=== PATIENT | female | born 1955 | race Caucasian/White ===

== ENCOUNTER → 2019-12-26 08:10 | Outpatient (BNVA) | payer MEDICARE, SELFPAY | PROVIDERS: PCP Nurse Practitioner Family; Referring Provider Nurse Practitioner Family; Visit Provider Specialist | DX: G25.0 Essential tremor (principal); Z87.891 Personal history of nicotine dependence | CPT/HCPCS: 99204; 99214 ==

== ENCOUNTER 2020-03-29 11:22 | Outpatient (CLI) | payer MEDICARE, SELFPAY ==
--- NOTE | 2020-03-29 11:32 | XR_ITS ---
WS: [id number] RIGHT FOOT: 3 VIEW(S) TECHNIQUE: AP, oblique and lateral. HISTORY: FOOT Pain, right COMPARISON: None available. No acute fracture or dislocation. Normal tarsal/metatarsal alignment. No soft tissue abnormality or bone destruction. XR/XR foot RT min 3V* [id number] IMPRESSION: Normal RIGHT foot.
== END 2020-03-29 11:23 | disposition home or self-care (01) ==
LOC: RADWPI 11:25
PROVIDERS: PCP Nurse Practitioner Family; Visit Provider Nurse Practitioner Family
DX: M79.671 Pain in right foot (principal)
CPT/HCPCS: 73630

== ENCOUNTER → 2020-05-21 09:58 | Outpatient (BNVA) | payer MEDICARE, MEDICAID, SELFPAY | PROVIDERS: PCP Nurse Practitioner Family; Visit Provider Specialist | DX: G25.0 Essential tremor (principal) | CPT/HCPCS: 99213 ==

== ENCOUNTER 2020-06-11 12:49 | Outpatient (CLI) | payer MEDICARE, MEDICAID, SELFPAY ==
--- NOTE | 2020-06-11 12:55 | XR_ITS ---
WS: [id number] KNEE LEFT TECHNIQUE: 2 views of the left knee CLINICAL INFORMATION: KNEE PAIN, BILATERAL COMPARISON: None. FINDINGS: Moderate degenerative arthritis medial joint compartment. Hypertrophic changes along the joint line. Soft tissue edema. Moderate suprapatellar effusion. Hypertrophic patella. XR/XR knee LT 1-2V [id number] IMPRESSION: 1. Moderate degenerative arthritis medial joint compartment with hypertrophic patella. 2. Moderate suprapatellar effusion with soft tissue edema.
--- NOTE | 2020-06-11 12:55 | XR_ITS ---
WS: [id number] KNEE RIGHT TECHNIQUE: 2 views of the right knee CLINICAL INFORMATION: KNEE PAIN, BILATERAL COMPARISON: None. FINDINGS: Moderate degenerative arthritis medial joint compartment with hypertrophic changes along the joint li ne. Hypertrophic patella. Soft tissue edema. Moderate suprapatellar effusion. XR/XR knee RT 1-2V [id number] IMPRESSION: 1. Moderate joint space narrowing medial joint compartment with hypertrophic c hanges along the joint line. 2. Moderate suprapatellar effusion.
== END 2020-06-11 12:50 | disposition home or self-care (01) ==
LOC: RADWPI 12:53
PROVIDERS: Family Provider Nurse Practitioner Family; PCP Nurse Practitioner Family; Visit Provider Nurse Practitioner Family
DX: M17.12 Unilateral primary osteoarthritis, left knee; M25.462 Effusion, left knee; M25.461 Effusion, right knee
CPT/HCPCS: 73560

== ENCOUNTER 2020-09-17 09:39 | Outpatient (CLI) | payer MEDICARE, MEDICAID, SELFPAY ==
--- NOTE | 2020-09-17 09:55 | MM_ITS ---
WS: [id number] Bilateral screening digital mammogram, 09/17/2020 Clinical Data: SCREENING Comparison: 07/04/2019, 01/15/2016, 04/03/2014, 02/20/2008. Findings: The breast parenchymal pattern shows fat replacement. No spiculated masses or clustered calcification s are seen. There are no secondary signs of carcinoma. There is a mole marker on the right breast. MM/[place] [id number] Impression: 1. Negative bilateral mammogram unchanged. 2. Recommend annual screening mammograms. BIRADS: 1-Negative FOLLOW UP: 1 Year Follow-up The CAD cashier checker was used.
== END 2020-09-17 09:40 | disposition home or self-care (01) ==
LOC: RADSHAW 09:47
PROVIDERS: PCP Nurse Practitioner Family; Visit Provider Nurse Practitioner Family
DX: Z12.31 Encounter for screening mammogram for malignant neoplasm of breast (principal)
CPT/HCPCS: 77067

== ENCOUNTER → 2020-11-27 08:54 | Outpatient (BNVA) | payer MEDICARE, MEDICAID, SELFPAY | PROVIDERS: PCP Nurse Practitioner Family; Visit Provider Specialist | DX: G25.0 Essential tremor (principal); Q16.9 Congenital malformation of ear causing impairment of hearing, unspecified; Z87.891 Personal history of nicotine dependence | CPT/HCPCS: 99213 ==

== ENCOUNTER 2021-04-02 09:13 | Outpatient (CLI) | payer MEDICARE, MEDICAID, SELFPAY ==
--- NOTE | 2021-04-02 09:51 | XR_ITS ---
WS: [id number] Exam: XR skull min 4V* [id number] Date/Time of Exam: 04/02/2021 10:07 AM Reason For Exam: W19.XXXA - Unspecified fall, initial encounter No acute skull fracture. No osteolytic or osteoblastic disease noted. The sella turcica is not enlarg ed or eroded. A small ossified density is seen along the left frontoparietal outer table region most likely represents an osteoma. It has a benign appearance. XR/XR skull min 4V* [id number] IMPRESSION: 1. No indication of acute skull fracture or other significant finding.
--- NOTE | 2021-04-02 09:51 | XR_ITS ---
WS: [id number] Exam: XR elbow RT min 3V* [id number] Date/Time of Exam: 04/02/2021 10:07 AM Reason For Exam: W19.XXXA - Unspecified fall, initial encounter Findings: There are no fractures, soft tissue swelling, or calcifications. The elbow shows normal bony alignme nt. There is no irregularity of the bony architecture. XR/XR elbow RT min 3V* [id number] IMPRESSION: Negative right elbow.
--- NOTE | 2021-04-02 09:51 | XR_ITS ---
WS: [id number] Exam: XR knee RT 3V* [id number] Date/Time of Exam: 04/02/2021 10:07 AM Reason For Exam: W19.XXXA - Unspecified fall, initial encounter Comparison 06/11/2020. No acute fracture or dislocation. Small effusion in suprapatellar bursa. Advanced tricompartmental DJ D most severe involving the medial joint compartment with [id number]. Calcified loose joint bodies. Spurring of the posterior patella. Genu varum: XR/XR knee RT 3V* [id number] IMPRESSION: 1. No fracture or dislocation. 2. Advanced tricompartmental DJD. Small joint effusion.
== END 2021-04-02 09:14 | disposition home or self-care (01) ==
LOC: RAD 09:17
PROVIDERS: PCP Nurse Practitioner Family; Visit Provider Specialist
DX: S59.901A Unspecified injury of right elbow, initial encounter (principal); S09.90XA Unspecified injury of head, initial encounter; W19.XXXA Unspecified fall, initial encounter; M25.461 Effusion, right knee; M17.11 Unilateral primary osteoarthritis, right knee
CPT/HCPCS: 70260; 73080; 73562

== ENCOUNTER 2021-06-05 13:12 | Outpatient (CLI) | payer MEDICARE, MEDICAID, SELFPAY ==
--- NOTE | 2021-06-05 13:45 | MR_ITS ---
WS: [id number] MRI HEAD WITH CONTRAST WITH ATTENTION TO THE INTERNAL AUDITORY CANALS TECHNIQUE: Sagittal T1, T2 axial, T2 axial flair, axial susceptibility weighted imaging, axial diffus ion weighted images, and coronal T2 images were obtained. Pre and post T1 axial and post T1 coronal i mages. ADC and FSPGR images. Post gadolinium images with attention to the internal auditory canals. A xial fiesta imaging. CLINICAL INFORMATION: BILATERAL SENSORINEURAL HEARING LOSS COMPARISON: None. FINDINGS: No evidence of restricted diffusion to suggest acute ischemia. Ventricular system and basal cisterns are patent. Mild small vessel changes. Moderate parenchymal volume loss. Normal posterior fossa. Norm al vascular flow voids at the skull base. No extra-axial fluid collections. Partial opacification of the left mastoid air cells. Right mastoid air cells well aerated. Paranasal sinuses are well aerated. No hemosiderin on the susceptibly weighted images. Proximal 7th and 8th cranial nerves are normal in appearance. Normal trigeminal nerve root entry zones. No evidence of enhancing IAC or CP angle mass. Normal optic chiasm and pituitary infundibulum. Normal sella. Normal dural venous sinuses. No abnorma l intracranial enhancement. Small T2 hyperintense lesion along the inferior fourth ventricle at the dorsal medulla along the fora men of [place]. This measures approximately 5 x 4 mm. No abnormal gadolinium enhancement. 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 No evidence of obstructive hydrocephalus. MR/MR iac's wo/w con* [id number] IMPRESSION: 1. No evidence of restricted diffusion to suggest acute ischemia. 2. Mild small vessel changes with moderate parenchymal volume loss. 3. Proximal 7th and 8th cranial nerves are normal in appearance. No evidence o f enhancing IAC or CP angle mass. Normal trigeminal nerve root entry zones. 4. Partial opacification of the left mastoid air cells. Right mastoid air cell s well aerated. 5. Nonenhancing T2 hyperintense lesion measuring 5 x 3 mm along the dorsal med carmelo at the fourth ventricular outflow tract, foramen of [place]ie. This is typi steven for small subependymoma. No hydrocephalus. Recommend interval 6 month follo w-up MRI without and with gadolinium enhancement and neurosurgery consultation. 6. No other significant findings.
[2021-06-05 14:04] LABS: Blood Urea Nitrogen 23 mg/dL (8-23); Glomerular Filtration Rate 83.7 mL/min (90-130)
[2021-06-05] MEDS: gadobenate dimeglumine 20 mL vial IV (14:58)
== END 2021-06-05 13:13 | disposition home or self-care (01) ==
LOC: RADSHAW 13:18
PROVIDERS: PCP Nurse Practitioner Family; Visit Provider Specialist
DX: H90.3 Sensorineural hearing loss, bilateral (principal)
CPT/HCPCS: 36415; 70553; 82565; 84520; A9577

== ENCOUNTER 2021-06-05 18:17 | Emergency (ER) | payer MEDICARE, MEDICAID, SELFPAY ==
[2021-06-05 18:33] VITALS: BP 165/103; PULSE 73; RESP 16; TEMP 36.9; O2SAT 95; BMI 46.2
--- NOTE | 2021-06-05 23:38 | W.ED.ANIMALB ---
HPI - Animal Bite General: Chief Complaint: Animal Bite Stated Complaint: facial lacerations due to dog Time Seen by Provider: 06/05/21 23:34 Source: patient Mode of arrival: ambulatory Limitations: no limitations History of Present Illness: HPI narrative: 66-year-old female states that family dog is have cancer and actually plan to put down tomorrow. She states that she is in a lot of pain and she bent down to pet the dog and the dog bit her in the face they believe due to the dog's chronic pain. Patient has puncture wounds to the face no large lacerations. She rates her pain a 3 out of 10. Her tetanus was over 5 years ago. Associated symptoms: Deny chills, fever(s) or headache(s) Review of Systems Const: Denies: fever(s), chills, body aches or change in appetite Eyes: Denies: blurry vision or eye discomfort ENMT: Denies: throat pain or dental pain Card: Denies: chest pain Resp: Denies: dyspnea GI: Denies: abdominal pain, nausea, vomiting or diarrhea : Denies: dysuria Musc: Denies: neck pain or back pain Skin/Breast: Denies: rash Neuro: Denies: headache(s) Psych: Denies: depression Devin/Lymph: Denies: easy bruising All/Imm: Denies: urticaria PFSH ED PFSH: Social History Smoking and tobacco status: former smoker Quit status (tobacco): has quit using tobacco Year quit tobacco: 2014 Former quit date comment: 1 pack per day for 48 years Second hand smoke exposure: No Alcohol intake: never Lives independently: Yes Pets and animals: Yes Pets & animals: cat(s) History of recent travel: No Current gender identity: Female Special roxanne needs: No Physical Exam Const: COMMON NORMALS: no acute distress, patient oriented x3 and healthy appearing HENMT: COMMON NORMALS: normocephalic HEAD & SCALP: normocephalic OTHER: Puncture wound to nose and face with no large lacerations Eye: COMMON NORMALS: Equal, round and reactive pupils present and EOMs intact bilaterally PUPIL: Yes Equal, round and reactive pupils present Neck/C-Spine: COMMON NORMALS: full ROM and supple Chest: COMMONS NORMALS: normal inspection of the chest and normal palpation of entire chest wall Resp: COMMON NORMALS: normal respiratory effort, No retractions, No use of accessory muscles and clear to auscultation bilaterally AUSCULTATION: clear to auscultation bilaterally Cardio: COMMON NORMALS: regular rate, regular rhythm and No murmurs present (Cardio) RATE: regular rate RHYTHM: regular rhythm GI: COMMON NORMALS: Normal to inspection, nondistended, normoactive bowel sounds present, Soft to palpation, non-tender and no masses PALPATION: Yes Soft to palpation Extremity: COMMON NORMALS: normal to inspection and full ROM Neuro: COMMON NORMALS: patient oriented x3, moves all extremities and no focal motor deficits Psych: COMMON NORMALS: mental status grossly normal, Normal thought process present and cooperative THOUGHT PROCESS: Normal thought process present Skin: COMMON NORMALS: no rashes or lesions noted and no wounds GENERAL SKIN EXAM: no rashes or lesions noted Course Vital Signs: Vital signs: Vital Signs Temperature 98.5 F 06/05/21 18:33 Pulse Rate 73 06/05/21 18:33 Respiratory Rate 16 06/05/21 18:33 Blood Pressure 165/103 06/05/21 18:33 Pulse Oximetry 95 06/05/21 18:33 MDM - Animal Bite MDM Narrative: Medical decision making narrative: Patient presents here with dog bite to the face. She is not require any sutures. Dog is in possession and will be put down. Patient placed on Augmentin and did update her tetanus here. Discharge Plan Discharge Patient Disposition: Home Clinical Impression: Dog bite Condition: Stable Prescriptions: New hydrocodone-acetaminophen 5-325 mg tablet 1 tab PO Q6H PRN (Reason: pain) Qty: 14 RF: 0 Augmentin 875-125 mg tablet 1 tab PO BID Qty: 14 RF: 0 No Action diclofenac potassium 25 mg capsule 25 mg PO TID RF: 0 primidone 50 mg tablet See Rx Instructions .ROUTE BID Qty: 120 RF: 11 fluticasone propionate 50 mcg/actuation spray,suspension 2 spray INTRANASAL DAILY RF: 0 benzonatate 100 mg capsule 100 mg PO Q8H PRNRF: 0 gabapentin 100 mg capsule 100 mg PO TID RF: 0 metformin 500 mg tablet 500 mg PO BID RF: 0 levothyroxine 112 mcg capsule 112 mcg PO DAILY RF: 0 losartan 100 mg tablet 100 mg PO DAILY RF: 0 divalproex 250 mg tablet,delayed release (DR/EC) 250 mg PO ONCE RF: 0 escitalopram oxalate 10 mg tablet 10 mg PO DAILY RF: 0 bupropion HCl 150 mg tablet extended release 24 hr 300 mg PO QAM RF: 0 atorvastatin 20 mg tablet 20 mg PO DAILY RF: 0 Stiolto Respimat 2.5-2.5 mcg/actuation mist 2 puff INHALATION DAILY RF: 0 Discharge Orders: Discharge ED (Routine); Ordered 06/05/21 Ordered By: Heaven Ellison Referrals: Piero Pelaez NP [Primary Care Provider] - 1-3 days Discharge Diet: Advance as tolerated Discharge Activity: Resume usual activity Patient Instructions: Animal Bite (ED), Opioid Safety Coding Level of Care Code ED Teaching Supervisor for Ursula Grewal
[2021-06-06] MEDS: tetanus-dipt-pertussis 0.5 mL SDV IM (00:47)
[2021-06-06] MEDS: HYDROcodone-acetaminophen 5-325 mg Tablet 1 TAB PO (00:47)
[2021-06-06 01:13] VITALS: BP 140/86; PULSE 86; RESP 16; TEMP 36.6; O2SAT 98
== END 2021-06-06 01:19 | disposition home or self-care (01) ==
PROVIDERS: Emergency Provider Emergency Medicine; PCP Nurse Practitioner Family
DX: S01.23XA Puncture wound without foreign body of nose, initial encounter (principal); S01.83XA Puncture wound without foreign body of other part of head, initial encounter; Z87.891 Personal history of nicotine dependence; W54.0XXA Bitten by dog, initial encounter
CPT/HCPCS: 90471; 90715; 99283

== ENCOUNTER 2021-07-19 21:15 | Emergency (ER) | payer MEDICARE, MEDICAID, SELFPAY ==
[2021-07-19 21:26] VITALS: BP 139/85; PULSE 76; RESP 16; TEMP 37; O2SAT 98
--- NOTE | 2021-07-20 01:03 | W.ED.GENADLT ---
HPI - General Adult General: Chief complaint: General Medical Stated complaint: COVID+; bloody stool Time Seen by Provider: 07/20/21 01:02 History of Present Illness: HPI narrative: Ms. Wilson is a 66-year-old lady with significant past medical history of diabetes and recent diagnosis of Covid who presents the emergency department due to blood in stool. She reports a known history of hemorrhoids with rare episodes of bleeding in the past however earlier today noted that she had blood that filled the toilet bowl and she had clots when she wiped. There was no distinct discomfort associated with this bowel movement and she has not had abdominal pain. No infectious symptoms. She does report increased stool frequency with Covid. No lightheadedness, worsening chest pain, shortness of breath, or any other signs of hypovolemia. There are no specific exacerbating, alleviating, or provoking factors that she identifies. Review of Systems General: Reports: 10 or more systems reviewed and unremarkable except in HPI and below Narrative: CONSTITUTIONAL: Positive for fever, fatigue. EYES - denies pain, denies loss of vision EARS - denies ear issues. NOSE - denies congestion or rhinorrhea. THROAT - denies sore throat or difficulty swallowing. CARDIOVASCULAR - denies chest pain and palpitations RESPIRATORY -positive for shortness of breath and cough GASTROINTESTINAL -see HPI GENITOURINARY - denies dysuria or urinary frequency MUSCULOSKELETAL- denies deformity or pain SKIN - denies rashes or new changed skin lesions NEUROLOGIC - denies focal weakness or sensory changes HEMATOLOGIC/LYMPHATIC - denies easy bruising or lymphadenopathy. FORMERLY [facility], [facility]1983 ED PFSH: Social History Smoking and tobacco status: former smoker Quit status (tobacco): has quit using tobacco Year quit tobacco: 2014 Former quit date comment: 1 pack per day for 48 years Second hand smoke exposure: No Alcohol intake: never Lives independently: Yes Pets and animals: Yes Pets & animals: cat(s) History of recent travel: No Current gender identity: Female Special roxanne needs: No Physical Exam Narrative: EXAM NARRATIVE: GENERAL/CONSTITUTIONAL - well-appearing. No acute distress. Eyes - PERRL, no conjunctival injection ENMT - Atraumatic external nose and ears. Moist mucous membranes NECK - supple. trachea midline CARDIOVASCULAR - regular rate and rhythm. Peripheral pulses 2+ and equal RESPIRATORY -clear to auscultation bilaterally. No retractions or accessory muscle use. ABDOMEN/GI - Nontender/Nondistended. No tenderness to percussion or evidence of peritonitis RECTAL -performed with manager domestic present. Internal and external hemorrhoids appreciated, mild irritation. With rectal exam there is mild amount of red streaking appreciated on glove which may be secondary to hemorrhoid bleeding as opposed to true melena MSK - Extremities without obvious deformity or tenderness to palpation SKIN - Warm, Dry NEURO - alert and appropriately oriented. strength and sensation intact. Moves all extremities equally. PSYCH - Appropriate mood and affect Course ED course: - Patient was seen and evaluated by me at bedside - Patient placed on cardiac monitors, IV access obtained - Initial evaluation notable for no acute distress, nontoxic appearance. Benign abdominal exam - Labs notable for stable hemoglobin - Upon serial reexamination the patient was similar without vital sign abnormalities - Based on patient history, evaluation, labs, and imaging as interpreted the most likely cause of the patient's condition is GI bleeding likely secondary to hemorrhoids. In the context of benign abdominal exam, colonoscopy approximately 1 year ago, and absence of specific new infectious symptoms other etiologies are felt to be less likely - The results of ED evaluation were discussed with the patient including prescriptions and/or symptomatic cares (if applicable) including appropriate and responsible use, followup plan, and return precautions. The patient verbalized understanding and felt safe for discharge. - Patient discharged in satisfactory condition. Vital Signs: Vital signs: Vital Signs Temperature 98.6 F 07/19/21 21:26 Pulse Rate 85 07/20/21 03:55 Respiratory Rate 20 H 07/20/21 01:25 Blood Pressure 150/87 07/20/21 03:55 Pulse Oximetry 93 07/20/21 03:55 [facility] - General Adult Medical Records: Attestation: I reviewed the patient's medical records. Lab Data: Attestation: I reviewed the patient's lab results. Labs: Lab Results 07/20/21 07/20/21 07/20/21 Range/Units 01:46 01:46 02:10 WBC 7.4 (4.0-10.0) 10^3/ uL RBC 4.17 (4.1-5.3) 10^6/u L Hgb 12.8 (11.5-15.3) g/dL Hct 40.7 (37.0-47.0) % MCV 97.6 (81-99) fl MCH 30.7 (28.0-34.0) pg MCHC 31.4 (30.0-36.0) g/dL RDW 15.2 H (12.1-15.1) % Plt Count 210 (130-400) 10^3/c mm MPV 10.0 (7.4-10.4) fL Neut % (Auto) 64.6 % Lymph % (Auto) 21.9 % [place] % (Auto) 10.9 % Eos % (Auto) 1.5 % Baso % (Auto) 0.4 % Neut # (Auto) 4.80 (1.8-7.7) 10^3/u L Lymph # (Auto) 1.6 (0.8-4.8) 10^3/u L [place] # (Auto) 0.8 (0.2-0.9) 10^3/u L Eos # (Auto) 0.1 (0.0-0.8) 10^3/u L Baso # (Auto) 0.0 (0.0-0.1) 10^3/u L Nucleated RBC % (a uto) 0 % Nucleated RBCs # 0.0 /100WBC PT 12.70 (12.1-14.9) SECO NDS INR 0.93 (0.8-1.2) Sodium 140 (136-145) mmol/L Potassium 3.9 (3.5-5.1) mmol/L Chloride 98 (98-107) mmol/L Carbon Dioxide 31 H (22-29) mmol/L Anion Gap 14.9 (5-19) BUN 15 (8-23) mg/dL Creatinine 0.7 (0.5-0.9) mg/dL GFR Calculation 83.7 L (90-130) mL/min Glucose 112 (65-115) mg/dL Calculated Osmolal ity 292 (285-295) mOsm/k g Calcium 8.7 (8.5-10.5) mg/dL Total Bilirubin 0.2 (0.15-1.2) mg/dL AST 103 H (0-32) U/L ALT 158 H (0-33) U/L Alkaline Phosphata se 78 (35-105) IU/L Total Protein 6.5 L (6.6-8.7) g/dL Albumin 3.9 (3.5-5.2) g/dL Globulin 2.6 (1.3-4.6) g/dL Discharge Plan Discharge Patient Disposition: Home Clinical Impression: Bleeding hemorrhoids Condition: Stable Prescriptions: No Action diclofenac potassium 25 mg capsule 25 mg PO TID RF: 0 primidone 50 mg tablet See Rx Instructions .ROUTE BID Qty: 120 RF: 11 fluticasone propionate 50 mcg/actuation spray,suspension 2 spray INTRANASAL DAILY RF: 0 benzonatate 100 mg capsule 100 mg PO Q8H PRNRF: 0 gabapentin 100 mg capsule 100 mg PO TID RF: 0 metformin 500 mg tablet 500 mg PO BID RF: 0 levothyroxine 112 mcg capsule 112 mcg PO DAILY RF: 0 losartan 100 mg tablet 100 mg PO DAILY RF: 0 divalproex 250 mg tablet,delayed release (DR/EC) 250 mg PO ONCE RF: 0 escitalopram oxalate 10 mg tablet 10 mg PO DAILY RF: 0 bupropion HCl 150 mg tablet extended release 24 hr 300 mg PO QAM RF: 0 atorvastatin 20 mg tablet 20 mg PO DAILY RF: 0 Stiolto Respimat 2.5-2.5 mcg/actuation mist 2 puff INHALATION DAILY RF: 0 hydrocodone-acetaminophen 5-325 mg tablet 1 tab PO Q6H PRN (Reason: pain) Qty: 14 RF: 0 Augmentin 875-125 mg tablet 1 tab PO BID Qty: 14 RF: 0 Discharge Orders: Discharge ED (Routine); Ordered 07/20/21 Ordered By: Don Pena Referrals: Piero Pelaez NP [Primary Care Provider] - Discharge Diet: Usual diet Discharge Activity: Resume usual activity Patient Instructions: Rectal Bleeding (ED) Activity Restrictions/Additional Instructions: Thank you for visiting the emergency department. You were seen and evaluated for blood in stool. The exact cause of your symptoms is unclear though likely related to bleeding hemorrhoids. Please follow-up with your primary care provider. We recommend repeat blood work in 1 week, you were noted to have mild elevation in liver enzymes. Please return to the emergency department for lightheadedness, syncope, chest pain, shortness of breath, or anything else that you are concerned about and feel needs emergency department evaluation. Coding Level of Care Code ED Magneto Specialist for Ursula Grewal
[2021-07-20 01:25] VITALS: BP 125/94; PULSE 75; RESP 20; O2SAT 98
[2021-07-20 01:55] LABS: Basophils % 0.4 %; Eosinophils # 0.1 10^3/uL (0.0-0.8); Eosinophils % 1.5 %; Hematocrit 40.7 % (37.0-47.0); Hemoglobin 12.8 g/dL (11.5-15.3); Lymphocytes # 1.6 10^3/uL (0.8-4.8); Lymphocytes % 21.9 %; Mean Corpuscular HGB Conc 31.4 g/dL (30.0-36.0); Mean Corpuscular Hemoglobin 30.7 pg (28.0-34.0); Mean Corpuscular Volume 97.6 fl (81-99); Monocytes # 0.8 10^3/uL (0.2-0.9); Monocytes % 10.9 %; Neutrophils % 64.6 %; Nucleated Red Blood Cells % 0 %; Platelet Count 210 10^3/cmm (130-400); Red Blood Count 4.17 10^6/uL (4.1-5.3); Red Cell Distribution Width 15.2 % (12.1-15.1); White Blood Count 7.4 10^3/uL (4.0-10.0)
[2021-07-20 02:15] LABS: Alanine Aminotransferase 158 U/L (0-33); Albumin Level 3.9 g/dL (3.5-5.2); Alkaline Phosphatase 78 IU/L (35-105); Anion Gap 14.9 (5-19); Aspartate Amino Transferase 103 U/L (0-32); Blood Urea Nitrogen 15 mg/dL (8-23); Calcium 8.7 mg/dL (8.5-10.5); Carbon Dioxide 31 mmol/L (22-29); Chloride 98 mmol/L (98-107); Globulin 2.6 g/dL (1.3-4.6); Glomerular Filtration Rate 83.7 mL/min (90-130); Glucose 112 mg/dL (65-115); Osmolality Calculated 292 mOsm/kg (285-295); Potassium 3.9 mmol/L (3.5-5.1); Sodium 140 mmol/L (136-145); Total Bilirubin 0.2 mg/dL (0.15-1.2); Total Protein 6.5 g/dL (6.6-8.7)
[2021-07-20 02:25] LABS: INR 0.93 (0.8-1.2)
[2021-07-20 03:47] VITALS: BP 150/87; PULSE 85; O2SAT 91
[2021-07-20 03:55] VITALS: BP 150/87; PULSE 85; O2SAT 93
== END 2021-07-20 03:51 | disposition home or self-care (01) ==
PROVIDERS: Nurse Practitioner Family; Emergency Provider Emergency Medicine; PCP Nurse Practitioner Family
DX: K64.9 Unspecified hemorrhoids (principal); Z87.891 Personal history of nicotine dependence
CPT/HCPCS: 80053; 85025; 85610; 99283

== ENCOUNTER 2021-07-22 07:17 | Outpatient (CLI) | payer MEDICARE, MEDICAID, SELFPAY ==
[2021-07-22 07:50] VITALS: BP 121/66; PULSE 80; RESP 18; TEMP 36.9; O2SAT 95; BMI 46.0
[2021-07-22 08:19] VITALS: BP 99/60; PULSE 77; RESP 16; TEMP 37.1; O2SAT 91
[2021-07-22 09:19] VITALS: BP 109/76; PULSE 81; RESP 16; TEMP 36.9
[2021-07-22 09:20] VITALS: BP 109/76; PULSE 95; RESP 16; TEMP 37.1; O2SAT 95
== END 2021-07-22 09:21 | disposition home or self-care (01) ==
LOC: OPS 07:19
PROVIDERS: PCP Nurse Practitioner Family; Visit Provider Nurse Practitioner Family
DX: U07.1 COVID-19 (principal)
CPT/HCPCS: 96365

== ENCOUNTER 2021-07-22 15:21 | Inpatient (IN) | payer MEDICARE, MEDICAID, SELFPAY ==
[2021-07-22] VITALS (8 sets, daily range): BP systolic 115–156; BP diastolic 64–102; PULSE 83–112; RESP 17–28; TEMP 37.1–39.4; O2SAT 91–98; BMI 46.0
--- NOTE | 2021-07-22 15:31 | XR_ITS ---
WS: [id number] XR chest 1V portable [id number] REASON FOR EXAM: COVID dyspnea FINDINGS: Moderate tortuosity of the thoracic aorta without focal aneurysmal dilatation. The heart is mildly en larged. There is calcified granulomatous disease in both hemithoraces. Compared to previous examination 03/03/2019 there are somewhat subtle interstitial lung opacities in t he central lateral right lung field and left lung field. More prominent are interstitial opacities in the right lower lung. Bony thorax is intact. No other significant findings. XR/XR chest 1V portable [id number] IMPRESSION: Subtle interstitial opacities in both lungs but in view of the Covid history roscoe hurtado this represents early Covid pneumonitis.
--- NOTE | 2021-07-22 15:31 | ECG_ITS ---
[facility] Test Date: 2021-07-22 Pat Name: Ester Wilson Department: Room: Gender: Female Household Refrigeration Mechanic: : 1955 Requested By: Moises Hodge Order Number: [id number] Jose MD: Bharathi Vital M.D. Measurements Intervals [place] Rate: 100 P: 31 DE: 170 QRS: 11 QRSD: 90 T: 63 QT: 316 QTc: 408 Interpretive Statements SINUS TACHYCARDIA LOW QRS VOLTAGE IN PRECORDIAL LEADS [QRS DEFLECTION < 1.0 mV IN CHEST LEADS] POSSIBLE ANTERIOR MYOCARDIAL INFARCTION , PROBABLY OLD [30 ms Q WAVE IN V3/V4, OR R < 0.2 mV IN V4] ABNORMAL RHYTHM ECG No previous ECG available for comparison Electronically Signed On 07-22-2021 23:21:32 CDT by Bharathi Vital M.D. [email or web address]
--- NOTE | 2021-07-22 15:32 | CTR_ITS ---
PROCEDURE INFORMATION: Exam: CTA Chest With Contrast Exam date and time: 07/22/2021 3:32 PM Age: 66 years old Clinical indication: Cough and shortness of breath; Additional info: Covid/dyspnea TECHNIQUE: Imaging protocol: Computed tomographic angiography of the chest with contrast. 3D rendering (Not supervised by radiologist): MIP and/or 3D reconstructed images were created by the technologist. Radiation optimization: All CT scans at this facility use at least one of these dose optimization techniques: automated exposure control; mA and/or kV adjustment per patient size (includes targeted exams where dose is matched to clinical indication); or iterative reconstruction. Contrast material: OMNI 350; Contrast volume: 70 ml; Contrast route: INTRAVENOUS (IV); COMPARISON: CR XR chest 1V portable [id number] 07/22/2021 4:16 PM RADIATION DOSE METRICS: Total DLP (mGy-cm): 573.92 FINDINGS: Pulmonary arteries: Of note, there is suboptimal opacification of the pulmonary arteries and respiratory motion artifact. This limits evaluation of the segmental/subsegmental branches, no pulmonary embolism is seen centrally. Aorta: Unremarkable. No aortic aneurysm. No aortic dissection. Lungs: Patulous peripheral ground-glass consolidations throughout both lungs. Calcified granuloma in the right middle lobe. Pleural spaces: Unremarkable. No pneumothorax. No pleural effusion. Heart: Unremarkable. No cardiomegaly. No pericardial effusion. Lymph nodes: Unremarkable. No enlarged lymph nodes. Bones/joints: No acute fracture. Soft tissues: Unremarkable. CT/CT angio chest PE protcl [id number] IMPRESSION: 1. No evidence of pulmonary embolism within the limitation of the examination described above. 2. Patulous peripheral ground-glass opacities throughout the lungs consistent with COVID pneumonia. Radiation Dose CTDIVOL = (mGy): DLP = 573.92 (mGy-cm)
--- NOTE | 2021-07-22 15:33 | ED_ITS ---
HPI - COVID General: Chief Complaint: Shortness of Breath/Dyspnea Stated Complaint: COVID +/ REACTION TO INFUSION Time Seen by Provider: 07/22/21 15:23 History of Present Illness: HPI Narrative: 66-year-old female who started having Covid symptoms approximately 4 days ago tested +2 days ago and had monoclonal antibody infusion this morning. She did fine after the monoclonal antibody infusion this afternoon she suddenly became more short of breath started shaking her home oxygen was read and low 80s per the family. On arrival here she is on room air and is satting 84 to 86% although this improves with the addition of nasal cannula oxygen at 3 L/min. She is also having some mild chest discomfort. Initially she had some diarrhea with some anosmia that has resolved. She has not been on any other medications besides the monoclonal antibody. MD complaint: known COVID positive Prior testing date: 07/20/21 COVID 19 common symptoms: positive fever(s), chills, cough, non-productive cough, dyspnea, fatigue, body aches, headache(s), loss of sense of smell and/or taste, nasal congestion, nausea and diarrhea COVID 19 other sytmptoms: positive requiring oxygen; negative chest pain Onset (ago): day(s) (4) Severity: moderate Pertinent comorbid conditions: diabetes, hypertension, COPD/respiratory disease and obesity Treatment prior to arrival: monocloncal antibody COVID Results: No Data to Display Review of Systems Const: Reports: fever(s), chills, body aches and fatigue ENMT: Reports: nasal congestion Card: Denies: chest pain, edema, dyspnea on exertion or orthopnea Resp: Reports: dyspnea and non-productive cough GI: Reports: nausea and diarrhea : Denies: flank pain, difficulty voiding, dysuria, urinary frequency or urinary urgency Skin/Breast: Denies: rash or pruritus Neuro: Reports: headache(s) PFSH ED PFSH: Social History Smoking and tobacco status: former smoker Quit status (tobacco): has quit using tobacco Year quit tobacco: 2014 Former quit date comment: 1 pack per day for 48 years Second hand smoke exposure: No Alcohol intake: never Lives independently: Yes Pets and animals: Yes Pets & animals: cat(s) History of recent travel: No Current gender identity: Female Special roxanne needs: No Physical Exam Const: ORIENTATION/CONSCIOUSNESS: Yes oriented to person, Yes oriented to place and Yes oriented to time HENMT: COMMON NORMALS: normocephalic, atraumatic and hearing grossly normal bilaterally HEAD & SCALP: normocephalic and atraumatic Resp: AUSCULTATION: crackles and wheezes Cardio: COMMON NORMALS: regular rate, regular rhythm and No murmurs present (Cardio) RATE: regular rate RHYTHM: regular rhythm GI: COMMON NORMALS: Soft to palpation and No hepatosplenomegaly present AUSCULTATION: Yes normoactive bowel sounds PALPATION: Yes Soft to palpation, No Tenderness to palpation present (GI), No Guarding due to palpation present (GI) and Yes No hepatosplenomegaly present Extremity: COMMON NORMALS: normal to inspection, capillary refill normal, no c lubbing, cyanosis or edema, no calf tenderness and no pedal edema Neuro: SENSORIUM/ORIENTATION: Yes oriented to person, Yes oriented to place and Yes oriented to time Skin: COMMON NORMALS: no rashes or lesions noted GENERAL SKIN EXAM: no rashes or lesions noted Course Vital Signs: Vital signs: Vital Signs Temperature 102.9 F H 07/22/21 16:36 Pulse Rate 112 H 07/22/21 17:49 Respiratory Rate 27 H 07/22/21 17:49 Blood Pressure 147/79 07/22/21 17:49 Pulse Oximetry 94 07/22/21 17:49 MDM - COVID MDM Narrative: Medical decision making narrative: Labs and imaging reviewed on the chart. discussed with the hospitalist were going to admit for Covid pneumonia very concerned with her rapid deterioration this afternoon from this morning now requiring oxygen spiking a fever and having a very sudden distinct onset. Despite her D-dimer being low we are doing a CTA of the chest because of her presenting symptoms. Orders written. Lab Data: Labs: Lab Results 07/22/21 07/22/21 07/22/21 Range/Units 15:45 15:45 15:45 WBC 7.5 (4.0-10.0) 10^3/ uL RBC 4.31 (4.1-5.3) 10^6/u L Hgb 13.3 (11.5-15.3) g/dL Hct 40.1 (37.0-47.0) % MCV 93.0 (81-99) fl MCH 30.9 (28.0-34.0) pg MCHC 33.2 (30.0-36.0) g/dL RDW 15.5 H (12.1-15.1) % Plt Count 175 (130-400) 10^3/c mm MPV 9.8 (7.4-10.4) fL Neut % (Auto) 73.0 % Lymph % (Auto) 19.5 % [place] % (Auto) 6.4 % Eos % (Auto) 0.1 % Baso % (Auto) 0.3 % Neut # (Auto) 5.48 (1.8-7.7) 10^3/u L Lymph # (Auto) 1.5 (0.8-4.8) 10^3/u L [place] # (Auto) 0.5 (0.2-0.9) 10^3/u L Eos # (Auto) 0.0 (0.0-0.8) 10^3/u L Baso # (Auto) 0.0 (0.0-0.1) 10^3/u L Nucleated RBC % (a uto) 0 % Nucleated RBCs # 0.0 /100WBC D-Dimer 0.45 (0-0.59) ug/mIFE U Specimen Type Arterial Sample Site Radial, left ABG pH 7.46 H (7.35-7.45) ABG pCO2 37.8 (35-45) mmHg ABG pO2 76.2 L (80.0-100.0) mmH g ABG HCO3 27.1 H (22-26) mmol/L ABG Base Excess 3.2 H (-2.0-2.0) mmol/ L Eugenio Test Pos Hematocrit 40.8 (37-47) % O2 Delivery Device Nc O2 Liters/Min 3.0 % Slab Off Mill Tender ID [id number] Sodium (136-145) mmol/L Potassium (3.5-5.1) mmol/L Chloride (98-107) mmol/L Carbon Dioxide (22-29) mmol/L Anion Gap (5-19) BUN (8-23) mg/dL Creatinine (0.5-0.9) mg/dL GFR Calculation (90-130) mL/min Glucose (65-115) mg/dL Calculated Osmolal ity (285-295) mOsm/k g Lactic Acid (0.5-2.2) mmol/L Calcium (8.5-10.5) mg/dL Total Bilirubin (0.15-1.2) mg/dL AST (0-32) U/L ALT (0-33) U/L Alkaline Phosphata se (35-105) IU/L C-Reactive Protein (0.0-4.9) mg/L Total Protein (6.6-8.7) g/dL Albumin (3.5-5.2) g/dL Globulin (1.3-4.6) g/dL Procalcitonin (0-0.5) ng/mL 07/22/21 07/22/21 Range/Units 15:45 15:45 WBC (4.0-10.0) 10^3/ uL RBC (4.1-5.3) 10^6/u L Hgb (11.5-15.3) g/dL Hct (37.0-47.0) % MCV (81-99) fl MCH (28.0-34.0) pg MCHC (30.0-36.0) g/dL RDW (12.1-15.1) % Plt Count (130-400) 10^3/c mm MPV (7.4-10.4) fL Neut % (Auto) % Lymph % (Auto) % [place] % (Auto) % Eos % (Auto) % Baso % (Auto) % Neut # (Auto) (1.8-7.7) 10^3/u L Lymph # (Auto) (0.8-4.8) 10^3/u L [place] # (Auto) (0.2-0.9) 10^3/u L Eos # (Auto) (0.0-0.8) 10^3/u L Baso # (Auto) (0.0-0.1) 10^3/u L Nucleated RBC % (a uto) % Nucleated RBCs # /100WBC D-Dimer (0-0.59) ug/mIFE U Specimen Type Sample Site ABG pH (7.35-7.45) ABG pCO2 (35-45) mmHg ABG pO2 (80.0-100.0) mmH g ABG HCO3 (22-26) mmol/L ABG Base Excess (-2.0-2.0) mmol/ L Eugenio Test Hematocrit (37-47) % O2 Delivery Device O2 Liters/Min % Slab Off Mill Tender ID Sodium 138 (136-145) mmol/L Potassium 4.1 (3.5-5.1) mmol/L Chloride 95 L (98-107) mmol/L Carbon Dioxide 26 (22-29) mmol/L Anion Gap 21.1 H (5-19) BUN 15 (8-23) mg/dL Creatinine 0.7 (0.5-0.9) mg/dL GFR Calculation 83.7 L (90-130) mL/min Glucose 150 H (65-115) mg/dL Calculated Osmolal ity 290 (285-295) mOsm/k g Lactic Acid 3.1 H (0.5-2.2) mmol/L Calcium 9.1 (8.5-10.5) mg/dL Total Bilirubin 0.4 (0.15-1.2) mg/dL AST 83 H (0-32) U/L ALT 143 H (0-33) U/L Alkaline Phosphata se 77 (35-105) IU/L C-Reactive Protein 72.9 H (0.0-4.9) mg/L Total Protein 6.2 L (6.6-8.7) g/dL Albumin 3.9 (3.5-5.2) g/dL Globulin 2.3 (1.3-4.6) g/dL Procalcitonin 0.09 (0-0.5) ng/mL COVID Results: No Data to Display Discharge Plan Discharge Patient Disposition: Admitted As Inpatient Clinical Impression: COVID-19 Condition: Stable Coding Level of Care Code ED Internal Review And Audit Compliance for g Fwd Exam Detailed
[2021-07-22 15:55] LABS: ABG PCO2 37.8 mmHg (35-45); ABG PH Result 7.46 (7.35-7.45); Arterial Blood Gas Hematocrit 40.8 % (37-47); Base Excess ABG 3.2 mmol/L (-2.0-2.0); Blood Gas Allen Test Pos; Blood Gas Sample Site Radial, left; Blood Gas Sample Type Arterial; HCO3 ABG 27.1 mmol/L (22-26); Oxygen Device NC; PO2 ABG 76.2 mmHg (80.0-100.0)
[2021-07-22 16:03] LABS: Basophils % 0.3 %; Eosinophils % 0.1 %; Hematocrit 40.1 % (37.0-47.0); Hemoglobin 13.3 g/dL (11.5-15.3); Lymphocytes # 1.5 10^3/uL (0.8-4.8); Lymphocytes % 19.5 %; Mean Corpuscular HGB Conc 33.2 g/dL (30.0-36.0); Mean Corpuscular Hemoglobin 30.9 pg (28.0-34.0); Mean Platelet Volume 9.8 fL (7.4-10.4); Monocytes # 0.5 10^3/uL (0.2-0.9); Monocytes % 6.4 %; Neutrophils # 5.48 10^3/uL (1.8-7.7); Nucleated Red Blood Cells % 0 %; Platelet Count 175 10^3/cmm (130-400); Red Blood Count 4.31 10^6/uL (4.1-5.3); Red Cell Distribution Width 15.5 % (12.1-15.1); White Blood Count 7.5 10^3/uL (4.0-10.0)
[2021-07-22 16:20] LABS: D Dimer 0.45 ug/mIFEU (0-0.59)
[2021-07-22 16:26] LABS: Lactic Sepsis W/Reflex 3.1 mmol/L (0.5-2.2)
[2021-07-22 16:37] LABS: Procalcitonin 0.09 ng/mL (0-0.5)
[2021-07-22] MEDS: levofloxacin-dextrose 5 % 750 MG/150 ML PREMIX 100 MG IV (16:48)
[2021-07-22 16:52] LABS: Alanine Aminotransferase 143 U/L (0-33); Albumin Level 3.9 g/dL (3.5-5.2); Alkaline Phosphatase 77 IU/L (35-105); Blood Urea Nitrogen 15 mg/dL (8-23); C Reactive Protein 72.9 mg/L (0.0-4.9); Calcium 9.1 mg/dL (8.5-10.5); Carbon Dioxide 26 mmol/L (22-29); Chloride 95 mmol/L (98-107); Globulin 2.3 g/dL (1.3-4.6); Glomerular Filtration Rate 83.7 mL/min (90-130); Glucose 150 mg/dL (65-115); Osmolality Calculated 290 mOsm/kg (285-295); Sodium 138 mmol/L (136-145); Total Bilirubin 0.4 mg/dL (0.15-1.2); Total Protein 6.2 g/dL (6.6-8.7)
[2021-07-22 16:53] LABS: Anion Gap 21.1 (5-19); Aspartate Amino Transferase 83 U/L (0-32); Potassium 4.1 mmol/L (3.5-5.1)
[2021-07-22] MEDS: iohexol 350 mg/mL 100 mL Btl IV (17:24)
[2021-07-22] MEDS: dexamethasone 10 mg/mL INJ 6 MG IVP (17:31)
[2021-07-22] MEDS: remdesivir 200 MG in sodium chloride 0.9% (100 ml) 60 ML 100 MG IV (17:31)
[2021-07-22 17:47] LABS: Reflex Lactate Order REFLEX LACTIC ORDERD
[2021-07-22] MEDS: acetaminophen 500 mg Tablet 1000 MG PO (17:48)
--- NOTE | 2021-07-22 19:28 | P.HP_ITS ---
Providers/Chief Complaint Admitting Physician: Musa Chi MD Primary Care Provider: Piero Pelaez NP Chief Complaint: COVID +/ REACTION TO INFUSION History of Present Illness Ester Wilson is a 66 year old female with PMH of DM , HTN ,Obesity, COPD came in with c/o SOB as well as Fever.Patient was recently ( Wednesday ) diagnosed with breakthrough COVID -19 Infection after being fully vaccinated with J&J Vaccine. She had monoclonal antibody infusion this morning. She did fine after the monoclonal antibody infusion this afternoon she suddenly became more short of breath started shaking her home oxygen was read and low 80s per the family. On arrival here she is on room air and is satting 84 to 86% although this improves with the addition of nasal cannula oxygen at 3 L/min. Upon arrival in the ER She was worked up for above mention complain. Imaging studies: CTA Chest : No evidence of pulmonary embolism. Patulous peripheral ground-glass opacities throughout the lungs consistent with COVID pneumonia. Pertinent Labs : Review of Systems Const: Denies: change in appetite or diaphoresis Card: Denies: palpitations, edema or swelling of feet/ankles Resp: Denies: productive cough, wheezing or pain on inspiration GI: Denies: abdominal pain, nausea, vomiting, diarrhea or constipation : Denies: flank pain Musc: Denies: back pain, extremity pain or extremity swelling Neuro: Denies: headache(s), difficulty walking or confusion Medications/Allergies Home Medications Medication Instructions Recorded Confirmed Last Taken Type divalproex 250 mg tablet,delayed 250 mg PO DAILY tab 12/26/19 07/22/21 07/22/21 History release escitalopram oxalate 10 mg tablet 10 mg PO DAILY 12/26/19 07/22/21 07/22/21 History fluticasone propionate 50 2 spray INTRANASAL DAILY 12/26/19 07/22/21 07/22/21 History mcg/actuation nasal spray,suspension gabapentin 100 mg capsule 100 mg PO TID 12/26/19 07/22/21 07/22/21 History metformin 500 mg tablet 500 mg PO BID 12/26/19 07/22/21 07/22/21 History tiotropium 2.5 mcg-olodaterol 2.5 2 puff INHALATION DAILY 12/26/19 07/22/21 07/22/21 History mcg/actuation mist for inhalation diclofenac potassium 25 mg capsule 50 mg PO TID 11/27/20 07/22/21 07/22/21 History hydrocodone-acetaminophen 1 tab PO Q6H PRN #14 tab 06/05/21 07/22/21 Unknown Rx atorvastatin 40 mg PO DAILY 07/22/21 07/22/21 07/21/21 History bupropion HCl 100 mg PO BID 07/22/21 07/22/21 07/22/21 History ketoconazole 1 ea TOPICAL Q3D 07/22/21 07/22/21 Unknown History latanoprost 1 drp OPHTHALMIC (EYE) DAILY 07/22/21 07/22/21 07/22/21 History levothyroxine 88 mcg PO DAILY 07/22/21 07/22/21 07/22/21 History losartan-hydrochlorothiazide 1 tab PO DAILY 07/22/21 07/22/21 07/22/21 History multivitamin 1 tab PO DAILY 07/22/21 07/22/21 07/22/21 History primidone 50 mg PO BID 07/22/21 07/22/21 07/22/21 History Allergies Allergy/AdvReac Type Severity Reaction Status Date / Time azithromycin Allergy hives/ GI Verified 04/02/21 07:55 upset tramadol AdvReac hives Verified 04/02/21 07:55 PFSH Acute PFSH: Medical History (Updated 07/22/21 @ 23:26 by Musa Chi MD) Hypertension Social History Smoking and tobacco status: former smoker Quit status (tobacco): has quit using tobacco Year quit tobacco: 2014 Former quit date comment: 1 pack per day for 48 years Second hand smoke exposure: No Alcohol intake: never Lives independently: Yes Pets and animals: Yes Pets & animals: cat(s) History of recent travel: No Current gender identity: Female Special roxanne needs: No Vitals/I&O/Wt Last Vital Signs Temp 102.9 F H 07/22/21 16:36 Pulse 110 H 07/22/21 18:22 Resp 20 H 07/22/21 18:22 BP 124/82 07/22/21 18:22 Pulse Ox 93 07/22/21 18:22 07/22/21 07/22/21 07/22/21 06:59 14:59 22:59 Intake Total 210 / 210 Balance 210 / 210 Weight last 48 hrs Weight 125.645 kg Physical Exam Const: COMMON NORMALS: patient oriented x3 HENMT: COMMON NORMALS: normocephalic and atraumatic HEAD & SCALP: normoc ephalic and atraumatic Resp: COMMON NORMALS: clear to auscultation bilaterally AUSCULTATION: clear to auscultation bilaterally Cardio: COMMON NORMALS: regular rate, regular rhythm, S1 normal heart sound present, S2 normal heart sound present, No gallops present (Cardio), No murmurs present (Cardio), No rub (Cardio) and Peripheral pulses 2+ throughout RATE: regular rate RHYTHM: regular rhythm HEART SOUNDS: S1 normal heart sound present and S2 normal heart sound present PERIPHERAL PULSES: Peripheral pulses 2+ throughout GI: COMMON NORMALS: Normal to inspection, nondistended, normoactive bowel sounds present, Soft to palpation, non-tender, No hepatosplenomegaly present and no masses AUSCULTATION: Yes normoactive bowel sounds PALPATION: Yes Soft to palpation and Yes No hepatosplenomegaly present RECTAL EXAM: deferred Extremity: COMMON NORMALS: no clubbing, cyanosis or edema and no pedal edema Neuro: COMMON NORMALS: patient oriented x3 Data : 07/22/21 15:45 07/22/21 15:45 Micro: Microbiology 07/22/21 15:50 Blood Culture - Preliminary Blood SPECIMEN COLLECTED 07/22/21 15:45 Blood Culture - Preliminary Blood SPECIMEN COLLECTED A&P Assessment and plan (1) Pneumonia due to COVID-19 virus: On COVID Protocol Follow Blood Culture Sputum Culture Repeat Lactic acid Procalcitonin MRSA PCR Urine legionella antigen Bacterial Antigen panel Vancomycin Ceftriaxone Status: Acute (2) Hypertension: Status: Acute (3) Diabetes: Status: Acute (4) COPD (chronic obstructive pulmonary disease): Status: Acute Additional A&P Information Code Status :Full code DVT PPX:On Lovenox Attestations Medical Necessity Statement*: Patient needs to be in hospital for the management of COVID PNA.Anticipated LOS Greater then 2 midnights. Coding Level of Care Code Acute Deliver Driver for [facility] Fwd Diagnoses Pneumonia due to COVID-19 virus U07.1; J12.82 Hypertension I10 Diabetes E11.9 COPD (chronic obstructive pulmonary disease) J44.9
[2021-07-22 19:35] LABS: Glucose Point of Care 217 mg/dL (70-110)
[2021-07-22] MEDS: enoxaparin 40 mg/0.4 mL Syringe SUBCUT (20:12)
[2021-07-22] MEDS: gabapentin 100 mg Capsule PO (20:13)
[2021-07-22] MEDS: cefTRIAXone 1,000 MG in sodium chloride 0.9% (plus) 50 ML 100 MG IV (20:34)
--- NOTE | 2021-07-22 20:35 | PC.PHAR ---
Vancomycin is dosed at 1gm IVPB every 8 hours to produce a predicted trough level of 17.89 (population based pharmacokinetic analysis). A trough level has been ordered from the lab to be obtained before the fourth dose to confirm and adjust if needed.
[2021-07-22 20:54] LABS: Lactic Acid level (Lactate) 2.6 mmol/L (0.5-2.2)
[2021-07-22] MEDS: vancomycin 1,000 MG in sodium chloride 0.9% 250 ML 250 MG IV (22:22)
[2021-07-23] VITALS (8 sets, daily range): BP systolic 130–155; BP diastolic 57–92; PULSE 62–89; RESP 18–24; TEMP 36.7–37.1; O2SAT 84–96
[2021-07-23] MEDS: vancomycin 1,000 MG in sodium chloride 0.9% 250 ML 250 MG IV ×2 (05:28→12:33)
[2021-07-23 05:38] LABS: Basophils % 0.1 %; Hematocrit 37.5 % (37.0-47.0); Lymphocytes # 1.4 10^3/uL (0.8-4.8); Lymphocytes % 13.6 %; Mean Corpuscular Hemoglobin 30.7 pg (28.0-34.0); Mean Corpuscular Volume 95.9 fl (81-99); Mean Platelet Volume 10.2 fL (7.4-10.4); Monocytes # 0.8 10^3/uL (0.2-0.9); Monocytes % 7.3 %; Neutrophils # 8.17 10^3/uL (1.8-7.7); Neutrophils % 78.4 %; Nucleated Red Blood Cells % 0 %; Platelet Count 182 10^3/cmm (130-400); Red Blood Count 3.91 10^6/uL (4.1-5.3); Red Cell Distribution Width 15.3 % (12.1-15.1); White Blood Count 10.4 10^3/uL (4.0-10.0)
[2021-07-23 05:55] LABS: Lactate (Lactic Acid level) 1.4 mmol/L (0.5-2.2)
[2021-07-23 05:59] LABS: Alanine Aminotransferase 111 U/L (0-33); Albumin Level 3.3 g/dL (3.5-5.2); Alkaline Phosphatase 67 IU/L (35-105); Anion Gap 14.2 (5-19); Aspartate Amino Transferase 55 U/L (0-32); Blood Urea Nitrogen 17 mg/dL (8-23); Calcium 9.3 mg/dL (8.5-10.5); Carbon Dioxide 31 mmol/L (22-29); Chloride 96 mmol/L (98-107); Glucose 160 mg/dL (65-115); Osmolality Calculated 289 mOsm/kg (285-295); Potassium 4.2 mmol/L (3.5-5.1); Sodium 137 mmol/L (136-145); Total Bilirubin 0.2 mg/dL (0.15-1.2); Total Protein 6.3 g/dL (6.6-8.7)
[2021-07-23 06:45] LABS: Glucose Point of Care 179 mg/dL (70-110)
[2021-07-23 07:53] LABS: Glucose Point of Care 159 mg/dL (70-110)
[2021-07-23] MEDS: latanoprost 0.005% Op Soln 2.5 mL Btl 1 DROP EYE-BOTH (09:34)
[2021-07-23] MEDS: fluticasone nasal spray 16gm Btl 2 SPRAY INTRANASAL (09:35)
[2021-07-23] MEDS: levothyroxine 88 mcg Tablet PO (09:35)
[2021-07-23] MEDS: gabapentin 100 mg Capsule PO ×3 (09:35→20:35)
[2021-07-23] MEDS: divalproex DR 250 mg Tablet PO (09:35)
[2021-07-23] MEDS: multivitamin therapeutic Tablet 1 TAB PO (09:36)
[2021-07-23] MEDS: atorvastatin 40 mg Tablet PO (09:36)
[2021-07-23] MEDS: primidone 50 mg Tablet PO ×2 (09:36→17:52)
[2021-07-23] MEDS: buPROPion SR (12 HR) 100 mg Tablet PO ×2 (09:36→17:52)
[2021-07-23] MEDS: escitalopram 10 mg Tablet PO (09:36)
[2021-07-23] MEDS: ascorbic acid 500 mg Tablet 1000 MG PO ×2 (09:36→17:52)
[2021-07-23] MEDS: zinc gluconate 50 mg Tablet PO (09:36)
--- NOTE | 2021-07-23 09:57 | PC.RESP ---
RT Shift Note Frequent safety and respiratory rounds continue. Orders completed as indicated. Patient monitored pre and post treatments throughout shift. Patient [Did.] tolerate treatments appropriately. Condition .DidNotChange]. Patient and/or collections representative educated on respiratory treatment and medications. Patient and/or collections representative [verbalized understanding]. Will continue to monitor patient progress.
[2021-07-23 11:51] LABS: Glucose Point of Care 212 mg/dL (70-110)
--- NOTE | 2021-07-23 13:16 | P.PN_ITS ---
Subjective Subjective: Interval history: Patient was seen and examined this morning, shortness of breath is improved, complaining of minimal shortness of breath with exertion, has remained afebrile in the last 12 hours. Other vitals and labs have been reviewed Medications: Reviewed: Yes Vitals/I&O/Wt Last Vital Signs Temp 98.1 F 07/23/21 11:48 Pulse 77 07/23/21 11:48 Resp 20 H 07/23/21 11:48 BP 130/57 07/23/21 07:00 Pulse Ox 92 07/23/21 11:48 07/22/21 07/23/21 07/23/21 22:59 06:59 14:59 Intake Total 260 / 260 370 / 630 490 / 490 Balance 260 / 260 370 / 630 490 / 490 Weight last 48 hrs Weight 125.645 kg Weight 125.645 kg Physical Exam Const: COMMON NORMALS: patient oriented x3 HENMT: COMMON NORMALS: normocephalic and atraumatic HEAD & SCALP: normocephalic and atraumatic Resp: COMMON NORMALS: clear to auscultation bilaterally AUSCULTATION: clear to auscultation bilaterally Cardio: COMMON NORMALS: regular rate, regular rhythm, S1 normal heart sound present, S2 normal heart sound present, No gallops present (Cardio), No murmurs present (Cardio), No rub (Cardio) and Peripheral pulses 2+ throughout RATE: regular rate RHYTHM: regular rhythm HEART SOUNDS: S1 normal heart sound present and S2 normal heart sound present PERIPHERAL PULSES: Peripheral pulses 2+ throughout GI: COMMON NORMALS: Normal to inspection, nondistended, normoactive bowel sounds present, Soft to palpation, non-tender, No hepatosplenomegaly present and no masses AUSCULTATION: Yes normoactive bowel sounds PALPATION: Yes Soft to palpation and Yes No hepatosplenomegaly present RECTAL EXAM: deferred Extremity: COMMON NORMALS: no clubbing, cyanosis or edema and no pedal edema Neuro: COMMON NORMALS: patient oriented x3 Data : 07/23/21 05:29 07/23/21 05:29 Micro: Microbiology 07/22/21 15:50 Blood Culture - Preliminary Blood SPECIMEN COLLECTED 07/22/21 15:45 Blood Culture - Preliminary Blood SPECIMEN COLLECTED A&P Assessment and plan (1) Pneumonia due to COVID-19 virus: On COVID Protocol (remdesivir, dexamethasone) D-dimer CRP LDH Ferritin ESR Blood Culture :NTD Sputum Culture : Repeat Lactic acid :Normal Procalcitonin : 0.09 MRSA PCR : Negative Urine legionella antigen Bacterial Antigen panel Initially on Vancomycin Ceftriaxone 1 g every 24 hours Status: Acute (2) Hypertension: Status: Acute (3) Diabetes: Low-dose sliding scale insulin Monitor fingerstick glucose Carbohydrate consistent diet Status: Acute (4) COPD (chronic obstructive pulmonary disease): Status: Acute (5) Hypothyroidism: Status: Acute Additional A&P Information Code Status :Full code DVT PPX:On Lovenox Attestations Medical Necessity Statement*: Patient needs to be in hospital for management of Covid pneumonia. Coding Level of Care Code Acute Network Operations Technician for [facility] Fwd Diagnoses Pneumonia due to COVID-19 virus U07.1; J12.82 Hypertension I10 Diabetes E11.9 COPD (chronic obstructive pulmonary disease) J44.9 Hypothyroidism E03.9
[2021-07-23 17:47] LABS: Glucose Point of Care 163 mg/dL (70-110)
[2021-07-23] MEDS: remdesivir 100 MG in sodium chloride 0.9% (100 ml) 80 ML IV (17:51)
[2021-07-23] MEDS: enoxaparin 40 mg/0.4 mL Syringe SUBCUT (18:28)
[2021-07-23] MEDS: cefTRIAXone 1,000 MG in sodium chloride 0.9% (plus) 50 ML 100 MG IV (18:28)
[2021-07-23] MEDS: dexamethasone 4 mg/mL INJ 6 MG IVP (18:28)
[2021-07-23 21:49] LABS: Glucose Point of Care 190 mg/dL (70-110)
[2021-07-24] VITALS (7 sets, daily range): BP systolic 154–180; BP diastolic 70–93; PULSE 61–88; RESP 16–20; TEMP 36.6–37.4; O2SAT 90–98
[2021-07-24 05:27] LABS: Basophils % 0.1 %; Hematocrit 37.3 % (37.0-47.0); Lymphocytes # 1.1 10^3/uL (0.8-4.8); Lymphocytes % 16.1 %; Mean Corpuscular HGB Conc 32.2 g/dL (30.0-36.0); Mean Corpuscular Hemoglobin 30.6 pg (28.0-34.0); Mean Corpuscular Volume 95.2 fl (81-99); Mean Platelet Volume 10.1 fL (7.4-10.4); Monocytes # 0.5 10^3/uL (0.2-0.9); Monocytes % 6.6 %; Neutrophils # 5.41 10^3/uL (1.8-7.7); Neutrophils % 76.2 %; Nucleated Red Blood Cells % 0 %; Platelet Count 207 10^3/cmm (130-400); Red Blood Count 3.92 10^6/uL (4.1-5.3); White Blood Count 7.1 10^3/uL (4.0-10.0)
[2021-07-24 05:46] LABS: D Dimer 0.54 ug/mIFEU (0-0.59)
[2021-07-24 05:56] LABS: Alanine Aminotransferase 98 U/L (0-33); Albumin Level 3.5 g/dL (3.5-5.2); Alkaline Phosphatase 60 IU/L (35-105); Aspartate Amino Transferase 47 U/L (0-32); Blood Urea Nitrogen 17 mg/dL (8-23); C Reactive Protein 125.6 mg/L (0.0-4.9); Calcium 8.8 mg/dL (8.5-10.5); Carbon Dioxide 29 mmol/L (22-29); Chloride 99 mmol/L (98-107); Ferritin 264 ng/mL (15-150); Globulin 3.2 g/dL (1.3-4.6); Glomerular Filtration Rate 123.4 mL/min (90-130); Glucose 184 mg/dL (65-115); Osmolality Calculated 292 mOsm/kg (285-295); Sodium 138 mmol/L (136-145); Total Bilirubin 0.3 mg/dL (0.15-1.2); Total Protein 6.7 g/dL (6.6-8.7)
[2021-07-24 05:57] LABS: Anion Gap 14.5 (5-19); Lactate Dehydrogenase 336 U/L (135-214); Potassium 4.5 mmol/L (3.5-5.1)
[2021-07-24 06:09] LABS: Erythrocyte Sedimentation Rate 64 mm/hr (0-15)
[2021-07-24] MEDS: acetaminophen 325 mg Tablet 650 MG PO (06:42)
[2021-07-24 06:52] LABS: Glucose Point of Care 198 mg/dL (70-110)
[2021-07-24] MEDS: gabapentin 100 mg Capsule PO ×3 (08:36→21:10)
[2021-07-24] MEDS: levothyroxine 88 mcg Tablet PO (08:36)
[2021-07-24] MEDS: primidone 50 mg Tablet PO ×2 (08:36→17:57)
[2021-07-24] MEDS: buPROPion SR (12 HR) 100 mg Tablet PO ×2 (08:36→18:02)
[2021-07-24] MEDS: ascorbic acid 500 mg Tablet 1000 MG PO ×2 (08:36→17:57)
[2021-07-24] MEDS: divalproex DR 250 mg Tablet PO (08:36)
[2021-07-24] MEDS: escitalopram 10 mg Tablet PO (08:36)
[2021-07-24] MEDS: zinc gluconate 50 mg Tablet PO (08:36)
[2021-07-24] MEDS: atorvastatin 40 mg Tablet PO (08:36)
[2021-07-24] MEDS: multivitamin therapeutic Tablet 1 TAB PO (08:36)
--- NOTE | 2021-07-24 09:55 | PC.CHAP ---
Pastoral Care Encounter/Spiritual Assessment Type of Contact [] Declined calculator operator visit [] Patient/Family/Request visit [] Outpatient visit [] Follow-up visit [] Physician referral [] Code/Alert [] Routine visit [] Staff referral [] Actively dying [] Patient sleeping [] Family support [] [] Out of room [] Palliative care [] [] Receiving care in room [] Pre-surgical visit [] Trauma [] Long length of stay [] ICU visit [x] Other: Covid Relational/Emotional Strength [] Patient feels connected with others/family/visitors/staff [] Distress [] Loneliness/isolation [] Abandonment Spirituality of Patient [] Person of Shelli [] Attends Confucianist of their Shelli [] Believes in Prayer [] Reads Bible or Protestant materials [] There are Spiritual issues to be addressed Content Management Specialist Interventions [] Prayer [] Active listening [] Non-anxious presence [] Spiritual/emotional support [] Crisis/trauma care [] Spiritual counseling [] Bereavement support [] Provided bereavement packet [] Provided Bible/devotional materials [] Provided toy/stuffed animal, coloring book to patient or family member [] Provided Communion [] Anointing/[place] [] Salvation [] Completed spiritual assessment [] Other: Impact on Illness or Injury [] Angry [] Fearful [] Anxious [] Often cries [] Exhaustion [] Unable to work [] Unable to attend tenriism [] Unable to walk/stand [] Unable to read [] Unable to drive [] Unable to eat/drink [] Unable to sleep [] Unable to be with family [] Patient intubated [] Other: Summary Covid Time spent with patient 5 mins
[2021-07-24 10:22] LABS: Glucose Point of Care 271 mg/dL (70-110)
[2021-07-24] MEDS: latanoprost 0.005% Op Soln 2.5 mL Btl 1 DROP EYE-BOTH (10:37)
[2021-07-24] MEDS: fluticasone nasal spray 16gm Btl 2 SPRAY INTRANASAL (10:37)
[2021-07-24 12:03] LABS: Glucose Point of Care 197 mg/dL (70-110)
--- NOTE | 2021-07-24 15:27 | P.PN_ITS ---
Subjective Subjective: Interval history: Patient was seen and examined this morning, denies any shortness of breath, has minimal cough, complaining of chest pain while coughing.Currently saturating well on 2 L oxygen. Medications: Reviewed: Yes Vitals/I&O/Wt Last Vital Signs Temp 97.8 F 07/24/21 08:00 Pulse 71 07/24/21 13:30 Resp 20 H 07/24/21 08:00 BP 180/70 07/24/21 08:00 Pulse Ox 94 07/24/21 13:30 07/24/21 07/24/21 07/24/21 06:59 14:59 22:59 Intake Total 250 / 1600 480 / 480 Balance 250 / 1600 480 / 480 Weight last 48 hrs Weight 125.645 kg Weight 125.645 kg Physical Exam Const: COMMON NORMALS: patient oriented x3 HENMT: COMMON NORMALS: normocephalic and atraumatic HEAD & SCALP: normocephalic and atraumatic Resp: COMMON NORMALS: clear to auscultation bilaterally AUSCULTATION: clear to auscultation bilaterally Cardio: COMMON NORMALS: regular rate, regular rhythm, S1 normal heart sound present, S2 normal heart sound present, No gallops present (Cardio), No murmurs present (Cardio), No rub (Cardio) and Peripheral pulses 2+ throughout RATE: regular rate RHYTHM: regular rhythm HEART SOUNDS: S1 normal heart sound present and S2 normal heart sound present PERIPHERAL PULSES: Peripheral pulses 2+ throughout GI: COMMON NORMALS: Normal to inspection, nondistended, normoactive bowel sounds present, Soft to palpation, non-tender, No hepatosplenomegaly present and no masses AUSCULTATION: Yes normoactive bowel sounds PALPATION: Yes Soft to palpation and Yes No hepatosplenomegaly present RECTAL EXAM: deferred Extremity: COMMON NORMALS: no clubbing, cyanosis or edema and no pedal edema Neuro: COMMON NORMALS: patient oriented x3 Data : 07/24/21 05:18 07/24/21 05:18 Micro: Microbiology 07/23/21 21:13 Legionella Urinary Antigen - Final Urine,Voided Bacterial Antigens - Final 07/22/21 20:00 MRSA Culture - Final Nose 07/22/21 15:50 Blood Culture - Preliminary Blood NEGATIVE TO DATE 07/22/21 15:45 Blood Culture - Preliminary Blood NEGATIVE TO DATE A&P Assessment and plan (1) Pneumonia due to COVID-19 virus: On COVID Protocol (remdesivir, dexamethasone) D-dimer CRP LDH Ferritin ESR Blood Culture :NTD Sputum Culture : Repeat Lactic acid :Normal Procalcitonin : 0.09 MRSA PCR : Negative Urine legionella antigen Bacterial Antigen panel Initially on Vancomycin Ceftriaxone 1 g every 24 hours Status: Acute (2) Hypertension: Status: Acute (3) Diabetes: Low-dose sliding scale insulin Monitor fingerstick glucose Carbohydrate consistent diet Status: Acute (4) COPD (chronic obstructive pulmonary disease): Status: Acute (5) Hypothyroidism: Status: Acute Additional A&P Information Code Status :Full code DVT PPX:On Lovenox Attestations Medical Necessity Statement*: Patient is to be in hospital for management of Covid pneumonia Coding Level of Care Code Acute Telegraphic Typewriter Installer for [facility] Fwchristina Diagnoses Pneumonia due to COVID-19 virus U07.1; J12.82 Hypertension I10 Diabetes E11.9 COPD (chronic obstructive pulmonary disease) J44.9 Hypothyroidism E03.9
[2021-07-24 17:50] LABS: Glucose Point of Care 174 mg/dL (70-110)
[2021-07-24] MEDS: enoxaparin 40 mg/0.4 mL Syringe SUBCUT (17:57)
[2021-07-24] MEDS: remdesivir 100 MG in sodium chloride 0.9% (100 ml) 80 ML IV (18:02)
[2021-07-24] MEDS: dexamethasone 4 mg/mL INJ 6 MG IVP (18:04)
[2021-07-24] MEDS: cefTRIAXone 1,000 MG in sodium chloride 0.9% (plus) 50 ML 100 MG IV (20:42)
[2021-07-24 21:28] LABS: Glucose Point of Care 236 mg/dL (70-110)
[2021-07-25] VITALS (8 sets, daily range): BP systolic 150–172; BP diastolic 78–86; PULSE 56–88; RESP 16–20; TEMP 36.4–36.9; O2SAT 83–98
[2021-07-25 05:17] LABS: Basophils % 0.3 %; Eosinophils % 0.2 %; Hematocrit 37.7 % (37.0-47.0); Hemoglobin 12.1 g/dL (11.5-15.3); Lymphocytes # 1.3 10^3/uL (0.8-4.8); Lymphocytes % 21.4 %; Mean Corpuscular HGB Conc 32.1 g/dL (30.0-36.0); Mean Corpuscular Hemoglobin 30.7 pg (28.0-34.0); Mean Corpuscular Volume 95.7 fl (81-99); Monocytes # 0.5 10^3/uL (0.2-0.9); Monocytes % 7.7 %; Neutrophils # 4.23 10^3/uL (1.8-7.7); Nucleated Red Blood Cells % 0 %; Platelet Count 242 10^3/cmm (130-400); Red Blood Count 3.94 10^6/uL (4.1-5.3); Red Cell Distribution Width 14.8 % (12.1-15.1); White Blood Count 6.2 10^3/uL (4.0-10.0)
[2021-07-25 05:29] LABS: D Dimer 0.41 ug/mIFEU (0-0.59)
[2021-07-25 05:41] LABS: Alanine Aminotransferase 95 U/L (0-33); Albumin Level 3.5 g/dL (3.5-5.2); Alkaline Phosphatase 63 IU/L (35-105); Anion Gap 16.4 (5-19); Aspartate Amino Transferase 47 U/L (0-32); Blood Urea Nitrogen 19 mg/dL (8-23); C Reactive Protein 46.8 mg/L (0.0-4.9); Calcium 9.2 mg/dL (8.5-10.5); Carbon Dioxide 28 mmol/L (22-29); Chloride 101 mmol/L (98-107); Ferritin 256 ng/mL (15-150); Globulin 3.4 g/dL (1.3-4.6); Glomerular Filtration Rate 123.4 mL/min (90-130); Glucose 169 mg/dL (65-115); Lactate Dehydrogenase 315 U/L (135-214); Osmolality Calculated 298 mOsm/kg (285-295); Potassium 4.4 mmol/L (3.5-5.1); Sodium 141 mmol/L (136-145); Total Bilirubin 0.3 mg/dL (0.15-1.2); Total Protein 6.9 g/dL (6.6-8.7)
[2021-07-25 06:03] LABS: Erythrocyte Sedimentation Rate 60 mm/hr (0-15)
[2021-07-25] MEDS: acetaminophen 325 mg Tablet 650 MG PO (06:45)
[2021-07-25 06:58] LABS: Glucose Point of Care 166 mg/dL (70-110)
[2021-07-25] MEDS: ascorbic acid 500 mg Tablet 1000 MG PO (08:17)
[2021-07-25] MEDS: atorvastatin 40 mg Tablet PO (08:17)
[2021-07-25] MEDS: divalproex DR 250 mg Tablet PO (08:17)
[2021-07-25] MEDS: gabapentin 100 mg Capsule PO (08:17)
[2021-07-25] MEDS: primidone 50 mg Tablet PO (08:18)
[2021-07-25] MEDS: multivitamin therapeutic Tablet 1 TAB PO (08:18)
[2021-07-25] MEDS: zinc gluconate 50 mg Tablet PO (08:18)
[2021-07-25] MEDS: buPROPion SR (12 HR) 100 mg Tablet PO (08:18)
[2021-07-25] MEDS: levothyroxine 88 mcg Tablet PO (08:18)
[2021-07-25] MEDS: escitalopram 10 mg Tablet PO (08:18)
[2021-07-25] MEDS: latanoprost 0.005% Op Soln 2.5 mL Btl 1 DROP EYE-BOTH (08:21)
[2021-07-25] MEDS: fluticasone nasal spray 16gm Btl 2 SPRAY INTRANASAL (08:21)
--- NOTE | 2021-07-25 09:29 | P.DS_ITS ---
Discharge Providers Date of Admission: 07/22/21 16:59 Date of Discharge: July 25, 2021 Attending Provider at Admission: Musa Chi MD Attending Provider at Discharge: Musa Chi MD Primary Care Provider: Piero Pelaez NP Diagnoses at Discharge Discharge Diagnosis (1) Pneumonia due to COVID-19 virus: Status: Acute (2) Hypertension: Status: Acute (3) Diabetes: Status: Acute (4) COPD (chronic obstructive pulmonary disease): Status: Acute (5) Hypothyroidism: Status: Acute Reason for Visit Reason for Visit: COVID +/ REACTION TO INFUSION Hospital Course Hospital Course Ester Wilson is a 66 year old female with PMH of DM , HTN ,Obesity, COPD came in with c/o SOB as well as Fever.Patient was recently ( Wednesday ) diagnosed with breakthrough COVID -19 Infection after being fully vaccinated with J&J Vaccine. She had monoclonal antibody infusion this morning. She did fine after the monoclonal antibody infusion this afternoon she suddenly became more short of breath started shaking her home oxygen was read and low 80s per the family. On arrival here she is on room air and is satting 84 to 86% although this improves with the addition of nasal cannula oxygen at 3 L/min. Upon arrival in the ER She was worked up for above mention complain. Imaging studies: CTA Chest : No evidence of pulmonary embolism. Patulous peripheral ground-glass opacities throughout the lungs consistent with COVID pneumonia. She was admitted for the management of breakthrough Covid pneumonia. She was kept on Covid protocol (steroids , remdesivir , empirically on broad-spectrum antibiotics, other conservative respiratory support measures). Blood cultures were negative. Urine Legionella antigen negative bacterial antigen panel negative. She responded well to the above medical management, at the time of discharge the shortness of breath has improved a lot, coughing has subsided, she required 3 L of oxygen on discharge. Patient responded well to the above medical management was discharged home in stable condition.She will continue to follow her primary care physician as an outpatient. Physical Exam Const: COMMON NORMALS: patient oriented x3 HENMT: COMMON NORMALS: normocephalic and atraumatic HEAD & SCALP: normocephalic and atraumatic Resp: COMMON NORMALS: clear to auscultation bilaterally AUSCULTATION: clear to auscultation bilaterally Cardio: COMMON NORMALS: regular rate, regular rhythm, S1 normal heart sound present, S2 normal heart sound present, No gallops present (Cardio), No murmurs present (Cardio), No rub (Cardio) and Peripheral pulses 2+ throughout RATE: regular rate RHYTHM: regular rhythm HEART SOUNDS: S1 normal heart sound present and S2 normal heart sound present PERIPHERAL PULSES: Peripheral pulses 2+ throughout GI: COMMON NORMALS: Normal to inspection, nondistended, normoactive bowel sounds present, Soft to palpation, non-tender, No hepatosplenomegaly present and no masses AUSCULTATION: Yes normoactive bowel sounds PALPATION: Yes Soft to palpation and Yes No hepatosplenomegaly present RECTAL EXAM: deferred Extremity: COMMON NORMALS: no clubbing, cyanosis or edema and no pedal edema Neuro: COMMON NORMALS: patient oriented x3 Discharge Data Data Completed and Pending: Completed Studies During Hospitalization Category Date Time Status CT angio chest PE protcl [id number] Stat Cat Scan 07/22/21 15:32 Completed XR chest 1V ana paula ble [id number] Stat Exams 07/22/21 15:31 Completed Pending at discharge Category Date Time Status Blood Culture Sta t Lab 07/22/21 15:50 Results C Reactive Protei n AM LABS Lab 07/26/21 04:00 Ordered D Dimer AM LABS Lab 07/26/21 04:00 Ordered Erythrocyte Sedim entation Rate AM L ABS Lab 07/26/21 04:00 Ordered Ferritin AM LABS Lab 07/26/21 04:00 Ordered Lactate Dehydroge nase AM LABS Lab 07/26/21 04:00 Ordered Sputum Culture an d Gram Stain Stat Lab 07/22/21 15:31 Uncollected Labs from last 24 hours 07/25/21 07/25/21 07/25/21 06:49 04:18 04:18 WBC RBC Hgb Hct MCV MCH MCHC RDW Plt Count MPV Neut % (Auto) Lymph % (Auto) [place] % (Auto) Eos % (Auto) Baso % (Auto) Neut # (Auto) Lymph # (Auto) [place] # (Auto) Eos # (Auto) Baso # (Auto) Nucleated RBC % (a uto) Nucleated RBCs # ESR D-Dimer 0.41 Sodium 141 Potassium 4.4 Chloride 101 Carbon Dioxide 28 Anion Gap 16.4 BUN 19 Creatinine 0.5 GFR Calculation 123.4 Glucose 169 H POC Glucose 166 H Calculated Osmolal ity 298 H Calcium 9.2 Ferritin 256 H Total Bilirubin 0.3 AST 47 H ALT 95 H Alkaline Phosphata se 63 Lactate Dehydrogen ase 315 H C-Reactive Protein 46.8 H Total Protein 6.9 Albumin 3.5 Globulin 3.4 07/25/21 07/25/21 07/24/21 04:18 04:18 21:05 WBC 6.2 RBC 3.94 L Hgb 12.1 Hct 37.7 MCV 95.7 MCH 30.7 MCHC 32.1 RDW 14.8 Plt Count 242 MPV 10.0 Neut % (Auto) 68.0 Lymph % (Auto) 21.4 [place] % (Auto) 7.7 Eos % (Auto) 0.2 Baso % (Auto) 0.3 Neut # (Auto) 4.23 Lymph # (Auto) 1.3 [place] # (Auto) 0.5 Eos # (Auto) 0.0 Baso # (Auto) 0.0 Nucleated RBC % (a uto) 0 Nucleated RBCs # 0.0 ESR 60 H D-Dimer Sodium Potassium Chloride Carbon Dioxide Anion Gap BUN Creatinine GFR Calculation Glucose POC Glucose 236 H Calculated Osmolal ity Calcium Ferritin Total Bilirubin AST ALT Alkaline Phosphata se Lactate Dehydrogen ase C-Reactive Protein Total Protein Albumin Globulin 07/24/21 07/24/21 07/24/21 17:44 12:00 10:15 WBC RBC Hgb Hct MCV MCH MCHC RDW Plt Count MPV Neut % (Auto) Lymph % (Auto) [place] % (Auto) Eos % (Auto) Baso % (Auto) Neut # (Auto) Lymph # (Auto) [place] # (Auto) Eos # (Auto) Baso # (Auto) Nucleated RBC % (a uto) Nucleated RBCs # ESR D-Dimer Sodium Potassium Chloride Carbon Dioxide Anion Gap BUN Creatinine GFR Calculation Glucose POC Glucose 174 H 197 H 271 H Calculated Osmolal ity Calcium Ferritin Total Bilirubin AST ALT Alkaline Phosphata se Lactate Dehydrogen ase C-Reactive Protein Total Protein Albumin Globulin Vitals: Last Vital Signs Temp 97.5 F L 07/25/21 07:48 Pulse 68 07/25/21 07:48 Resp 16 07/25/21 07:48 BP 153/81 07/25/21 07:48 Pulse Ox 98 07/25/21 07:48 Discharge Plan Discharge Patient Disposition: Home Condition: Stable Prescriptions: New dexamethasone 2 mg tablet 2 mg PO DAILY Qty: 5 RF: 0 Continued diclofenac potassium 25 mg capsule 50 mg PO TID RF: 0 fluticasone propionate 50 mcg/actuation spray,suspension 2 spray INTRANASAL DAILY RF: 0 gabapentin 100 mg capsule 100 mg PO TID RF: 0 metformin 500 mg tablet 500 mg PO BID RF: 0 divalproex 250 mg tablet,delayed release (DR/EC) 250 mg PO DAILY RF: 0 escitalopram oxalate 10 mg tablet 10 mg PO DAILY RF: 0 Stiolto Respimat 2.5-2.5 mcg/actuation mist 2 puff INHALATION DAILY RF: 0 hydrocodone-acetaminophen 5-325 mg tablet 1 tab PO Q6H PRN (Reason: pain) Qty: 14 RF: 0 multivitamin Tablet 1 tab PO DAILY RF: 0 latanoprost 0.005 % Drops 1 drp OPHTHALMIC (EYE) DAILY RF: 0 atorvastatin 40 mg tablet 40 mg PO DAILY RF: 0 ketoconazole 2 % shampoo 1 ea TOPICAL Q3D RF: 0 bupropion HCl 100 mg tablet sustained-release 12 hr 100 mg PO BID RF: 0 levothyroxine 88 mcg tablet 88 mcg PO DAILY RF: 0 losartan-hydrochlorothiazide 100-12.5 mg tablet 1 tab PO DAILY RF: 0 primidone 50 mg tablet 50 mg PO BID RF: 0 Discharge Orders: Discharge Order (Routine); Ordered 07/25/21 Ordered By: Musa Chi Other Ambulatory Orders: DME: Oxygen (Order) Location: None Selected Ordered By: Musa Chi DME: Oxygen (Order) Location: None Selected Ordered By: Musa Chi Referrals: Piero Pelaez NP [Primary Care Provider] - 08/08/21 9:30 am Discharge Diet: Regular Discharge Activity: Increase activity as tolerated Patient Instructions: COPD, Dexamethasone (By mouth), Viral Pneumonia (GEN), COPD Stoplight, Pneumonia Stoplight, Using Oxygen at Home Discharge Attestations Time Spent in Discharge Care*: less than 30 min Specific Discharge Activities: educating patient, educating and/or supporting family/caregiver, discussing with pcp/other providers, discussing with lead case manager/social workers/dc planners, documenting/other paperwork and evaluating patient/reviewing data Status at Discharge: Cognitive status at discharge: cognitively intact , Behavioral status at discharge: cooperative , Functional status at discharge: independent ambulation Overall status at discharge: patient is progressing back to baseline Quality Metrics Clinical Quality Measures During this hospital stay, did patient experience: None Coding Level of Care Code Acute Chg FW DC note Exam Detailed Diagnoses Pneumonia due to COVID-19 virus U07.1; J12.82 Hypertension I10 Diabetes E11.9 COPD (chronic obstructive pulmonary disease) J44.9 Hypothyroidism E03.9
--- NOTE | 2021-07-25 10:35 | PC.SOCIAL ---
IMM update IMM updated with patient. Verbalized an understanding. Initialled, dated, timed, and placed in chart.
[2021-07-25 11:01] LABS: Glucose Point of Care 282 mg/dL (70-110)
--- NOTE | 2021-07-25 16:24 | PC.RESP ---
PULMONARY REHAB INFORMATION SENT TO PATIENT.
--- NOTE | 2021-07-29 11:38 | PC.SOCIAL ---
discharge follow up call made. patient reports she is feeling much better. patient picked up dexamethasone from pharmacy and is taking daily as prescribed. patient has follow up appointment with Piero Pelaez and is aware of date and time. patient is using o2 at 3L and tolerating well. Patient is aware of last day of quarantine is 9-20. patient denies questions or concerns.
== END 2021-07-25 12:50 | disposition home or self-care (01) | DRG 177 ==
LOC: ER 17:03 → MEDSURG 18:06
PROVIDERS: Admitting Provider Internal Medicine; Emergency Provider Family Medicine; PCP Nurse Practitioner Family; Visit Provider Internal Medicine
DX: U07.1 COVID-19 (principal); J12.82 Pneumonia due to coronavirus disease 2019; Z68.42 Body mass index [BMI] 45.0-49.9, adult; I10 Essential (primary) hypertension; E11.9 Type 2 diabetes mellitus without complications; J44.9 Chronic obstructive pulmonary disease, unspecified; E03.9 Hypothyroidism, unspecified; E66.9 Obesity, unspecified; Z87.891 Personal history of nicotine dependence; Z79.890 Hormone replacement therapy
CPT/HCPCS: 36415; 36416; 36600; 71045; 71275; 80053; 80202; 82728; 82803; 82962; 83605; 83615; 84145; 85025; 85378; 85610; 85651; 86140; 86403; 87040; 87449; 87641; 93005; 94664; 96365; 96372; 96375; 99283; 99285; J0696; J1100; J1650; J1815; J1956; J3370; J7050; Q9967

== ENCOUNTER 2021-09-18 11:43 | Outpatient (CLI) | payer MEDICARE, MEDICAID, SELFPAY ==
--- NOTE | 2021-09-18 11:57 | MM_ITS ---
WS: [id number] BILATERAL SCREENING DIGITAL MAMMOGRAM WITH CAD HISTORY: SCREENING COMPARISON: 09/17/2020, 07/04/2019 Bilateral CC and MLO views submitted. Computer aided detection analyzed. Breast composition: There are scattered areas of fibroglandular density. No suspicious masses, microc alcifications or architectural distortion. MM/[place] [id number] IMPRESSION: BI-RADS: 1-Negative FOLLOW UP: 1 Year Follow-up
== END 2021-09-18 11:44 | disposition home or self-care (01) ==
LOC: RADSHAW 11:49
PROVIDERS: PCP Nurse Practitioner Family; Visit Provider Nurse Practitioner Family
DX: Z12.31 Encounter for screening mammogram for malignant neoplasm of breast (principal)
CPT/HCPCS: 77067

== ENCOUNTER → 2021-12-09 14:30 | Outpatient (BNVA) | payer MEDICARE, MEDICAID, SELFPAY | PROVIDERS: PCP Nurse Practitioner Family; Visit Provider Social Worker | DX: F41.9 Anxiety disorder, unspecified (principal); F32.9 Major depressive disorder, single episode, unspecified | CPT/HCPCS: 90837; 90834 ==

== ENCOUNTER → 2021-12-30 12:11 | Outpatient (BNVA) | payer MEDICARE, MEDICAID, SELFPAY | PROVIDERS: PCP Nurse Practitioner Family; Visit Provider Social Worker | DX: F41.9 Anxiety disorder, unspecified (principal); F32.9 Major depressive disorder, single episode, unspecified | CPT/HCPCS: 90834 ==

== ENCOUNTER → 2022-01-12 08:56 | Outpatient (BNVA) | payer MEDICARE, MEDICAID, SELFPAY | PROVIDERS: PCP Nurse Practitioner Family; Referring Provider Nurse Practitioner Family; Visit Provider Specialist | DX: M25.561 Pain in right knee (principal); M17.0 Bilateral primary osteoarthritis of knee; J90 Pleural effusion, not elsewhere classified; G56.03 Carpal tunnel syndrome, bilateral upper limbs; G56.20 Lesion of ulnar nerve, unspecified upper limb; Z87.891 Personal history of nicotine dependence | CPT/HCPCS: 73560; 73565; 95910 ==

== ENCOUNTER → 2022-01-26 11:08 | Outpatient (BNVA) | payer MEDICARE, MEDICAID, SELFPAY | PROVIDERS: PCP Nurse Practitioner Family; Visit Provider Social Worker | DX: F41.1 Generalized anxiety disorder (principal); F32.9 Major depressive disorder, single episode, unspecified | CPT/HCPCS: 90837; 90834 ==

== ENCOUNTER 2022-02-02 10:07 | Outpatient (CLI) | payer MEDICARE, MEDICAID, SELFPAY ==
[2022-02-02 11:19] LABS: Estmated Average Glucose 157; Hemoglobin A1C 7.1 % (4.0-6.0)
[2022-02-02 14:16] LABS: Alanine Aminotransferase 41 U/L (0-33); Albumin Level 4.3 g/dL (3.5-5.2); Alkaline Phosphatase 68 IU/L (35-105); Anion Gap 18.2 (5-19); Aspartate Amino Transferase 23 U/L (0-32); Blood Urea Nitrogen 20 mg/dL (8-23); Calcium 10.4 mg/dL (8.5-10.5); Carbon Dioxide 26 mmol/L (22-29); Chloride 100 mmol/L (98-107); Globulin 2.6 g/dL (1.3-4.6); Glucose 152 mg/dL (65-115); Osmolality Calculated 296 mOsm/kg (285-295); Potassium 4.2 mmol/L (3.5-5.1); Sodium 140 mmol/L (136-145); Total Bilirubin 0.3 mg/dL (0.15-1.2); Total Protein 6.9 g/dL (6.6-8.7)
[2022-02-02 14:46] LABS: Erythrocyte Sedimentation Rate 15 mm/hr (0-15)
[2022-02-03 12:08] LABS: COMPLEMENT COMPONENT C3C 167 mg/dL (83-193); COMPLEMENT COMPONENT C4C 38 mg/dL (15-57)
[2022-02-03 14:47] LABS: Cyclic Citrullinated Peptide <16 UNITS
[2022-02-03 15:03] LABS: THYROID PEROXIDASE ANTIBODIES 2 IU/mL (<9)
[2022-02-03 16:17] LABS: ANA SCREEN, IFA NEGATIVE (NEGATIVE)
[2022-02-04 14:22] LABS: CENTROMERE B ANTIBODY <1.0 NEG AI (<1.0 NEG); JO-1 ANTIBODY <1.0 NEG AI (<1.0 NEG); RNP ANTIBODY <1.0 NEG AI (<1.0 NEG); SCL-70 ANTIBODY <1.0 NEG AI (<1.0 NEG); SJOGREN'S ANTIBODY (SS-A) <1.0 NEG AI (<1.0 NEG); SM ANTIBODY <1.0 NEG AI (<1.0 NEG); SS-B <1.0 NEG AI (<1.0 NEG)
[2022-02-04 15:02] LABS: COMPLEMENT, TOTAL (CH50) >60 U/mL (31-60)
[2022-02-05 12:12] LABS: DNA AB (DS) CRITHIDIA,IFA NEGATIVE (NEGATIVE)
== END 2022-02-02 10:08 | disposition home or self-care (01) ==
LOC: LAB 10:10
PROVIDERS: PCP Nurse Practitioner Family; Visit Provider Specialist
DX: M17.0 Bilateral primary osteoarthritis of knee (principal); M25.569 Pain in unspecified knee; E11.9 Type 2 diabetes mellitus without complications
CPT/HCPCS: 80053; 83036; 85651; 86140; 86160; 86162; 86200; 86235; 86255; 86376; 86431

== ENCOUNTER → 2022-02-16 15:14 | Outpatient (BNVA) | payer MEDICARE, MEDICAID, SELFPAY | PROVIDERS: PCP Nurse Practitioner Family; Visit Provider Social Worker | DX: F41.1 Generalized anxiety disorder (principal); F32.9 Major depressive disorder, single episode, unspecified | CPT/HCPCS: 90837; 90834 ==

== ENCOUNTER → 2022-03-17 09:08 | Outpatient (BNVA) | payer MEDICARE, MEDICAID, SELFPAY | PROVIDERS: PCP Nurse Practitioner Family; Visit Provider Social Worker | DX: F41.1 Generalized anxiety disorder (principal); F32.9 Major depressive disorder, single episode, unspecified | CPT/HCPCS: 90837; 90834 ==

== ENCOUNTER 2022-03-23 07:28 | Outpatient (RCR) | payer MEDICARE, MEDICAID, SELFPAY | END 2022-04-07 23:59 | disposition home or self-care (01) | LOC: SPT 07:28 | PROVIDERS: PCP Nurse Practitioner Family; Referring Provider Nurse Practitioner Family; Visit Provider Nurse Practitioner Family | DX: M79.643 Pain in unspecified hand (principal); M25.569 Pain in unspecified knee | CPT/HCPCS: 97161 ==

== ENCOUNTER → 2022-03-30 10:25 | Outpatient (BNVA) | payer OTHER, MEDICAID, SELFPAY | PROVIDERS: PCP Nurse Practitioner Family; Referring Provider Nurse Practitioner Family; Visit Provider Specialist | DX: G56.20 Lesion of ulnar nerve, unspecified upper limb (principal); G56.03 Carpal tunnel syndrome, bilateral upper limbs | CPT/HCPCS: 99213; 99214 ==

== ENCOUNTER → 2022-04-01 09:52 | Outpatient (BNVA) | payer MEDICARE, MEDICAID, SELFPAY | PROVIDERS: PCP Nurse Practitioner Family; Visit Provider Specialist | DX: G25.0 Essential tremor (principal); G56.03 Carpal tunnel syndrome, bilateral upper limbs; E11.40 Type 2 diabetes mellitus with diabetic neuropathy, unspecified; Z79.84 Long term (current) use of oral hypoglycemic drugs | CPT/HCPCS: 99214 ==

== ENCOUNTER → 2022-04-07 11:12 | Outpatient (BNVA) | payer MEDICARE, MEDICAID, SELFPAY | PROVIDERS: PCP Nurse Practitioner Family; Visit Provider Social Worker | DX: F32.9 Major depressive disorder, single episode, unspecified (principal); F41.9 Anxiety disorder, unspecified | CPT/HCPCS: 90834 ==

== ENCOUNTER 2022-04-08 06:00 | Outpatient (RCR) | payer MEDICARE, MEDICAID, SELFPAY | END 2022-05-07 23:59 | disposition home or self-care (01) | LOC: SPT 06:00 | PROVIDERS: PCP Nurse Practitioner Family; Referring Provider Nurse Practitioner Family; Visit Provider Nurse Practitioner Family | DX: M25.561 Pain in right knee (principal); M25.562 Pain in left knee; M79.643 Pain in unspecified hand | CPT/HCPCS: 97113 ==

== ENCOUNTER → 2022-05-06 14:05 | Outpatient (BNVA) | payer MEDICARE, MEDICAID, SELFPAY | PROVIDERS: PCP Nurse Practitioner Family; Referring Provider Specialist; Visit Provider Internal Medicine | DX: E78.2 Mixed hyperlipidemia (principal); E11.40 Type 2 diabetes mellitus with diabetic neuropathy, unspecified; E03.9 Hypothyroidism, unspecified; Z79.84 Long term (current) use of oral hypoglycemic drugs; Z87.891 Personal history of nicotine dependence | CPT/HCPCS: 80061; 99204 ==

== ENCOUNTER 2022-05-08 | Outpatient (RCR) | payer MEDICARE, MEDICAID, SELFPAY | END 2022-06-07 23:59 | disposition home or self-care (01) | LOC: SPT | PROVIDERS: PCP Nurse Practitioner Family; Referring Provider Nurse Practitioner Family; Visit Provider Nurse Practitioner Family | DX: G56.03 Carpal tunnel syndrome, bilateral upper limbs (principal) | CPT/HCPCS: 97113; 97530 ==

== ENCOUNTER 2022-05-12 07:16 | Outpatient (RCR) | payer MEDICARE, MEDICAID, SELFPAY | END 2022-06-07 23:59 | disposition home or self-care (01) | LOC: SOT 07:16 | PROVIDERS: PCP Nurse Practitioner Family; Referring Provider Specialist; Visit Provider Specialist | DX: G56.01 Carpal tunnel syndrome, right upper limb (principal); G56.21 Lesion of ulnar nerve, right upper limb | CPT/HCPCS: 97018; 97022; 97110; 97140; 97166 ==

== ENCOUNTER → 2022-05-18 10:12 | Outpatient (BNVA) | payer MEDICARE, MEDICAID, SELFPAY | PROVIDERS: PCP Nurse Practitioner Family; Visit Provider Specialist | DX: G56.03 Carpal tunnel syndrome, bilateral upper limbs (principal) | CPT/HCPCS: 99213 ==

== ENCOUNTER 2022-05-25 09:03 | Outpatient (CLI) | payer MEDICARE, MEDICAID, SELFPAY ==
--- NOTE | 2022-05-25 09:30 | MR_ITS ---
WS: [id number] MRI BRAIN WITH HIGH-RESOLUTION IMAGING THROUGH THE INTERNAL AUDITORY CANALS WITHOUT AND WITH CONTRAST HISTORY: SENSORINEURAL HEARING LOSS, BILATERAL COMPARISON: 06/05/2021 TECHNIQUE: Multiplanar, multisequence imaging is performed through the brain. Additional 3 mm imaging performed in multiple planes through the internal auditory canal. Postcontrast imaging with 20 ml's of MultiHance. No acute intracranial hemorrhage, midline shift, edema or mass effect. Very minimal small vessel ischemic disease. No prior infarct. No mass effect. No extra-axial fluid co llections. Ventricles and extra-axial spaces are normal. Again noted is the 3 x 4 mm nonenhancing mass along the dorsal surface of the fourth ventricle. This is hyperintense on the T2 sequences and low signal on t he T1 sequences. No enhancement. Described on 06/05/2021 without increase in size. No inferior displacement of cerebellar tonsils. Clivus and pituitary gland are normal. Internal and external auditory canals: Unremarkable. Cranial nerves VII and VIII complexes: Unremarkable. No enhancement or mass. Cerebellopontine angles: Normal. Paranasal sinuses: Normal. Mastoid air cells: LEFT mastoid air cell effusion. There is also small cysts associated with the LEFT TM joint. Calvarium and scalp: Normal. Small caliber distal LEFT vertebral artery. No aneurysms or occlusions. MR/MR iac's wo/w con* [id number] IMPRESSION: 1. No evidence for acute infarct or ischemia. 2. Normal small vessel ischemic changes. 3. 7th and 8th cranial nerve complexes are negative. 4. LEFT mastoid air cell opacifications and a small cyst associated with the L EFT TM joint. 5. Previously described nonenhancing T2 hyperintense lesion along the dorsal m edulla is unchanged. 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
[2022-05-25] MEDS: gadobenate dimeglumine 20 mL vial IV (10:09)
== END 2022-05-25 09:04 | disposition home or self-care (01) ==
PROVIDERS: PCP Nurse Practitioner Family; Visit Provider Specialist
DX: H90.3 Sensorineural hearing loss, bilateral (principal)
CPT/HCPCS: 70553

== ENCOUNTER 2022-06-08 06:00 | Outpatient (RCR) | payer MEDICARE, MEDICAID, SELFPAY | END 2022-07-08 23:59 | disposition home or self-care (01) | LOC: SOT 06:00 | PROVIDERS: PCP Nurse Practitioner Family; Visit Provider Specialist | DX: G56.03 Carpal tunnel syndrome, bilateral upper limbs (principal); G56.23 Lesion of ulnar nerve, bilateral upper limbs | CPT/HCPCS: 97018; 97022; 97110; 97140 ==

== ENCOUNTER → 2022-07-02 13:53 | Outpatient (BNVA) | payer MEDICARE, SELFPAY | PROVIDERS: PCP Family Medicine; Visit Provider Surgery | DX: K92.1 Melena (principal); K64.9 Unspecified hemorrhoids | CPT/HCPCS: 99213 ==

== ENCOUNTER 2022-07-28 09:55 | Day surgery (SDC) | payer MEDICARE, MEDICAID, SELFPAY ==
[2022-07-27 09:42] VITALS: BMI 44.9
[2022-07-28] VITALS (8 sets, daily range): BP systolic 163–193; BP diastolic 73–103; PULSE 50–63; RESP 12–18; TEMP 36.1–36.6; O2SAT 93–99
--- NOTE | 2022-07-28 10:20 | P.ANESASSM_ITS ---
Pre-Anesthetic Assessment Height/Weight: Height 1.65 m Weight 122.47 kg Preop Diagnosis: hemorrhoid Operation Date: 07/28/22 11:35 Proposed Procedures p Colonoscopy with possible polypectomy with exam under general anesthesia with possible hemorrhoidectomy 33667,39127,18361,K92.1,K64.9(Not Applicable) - Sandeep Austin MD Familial anesthetic complications: none Was Beta Christine taken within 24 hours: N/A Was Clonidine taken within 24 hours: N/A Last intake: none Social No alcohol and No tobacco Exam alert, oriented x 3, clear to auscultation bilaterally and regular rate & rhythm Airway Submandibular: within normal limits Cervical ROM: within normal limits Mallampati: Class III Dentition: false Pulmonary Chronic Obstructive Pulmonary Disease and Sleep Apnea (Uses CPAP) CV/HEM Hypertension None reported Hepatic None reported GI None reported Metabolic Diabetes Mellitus, Hyperlipidemia, Morbid Obesity and Thyroid Disease [facility] [place] Osteoarthritis/DJD Neuropsych Neuropathy Tremor Anesthetic Plan ASA status: 3 Anesthesia: Anesthesia Evaluation, General and MAC Other: I discussed with the patient risks, goals, and benefits of MAC and general anesthesia. We discussed spectrum of MAC anesthesia including conversion to general as well as possibility of recall of intraoperative stimuli including discomfort/pain. Patient agrees to proceed with MAC. Risk of > 500 ml blood loss (7ml/kg in children): No Medications/Allergies Home Medications Medication Instructions Recorded Confirmed Last Taken Type divalproex 250 mg tablet,delayed 250 mg PO DAILY 12/26/19 07/27/22 07/22/21 History release escitalopram oxalate 10 mg tablet 10 mg PO DAILY 12/26/19 07/27/22 07/22/21 History fluticasone propionate 50 2 spray intranasal DAILY 12/26/19 07/27/22 07/22/21 History mcg/actuation nasal spray,suspension gabapentin 100 mg capsule 100 mg PO TID 12/26/19 07/27/22 07/22/21 History metformin 500 mg tablet 500 mg PO BID 12/26/19 07/27/22 07/22/21 History tiotropium 2.5 mcg-olodaterol 2.5 2 puff inhalation DAILY 12/26/19 07/27/22 07/22/21 History mcg/actuation mist for inhalation (Stiolto Respimat) atorvastatin 40 mg tablet 40 mg PO DAILY 0907/27/22 07/21/21 History bupropion HCl 100 mg tablet,12 hr 100 mg PO BID 07/22/21 07/27/22 07/22/21 History sustained-release latanoprost 0.005 % eye drops 1 drp ophthalmic (eye) DAILY 07/22/21 07/27/22 07/22/21 History levothyroxine 88 mcg tablet 88 mcg PO DAILY 07/22/21 07/27/22 07/22/21 History losartan 100 1 tab PO DAILY 07/22/21 07/27/22 07/22/21 History mg-hydrochlorothiazide 12.5 mg tablet multivitamin 1 tab PO DAILY 07/22/21 07/27/22 07/22/21 History dexamethasone 2 mg tablet 2 mg PO DAILY #5 tabs 07/25/21 07/27/22 Unknown Rx COCK UP SPLINT #2 ea 03/30/22 07/02/22 Unknown Rx aspirin 81 mg chewable tablet 81 mg PO DAILY 04/01/22 07/27/22 Unknown History semaglutide (Ozempic) 0.25 mg (0.2 mL) SUBCUT .weekly 1 05/06/22 07/27/22 Unknown Rx month #1.5 mL semaglutide (Ozempic) 0.5 mg (0.4 mL) SUBCUT .weekly 1 05/06/22 07/27/22 Unknown Rx month #1.5 mL semaglutide 1 mg/dose (4 mg/3 mL) 1 mg (0.75 mL) SUBCUT .weekly #3 mL 05/06/22 07/27/22 Unknown Rx subcutaneous pen injector (Ozempic) peg 3350-electrolytes 236 240 ml PO Q10M #4,000 mL 07/02/22 07/27/22 Unknown Rx gram-22.74 gram-6.74 gram-5.86 gram solution (Golytely) primidone 50 mg tablet 100 mg PO DAILY 07/28/22 07/28/22 07/26/22 History Allergies Allergy/AdvReac Type Severity Reaction Status Date / Time azithromycin Allergy hives/ GI Verified 07/28/22 10:44 upset tramadol AdvReac hives Verified 07/28/22 10:44 [facility] Anesthesia Medical History COVID-19 Hypertension Pneumonia due to COVID-19 virus Psychiatric care Surgical History History of detached retina repair History of tonsillectomy Family History Other Hypertension Social History Smoking and tobacco status: never smoked Quit status (tobacco): has quit using tobacco Year quit tobacco: 2014 Former quit date comment: 1 pack per day for 48 years Second hand smoke exposure: No Alcohol intake: never Lives independently: Yes Pets and animals: Yes Pets & animals: cat(s) History of recent travel: No Current gender identity: Female Special roxanne needs: No Data Anesthesia Cardiac Studies: No Data to Display
[2022-07-28] MEDS: sodium chloride 0.9% 1,000 ML 30 ML IV (11:00)
[2022-07-28 11:01] LABS: Glucose Point of Care 151 mg/dL (70-110)
[2022-07-28] MEDS: acetaminophen 1,000 MG/100 ML PIGGYBACK 400 MG IV (11:02)
--- NOTE | 2022-07-28 11:20 | W.PM.OPSUD ---
Surgery/Procedure H&P Update DATE OF PROCEDURE: July 28, 2022 DATE H&P PERFORMED: 07/02/22 H&P UPDATE INFORMATION: I have reviewed H&P completed within last 30 days, I have examined patient prior to procedure and No changes to prior documentation PREOP DIAGNOSIS: hemorrhoid PRIMARY INDICATION FOR PROCEDURE: The same PLANNED PROCEDURE: Operation Date: 07/28/22 11:35 Proposed Procedures p Colonoscopy with possible polypectomy with exam under general anesthesia with possible hemorrhoidectomy 53159,00260,93585,K92.1,K64.9(Not Applicable) - Sandeep Austin MD
[2022-07-28] MEDS: piperacillin-tazobactam 3.375 GM in sodium chloride 0.9% (plus) 50 ML IV (12:04)
--- NOTE | 2022-07-28 12:19 | SUR.OPER ---
1 CLIP IN SIGMOID COLON, 2 CLIPS IN ASCENDING COLON
--- NOTE | 2022-07-28 12:58 | PM.OP ---
Operative Report Date of procedure: July 28, 2022 Pre-op diagnosis: Preop Diagnosis hemorrhoid Post-op diagnosis: Multiple colon polyps and diverticulosis of the sigmoid colon Right lower lateral internal and external hemorrhoid Procedure done: 1-Colonoscopy with polypectomy and Endo Clip application 2-Examination under anesthesia with hemorrhoidectomy Implants: Anal packing Specimens removed/disposition: Ascending colon polyps Sigmoid colon polyp Right lower lateral internal and external hemorrhoid Surgeon: Sandeep Austin MD Aircraft Metalsmith: MARYAN Montalvo Surgical techlidia German and Neda surgical sales representative nestor Anesthesia: MAC (ADJUNCT [employer]HEMAT[employer] DEPARTMENT Marcell Tavares and [employer]CT [employer] DEPARTMENT nestor Veras) Estimated blood loss (mL): 10 Procedure: Patient was identified in the holding area, was taken to the OR placed first in supine position,IV antibiotics were given with induction time-out was done verifying the patient's name, date of , and procedure, all were in agreement. General anesthetic was administered by the anesthesia provider, patient was placed in left lateral position SCDs were on and functioning. And all pressure points were padded Perianal examination showed right lower lateral external hemorrhoid,otherwise no evidence of clinically palpable anal masses. Following that a digital rectal examination was done, the colonoscope was then introduced via the anus under direct visualization, all the way to the proximal to the cecum, a polyp was appreciated at the distal sigmoid and a hot snare polypectomy was applied followed by Endo Clip. 2 additional polyps were found in the proximal ascending colon and a cold snare was used followed by Endo Clip x2. The prep was fair and smaller polyps could have been missed. I was not able to reach all the way to the cecum due to the tortuosity of the colon. Likely due to the patient's body habitus. There were diverticulosis of the distal sigmoid colon without evidence of bleeding or complication. Otherwise there were no polyps identified,the scope was then retrieved back, gas was deflated on the way out.Retroflex was done at the end showing showed no evidence of internal hemorrhoids, time to retrieve the scope from the cecum to the anus exceeded 6 minutes. The polyps were retrieved and sent for permanent pathology Prep and drape of the perineum was done under the usual sterile technique All pressure points were padded,Injection of 30 mL of Exparel to block the pudendal nerve on both sides,guiding point was the ischial spine on each side located by the examining finger A lubricated self-retaining proctoscope was inserted, evidence of external hemorrhoid below the dentate line Started by introducing a wet sponge to prevent any residual colon prep from contaminating the site of the excision, and under direct visualization I started dissecting the right lower lateral hemorrhoid tissues after application of hemostats that point appears to be his internal component,dissection was carried by using the harmonic scalpel, excised tissues were sent for permanent pathology, followed by running 2-0 chromic catgut. Hemostasis was achieved, irrigation was done, sponge was retrieved. Followed by irrigation.A piece of Surgicel /piece of Xeroform impregnated with lubricant jelly was placed in the anal canal, attached to 2-0 silk suture, to help retrieving it by the patient later on. ABDs were applied followed by surgical pants Patient was repositioned to supine position, counts of instruments,needles and sponges were completed at the end of the procedure. Recommend to repeat the colonoscopy in 1 to 2 years I was present for the whole entire procedure
--- NOTE | 2022-07-28 13:36 | SUR.PHASEI ---
1301 PT TO PACU 5 PT AWAKES TO VOICE, NASAL TRUMPHET OUT ON ADMISSIO,N TO PACU PT ON LT SIDE WITH GOOD RESP NOTED IV PATENT TO NS AT KVO RATE PER GRAVITY, ID BRACELET CHECKED WITH 2 IDENTIFIERS, ABDOMEN SOFT LARGE ROUNDED WITH RECTAL PACKING IN PLACE .BILAT SCDS ON.
[2022-07-28] MEDS: HYDROcodone-acetaminophen 5-325 mg Tablet 1 TAB PO (13:48)
[2022-07-28] MEDS: sodium chloride 0.9% 500 ML 999 ML IV (13:48)
--- NOTE | 2022-07-28 16:19 | ANE.PACU2 ---
Inpatient post-anesthesia follow up: Airway intact: Yes Vital signs: Temperature 97.8 F Pulse Rate 60 Respiratory Rate 16 Blood Pressure 165/73 Pulse Oximetry 96 Oxygen Delivery Me thod Room Air Oxygen Flow Rate 5 Fraction of Inspir ed Oxygen Hydration adequate: Yes Nausea and vomiting: No Pain level: 1 Mental status: Baseline
== END 2022-07-28 14:00 | disposition home or self-care (01) ==
PROVIDERS: PCP Family Medicine; Visit Provider Surgery
PROC: 0DJD8ZZ Inspection of Lower Intestinal Tract, Via Natural or Artificial Opening Endoscopic (ICD-10-PCS; CPT 45378; principal; 2022-07-28 11:25)
PROC: (CPT 45380; 2022-07-28 11:25)
DX: K64.8 Other hemorrhoids (principal); D12.2 Benign neoplasm of ascending colon; D12.5 Benign neoplasm of sigmoid colon; K57.30 Diverticulosis of large intestine without perforation or abscess without bleeding; J44.9 Chronic obstructive pulmonary disease, unspecified; G47.30 Sleep apnea, unspecified; I10 Essential (primary) hypertension; E78.5 Hyperlipidemia, unspecified; E66.01 Morbid (severe) obesity due to excess calories; Z68.41 Body mass index [BMI] 40.0-44.9, adult; E11.40 Type 2 diabetes mellitus with diabetic neuropathy, unspecified; Z79.82 Long term (current) use of aspirin; Z86.16 Personal history of COVID-19
CPT/HCPCS: 45380; 46260; 36416; 82962; 88304; 88305; C9290; J2543; J2704; J3490; J7030; J7040

== ENCOUNTER → 2022-07-30 09:43 | Outpatient (BNVA) | payer MEDICARE, MEDICAID, SELFPAY | PROVIDERS: PCP Family Medicine; Visit Provider Specialist | DX: M17.0 Bilateral primary osteoarthritis of knee (principal); Z71.89 Other specified counseling | CPT/HCPCS: 20610; J7318 ==

== ENCOUNTER → 2022-08-05 10:34 | Outpatient (BNVA) | payer MEDICARE, MEDICAID, SELFPAY | PROVIDERS: PCP Family Medicine; Visit Provider Internal Medicine | DX: E11.40 Type 2 diabetes mellitus with diabetic neuropathy, unspecified (principal); I10 Essential (primary) hypertension; E78.2 Mixed hyperlipidemia; Z79.84 Long term (current) use of oral hypoglycemic drugs | CPT/HCPCS: 99214 ==

== ENCOUNTER → 2022-08-12 08:30 | Outpatient (BNVA) | payer MEDICARE, MEDICAID, SELFPAY | PROVIDERS: PCP Family Medicine; Visit Provider Surgery | DX: Z09 Encounter for follow-up examination after completed treatment for conditions other than malignant neoplasm (principal); K63.5 Polyp of colon | CPT/HCPCS: 99024 ==

== ENCOUNTER → 2022-09-24 13:16 | Outpatient (BNVA) | payer MEDICARE, MEDICAID, SELFPAY | PROVIDERS: PCP Family Medicine; Visit Provider Surgery | DX: Z09 Encounter for follow-up examination after completed treatment for conditions other than malignant neoplasm (principal) | CPT/HCPCS: 99024 ==

== ENCOUNTER 2022-09-29 15:53 | Outpatient (CLI) | payer MEDICARE, MEDICAID, SELFPAY ==
--- NOTE | 2022-09-29 16:07 | MM_ITS ---
WS: [id number] BILATERAL 3D TOMOSYNTHESIS DIGITAL SCREENING MAMMOGRAPHY WITH CAD CLINICAL INFORMATION: SCREEN HISTORY: Screening mammogram. No current complaints. COMPARISON: September 18, 2021 TECHNIQUE: Bilateral CC and MLO views. FINDINGS: Scattered fibroglandular densities bilaterally. No suspicious focal mass, asymmetry, calcifications, or architectural distortion. No evidence of malignancy. A few incidental punctate calcifications. MM/[place] [id number] IMPRESSION: BI-RADS: 2-Benign FOLLOW UP: 1 Year Follow-up Recommend return to annual screening mammography.
== END 2022-09-29 15:54 | disposition home or self-care (01) ==
LOC: RAD 15:58
PROVIDERS: PCP Family Medicine; Visit Provider Family Medicine
DX: Z12.31 Encounter for screening mammogram for malignant neoplasm of breast (principal)
CPT/HCPCS: 77063; 77067

== ENCOUNTER 2022-10-03 16:12 | Emergency (ER) | payer MEDICARE, MEDICAID, SELFPAY ==
[2022-10-03 16:17] VITALS: BP 173/93; PULSE 78; RESP 16; TEMP 36.9; O2SAT 95
[2022-10-03 16:28] VITALS: BP 173/93; PULSE 78; RESP 16; TEMP 36.9; O2SAT 95
--- NOTE | 2022-10-03 16:42 | W.ED.EYEPROB ---
HPI - Eye Problem General: Chief complaint: Eye Problems Stated complaint: Losing sight on right side. Time Seen by Provider: 10/03/22 16:24 History of Present Illness: Patient is a 67-year-old female who comes to the ED with blurry vision in right eye. Patient has a history of cataracts in right eye and just saw her eye doctor little over a week ago and is scheduled to have cataract surgery in right eye on October 13. She says over the last 2 days she started developing some blurry vision in right eye. Blurry vision occurs no matter the distance of object she is looking at. Denies any other symptoms such as pain or injury to her right eye. Denies any left eye complaints. Associated symptoms: Denies fever(s), headache(s), nausea, neck pain or vomiting Review of Systems Const: Denies: fever(s), chills or fatigue Eyes: Reports: blurry vision (Right eye- history of cataract); Denies: change in vision or eye discomfort ENMT: Denies: throat pain, odynophagia, nasal discharge or nasal congestion Card: Denies: chest pain, palpitations, edema, swelling of feet/ankles, dyspnea on exertion or orthopnea Resp: Denies: dyspnea, productive cough or non-productive cough GI: Denies: abdominal pain, nausea, vomiting, diarrhea, constipation or hematochezia : Denies: flank pain, dysuria or hematuria Musc: Denies: neck pain, back pain or extremity swelling Skin/Breast: Denies: rash or new lesions Neuro: Denies: headache(s), numbness in extremities or weakness in extremities PFSH ED PFSH: Medical History COPD (chronic obstructive pulmonary disease) COVID-19 Hypertension PERCY (obstructive sleep apnea) Pneumonia due to COVID-19 virus Psychiatric care Surgical History History of detached retina repair History of tonsillectomy Family History Other Hypertension Social History Smoking and tobacco status: never smoked Quit status (tobacco): has quit using tobacco Year quit tobacco: 2014 Former quit date comment: 1 pack per day for 48 years Second hand smoke exposure: No Alcohol intake: never Lives independently: Yes Pets and animals: Yes Pets & animals: cat(s) History of recent travel: No Current gender identity: Female Special roxanne needs: No Physical Exam Const: COMMON NORMALS: no acute distress, patient oriented x3 and alert GENERAL APPEARANCE: cooperative and comfortable HENMT: COMMON NORMALS: normocephalic HEAD & SCALP: normocephalic MOUTH: Normal oral and palatal mucosa present THROAT: posterior oropharynx normal and uvula midline Eye: COMMON NORMALS: Equal, round and reactive pupils present, EOMs intact bilaterally and conjunctivae normal CONJUNCTIVA: Yes conjunctivae normal PUPIL: Yes Equal, round and reactive pupils present Neck/C-Spine: COMMON NORMALS: supple GENERAL: Yes normal visual inspection Resp: COMMON NORMALS: normal respiratory effort, No retractions, No use of accessory muscles and clear to auscultation bilaterally AUSCULTATION: clear to auscultation bilaterally Cardio: COMMON NORMALS: regular rate, regular rhythm, S1 normal heart sound present, S2 normal heart sound present, No gallops present (Cardio), No clicks present (Cardio), No murmurs present (Cardio) and Peripheral pulses 2+ throughout RATE: regular rate RHYTHM: regular rhythm HEART SOUNDS: S1 normal heart sound present and S2 normal heart sound present PERIPHERAL PULSES: Peripheral pulses 2+ throughout GI: COMMON NORMALS: Normal to inspection, nondistended, normoactive bowel sounds present, Soft to palpation, non-tender and no masses PALPATION: Yes Soft to palpation : COMMON NORMALS: Yes no CVA tenderness BLADDER/KIDNEY EXAM: Yes no CVA tenderness Back/Pelvis: COMMON NORMALS: no CVA tenderness Extremity: COMMON NORMALS: normal to inspection Neuro: COMMON NORMALS: patient oriented x3 SENSORIUM/ORIENTATION: Yes alert GAIT: Yes Normal gait present Skin: GENERAL SKIN EXAM: dry skin Course Vital Signs: Vital signs: Vital Signs Temperature 98.5 F 10/03/22 16:28 Pulse Rate 88 10/03/22 17:06 Respiratory Rate 18 10/03/22 17:06 Blood Pressure 173/93 10/03/22 16:28 Pulse Oximetry 99 10/03/22 17:06 Oxygen Delivery Me thod 10/03/22 16:28 MDM - Eye Problem Medical Decision Making Patient is a 67-year-old female who comes to the ED with blurry vision in right eye. No left eye complaints. Patient has a history of cataracts in right eye and just saw her eye doctor little over a week ago and is scheduled to have cataract surgery in right eye on October 13. Vitals are stable. Patient appears nontoxic in no acute distress or pain. Normal eye exam. Patient's symptoms likely due to worsening cataracts. She is scheduled for her surgery on October 13 and I told her to contact Dr. Ortiz office on Wednesday to see if she can get seen sooner. Return ED precautions given. Patient understood agree with plan. Discharge Plan Discharge Patient Disposition: Home Clinical Impression: Cataract of right eye Qualifiers: Cataract type: unspecified Qualified Code(s): H26.9 - Unspecified cataract Condition: Stable Prescriptions: No Action aspirin 81 mg tablet,chewable 81 mg PO DAILY Hold Instructions: Resume on 08/01/22. fluticasone propionate 50 mcg/actuation spray,suspension 2 spray INTRANASAL DAILY gabapentin 100 mg capsule 100 mg PO TID metformin 500 mg tablet 500 mg PO BID divalproex 250 mg tablet,delayed release (DR/EC) 250 mg PO DAILY escitalopram oxalate 10 mg tablet 10 mg PO DAILY Stiolto Respimat 2.5-2.5 mcg/actuation mist 2 puff INHALATION DAILY (DME) COCK UP SPLINT See Rx Instructions .Route .MEDSUPPLY Qty: 2 0RF Rx Instructions: As directed amlodipine 5 mg tablet 5 mg PO BID Ozempic 0.25 mg or 0.5 mg(2 mg/1.5 mL) pen injector 0.25 mg SUBCUT .weekly 30 Days Qty: 1.5 0RF Ozempic 1 mg/dose (4 mg/3 mL) pen injector 1 mg SUBCUT .weekly Qty: 3 3RF Ozempic 0.25 mg or 0.5 mg(2 mg/1.5 mL) pen injector See Rx Instructions .ROUTE .COMPLEX Qty: 1.5 0RF Dose Instruction: INJECT 0.5MG(0.4MLS) SUBCUTANEOUSLY ONCE A WEEK FOR 1 MONTH Rx Instructions: INJECT 0.5MG(0.4MLS) SUBCUTANEOUSLY ONCE A WEEK FOR 1 MONTH multivitamin Tablet 1 tab PO DAILY latanoprost 0.005 % Drops 1 drp OPHTHALMIC (EYE) DAILY atorvastatin 40 mg tablet 40 mg PO DAILY bupropion HCl 100 mg tablet sustained-release 12 hr 100 mg PO BID levothyroxine 88 mcg tablet 88 mcg PO DAILY losartan-hydrochlorothiazide 100-12.5 mg tablet 1 tab PO DAILY dexamethasone 2 mg tablet 2 mg PO DAILY Qty: 5 0RF primidone 50 mg tablet 100 mg PO DAILY hydrocodone-acetaminophen 5-325 mg tablet 1 tab PO Q6H PRN (Reason: pain) Qty: 28 0RF Discharge Orders: Discharge ED (Routine); Ordered 10/03/22 Ordered By: Jeff Cervantes Referrals: Roman Clifton MD [Primary Care Provider] - Discharge Diet: Regular Discharge Activity: Increase activity as tolerated Patient Instructions: Cataracts (ED) Activity Restrictions/Additional Instructions: Follow-up with eye doctor at your scheduled cataract surgery appointment on October 13. Continue taking all home medications as previously prescribed. Return to the ER or your medical provider if condition worsens. Please read and understand discharge instructions. Thank you for choosing [facility] [place] for your healthcare needs today. Please realize this is an emergency room and that we are providing you with a medical screening exam and this may not be complete and all inclusive of all the testing and or work up that you may need to determine your ailment or severity of your illness. It is very important that you follow up as instructed or that you return to the Emergency Department should you have concerns or if your condition changes or worsens in any way. Coding Level of Care Code ED Business Travel Consultant for Ursula Fwchristina Exam Comprehensive
[2022-10-03 17:06] VITALS: PULSE 88; RESP 18; O2SAT 99
== END 2022-10-03 17:00 | disposition home or self-care (01) ==
PROVIDERS: Emergency Provider Physician Assistant; PCP Family Medicine
DX: H26.9 Unspecified cataract (principal)
CPT/HCPCS: 99282

== ENCOUNTER 2022-10-04 18:27 | Emergency (ER) | payer MEDICARE, MEDICAID, SELFPAY ==
[2022-10-04 18:54] VITALS: BP 182/79; PULSE 79; RESP 16; TEMP 36.9; O2SAT 93
[2022-10-04] MEDS: fluorescein 1 mg Strip EYE-BOTH (19:55)
[2022-10-04] MEDS: tetracaine 0.5% Op Soln 4 mL Btl 1 DROP EYE-BOTH (19:55)
--- NOTE | 2022-10-04 20:00 | W.ED.EYEPROB ---
Documented by User: VALENCIA Singh 10/04/22 20:50 HPI - Eye Problem General: Chief complaint: Eye Problems Stated complaint: cant see out of right eye Time Seen by Provider: 10/04/22 19:15 History of Present Illness: Patient reports that she is in today for loss of vision in the right eye. Patient reports that she is scheduled to have cataract surgery on her right eye on October 13. She reports that yesterday she started noticing vision of her right eye was very blurred and she did come to the ER. She reports that she was discharged from the ER at the vision remains blurry even into this morning. Patient reports that she laid down for a nap around 230 this afternoon and woke up unable to see anything out of the right eye. She reports that she does actually see a little bit in her lateral peripheral vision of her right eye however her central eye is totally black. She denies pain, nausea, vomiting. She has a minor headache above her left eyebrow but nothing that is bothersome even. She does report a history of retinal detachment in the left eye a few years ago. She reports that it happened in a similar way in which all of the sudden she had just black vision in her left eye. She denies any recent history of trauma. She does report she has macular degeneration and takes eyedrops every day to keep the pressures down. Associated symptoms: Reports headache(s) (Slight headache above the left eyebrow); Denies nausea or vomiting Review of Systems Eyes: Reports: change in vision and blind spots Card: Denies: chest pain, palpitations or irregular heart rhythm Resp: Denies: dyspnea, productive cough or non-productive cough GI: Denies: abdominal pain, nausea or vomiting Neuro: Reports: headache(s) (Slight headache above the left eyebrow); Denies: numbness in extremities or weakness in extremities PFSH ED PFSH: Medical History COPD (chronic obstructive pulmonary disease) COVID-19 Hypertension PERCY (obstructive sleep apnea) Pneumonia due to COVID-19 virus Psychiatric care Surgical History History of detached retina repair History of tonsillectomy Family History Other Hypertension Social History Smoking and tobacco status: never smoked Quit status (tobacco): has quit using tobacco Year quit tobacco: 2014 Former quit date comment: 1 pack per day for 48 years Second hand smoke exposure: No Alcohol intake: never Lives independently: Yes Pets and animals: Yes Pets & animals: cat(s) History of recent travel: No Current gender identity: Female Special roxanne needs: No Physical Exam Const: COMMON NORMALS: no acute distress, patient oriented x3 and alert Eye: OTHER: Patient does have some vision in her right lateral peripheral visual field however her central and medial visual tolentino patient does not report seeing. Pupils are equal. Tetracaine eyedrops placed to bilateral eyes. Tonometry recordings in the right eye were 10 and 14 and in the left eye for 10 and 12. Ophthalmologic ultrasound of the right eye done by Dr. Pena shows what appears to be a retinal detachment and mild artifact. Neck/C-Spine: COMMON NORMALS: no JVD Resp: COMMON NORMALS: normal respiratory effort, No use of accessory muscles and clear to auscultation bilaterally AUSCULTATION: clear to auscultation bilaterally Cardio: COMMON NORMALS: no JVD, regular rate, regular rhythm, S1 normal heart sound present and S2 normal heart sound present RATE: regular rate RHYTHM: regular rhythm HEART SOUNDS: S1 normal heart sound present and S2 normal heart sound present Neuro: COMMON NORMALS: patient oriented x3 SENSORIUM/ORIENTATION: Yes alert Course Vital Signs: Vital signs: Vital Signs Temperature 98.4 F 10/04/22 18:54 Pulse Rate 73 10/04/22 21:38 Respiratory Rate 18 10/04/22 21:38 Blood Pressure 182/79 10/04/22 18:54 Pulse Oximetry 93 10/04/22 21:38 Oxygen Delivery Me thod 10/04/22 18:54 MDM - Eye Problem Medical Decision Making Consider retinal detachment, vascular occlusion, glaucoma. I consulted with Dr. Pena who evaluated patient and performed tonometry readings and ophthalmologic ultrasound to the right eye. He agrees that this is likely a retinal detachment. No ophthalmology call coverage tonight. Paged ophthalmology in [place] and awaiting a call back. Dr. Pena was able to reach Dr. Maravilla at the [facility] micro computer specialist clinic. They advised to have the patient follow-up outpatient tomorrow morning at 9 AM. Address and phone number was given to the patient. Instructed patient to avoid any strenuous activity or heavy lifting. Return to the ER as needed for new or worsening symptoms. Discharge Plan Discharge Patient Disposition: Home Clinical Impression: Detached retina, right Condition: Stable Prescriptions: No Action aspirin 81 mg tablet,chewable 81 mg PO DAILY Hold Instructions: Resume on 08/01/22. fluticasone propionate 50 mcg/actuation spray,suspension 2 spray INTRANASAL DAILY gabapentin 100 mg capsule 100 mg PO TID metformin 500 mg tablet 500 mg PO BID divalproex 250 mg tablet,delayed release (DR/EC) 250 mg PO DAILY escitalopram oxalate 10 mg tablet 10 mg PO DAILY Stiolto Respimat 2.5-2.5 mcg/actuation mist 2 puff INHALATION DAILY (DME) COCK UP SPLINT See Rx Instructions .Route .MEDSUPPLY Qty: 2 0RF Rx Instructions: As directed amlodipine 5 mg tablet 5 mg PO BID Ozempic 0.25 mg or 0.5 mg(2 mg/1.5 mL) pen injector 0.25 mg SUBCUT .weekly 30 Days Qty: 1.5 0RF Ozempic 1 mg/dose (4 mg/3 mL) pen injector 1 mg SUBCUT .weekly Qty: 3 3RF Ozempic 0.25 mg or 0.5 mg(2 mg/1.5 mL) pen injector See Rx Instructions .ROUTE .COMPLEX Qty: 1.5 0RF Dose Instruction: INJECT 0.5MG(0.4MLS) SUBCUTANEOUSLY ONCE A WEEK FOR 1 MONTH Rx Instructions: INJECT 0.5MG(0.4MLS) SUBCUTANEOUSLY ONCE A WEEK FOR 1 MONTH multivitamin Tablet 1 tab PO DAILY latanoprost 0.005 % Drops 1 drp OPHTHALMIC (EYE) DAILY atorvastatin 40 mg tablet 40 mg PO DAILY bupropion HCl 100 mg tablet sustained-release 12 hr 100 mg PO BID levothyroxine 88 mcg tablet 88 mcg PO DAILY losartan-hydrochlorothiazide 100-12.5 mg tablet 1 tab PO DAILY dexamethasone 2 mg tablet 2 mg PO DAILY Qty: 5 0RF primidone 50 mg tablet 100 mg PO DAILY hydrocodone-acetaminophen 5-325 mg tablet 1 tab PO Q6H PRN (Reason: pain) Qty: 28 0RF Discharge Orders: Discharge ED (Routine); Ordered 10/04/22 Ordered By: Michaela Lemus Referrals: Roman Clifton MD [Primary Care Provider] - Discharge Diet: Usual diet Discharge Activity: Limit activity as instructed Patient Instructions: Retinal Detachment Activity Restrictions/Additional Instructions: Follow-up with Dr. Maravilla with [facility] customer resolution specialist clinic tomorrow at 9 AM. The address is [address] [place] [address]. The phone number is [phone]. No strenuous activity or heavy lifting until released by ophthalmology. Return to the ER as needed for new or worsening symptoms. Coding Level of Care Code ED Quality Process Auditor for Chg Fwd Exam Expanded Problem Focused Documented by User: Don Pena MD 10/16/22 19:17 HPI - Eye Problem General: Chief complaint: Eye Problems Stated complaint: cant see out of right eye Time Seen by Provider: 10/04/22 19:15 PFSH ED PFSH: Medical History COPD (chronic obstructive pulmonary disease) COVID-19 Hypertension PERCY (obstructive sleep apnea) Pneumonia due to COVID-19 virus Psychiatric care Surgical History History of detached retina repair History of tonsillectomy Family History Other Hypertension Social History Smoking and tobacco status: never smoked Quit status (tobacco): has quit using tobacco Year quit tobacco: 2014 Former quit date comment: 1 pack per day for 48 years Second hand smoke exposure: No Alcohol intake: never Lives independently: Yes Pets and animals: Yes Pets & animals: cat(s) History of recent travel: No Current gender identity: Female Special roxanne needs: No Course Vital Signs: Vital signs: Vital Signs Temperature 98.4 F 10/04/22 18:54 Pulse Rate 73 10/04/22 21:38 Respiratory Rate 18 10/04/22 21:38 Blood Pressure 182/79 10/04/22 18:54 Pulse Oximetry 93 10/04/22 21:38 Oxygen Delivery Me thod 10/04/22 18:54 MDM - Eye Problem Medical Decision Making Consider retinal detachment, vascular occlusion, glaucoma. I consulted with Dr. Pena who evaluated patient and performed tonometry readings and ophthalmologic ultrasound to the right eye. He agrees that this is likely a retinal detachment. No ophthalmology call coverage tonight. Paged ophthalmology in [place] and awaiting a call back. Dr. Pena was able to reach Dr. Maravilla at the [facility] micro computer specialist clinic. They advised to have the patient follow-up outpatient tomorrow morning at 9 AM. Address and phone number was given to the patient. Instructed patient to avoid any strenuous activity or heavy lifting. Return to the ER as needed for new or worsening symptoms. I discussed this case with Michaela Lemus NP. I personally saw and evaluated patient. I reviewed documentation. Point of care ultrasound performed with a hyperechoic flap identified concerning for large retinal detachment. I discussed the case with retinal specialist in [place] who reported and follow-up is okay. I discussed results of ED evaluation including other possible etiologies of vision loss with the patient. She is comfortable with outpatient management. She understands need to follow-up in the morning. Don Pena MD Emergency medicine Discharge Plan Discharge Patient Disposition: Home Clinical Impression: Detached retina, right Condition: Stable Prescriptions: No Action aspirin 81 mg tablet,chewable 81 mg PO DAILY Hold Instructions: Resume on 08/01/22. fluticasone propionate 50 mcg/actuation spray,suspension 2 spray INTRANASAL DAILY gabapentin 100 mg capsule 100 mg PO TID metformin 500 mg tablet 500 mg PO BID divalproex 250 mg tablet,delayed release (DR/EC) 250 mg PO DAILY escitalopram oxalate 10 mg tablet 10 mg PO DAILY Stiolto Respimat 2.5-2.5 mcg/actuation mist 2 puff INHALATION DAILY (DME) COCK UP SPLINT See Rx Instructions .Route .MEDSUPPLY Qty: 2 0RF Rx Instructions: As directed amlodipine 5 mg tablet 5 mg PO BID Ozempic 0.25 mg or 0.5 mg(2 mg/1.5 mL) pen injector 0.25 mg SUBCUT .weekly 30 Days Qty: 1.5 0RF Ozempic 1 mg/dose (4 mg/3 mL) pen injector 1 mg SUBCUT .weekly Qty: 3 3RF Ozempic 0.25 mg or 0.5 mg(2 mg/1.5 mL) pen injector See Rx Instructions .ROUTE .COMPLEX Qty: 1.5 0RF Dose Instruction: INJECT 0.5MG(0.4MLS) SUBCUTANEOUSLY ONCE A WEEK FOR 1 MONTH Rx Instructions: INJECT 0.5MG(0.4MLS) SUBCUTANEOUSLY ONCE A WEEK FOR 1 MONTH multivitamin Tablet 1 tab PO DAILY latanoprost 0.005 % Drops 1 drp OPHTHALMIC (EYE) DAILY atorvastatin 40 mg tablet 40 mg PO DAILY bupropion HCl 100 mg tablet sustained-release 12 hr 100 mg PO BID levothyroxine 88 mcg tablet 88 mcg PO DAILY losartan-hydrochlorothiazide 100-12.5 mg tablet 1 tab PO DAILY dexamethasone 2 mg tablet 2 mg PO DAILY Qty: 5 0RF primidone 50 mg tablet 100 mg PO DAILY hydrocodone-acetaminophen 5-325 mg tablet 1 tab PO Q6H PRN (Reason: pain) Qty: 28 0RF Discharge Orders: Discharge ED (Routine); Ordered 10/04/22 Ordered By: Michaela Lemus Referrals: Roman Clifton MD [Primary Care Provider] - Discharge Diet: Usual diet Discharge Activity: Limit activity as instructed Patient Instructions: Retinal Detachment Activity Restrictions/Additional Instructions: Follow-up with Dr. Maravilla with [facility] customer resolution specialist clinic tomorrow at 9 AM. The address is [address] [place] [address]. The phone number is [phone]. No strenuous activity or heavy lifting until released by ophthalmology. Return to the ER as needed for new or worsening symptoms. Coding Level of Care Code ED Quality Process Auditor for Chg Fwd Exam Expanded Problem Focused
[2022-10-04 21:38] VITALS: PULSE 73; RESP 18; O2SAT 93
== END 2022-10-04 21:35 | disposition home or self-care (01) ==
PROVIDERS: Emergency Provider Nurse Practitioner Family; PCP Family Medicine
DX: H33.21 Serous retinal detachment, right eye (principal)
CPT/HCPCS: 99283

== ENCOUNTER 2022-10-22 10:00 | Outpatient (CLI) | payer MEDICARE, MEDICAID, SELFPAY ==
[2022-10-22 11:24] LABS: Estmated Average Glucose 140; Hemoglobin A1C 6.5 % (4.0-6.0)
[2022-10-22 11:36] LABS: Chol HDL Ratio 3.83 mg/dL (0.0-4.40); Cholesterol 184 mg/dL (0-200); HDL Cholesterol 48 mg/dL (60-100); LDL Cholesterol Calculated 93 mg/dL (50-129); LDL HDL Ratio 1.94 RATIO (0.00-3.22); Triglycerides 214 mg/dL (0-150)
[2022-10-22 11:37] LABS: Creatinine Urine, Random 187 mg/dL (28-217); Microalbumin Random Urine 19 ug/dL (0-20)
[2022-10-22 11:38] LABS: Microalbum Creatinine Ratio Ur 102 mg/dL (0-20)
== END 2022-10-22 10:01 | disposition home or self-care (01) ==
LOC: LAB 10:03
PROVIDERS: PCP Family Medicine; Visit Provider Internal Medicine
DX: E11.9 Type 2 diabetes mellitus without complications (principal); I10 Essential (primary) hypertension
CPT/HCPCS: 36415; 80061; 82044; 83036

== ENCOUNTER → 2022-11-05 10:11 | Outpatient (BNVA) | payer MEDICARE, MEDICAID, SELFPAY | PROVIDERS: PCP Family Medicine; Visit Provider Internal Medicine | DX: E11.40 Type 2 diabetes mellitus with diabetic neuropathy, unspecified (principal); E78.2 Mixed hyperlipidemia; I10 Essential (primary) hypertension; Z79.84 Long term (current) use of oral hypoglycemic drugs; Z79.890 Hormone replacement therapy | CPT/HCPCS: 99214 ==

== ENCOUNTER 2022-12-07 08:46 | Outpatient (CLI) | payer MEDICARE, MEDICAID, SELFPAY ==
--- NOTE | 2022-12-07 09:05 | CT_ITS ---
WS: [id number] LDCT LUNG CANCER SCREENING HISTORY: HZ OF TOBACCO USE TECHNIQUE: Axial imaging performed from the apices to 1 cm below the costophrenic angles. Coronal and sagittal reformats are submitted with axial MIP series. All CT scans at [facility] use at least one of these dose optimization techniques: automated exposure control; mA and/or kV adjustment per patient size (includes targeted exams where dose is matched to clinical indication); or iterativ e reconstruction. DLP: 96.18 mGy.cm DIvol: Mean CTDIvol: 1.60 (mGy) COMPARISON: 07/22/2021 Diagnostic quality: Mild motion artifact. Lung Nodules: No pulmonary nodules or endobronchial lesions. Lungs: Hyperinflated lungs. Previously described bilateral diffuse groundglass opacifications have re solved. Benign granuloma RIGHT middle lobe. Heart: Mildly enlarged heart. No pleural effusion. Other findings: Mild atherosclerosis aorta. Normal size pulmonary artery. No mediastinal or hilar payton nopathy. Small hiatal hernia. Curvilinear calcification in the expected location of the gallbladder w all. CT/CT lung screening 36590 IMPRESSION: LUNG-RADS: 1-Negative FOLLOW UP: 12 Month: Continue annual screening with LDCT OTHER FINDINGS (S MODIFIER): None.
== END 2022-12-07 08:47 | disposition home or self-care (01) ==
LOC: RAD 08:49
PROVIDERS: PCP Family Medicine; Visit Provider Family Medicine
DX: Z12.2 Encounter for screening for malignant neoplasm of respiratory organs (principal); Z87.891 Personal history of nicotine dependence
CPT/HCPCS: 71271

== ENCOUNTER 2023-01-21 10:58 | Outpatient (CLI) | payer MEDICARE, MEDICAID, SELFPAY ==
[2023-01-21 11:49] LABS: Estmated Average Glucose 171; Hemoglobin A1C 7.6 % (4.0-6.0)
[2023-01-21 12:08] LABS: Chol HDL Ratio 4.07 mg/dL (0.0-4.40); Cholesterol 183 mg/dL (0-200); HDL Cholesterol 45 mg/dL (60-100); LDL Cholesterol Calculated 91 mg/dL (50-129); LDL HDL Ratio 2.02 RATIO (0.00-3.22); Triglycerides 234 mg/dL (0-150)
== END 2023-01-21 10:59 | disposition home or self-care (01) ==
LOC: LAB 11:02
PROVIDERS: PCP Family Medicine; Visit Provider Internal Medicine
DX: E11.9 Type 2 diabetes mellitus without complications (principal); E78.2 Mixed hyperlipidemia; I10 Essential (primary) hypertension
CPT/HCPCS: 36415; 80061; 83036

== ENCOUNTER → 2023-01-28 08:49 | Outpatient (BNVA) | payer MEDICARE, MEDICAID, SELFPAY | PROVIDERS: PCP Family Medicine; Visit Provider Specialist | DX: M17.0 Bilateral primary osteoarthritis of knee (principal) | CPT/HCPCS: 20610; J7318 ==

== ENCOUNTER 2023-02-06 15:36 | Emergency (ER) | payer MEDICARE, MEDICAID, SELFPAY ==
[2023-02-06 15:47] VITALS: BP 173/91; PULSE 73; RESP 16; TEMP 36.6; O2SAT 95
--- NOTE | 2023-02-06 16:00 | ED_ITS ---
HPI - Eye Problem General: Chief complaint: Eye Problems Stated complaint: eye problems Time Seen by Provider: 02/06/23 15:59 Source: patient Mode of arrival: ambulatory Limitations: no limitations History of Present Illness: Patient is a 67-year-old female here for complaints of bilateral eye redness, drainage, and matting. She states she first noticed the right eye having symptoms yesterday and when she woke up this morning symptoms have moved to the left. Patient has a history of cataracts. She had a retinal detachment surgery performed by an doctor of nurse anesthesia practice in [facility] in September. She states she has been recovering well from this and has had appropriate follow-up with their office as well as her javascript ui developer here Dr. Shankar. Patient is not having any eye pain. No visual changes. No foreign body sensation. chief complaint: eye redness and other (drainage) Onset (ago): day(s) (yesterday) Onset description: gradual Duration: constant Location: both eyes Eye Symptoms: discharge Place: home Mechanism: none Severity: mild Associated symptoms: Reports no associated symptoms; Denies fever(s) Treatments Prior to Arrival: none Related Data: Patient tetanus UTD: Yes Review of Systems Const: Denies: fever(s), chills, body aches, fatigue or malaise Eyes: Reports: blurry vision (chronic/R eye-told she will never regain full eyesight; no recent changes), eye discharge and eye redness; Denies: change in vision, blind spots, photophobia, eye discomfort, floaters or seeing flashes [facility] ED PFSH: Medical History COPD (chronic obstructive pulmonary disease) COVID-19 Hypertension PERCY (obstructive sleep apnea) Pneumonia due to COVID-19 virus Psychiatric care Surgical History History of detached retina repair History of tonsillectomy Family History Other Hypertension Social History Smoking and tobacco status: never smoked Quit status (tobacco): has quit using tobacco Year quit tobacco: 2014 Former quit date comment: 1 pack per day for 48 years Second hand smoke exposure: No Alcohol intake: never Lives independently: Yes Pets and animals: Yes Pets & animals: cat(s) Current gender identity: Female Special roxanne needs: No Physical Exam Const: COMMON NORMALS: no acute distress, patient oriented x3, no limitations and alert ORIENTATION/CONSCIOUSNESS: Yes awake, Yes oriented to person, Yes oriented to place and Yes oriented to time HENMT: COMMON NORMALS: normocephalic and atraumatic HEAD & SCALP: normal to inspection, normocephalic and atraumatic Eye: COMMON NORMALS: Equal, round and reactive pupils present, EOMs intact bilaterally, no scleral icterus and normal visual tirado by confrontation GENERAL EYE: normal light reflex VISUAL TIRADO: No peripheral vision loss and No central vision loss ALIGNMENT: Yes alignment normal PERIORBITAL: periorbital findings normal EYELID: eyelids normal CONJUNCTIVA: Yes conjunctival abnormal positive bilateral conjunctival injection and discharge SCLERA: sclerae normal CORNEA: Yes corneas normal PUPIL: Yes Equal, round and reactive pupils present DIRECT OPHTHALMOSCOPY: Yes normal light reflex Neuro: COMMON NORMALS: patient oriented x3 SENSORIUM/ORIENTATION: Yes alert, Yes oriented to person, Yes oriented to place and Yes oriented to time Course Vital Signs: Vital signs: Vital Signs Temperature 97.9 F 02/06/23 15:47 Pulse Rate 73 02/06/23 15:47 Respiratory Rate 16 02/06/23 15:47 Blood Pressure 173/91 02/06/23 15:47 Pulse Oximetry 95 02/06/23 15:47 Oxygen Delivery Me thod 02/06/23 15:47 MDM - Eye Problem Medical Decision Making Patient has no eye pain. No visual changes. No foreign body sensation. Patient's conjunctival irritation and redness along with her drainage most consistent with a conjunctivitis. Will place on antibiotic drops and recommend she follow-up with her doctor of nurse anesthesia practice in [place] this week especially if symptoms do not seem to be improving. Return to ED precautions given. Discharge Plan Discharge Patient Disposition: Home Clinical Impression: Conjunctivitis Qualifiers: Conjunctivitis type: acute Acute conjunctivitis type: unspecified Laterality: bilateral Qualified Code(s): H10.33 - Unspecified acute conjunctivitis, bilateral Condition: Stable Prescriptions: New Polytrim 10,000 unit- 1 mg/mL drops 1 drp ophthalmic (eye) QID 7 Days Qty: 10 0RF No Action aspirin 81 mg tablet,chewable 81 mg PO DAILY Hold Instructions: Resume on 08/01/22. fluticasone propionate 50 mcg/actuation spray,suspension 2 spray INTRANASAL DAILY gabapentin 100 mg capsule 100 mg PO TID metformin 500 mg tablet 500 mg PO BID escitalopram oxalate 10 mg tablet 10 mg PO DAILY Stiolto Respimat 2.5-2.5 mcg/actuation mist 2 puff INHALATION DAILY prednisolone acetate 1 % drops,suspension See Rx Instructions ophthalmic (eye) DAILY Rx Instructions: on taper dose per eye dr into the eye(s) daily; amlodipine 10 mg tablet 10 mg PO DAILY Victoza 3-Morales 0.6 mg/0.1 mL (18 mg/3 mL) pen injector 1.2 mg SUBCUT DAILY Qty: 18 2RF multivitamin Tablet 1 tab PO DAILY latanoprost 0.005 % Drops 1 drp OPHTHALMIC (EYE) DAILY atorvastatin 40 mg tablet 40 mg PO DAILY bupropion HCl 100 mg tablet sustained-release 12 hr 100 mg PO BID levothyroxine 88 mcg tablet 88 mcg PO DAILY losartan-hydrochlorothiazide 100-12.5 mg tablet 1 tab PO DAILY dexamethasone 2 mg tablet 2 mg PO DAILY Qty: 5 0RF primidone 50 mg tablet 100 mg PO DAILY Discharge Orders: Discharge ED (Routine); Ordered 02/06/23 Ordered By: Sabrina Houston Referrals: Roman Clifton MD [Primary Care Provider] - Patient Instructions: Conjunctivitis (ED) Activity Restrictions/Additional Instructions: As we discussed I would like you to follow-up with your doctor of nurse anesthesia practice this week for reevaluation especially if symptoms do not seem to be improving. You need to return to the emergency department for worsening symptoms or if you are unable to see them. You also need to return immediately for visual loss, severe eye pain, foreign body sensation, or any other concerns you may have. Coding Level of Care Code ED Mortgage Advisor for Ursula Grewal
== END 2023-02-06 16:33 | disposition home or self-care (01) ==
PROVIDERS: Emergency Provider Physician Assistant; PCP Family Medicine
DX: H10.33 Unspecified acute conjunctivitis, bilateral (principal); Z79.82 Long term (current) use of aspirin
CPT/HCPCS: 99283

== ENCOUNTER → 2023-03-25 10:14 | Outpatient (BNVA) | payer MEDICARE, MEDICAID, SELFPAY | PROVIDERS: PCP Family Medicine; Visit Provider Internal Medicine | DX: E11.40 Type 2 diabetes mellitus with diabetic neuropathy, unspecified (principal); E78.2 Mixed hyperlipidemia; I10 Essential (primary) hypertension; Z79.84 Long term (current) use of oral hypoglycemic drugs; Z87.440 Personal history of urinary (tract) infections | CPT/HCPCS: 99214 ==

== ENCOUNTER → 2023-03-31 10:29 | Outpatient (BNVA) | payer MEDICARE, MEDICAID, SELFPAY | PROVIDERS: PCP Family Medicine; Visit Provider Specialist | DX: G25.0 Essential tremor (principal); E11.40 Type 2 diabetes mellitus with diabetic neuropathy, unspecified; Z79.84 Long term (current) use of oral hypoglycemic drugs; Z86.69 Personal history of other diseases of the nervous system and sense organs; Z98.890 Other specified postprocedural states | CPT/HCPCS: 99213 ==

== ENCOUNTER 2023-06-15 08:03 | Outpatient (CLI) | payer MEDICARE, MEDICAID, SELFPAY ==
[2023-06-15 08:42] LABS: Estmated Average Glucose 160; Hemoglobin A1C 7.2 % (4.0-6.0)
[2023-06-15 08:46] LABS: Alanine Aminotransferase 40 U/L (0-33); Alkaline Phosphatase 73 U/L (35-105); Anion Gap 16.2 (5-19); Aspartate Amino Transferase 24 U/L (0-32); Blood Urea Nitrogen 18 mg/dL (8-23); Calcium 9.4 mg/dL (8.5-10.5); Carbon Dioxide 28 mmol/L (22-29); Chloride 102 mmol/L (98-107); Chol HDL Ratio 3.76 mg/dL (0.0-4.40); Cholesterol 173 mg/dL (0-200); Globulin 2.8 g/dL (1.3-4.6); Glomerular Filtration Rate 99.4 mL/min (90-130); Glucose 153 mg/dL (65-115); HDL Cholesterol 46 mg/dL (60-100); LDL Cholesterol Calculated 79 mg/dL (50-129); LDL HDL Ratio 1.72 RATIO (0.00-3.22); Osmolality Calculated 299 mOsm/kg (285-295); Potassium 4.2 mmol/L (3.5-5.1); Sodium 142 mmol/L (136-145); Total Bilirubin 0.3 mg/dL (0.15-1.2); Total Protein 6.8 g/dL (6.6-8.7); Triglycerides 242 mg/dL (0-150)
[2023-06-15 09:08] LABS: Creatinine Urine, Random 155 mg/dL (28-217); Microalbum Creatinine Ratio Ur 39 mg/dL (0-20); Microalbumin Random Urine 6 ug/dL (0-20)
== END 2023-06-15 08:04 | disposition home or self-care (01) ==
PROVIDERS: PCP Family Medicine; Visit Provider Internal Medicine
DX: E11.9 Type 2 diabetes mellitus without complications (principal); I10 Essential (primary) hypertension
CPT/HCPCS: 36415; 80053; 80061; 82044; 83036

== ENCOUNTER → 2023-06-23 13:07 | Outpatient (BNVA) | payer MEDICARE, MEDICAID, SELFPAY | PROVIDERS: PCP Family Medicine; Visit Provider Internal Medicine | DX: E11.40 Type 2 diabetes mellitus with diabetic neuropathy, unspecified; E78.2 Mixed hyperlipidemia; I10 Essential (primary) hypertension; Z79.84 Long term (current) use of oral hypoglycemic drugs | CPT/HCPCS: 99214 ==

== ENCOUNTER → 2023-08-05 08:49 | Outpatient (BNVA) | payer MEDICARE, MEDICAID, SELFPAY | PROVIDERS: PCP Family Medicine; Visit Provider Specialist | DX: M17.0 Bilateral primary osteoarthritis of knee (principal); Z71.89 Other specified counseling | CPT/HCPCS: 20610; J1100; J2795; J3301 ==

== ENCOUNTER 2023-08-18 12:22 | Outpatient (CLI) | payer MEDICARE, MEDICAID, SELFPAY ==
--- NOTE | 2023-08-18 12:26 | MM_ITS ---
WS: [id number] BILATERAL 3D TOMOSYNTHESIS DIGITAL SCREENING MAMMOGRAPHY WITH CAD CLINICAL INFORMATION: SCREENING HISTORY: Screening mammogram. No current complaints. COMPARISON: 2021 TECHNIQUE: Bilateral CC and MLO views. FINDINGS: Scattered fibroglandular densities bilaterally. No suspicious focal mass, asymmetry, calcifications, or architectural distortion. No evidence of malignancy. A few incidental punctate calcifications. IMPRESSION: MM/[place] [id number] BI-RADS: 2-Benign FOLLOW UP: 1 Year Follow-up Recommend return to annual screening mammography.
--- NOTE | 2023-08-18 12:31 | XR_ITS ---
WS: [id number] DEXA (DUAL ENERGY X-RAY ABSORPTIOMETRY) Bone mineral density was performed using a [employer] machine. HISTORY: OSTEOPOROSIS SCREENING COMPARISON: None available. Lumbar spine BMD (L1-L4): 1.514 g/cm2 T score: 2.8 Z score: 3.3 Total hip BMD: Left: 1.128 g/cm2. T score: 1.0 Z score: 1.5 Right: 1.184 g/cm2. T score: 1.4 Z score: 1.9 10 year probability of a major osteoporotic fracture is 14.2%. IMPRESSION: NORMAL BONE MINERAL DENSITY based upon the WHO classification for females.
== END 2023-08-18 12:23 | disposition home or self-care (01) ==
LOC: RAD 12:22
PROVIDERS: PCP Family Medicine; Visit Provider Family Medicine
DX: Z12.31 Encounter for screening mammogram for malignant neoplasm of breast (principal); Z13.820 Encounter for screening for osteoporosis; Z78.0 Asymptomatic menopausal state
CPT/HCPCS: 77063; 77067; 77080

== ENCOUNTER → 2023-08-30 10:26 | Outpatient (BNVA) | payer MEDICARE, MEDICAID, SELFPAY | PROVIDERS: PCP Family Medicine; Visit Provider Specialist | DX: M65.342 Trigger finger, left ring finger | CPT/HCPCS: 73130; 99214 ==

== ENCOUNTER → 2023-08-31 15:17 | Outpatient (BNVA) | payer MEDICARE, MEDICAID, SELFPAY | PROVIDERS: PCP Family Medicine; Referring Provider Family Medicine; Visit Provider Specialist | DX: G56.03 Carpal tunnel syndrome, bilateral upper limbs (principal); G56.20 Lesion of ulnar nerve, unspecified upper limb | CPT/HCPCS: 95909; 99212 ==

== ENCOUNTER 2023-09-10 11:24 | Outpatient (CLI) | payer MEDICARE, MEDICAID, SELFPAY ==
[2023-09-10 12:51] LABS: Basophils % 0.5 %; Eosinophils # 0.1 10^3/uL (0.0-0.8); Eosinophils % 1.5 %; Hematocrit 39.8 % (36-47); Lymphocytes % 25.9 %; Mean Corpuscular HGB Conc 32.2 g/dL (30-55); Mean Corpuscular Volume 93.2 fl (85-98); Mean Platelet Volume 10.2 fL (7.4-10.4); Monocytes # 0.6 10^3/uL (0.2-0.9); Monocytes % 8.2 %; Neutrophils # 4.79 10^3/uL (1.8-7.7); Neutrophils % 63.2 %; Nucleated Red Blood Cells % 0 %; Platelet Count 281 10^3/cmm (157-399); Red Blood Count 4.27 10^6/uL (3.85-5.65); Red Cell Distribution Width 15.1 % (12.1-15.1); White Blood Count 7.57 10^3/uL (3.29-11.43)
[2023-09-10 13:08] LABS: Estmated Average Glucose 166; Hemoglobin A1C 7.4 % (4.0-6.0)
[2023-09-10 13:12] LABS: Alanine Aminotransferase 44 U/L (0-33); Albumin Level 4.2 g/dL (3.5-5.2); Alkaline Phosphatase 69 U/L (35-105); Anion Gap 17.2 (5-19); Aspartate Amino Transferase 24 U/L (0-32); Blood Urea Nitrogen 20 mg/dL (8-23); Calcium 9.9 mg/dL (8.5-10.5); Carbon Dioxide 29 mmol/L (22-29); Chloride 101 mmol/L (98-107); Chol HDL Ratio 3.98 mg/dL (0.0-4.40); Cholesterol 179 mg/dL (0-200); Globulin 2.4 g/dL (1.3-4.6); Glomerular Filtration Rate 99.4 mL/min (90-130); Glucose 179 mg/dL (65-115); HDL Cholesterol 45 mg/dL (60-100); LDL Cholesterol Calculated 92 mg/dL (50-129); LDL HDL Ratio 2.04 RATIO (0.00-3.22); Osmolality Calculated 303 mOsm/kg (285-295); Potassium 4.2 mmol/L (3.5-5.1); Sodium 143 mmol/L (136-145); Total Bilirubin 0.3 mg/dL (0.15-1.2); Total Protein 6.6 g/dL (6.6-8.7); Triglycerides 211 mg/dL (0-150)
[2023-09-10 13:15] LABS: Creatinine Urine, Random 114 mg/dL (28-217); Microalbumin Random Urine 10 ug/dL (0-20)
[2023-09-10 13:16] LABS: Microalbum Creatinine Ratio Ur 88 mg/dL (0-20)
[2023-09-10 13:32] LABS: Urine Appearance Clear (CLEAR); Urine Color Yellow (Yellow)
[2023-09-10 13:33] LABS: Add Urine Microscopic? YES; Bacteria Urine TRACE /hpf; Bilirubin Urine Neg (Negative); Blood Urine Neg (Negative); Glucose Urine UA Norm (Normal); Ketones Urine Negative (Negative); Leukocyte Esterase Urine 1+ (Negative); Nitrate Urine Negative (Negative); Protein Urine Neg (Negative); RBC Urine 0-4 /hpf (0-2); Specific Gravity, Urine 1.015 (1.005-1.030); Squamous Epithelial Cell Urine 0-4 /hpf (0-5); Urobilinogen Urine Norm (Negative); WBC Urine 0-4 /hpf (0-5); pH Urine 6.5 (5-7)
== END 2023-09-10 11:25 | disposition home or self-care (01) ==
LOC: LAB 11:28
PROVIDERS: Internal Medicine; PCP Family Medicine; Visit Provider Specialist
DX: M65.342 Trigger finger, left ring finger (principal); E11.40 Type 2 diabetes mellitus with diabetic neuropathy, unspecified; E78.2 Mixed hyperlipidemia; I10 Essential (primary) hypertension
CPT/HCPCS: 36415; 80053; 80061; 81001; 82044; 83036; 85025

== ENCOUNTER → 2023-10-08 11:44 | Outpatient (BNVA) | payer MEDICARE, MEDICAID, SELFPAY | PROVIDERS: PCP Family Medicine; Visit Provider Family Medicine | DX: Z01.818 Encounter for other preprocedural examination (principal) | CPT/HCPCS: 80048; 81003; 85025 ==

== ENCOUNTER → 2023-10-15 11:00 | Outpatient (BNVA) | payer MEDICAID, SELFPAY | PROVIDERS: PCP Family Medicine; Visit Provider Internal Medicine | DX: E11.40 Type 2 diabetes mellitus with diabetic neuropathy, unspecified; E78.2 Mixed hyperlipidemia; Z79.84 Long term (current) use of oral hypoglycemic drugs | CPT/HCPCS: 99214 ==

== ENCOUNTER → 2023-10-26 12:08 | Outpatient (BNVA) | payer MEDICARE, MEDICAID, SELFPAY | PROVIDERS: PCP Family Medicine; Referring Provider Family Medicine; Visit Provider Internal Medicine | DX: Z01.818 Encounter for other preprocedural examination (principal); M65.30 Trigger finger, unspecified finger; R06.09 Other forms of dyspnea; I10 Essential (primary) hypertension; E78.2 Mixed hyperlipidemia; E11.9 Type 2 diabetes mellitus without complications; Z79.84 Long term (current) use of oral hypoglycemic drugs | CPT/HCPCS: 99204 ==

== ENCOUNTER 2023-11-05 09:11 | Outpatient (CLI) | payer MEDICARE, MEDICAID, SELFPAY ==
--- NOTE | 2023-11-05 09:30 | USCV_ITS ---
Ester Wilson Age: 68 Gender: F : 1955 Exam Date: 11/05/2023 09:31 Ordering Phys: Patricio St M.D ([email or web address]) Technologist: Leobardo Velazquez Exam Location: [facility] Indication: chest pain BP: 164 / 92 HR: 67 Rhythm: Sinus Technical Quality: Adequate MEASUREMENTS (Male / Female) Normal Values 2D ECHO LVOT Diameter 2.1 cm LV Ejection Fraction MOD 2C 55.4 % LV Ejection Fraction 2C AL 56.4 % LA Diameter 4.6 cm LA Width 3.6 cm LA Height 5.0 cm RA Width 4.0 cm RA Height 4.5 cm Aorta at Sinotubular Diameter 2.3 cm IVC Diameter 2.0 cm M-MODE Aortic Annulus Diameter 3.4 cm LA Ao Ratio MM 1.4 DOPPLER AV Peak Velocity 174.3 cm/s LVOT Peak Velocity 87.0 cm/s AV Area Cont Eq vti 1.6 cm squared AV Area Cont Eq pk 1.7 cm squared MV Peak Velocity 151.0 cm/s MV Area PHT 4.3 cm squared Mitral E to A Ratio 0.9 MV E' Velocity 53.5 cm/s Mitral E to MV E' Ratio 9.7 Mitral E to LV E' Lateral Ratio 11.8 Mitral E to LV E' Septal Ratio 8.2 TR Peak Velocity 192.3 cm/s TR Peak Gradient 14.8 mmHg TR Mean Velocity 146.9 cm/s TR Mean Gradient 9.6 mmHg TR Velocity Time Integral 39.8 cm Right Atrial Pressure 3.0 mmHg Pulmonary Artery Systolic Pressu 17.8 mmHg PV Peak Velocity 139.0 cm/s RV Acceleration Time 0.1 s RV Ejection Time 0.3 s RV AcT/ET 0.2 FINDINGS Left Ventricle Technically limited quality echocardiogram because of poor ultrasonic windows. Left ventricle is normal in size. LV systolic function is normal with EF of 60-65%. No regional wall motion abnormalities are seen. Right Ventricle Normal in size and function. Right Atrium Not well visualized Left Atrium Not well visualized Mitral Valve Not well-visualized. Trace mitral regurgitation. Aortic Valve Not well-visualized. No significant stenosis or regurgitation seen. Tricuspid Valve Well-visualized. Pulmonic Valve Not well visualized Pericardium Not well visualized Aorta Mildly dilated ascending aorta with diameter of 3.56 cm. IVC Appears to be normal CONCLUSIONS Technically limited quality echocardiogram because of poor ultrasonic windows. Left ventricle is normal in size. LV systolic function is normal with EF of 60-65%. Valvular structures are not well-visualized Trace mitral regurgitation Mildly dilated ascending aorta. No comparison studies are available Patricio St MD (Electronically Signed) Final Date: 13 November 2023 14:37 S
--- NOTE | 2023-11-05 10:17 | ECG_ITS ---
[facility] Test Date: 2023-11-05 Pat Name: Ester Wilson Department: Room: Gender: Female Gang Pusher: : 1955 Requested By: Patricio St Order Number: [id number] Jose MD: Patricio St M.D. Interpretive Statements NAME OF STUDY: LEXISCAN SESTAMIBI STRESS TEST INDICATION: [Chest Pain; Shortness of Breath, ] Procedure: At the baseline, the blood pressure was 142/84 mmHg with a heart rate of 64 bpm. The electrocardiogram showed normal sinus rhythm, normal axis with normal ST and T's. The Lexiscan was infused over a period of 20 seconds. A total of 0.4 mg of Lexiscan was infused. The stress phase was continued for a total of 5 minutes. Heart rate was at the end of stress phase was 77 bpm and a blood pressure of 154/74 mmHg. The EKG at the peak infusion revealed normal sinus rhythm with no significant ST-T wave changes. Sestamibi was injected 20 seconds after the Lexiscan infusion. Blood pressure at the end of recovery phase was 146/74 mmHg with a heart rate of 74 bpm. Conclusion: 1. Normal EKG response to Lexiscan infusion 2. No Lexiscan induced chest pain or cardiac arrhythmia. 3. Normal blood pressure and heart rate response. 4. Sestamibi/sestamibi perfusion scan pending; see separate report. Electronically Signed On 11-28-2023 20:05:31 ENGINE RESEARCH ENGINEER by Patricio St M.D. [id number]
--- NOTE | 2023-11-05 10:18 | NMCV_ITS ---
NM tatum perf SPECT r/s* [id number] Ester Wilson Age: 68 Gender: F : 1955 Exam Date: 11/05/2023 10:18 Ordering Phys: Patricio St M.D ([email or web address]) Technologist: NGOZI Antonio Exam Location: [facility] Indications: DYSPNEA ON EXERTION STRESS TEST Please see separate stress test report in [facility]any for full findings IMAGE PROTOCOL Rest/Stress 1 Lexiscan Day Radiopharmaceutical Dose (mCi) Administration Site Administered by Rest: Tc-99m 10.4 IV NGOZI Rawls Sestamibi Stress:Tc-99m 33.0 IV NGOZI Rawls Sestamibi Rest: 05-Nov-2023 60 Discovery 630 Stress: 05-Nov-2023 30 Discovery 630 0.4mg Lexiscan. Images obtained in supine and prone position. SPECT RESULTS Technical Quality: Excellent Raw Data Analysis: Normal Image Corrections: No attenuation or motion correction applied Summed Stress Score: 0 Summed Rest Score: 4 Summed Difference Score: 0 PERFUSION FINDINGS SPECT images demonstrate homogeneous tracer distribution throughout the myocardium. FUNCTIONAL RESULTS (calculated via Gated SPECT) Stress Image LV EF (%): 66 Stress EDV (mL):98 TID: 1.13 Stress ESV (mL):33 FUNCTIONAL FINDINGS: There is normal left ventricular systolic function. IMPRESSIONS 1. Normal myocardial perfusion imaging with no evidence of ischemia 2. LV systolic function is normal Patricio St MD (Electronically Signed) Final Date: 06 November 2023 11:15 S
[2023-11-05] MEDS: regadenoson 0.4 Mg/5 ml Syringe IVP (12:06)
[2023-11-05 12:14] VITALS: BP 152/73; PULSE 72
== END 2023-11-05 09:12 | disposition home or self-care (01) ==
LOC: RAD 09:12 → CDL 09:26
PROVIDERS: PCP Family Medicine; Visit Provider Internal Medicine
DX: R07.9 Chest pain, unspecified (principal); R06.02 Shortness of breath; R06.09 Other forms of dyspnea; I77.810 Thoracic aortic ectasia
CPT/HCPCS: 78452; 93017; 93306; A9500; J2785

== ENCOUNTER 2023-11-05 10:00 | Outpatient (CLI) | payer MEDICARE, MEDICAID, SELFPAY | END 2023-11-05 10:01 | disposition home or self-care (01) | LOC: CDL 11-22 09:38 | PROVIDERS: PCP Family Medicine; Visit Provider Internal Medicine | DX: R07.9 Chest pain, unspecified (principal); R06.02 Shortness of breath; R06.09 Other forms of dyspnea | CPT/HCPCS: 36415; 96374 ==

== ENCOUNTER 2023-11-14 15:55 | Emergency (ER) | payer MEDICARE, MEDICAID, SELFPAY ==
[2023-11-14 16:12] VITALS: BP 144/72; PULSE 75; RESP 14; TEMP 36.8; O2SAT 93; BMI 46.9
--- NOTE | 2023-11-14 16:31 | ED_ITS ---
HPI - Weakness 2 General: Chief complaint: Weakness Stated complaint: should/back pain Time Seen by Provider: 11/14/23 16:30 History of Present Illness: 68-year-old female presents emergency de partment stating that she has had swelling to her bilateral lower legs for many months she thinks this is secondary to her diabetes. She states she does see her primary care and numerical control tool programmer for her diabetes. She takes metformin. She states her last hemoglobin A1c was 7.2. She states that she is scheduled to have a left trigger finger release and her primary care doctor sent her to cardiology for clearance at which time they did a cardiac stress test and was advised that she did not have any significant abnormalities and was cleared for her surgery. She states that she does have bilateral shoulder pain to the lateral aspect of her shoulders as well as bilateral groin area. She states she normally takes Aleve for her discomfort. She states that her muscle pain is a generalized aching type muscle pain and nothing seems to make the pain better nothing seems to make it worse. She does not appear to be in acute distress at present. She denies chest pain or shortness of breath. She denies nausea vomiting dizziness or lightheaded feeling. Review of Systems 2 Card: Reports: edema Musc: Reports: extremity pain PFSH ED 2 PFSH: Medical History PERCY (obstructive sleep apnea) COPD (chronic obstructive pulmonary disease) Pneumonia due to COVID-19 virus Hypertension COVID-19 Surgical History History of detached retina repair History of tonsillectomy Family History Other Hypertension Social History Smoking and tobacco/nicotine status: never used tobacco/nicotine Quit status (tobacco/nicotine): has quit using Year quit tobacco: 2014 Former quit date comment: 1 pack per day for 48 years Second hand smoke exposure: No Alcohol intake: never Substance/Drug Use: never Lives independently: Yes Pets and animals: Yes Pets & animals: cat(s) Current gender identity: Female Special roxanne needs: No Physical Exam 2 Narrative: EXAM NARRATIVE: Constitutional: the patient appears well nourished and of normal development. Vital signs as documented. No acute distress at present. Alert and oriented-to person, place, time and situation. Head, eyes, ears, nose, mouth, throat: Normocephalic, atraumatic. Pupils-equal, round, reactive to light. No scleral icterus. Normal-appearing external ears. Normal appearing nasal turbinates, no drainage. No obvious oral lesions, posterior oropharynx without erythema or exudates. Neck: Supple, trachea is midline, no lymphadenopathy, no jugular venous distension, thyromegaly, or carotid bruits. Carotid upstrokes are brisk bilaterally. Lungs: clear to auscultation to all lung tolentino. Symmetrical rise and fall of chest, no obvious signs of increased work of breathing at present. Cardiac: Regular rate and rhythm, positive S1, S2. No murmurs, rubs or gallops that I can appreciate Abdomen: Soft, non-tender to palpation, normal active bowel sounds to all quadrants. No palpable masses, no organomegaly and abdominal bruits. Extremities: 2+ pulses in the upper extremities that are equal bilaterally, 2+ pulses in the lower extremities that are equal bilaterally. 1+ bilateral lower extremity edema. Moves all extremities well, sensation to all extremities are noted. Skin: Warm, dry, intact. Course 2 Vital Signs: Vital signs: Vital Signs Temperature 98.2 F 11/14/23 16:12 Pulse Rate 75 11/14/23 16:12 Respiratory Rate 14 11/14/23 16:12 Blood Pressure 144/72 11/14/23 16:12 Pulse Oximetry 93 11/14/23 16:12 Oxygen Delivery Me thod Room Air 11/14/23 16:12 MDM - Weakness Medical Decision Making Physical exam complete documented, I will obtain a CBC and a CMP as well as a B- type natriuretic peptide given the patient swelling. I suspect most likely that her edema is secondary to her sedentary lifestyle and progression of her diabetes. Given her recent cardiac stress test which was negative we will forego at this time cardiac enzymes and EKG. Medical Records I reviewed the patient's medical records. Lab Data 11/14/23 16:56 11/14/23 16:56 Laboratory Results WBC 10.95 10^3/uL (3.29-11.43) 11/14/23 16:56 RBC 4.08 10^6/uL (3.85-5.65) 11/14/23 16:56 Hgb 12.40 g/dL (11.27-16.99) 11/14/23 16:56 Hct 38.5 % (36-47) 11/14/23 16:56 MCV 94.4 fl (85-98) 11/14/23 16:56 MCH 30.4 pg (27-33) 11/14/23 16:56 MCHC 32.2 g/dL (30-55) 11/14/23 16:56 RDW 15.3 % (12.1-15.1) H 11/14/23 16:56 Plt Count 292 10^3/cmm (157-399) 11/14/23 16:56 MPV 10.3 fL (7.4-10.4) 11/14/23 16:56 Neut % (Auto) 67.3 % 11/14/23 16:56 Lymph % (Auto) 21.5 % 11/14/23 16:56 [place] % (Auto) 9.5 % 11/14/23 16:56 Eos % (Auto) 0.7 % 11/14/23 16:56 Baso % (Auto) 0.5 % 11/14/23 16:56 Neut # (Auto) 7.36 10^3/uL (1.8-7.7) 11/14/23 16:56 Lymph # (Auto) 2.4 10^3/uL (0.8-4.8) 11/14/23 16:56 [place] # (Auto) 1.0 10^3/uL (0.2-0.9) H 11/14/23 16:56 Eos # (Auto) 0.1 10^3/uL (0.0-0.8) 11/14/23 16:56 Baso # (Auto) 0.1 10^3/uL (0.0-0.1) 11/14/23 16:56 Nucleated RBC % (auto) 0 % 11/14/23 16:56 Nucleated RBCs # 0.0 /100WBC 11/14/23 16:56 Sodium 135 mmol/L (136-145) L 11/14/23 16:56 Potassium 3.8 mmol/L (3.5-5.1) 11/14/23 16:56 Chloride 95 mmol/L (98-107) L 11/14/23 16:56 Carbon Dioxide 26 mmol/L (22-29) 11/14/23 16:56 Anion Gap 17.8 (5-19) 11/14/23 16:56 BUN 13 mg/dL (8-23) 11/14/23 16:56 Creatinine 0.6 mg/dL (0.5-0.9) 11/14/23 16:56 GFR Calculation 99.4 mL/min (90-130) 11/14/23 16:56 Glucose 128 mg/dL (65-115) H 11/14/23 16:56 Calculated Osmolality 282 mOsm/kg (285-295) L 11/14/23 16:56 Calcium 9.7 mg/dL (8.5-10.5) 11/14/23 16:56 Total Bilirubin 0.3 mg/dL (0.15-1.2) 11/14/23 16:56 AST 32 U/L (0-32) 11/14/23 16:56 ALT 44 U/L (0-33) H 11/14/23 16:56 Alkaline Phosphatase 84 U/L (35-105) 11/14/23 16:56 NT-Pro-B Natriuret Pep < 36 pg/mL (0-125) 11/14/23 16:56 Total Protein 7.0 g/dL (6.6-8.7) 11/14/23 16:56 Albumin 3.7 g/dL (3.5-5.2) 11/14/23 16:56 Globulin 3.3 g/dL (1.3-4.6) 11/14/23 16:56 No radiology studies performed this visit Discharge Plan Discharge Patient Disposition: Home Clinical Impression: Myalgia, Edema leg Medication side effects present Qualifiers: Encounter type: initial encounter Qualified Code(s): T50.905A - Adverse effect of unspecified drugs, medicaments and biological substances, initial encounter Condition: Stable Prescriptions: No Action aspirin 81 mg tablet,chewable 81 mg PO DAILY Hold Instructions: Resume on 08/01/22. fluticasone propionate 50 mcg/actuation spray,suspension 2 spray INTRANASAL DAILY gabapentin 100 mg capsule 100 mg PO TID escitalopram oxalate 10 mg tablet 10 mg PO DAILY Stiolto Respimat 2.5-2.5 mcg/actuation mist 2 puff INHALATION DAILY benzonatate 100 mg capsule 100 mg PO BID PRN albuterol sulfate 90 mcg/actuation aerosol powdr breath activated 2 inh inhalation Q6H PRN amlodipine 10 mg tablet 10 mg PO DAILY divalproex 250 mg tablet extended release 24 hr 250 mg PO DAILY (DME) pen needle, diabetic [Comfort EZ Pen [place]] 31 gauge x 3/16 needle See Rx Instructions .Route Qty: 100 2RF Rx Instructions: As directed primidone 50 mg tablet See Rx Instructions .ROUTE .COMPLEX Qty: 360 3RF Dose Instruction: TAKE 2 TABLET BY MOUTH TWICE A DAY Rx Instructions: TAKE 2 TABLET BY MOUTH TWICE A DAY metformin 500 mg tablet extended release 24 hr 1,500 mg PO BID 30 Days Qty: 180 0RF Rx Instructions: 2 tabs in am and 1 tab at night Victoza 3-Morales 0.6 mg/0.1 mL (18 mg/3 mL) pen injector 1.8 mg SUBCUT DAILY Qty: 27 0RF multivitamin Tablet 1 tab PO DAILY latanoprost 0.005 % Drops 1 drp OPHTHALMIC (EYE) DAILY atorvastatin 40 mg tablet 40 mg PO DAILY bupropion HCl 100 mg tablet sustained-release 12 hr 100 mg PO BID levothyroxine 88 mcg tablet 88 mcg PO DAILY losartan-hydrochlorothiazide 100-12.5 mg tablet 1 tab PO DAILY Discharge Orders: Discharge ED (Routine); Ordered 11/14/23 Ordered By: Pawel Ingram Referrals: Roman Clifton MD [Primary Care Provider] - Discharge Diet: Advance as tolerated Discharge Activity: Resume usual activity Patient Instructions: Opioid Safety, Pain Management Activity Restrictions/Additional Instructions: Activity Restrictions/Additional Instructions: Thank you for choosing [facility] for your healthcare needs today. Please realize that you were seen in the Emergency Department and that we are providing you with an emergency medical screening exam and this may not be a complete and all inclusive of all the testing and or medical work-up that you may need to determine your ailment or severity of your illness. It is very important that you follow-up as instructed with your Primary care provider or Specialist for additional evaluation and to discuss your medical treatment plan. You may return to the Emergency Department should you have concerns or if your condition changes or worsens in any way. Coding Level of Care Code ED Nurse Assessor for Ursula Grewal
[2023-11-14 17:07] LABS: Basophils # 0.1 10^3/uL (0.0-0.1); Basophils % 0.5 %; Eosinophils # 0.1 10^3/uL (0.0-0.8); Eosinophils % 0.7 %; Hematocrit 38.5 % (36-47); Lymphocytes # 2.4 10^3/uL (0.8-4.8); Lymphocytes % 21.5 %; Mean Corpuscular HGB Conc 32.2 g/dL (30-55); Mean Corpuscular Hemoglobin 30.4 pg (27-33); Mean Corpuscular Volume 94.4 fl (85-98); Mean Platelet Volume 10.3 fL (7.4-10.4); Monocytes % 9.5 %; Neutrophils # 7.36 10^3/uL (1.8-7.7); Neutrophils % 67.3 %; Nucleated Red Blood Cells % 0 %; Platelet Count 292 10^3/cmm (157-399); Red Blood Count 4.08 10^6/uL (3.85-5.65); Red Cell Distribution Width 15.3 % (12.1-15.1); White Blood Count 10.95 10^3/uL (3.29-11.43)
[2023-11-14 17:34] LABS: Alanine Aminotransferase 44 U/L (0-33); Albumin Level 3.7 g/dL (3.5-5.2); Alkaline Phosphatase 84 U/L (35-105); Blood Urea Nitrogen 13 mg/dL (8-23); Calcium 9.7 mg/dL (8.5-10.5); Carbon Dioxide 26 mmol/L (22-29); Chloride 95 mmol/L (98-107); Globulin 3.3 g/dL (1.3-4.6); Glomerular Filtration Rate 99.4 mL/min (90-130); Glucose 128 mg/dL (65-115); NT Pro B Type Natriuretic Pept < 36 pg/mL (0-125); Osmolality Calculated 282 mOsm/kg (285-295); Sodium 135 mmol/L (136-145); Total Bilirubin 0.3 mg/dL (0.15-1.2)
[2023-11-14 17:42] LABS: Anion Gap 17.8 (5-19); Aspartate Amino Transferase 32 U/L (0-32); Potassium 3.8 mmol/L (3.5-5.1)
== END 2023-11-14 17:56 | disposition home or self-care (01) ==
PROVIDERS: Emergency Provider Internal Medicine; PCP Family Medicine
DX: M79.10 Myalgia, unspecified site (principal); R60.0 Localized edema; T50.905A Adverse effect of unspecified drugs, medicaments and biological substances, initial encounter; J44.9 Chronic obstructive pulmonary disease, unspecified; E11.9 Type 2 diabetes mellitus without complications; I10 Essential (primary) hypertension; Z87.891 Personal history of nicotine dependence; Z79.82 Long term (current) use of aspirin; Z79.84 Long term (current) use of oral hypoglycemic drugs
CPT/HCPCS: 36415; 80053; 83880; 85025; 99283

== ENCOUNTER → 2023-11-18 08:36 | Outpatient (BNVA) | payer MEDICARE, MEDICAID, SELFPAY | PROVIDERS: PCP Family Medicine; Visit Provider Specialist | DX: M17.0 Bilateral primary osteoarthritis of knee (principal) | CPT/HCPCS: 20610; J1100; J2795; J3301 ==

== ENCOUNTER 2023-11-25 14:56 | Emergency (ER) | payer MEDICARE, MEDICAID, SELFPAY ==
[2023-11-25 15:14] VITALS: BP 118/81; PULSE 73; RESP 17; TEMP 36.7; O2SAT 96; BMI 47.5
[2023-11-25 15:56] VITALS: BP 158/88; PULSE 87; RESP 16; O2SAT 96
--- NOTE | 2023-11-25 16:14 | XRR_ITS ---
PROCEDURE INFORMATION: Exam: XR Right Shoulder Exam date and time: 11/25/2023 4:36 PM Age: 68 years old Clinical indication: Right; Patient HX: RT shoulder pain with limited rom; No known injury TECHNIQUE: Imaging protocol: Radiologic exam of the right shoulder. Views: 2 or more views. COMPARISON: CT lung screening [id number] 12/07/2022 9:11 AM FINDINGS: Bones/joints: Normal. Soft tissues: Normal. XR/XR shoulder RT min 2V* [id number] IMPRESSION: No acute findings.
--- NOTE | 2023-11-25 16:20 | W.ED.EXTPRO ---
HPI - Extremity Problem General: Chief complaint: Extremity Injury, Upper Stated complaint: arm pain Time Seen by Provider: 11/25/23 15:45 Source: patient Mode of arrival: ambulatory History of Present Illness: 68-year-old female presents to the emergency room with complaints of right shoulder pain. Pain radiates from her shoulder down to the insertion of the deltoid muscle. No trauma or falls no previous injury to the shoulder that she is aware. She was seen for similar episode about a week ago. Pain is better when she rest worse when she moves particular she tries to AB duct the arm extended or externally rotate at the shoulder. MD Complaint: joint pain Onset (ago): day(s) Pain Consistency: intermittent Location: right and upper extremity (Shoulder upper arm) Quality: sharp Relieving factors: rest Exacerbating factors: range of motion Associated symptoms: Deny chest pain, fever(s), myalgias, rash or short of breath Review of Systems Const: Denies: fever(s) Card: Denies: chest pain Resp: Denies: dyspnea GI: Denies: abdominal pain : Denies: dysuria, urinary frequency or urinary urgency Musc: Denies: neck pain or back pain Skin/Breast: Denies: rash PFSH ED PFSH: Medical History PERCY (obstructive sleep apnea) COPD (chronic obstructive pulmonary disease) Pneumonia due to COVID-19 virus Hypertension COVID-19 Surgical History History of detached retina repair History of tonsillectomy Family History Other Hypertension Social History Smoking and tobacco/nicotine status: never used tobacco/nicotine Quit status (tobacco/nicotine): has quit using Year quit tobacco: 2014 Former quit date comment: 1 pack per day for 48 years Second hand smoke exposure: No Alcohol intake: never Substance/Drug Use: never Lives independently: Yes Pets and animals: Yes Pets & animals: cat(s) Current gender identity: Female Special roxanne needs: No Physical Exam Const: GENERAL APPEARANCE: cooperative and comfortable ORIENTATION/CONSCIOUSNESS: Yes awake, Yes oriented to person, Yes oriented to place and Yes oriented to time HENMT: COMMON NORMALS: normocephalic, atraumatic and hearing grossly normal bilaterally HEAD & SCALP: normocephalic and atraumatic Resp: COMMON NORMALS: normal respiratory effort, No retractions, No use of accessory muscles and clear to auscultation bilaterally AUSCULTATION: clear to auscultation bilaterally Cardio: COMMON NORMALS: regular rate, regular rhythm and No murmurs present (Cardio) RATE: regular rate RHYTHM: regular rhythm Extremity: COMMON NORMALS: normal to inspection, capillary refill normal, no clubbing, cyanosis or edema and no calf tenderness OTHER: Positive impingement sign with range of motion no pain with range of motion at the elbow or wrist. No pain with palpation along the medial or lateral epicondyles on the right arm. Pain localizes to the insertion of the deltoid muscle. No pain to palpation along biceps tendon. Neuro: SENSORIUM/ORIENTATION: Yes oriented to person, Yes oriented to place and Yes oriented to time Skin: COMMON NORMALS: no rashes or lesions noted GENERAL SKIN EXAM: no rashes or lesions noted Course Vital Signs: Vital signs: Vital Signs Temperature 98.1 F 11/25/23 15:14 Pulse Rate 66 11/25/23 17:15 Respiratory Rate 16 11/25/23 15:56 Blood Pressure 119/71 11/25/23 17:15 Pulse Oximetry 95 11/25/23 17:15 Oxygen Delivery Me thod Room Air 11/25/23 15:56 MDM - Extremity (Nontraumatic) Medical Decision Making On exam appears to have rotator cuff arthropathy. Positive impingement sign pain with abduction. Other joints of the upper extremity she can manage normally without any pain as long as they are isolated and avoiding motion at the shoulder. No trauma no deformity x-ray negative refer to orthopedics Lab Data Radiology Impressions Shoulder X-Ray 11/25/23 16:14 IMPRESSION: No acute findings. All radiology interpretation(s) finalized by discharge Discharge Plan Discharge Patient Disposition: Home Clinical Impression: Rotator cuff injury Condition: Stable Prescriptions: New diclofenac sodium 75 mg tablet,delayed release (DR/EC) 75 mg PO Q12H PRN (Reason: pain) Qty: 20 0RF No Action aspirin 81 mg tablet,chewable 81 mg PO DAILY Hold Instructions: Resume on 08/01/22. fluticasone propionate 50 mcg/actuation spray,suspension 2 spray INTRANASAL DAILY gabapentin 100 mg capsule 100 mg PO TID escitalopram oxalate 10 mg tablet 10 mg PO DAILY Stiolto Respimat 2.5-2.5 mcg/actuation mist 2 puff INHALATION DAILY benzonatate 100 mg capsule 100 mg PO BID PRN albuterol sulfate 90 mcg/actuation aerosol powdr breath activated 2 inh inhalation Q6H PRN amlodipine 10 mg tablet 10 mg PO DAILY divalproex 250 mg tablet extended release 24 hr 250 mg PO DAILY (DME) pen needle, diabetic [Comfort EZ Pen [place]] 31 gauge x 3/16 needle See Rx Instructions .Route Qty: 100 2RF Rx Instructions: As directed primidone 50 mg tablet See Rx Instructions .ROUTE .COMPLEX Qty: 360 3RF Dose Instruction: TAKE 2 TABLET BY MOUTH TWICE A DAY Rx Instructions: TAKE 2 TABLET BY MOUTH TWICE A DAY metformin 500 mg tablet extended release 24 hr 1,500 mg PO BID 30 Days Qty: 180 0RF Rx Instructions: 2 tabs in am and 1 tab at night Victoza 3-Morales 0.6 mg/0.1 mL (18 mg/3 mL) pen injector 1.8 mg SUBCUT DAILY Qty: 27 0RF multivitamin Tablet 1 tab PO DAILY latanoprost 0.005 % Drops 1 drp OPHTHALMIC (EYE) DAILY atorvastatin 40 mg tablet 40 mg PO DAILY bupropion HCl 100 mg tablet sustained-release 12 hr 100 mg PO BID levothyroxine 88 mcg tablet 88 mcg PO DAILY losartan-hydrochlorothiazide 100-12.5 mg tablet 1 tab PO DAILY Discharge Orders: Discharge ED (Routine); Ordered 11/25/23 Ordered By: Moises Newton Referrals: Roman Clifton MD [Primary Care Provider] - Discharge Diet: Usual diet Discharge Activity: Resume usual activity Patient Instructions: Opioid Safety, Pain Management Activity Restrictions/Additional Instructions: Thank you for choosing [facility] for your healthcare needs today. Please realize this is an emergency room and that we are providing you with a medical screening exam and this may not be complete and all inclusive of all the testing and or work up that you may need to determine your ailment or severity of your illness. It is very important that you follow up as instructed or that you return to the Emergency Department should you have concerns or if your condition changes or worsens in any way. Placement will make arrangements for you to see orthopedics. Coding Level of Care Code ED Domestic Travel Consultant for Ursula Grewal
[2023-11-25] MEDS: ibuprofen 800 mg tablet PO (16:32)
[2023-11-25 17:15] VITALS: BP 119/71; PULSE 66; O2SAT 95
== END 2023-11-25 17:30 | disposition home or self-care (01) ==
PROVIDERS: Emergency Provider Family Medicine; PCP Family Medicine
DX: S46.001A Unspecified injury of muscle(s) and tendon(s) of the rotator cuff of right shoulder, initial encounter (principal); X58.XXXA Exposure to other specified factors, initial encounter; J44.9 Chronic obstructive pulmonary disease, unspecified; I10 Essential (primary) hypertension; Z87.891 Personal history of nicotine dependence; Z79.82 Long term (current) use of aspirin; Z79.84 Long term (current) use of oral hypoglycemic drugs
CPT/HCPCS: 73030; 99283

== ENCOUNTER 2023-12-08 09:40 | Outpatient (CLI) | payer MEDICARE, MEDICAID, SELFPAY ==
--- NOTE | 2023-12-08 09:51 | CT_ITS ---
WS: [id number] LDCT LUNG CANCER SCREENING HISTORY: HX OF TOBACCO USE TECHNIQUE: Axial imaging performed from the apices to 1 cm below the costophrenic angles. Coronal and sagittal reformats are submitted with axial MIP series. All CT scans at [facility] use at least one of these dose optimization techniques: automated exposure control; mA and/or kV adjustment per patient size (includes targeted exams where dose is matched to clinical indication); or iterativ e reconstruction. DLP: 163.67 mGy.cm DIvol: Mean CTDIvol: 3.90 (mGy) COMPARISON: 12/07/2022 Diagnostic quality: Quality is limited by body habitus. Lungs: Low lung volumes due to poor inspiration. There is a new 7 mm noncalcified pulmonary nodule in the lingula. Additional irregular opacifications at the lung bases bilaterally are new. There is a b enign granuloma RIGHT middle lobe. No mass. No endobronchial lesions. Heart: Moderate cardiomegaly.. Other findings: Enlarged dilated pulmonary artery. Minimal atherosclerosis aorta and coronary arterie s. No mediastinal or hilar adenopathy. Small hiatal hernia. There is variable attenuation in the posterior superior RIGHT lobe of the liver of uncertain etiology . This could be focal areas of fatty sparing and hepatic steatosis. This should be further evaluated. Extensive calcification in the wall of the gallbladder. Splenic granulomata. IMPRESSION: CT/CT lung screening 45081 LUNG-RADS: 4AS-Probably Suspicious with Significant Findings FOLLOW UP: 3 Month LDCT OTHER FINDINGS (S MODIFIER): Abnormal attenuation within the liver needs to be further evaluated. This may be hepatic steatosis and areas of fatty sparing. Th is would probably not be easy to evaluate by ultrasound. Recommend follow-up ab domen and pelvis CT with IV and oral contrast.
[2023-12-08 10:17] LABS: Estmated Average Glucose 169; Hemoglobin A1C 7.5 % (4.0-6.0)
[2023-12-08 10:24] LABS: Alanine Aminotransferase 45 U/L (0-33); Alkaline Phosphatase 78 U/L (35-105); Aspartate Amino Transferase 24 U/L (0-32); Blood Urea Nitrogen 19 mg/dL (8-23); Calcium 9.9 mg/dL (8.5-10.5); Carbon Dioxide 28 mmol/L (22-29); Chloride 100 mmol/L (98-107); Chol HDL Ratio 3.98 mg/dL (0.0-4.40); Cholesterol 199 mg/dL (0-200); Globulin 3.1 g/dL (1.3-4.6); Glomerular Filtration Rate 99.4 mL/min (90-130); Glucose 156 mg/dL (65-115); HDL Cholesterol 50 mg/dL (60-100); LDL Cholesterol Calculated 101 mg/dL (50-129); LDL HDL Ratio 2.02 RATIO (0.00-3.22); Osmolality Calculated 297 mOsm/kg (285-295); Sodium 141 mmol/L (136-145); Total Bilirubin 0.3 mg/dL (0.15-1.2); Total Protein 7.1 g/dL (6.6-8.7); Triglycerides 239 mg/dL (0-150)
[2023-12-08 10:26] LABS: Creatinine Urine, Random 126 mg/dL (28-217); Microalbum Creatinine Ratio Ur 183 mg/dL (0-20); Microalbumin Random Urine 23 ug/dL (0-20)
[2023-12-08 10:26] LABS: Anion Gap 17.2 (5-19); Potassium 4.2 mmol/L (3.5-5.1)
== END 2023-12-08 09:41 | disposition home or self-care (01) ==
LOC: RAD 09:40
PROVIDERS: Absent Provider Internal Medicine; PCP Family Medicine; Visit Provider Family Medicine
DX: Z12.2 Encounter for screening for malignant neoplasm of respiratory organs (principal); Z87.891 Personal history of nicotine dependence; E11.9 Type 2 diabetes mellitus without complications; R91.8 Other nonspecific abnormal finding of lung field; R93.2 Abnormal findings on diagnostic imaging of liver and biliary tract
CPT/HCPCS: 36415; 71271; 80053; 80061; 82044; 83036

== ENCOUNTER 2023-12-28 08:53 | Outpatient (CLI) | payer MEDICARE, MEDICAID, SELFPAY ==
--- NOTE | 2023-12-28 09:01 | CT_ITS ---
WS: [id number] CT ABDOMEN PELVIS TECHNIQUE: Contrast-enhanced CT of the abdomen and pelvis with coronal and sagittal reformatted image s. CLINICAL INFORMATION: ABNORMAL IMAGING OF LIVER COMPARISON: CT lung screening 12/08/2023. CT abdomen pelvis 2005 DLP: 1954.[address] scans at [facility] use at least one of these dose optimization techniques: automated e xposure control; mA and/or kV adjustment per patient size (includes targeted exams where dose is matc hed to clinical indication); or iterative reconstruction. FINDINGS: Hepatomegaly. Extensive gallbladder wall calcification. Gallbladder is contracted. Mild diffuse fatty infiltration of the liver. Normal portal vein and splenic vein. Small esophageal hiatal hernia. Pleu ral and parenchymal scarring in the lung bases. Calcified granuloma RIGHT lower lobe. Stable 7 mm ovo id nodule LEFT lower lobe. Enhancing RIGHT hepatic lesion measures approximately 9.6 x 5.7 cm with persistent delayed enhancemen t. Additional satellite hepatic lesion abutting the intrahepatic IVC appears decreased in size compar ed to 2006 with similar enhancement characteristics as the adjacent larger lesion. This lesion measur es approximately 4.3 x 3.5 cm. Stability is reassuring. Mild associated narrowing of the intrahepatic IVC is similar in appearance to 2006. Mild pancreatic parenchymal atrophy. Splenic granulomas. Celiac and SMA are patent. Mild aortic calci fication. Somewhat diminutive but patent infrarenal abdominal aorta. No aneurysm. Adrenal glands are normal. No hydronephrosis in either kidney. Small exophytic renal lesion upper pole RIGHT kidney with some increased attenuation too small to characterize measuring 1.5 cm. Recommend 6-month follow-up w ith CT abdomen pelvis. A small renal cell carcinoma is not excluded. Additional heterogeneously enhan cing LEFT intraparenchymal renal lesion measuring 1.9 x 1.8 cm. This is also technically indeterminat e. Small renal lesions are new since 2006. Sigmoid diverticulosis. No evidence of acute diverticulitis. Hypertrophic changes thoracic spine. IMPRESSION: 1. Heterogeneous enhancing RIGHT hepatic lesion appears relatively stable compared to 2006 which is reassuring. Findings most compatible with cavernous hemangioma. Similar-appearing smaller satellite n odule with similar enhancement characteristics appears decreased in size compared to 2006. 2. Hepatomegaly with diffuse fatty infiltration of the liver. 3. Porcelain gallbladder. Recommend surgical consultation. 4. Small esophageal hernia. 5. 7 mm nodule LEFT lower lobe. 6. Bilateral indeterminate renal lesions described above. Renal neoplasm not excluded. Recommend fur ther evaluation of the larger enhancing LEFT renal lesion with ultrasound. Smaller RIGHT renal lesion may be too small to see with ultrasound. In addition, recommend 6-month follow-up CT abdomen pelvis for surveillance 7. No other acute findings.
[2023-12-28] MEDS: iohexol 350 mg/mL 500 mL Btl (per mL) PO (09:27)
[2023-12-28] MEDS: iohexol 350 mg/mL 500 mL Btl (per mL) IV (10:18)
== END 2023-12-28 08:54 | disposition home or self-care (01) ==
LOC: RAD 08:53
PROVIDERS: PCP Family Medicine; Visit Provider Family Medicine
DX: K76.9 Liver disease, unspecified (principal); R93.2 Abnormal findings on diagnostic imaging of liver and biliary tract; K76.0 Fatty (change of) liver, not elsewhere classified; R16.0 Hepatomegaly, not elsewhere classified; K44.9 Diaphragmatic hernia without obstruction or gangrene; N28.9 Disorder of kidney and ureter, unspecified
CPT/HCPCS: 74177; Q9967

== ENCOUNTER → 2024-01-12 10:28 | Outpatient (BNVA) | payer MEDICARE, MEDICAID, SELFPAY | PROVIDERS: PCP Family Medicine; Referring Provider Family Medicine; Visit Provider Surgery | DX: K82.9 Disease of gallbladder, unspecified (principal) | CPT/HCPCS: 99204; 99214 ==

== ENCOUNTER 2024-01-14 11:30 | Outpatient (RCR) | payer MEDICARE, MEDICAID, SELFPAY | END 2024-02-06 23:59 | disposition home or self-care (01) | LOC: SPT 11:30 | PROVIDERS: PCP Family Medicine; Visit Provider Family Medicine | DX: M75.101 Unspecified rotator cuff tear or rupture of right shoulder, not specified as traumatic (principal) | CPT/HCPCS: 97110; 97161; G0283 ==

== ENCOUNTER → 2024-01-19 10:19 | Outpatient (BNVA) | payer MEDICARE, MEDICAID, SELFPAY | PROVIDERS: PCP Family Medicine; Visit Provider Internal Medicine | DX: E78.2 Mixed hyperlipidemia (principal); E11.40 Type 2 diabetes mellitus with diabetic neuropathy, unspecified; I10 Essential (primary) hypertension; Z79.84 Long term (current) use of oral hypoglycemic drugs | CPT/HCPCS: 99214 ==

== ENCOUNTER → 2024-01-25 13:29 | Outpatient (BNVA) | payer MEDICARE, MEDICAID, SELFPAY | PROVIDERS: PCP Family Medicine; Visit Provider Internal Medicine | DX: Z01.818 Encounter for other preprocedural examination (principal); R06.09 Other forms of dyspnea; I10 Essential (primary) hypertension; E78.2 Mixed hyperlipidemia; E11.9 Type 2 diabetes mellitus without complications; Z87.891 Personal history of nicotine dependence; Z79.84 Long term (current) use of oral hypoglycemic drugs | CPT/HCPCS: 99214 ==

== ENCOUNTER 2024-01-26 12:09 | Outpatient (CLI) | payer MEDICARE, MEDICAID, SELFPAY ==
--- NOTE | 2024-01-26 12:32 | USR_ITS ---
PROCEDURE INFORMATION: Exam: US Retroperitoneal; Complete; Kidneys and Bladder Exam date and time: 01/26/2024 12:56 PM Age: 68 years old Clinical indication: Condition or disease; Kidney or ureter condition; Other: Renal lesion TECHNIQUE: Imaging protocol: Real-time ultrasound of the retroperitoneum with image documentation. Complete exam focused on the kidneys and bladder. COMPARISON: CT abdomen pelvis w con* [id number] 12/28/2023 10:14 AM FINDINGS: Right kidney: Normal. No stones. No hydronephrosis. Left kidney: Normal. No stones. No hydronephrosis. Urinary bladder: Unremarkable. US/US renal BI* [id number] IMPRESSION: Unremarkable kidneys and bladder.
== END 2024-01-26 12:10 | disposition home or self-care (01) ==
LOC: RAD 12:09
PROVIDERS: PCP Family Medicine; Visit Provider Family Medicine
DX: N28.9 Disorder of kidney and ureter, unspecified (principal)
CPT/HCPCS: 76770

== ENCOUNTER 2024-02-07 06:00 | Outpatient (RCR) | payer MEDICARE, MEDICAID, SELFPAY | END 2024-03-07 23:59 | disposition home or self-care (01) | LOC: SPT 06:00 | PROVIDERS: PCP Family Medicine; Visit Provider Family Medicine | DX: M75.101 Unspecified rotator cuff tear or rupture of right shoulder, not specified as traumatic (principal) | CPT/HCPCS: 97110; G0283 ==

== ENCOUNTER → 2024-02-25 09:06 | Outpatient (BNVA) | payer MEDICARE, MEDICAID, SELFPAY | PROVIDERS: PCP Family Medicine; Visit Provider Specialist | DX: M17.0 Bilateral primary osteoarthritis of knee (principal) | CPT/HCPCS: 20610; J1100; J2795; J3301 ==

== ENCOUNTER 2024-03-08 06:00 | Outpatient (RCR) | payer MEDICARE, MEDICAID, SELFPAY | END 2024-03-15 23:59 | disposition home or self-care (01) | LOC: SPT 06:00 | PROVIDERS: PCP Family Medicine; Visit Provider Family Medicine | DX: M75.101 Unspecified rotator cuff tear or rupture of right shoulder, not specified as traumatic (principal) | CPT/HCPCS: 97110; G0283 ==

== ENCOUNTER → 2024-03-29 11:37 | Outpatient (BNVA) | payer MEDICARE, MEDICAID, SELFPAY | PROVIDERS: PCP Family Medicine; Visit Provider Specialist | DX: G25.0 Essential tremor; J44.9 Chronic obstructive pulmonary disease, unspecified | CPT/HCPCS: 99213 ==

== ENCOUNTER 2024-04-13 13:10 | Emergency (ER) | payer MEDICARE, MEDICAID, SELFPAY ==
[2024-04-13 13:26] VITALS: BP 130/75; PULSE 72; RESP 16; TEMP 36.7; O2SAT 92
--- NOTE | 2024-04-13 14:13 | W.ED.WOUNDLC ---
HPI - Wound/Laceration General: Chief Complaint: Wound/Laceration Stated Complaint: wound right leg Time Seen by Provider: 04/13/24 13:26 Source: patient and family Mode of arrival: ambulatory Limitations: no limitations History of Present Illness: Patient is a 69-year-old female presents to ED today with complaint of a ruptured/infected bulla to the anterior aspect of her right lower extremity. Patient states approximately 3-4 days ago she had a small blister to the area that was easily covered with a Band-Aid. Family states over the last several days the blister has continued to enlarge and patient states it popped yesterday evening while she was sleeping. Family states they have noticed weeping from the blister. They have also noticed surrounding redness to the anterior leg as well as swelling. Patient is a known diabetic. She has not been running fevers or other systemic symptoms. Onset (ago): day(s) Extremity Location: Right: lower leg Place: home Patient tetanus UTD: Yes Context: accidental Associated symptoms: Reports no associated symptoms; Denies chills or fever(s) Treatments prior to arrival: bandage Review of Systems Const: Denies: fever(s), chills, body aches, fatigue or malaise Card: Denies: chest pain Resp: Denies: dyspnea Musc: Reports: extremity pain and extremity swelling; Denies: joint pain or joint swelling Skin/Breast: Reports: other (wound to anterior R lower leg) Neuro: Denies: headache(s), numbness in extremities, weakness in extremities, sensory changes or dizziness [facility] ED PFSH: Medical History PERCY (obstructive sleep apnea) COPD (chronic obstructive pulmonary disease) Pneumonia due to COVID-19 virus Hypertension COVID-19 Surgical History History of detached retina repair History of tonsillectomy Family History Other Hypertension Social History Smoking and tobacco/nicotine status: never used tobacco/nicotine Quit status (tobacco/nicotine): has quit using Year quit tobacco: 2014 Former quit date comment: 1 pack per day for 48 years Second hand smoke exposure: No Alcohol intake: never Substance/Drug Use: never Lives independently: Yes Pets and animals: Yes Pets & animals: cat(s) Current gender identity: Female Special roxanne needs: No Physical Exam Const: COMMON NORMALS: no acute distress, patient oriented x3, no limitations, alert and well nourished GENERAL APPEARANCE: cooperative NUTRITIONAL APPEARANCE: obese morbidly obese ORIENTATION/CONSCIOUSNESS: Yes awake, Yes oriented to person, Yes oriented to place and Yes oriented to time Resp: COMMON NORMALS: normal respiratory effort and clear to auscultation bilaterally AUSCULTATION: clear to auscultation bilaterally Cardio: COMMON NORMALS: regular rate and regular rhythm RATE: regular rate RHYTHM: regular rhythm Extremity: COMMON NORMALS: full ROM and capillary refill normal GENERAL: Yes normal exam except as noted RIGHT LOWER EXTREMITY: Yes lower leg OTHER: pt has a large 6cm ruptured bulla to anterior aspect of R lower extremity with surrounding erythema; no warmth; drainage from bulla is clear/serosanguineous and non-odorous; no lymphangitic streaking Neuro: COMMON NORMALS: patient oriented x3, moves all extremities, no focal motor deficits and no sensory deficits noted SENSORIUM/ORIENTATION: Yes alert, Yes oriented to person, Yes oriented to place and Yes oriented to time Skin: NARRATIVE SKIN EXAM: see above Course Vital Signs: Vital signs: Vital Signs Temperature 98.0 F 04/13/24 16:29 Pulse Rate 66 04/13/24 16:29 Respiratory Rate 16 04/13/24 16:29 Blood Pressure 137/78 04/13/24 16:29 Pulse Oximetry 93 04/13/24 16:29 MDM - Wound/Laceration Medical Decision Making Patient here for an infected ruptured bulla to her right anterior lower leg. She clinically has surrounding cellulitis. She is not tachycardic or febrile. She has a normal white count. CRP is scantly elevated at 10.9. Ultrasound of her lower extremity is negative for a DVT. Patient will be placed on antibiotics. Will have case management set her up with our wound care clinic for treatment of her wound especially since she is a diabetic. Medical Records I reviewed the patient's medical records. Lab Data I reviewed the patient's lab results. 04/13/24 14:42 04/13/24 14:42 Laboratory Results WBC 8.53 10^3/uL (3.29-11.43) 04/13/24 14:42 RBC 4.05 10^6/uL (3.85-5.65) 04/13/24 14:42 Hgb 11.90 g/dL (11.27-16.99) 04/13/24 14:42 Hct 39.1 % (36-47) 04/13/24 14:42 MCV 96.5 fl (85-98) 04/13/24 14:42 MCH 29.4 pg (27-33) 04/13/24 14:42 MCHC 30.4 g/dL (30-55) 04/13/24 14:42 RDW 15.1 % (12.1-15.1) 04/13/24 14:42 Plt Count 276 10^3/cmm (157-399) 04/13/24 14:42 MPV 10.4 fL (7.4-10.4) 04/13/24 14:42 Neut % (Auto) 71.9 % 04/13/24 14:42 Lymph % (Auto) 15.7 % 04/13/24 14:42 [place] % (Auto) 8.6 % 04/13/24 14:42 Eos % (Auto) 2.7 % 04/13/24 14:42 Baso % (Auto) 0.5 % 04/13/24 14:42 Neut # (Auto) 6.14 10^3/uL (1.8-7.7) 04/13/24 14:42 Lymph # (Auto) 1.3 10^3/uL (0.8-4.8) 04/13/24 14:42 [place] # (Auto) 0.7 10^3/uL (0.2-0.9) 04/13/24 14:42 Eos # (Auto) 0.2 10^3/uL (0.0-0.8) 04/13/24 14:42 Baso # (Auto) 0.0 10^3/uL (0.0-0.1) 04/13/24 14:42 Nucleated RBC % (auto) 0 % 04/13/24 14:42 Nucleated RBCs # 0.0 /100WBC 04/13/24 14:42 Sodium 144 mmol/L (136-145) 04/13/24 14:42 Potassium 4.3 mmol/L (3.5-5.1) 04/13/24 14:42 Chloride 102 mmol/L (98-107) 04/13/24 14:42 Carbon Dioxide 28 mmol/L (22-29) 04/13/24 14:42 Anion Gap 18.3 (5-19) 04/13/24 14:42 BUN 17 mg/dL (8-23) 04/13/24 14:42 Creatinine 0.5 mg/dL (0.5-0.9) 04/13/24 14:42 GFR Calculation 122.3 mL/min (90-130) 04/13/24 14:42 Glucose 164 mg/dL (65-115) H 04/13/24 14:42 Calculated Osmolality 303 mOsm/kg (285-295) H 04/13/24 14:42 Calcium 9.7 mg/dL (8.5-10.5) 04/13/24 14:42 Total Bilirubin 0.2 mg/dL (0.15-1.2) 04/13/24 14:42 AST 20 U/L (0-32) 04/13/24 14:42 ALT 31 U/L (0-33) 04/13/24 14:42 Alkaline Phosphatase 96 U/L (35-105) 04/13/24 14:42 C-Reactive Protein 10.9 mg/L (0.0-4.9) H 04/13/24 14:42 Total Protein 6.8 g/dL (6.6-8.7) 04/13/24 14:42 Albumin 3.6 g/dL (3.5-5.2) 04/13/24 14:42 Globulin 3.2 g/dL (1.3-4.6) 04/13/24 14:42 All radiology interpretation(s) finalized by discharge Discharge Plan Discharge Patient Disposition: Home Clinical Impression: Cellulitis of right leg without foot Condition: Stable Prescriptions: New Bactrim DS 800-160 mg tablet 2 tab PO BID 10 Days Qty: 40 0RF No Action aspirin 81 mg tablet,chewable 81 mg PO DAILY Hold Instructions: Resume on 08/01/22. fluticasone propionate 50 mcg/actuation spray,suspension 2 spray INTRANASAL DAILY gabapentin 100 mg capsule 100 mg PO TID escitalopram oxalate 10 mg tablet 10 mg PO DAILY primidone 50 mg tablet See Rx Instructions .ROUTE .COMPLEX Qty: 360 3RF Dose Instruction: TAKE 2 TABLET BY MOUTH TWICE A DAY Rx Instructions: TAKE 2 TABLET BY MOUTH TWICE A DAY propranolol 20 mg tablet 20 mg PO Q8H Qty: 90 5RF benzonatate 100 mg capsule 100 mg PO BID PRN albuterol sulfate 90 mcg/actuation aerosol powdr breath activated 2 inh inhalation Q6H PRN amlodipine 10 mg tablet 10 mg PO DAILY divalproex 250 mg tablet extended release 24 hr 250 mg PO DAILY naproxen 500 mg tablet 500 mg PO BID (DME) pen needle, diabetic [Comfort EZ Pen [place]] 31 gauge x 3/16 needle See Rx Instructions .Route Qty: 100 2RF Rx Instructions: As directed Januvia 100 mg tablet 100 mg PO DAILY Qty: 90 0RF metformin 500 mg tablet extended release 24 hr See Rx Instructions .ROUTE .COMPLEX Qty: 90 1RF Dose Instruction: TAKE 2 TABLETS BY MOUTH IN THE MORNING AND 1 TABLET AT NIGHT Rx Instructions: TAKE 2 TABLETS BY MOUTH IN THE MORNING AND 1 TABLET AT NIGHT multivitamin Tablet 1 tab PO DAILY latanoprost 0.005 % Drops 1 drp OPHTHALMIC (EYE) DAILY atorvastatin 40 mg tablet 40 mg PO DAILY bupropion HCl 100 mg tablet sustained-release 12 hr 100 mg PO BID levothyroxine 88 mcg tablet 88 mcg PO DAILY losartan-hydrochlorothiazide 100-12.5 mg tablet 1 tab PO DAILY Discharge Orders: Discharge ED (Routine); Ordered 04/13/24 Ordered By: Sabrina Houston Referrals: Roman Clifton MD [Primary Care Provider] - Patient Instructions: Cellulitis (ED) Activity Restrictions/Additional Instructions: As we discussed fill your antibiotics immediately and start them. You need to follow-up with primary care by the end of the week so they can monitor for improvement. You need to return to the emergency department for significantly worse redness, warmth, or swelling as well as any fevers. As we discussed I will place a case management referral to get you set up with our wound care clinic. Coding Level of Care Code ED Work From Home for Ursula Grewal
--- NOTE | 2024-04-13 14:20 | USCV_ITS ---
Ester Wilson Age: 69 Gender: F : 1955 Exam Date: 04/13/2024 15:02 Ordering Phys: Sabrina Houston Technologist: CT Exam Location: [facility]_ Indication: PROCEDURES: Venous duplex imaging was performed in only the right lower extremity. In addition, the posterior tibial and peroneal trunk were evaluated. On the right side, the common femoral, superficial femoral, profunda femoral, popliteal, posterior tibial, greater saphenous veins and the peroneal trunk were identified and interrogated in the standard fashion. FINDINGS: Normal 2-D Doppler and augmentation and compressibility throughout the lower extremity venous structures. Additional imaging through the proximal calf veins also reveals no thrombus. Limited evaluation of the greater saphenous vein is patent with no thrombus. CONCLUSIONS No DVT right lower extremity. Dr. Toma Wilson DO (Electronically Signed) Final Date: 13 April 2024 15:50 Amended: 14 April 2024 12:06 C
[2024-04-13 15:00] LABS: Basophils % 0.5 %; Eosinophils # 0.2 10^3/uL (0.0-0.8); Eosinophils % 2.7 %; Hematocrit 39.1 % (36-47); Lymphocytes # 1.3 10^3/uL (0.8-4.8); Lymphocytes % 15.7 %; Mean Corpuscular HGB Conc 30.4 g/dL (30-55); Mean Corpuscular Hemoglobin 29.4 pg (27-33); Mean Corpuscular Volume 96.5 fl (85-98); Mean Platelet Volume 10.4 fL (7.4-10.4); Monocytes # 0.7 10^3/uL (0.2-0.9); Monocytes % 8.6 %; Neutrophils # 6.14 10^3/uL (1.8-7.7); Neutrophils % 71.9 %; Nucleated Red Blood Cells % 0 %; Platelet Count 276 10^3/cmm (157-399); Red Blood Count 4.05 10^6/uL (3.85-5.65); Red Cell Distribution Width 15.1 % (12.1-15.1); White Blood Count 8.53 10^3/uL (3.29-11.43)
[2024-04-13 15:20] LABS: Alanine Aminotransferase 31 U/L (0-33); Albumin Level 3.6 g/dL (3.5-5.2); Alkaline Phosphatase 96 U/L (35-105); Anion Gap 18.3 (5-19); Aspartate Amino Transferase 20 U/L (0-32); Blood Urea Nitrogen 17 mg/dL (8-23); C Reactive Protein 10.9 mg/L (0.0-4.9); Calcium 9.7 mg/dL (8.5-10.5); Carbon Dioxide 28 mmol/L (22-29); Chloride 102 mmol/L (98-107); Creatinine Clr Calc Pharmacy 83.8878; Globulin 3.2 g/dL (1.3-4.6); Glomerular Filtration Rate 122.3 mL/min (90-130); Glucose 164 mg/dL (65-115); Osmolality Calculated 303 mOsm/kg (285-295); Potassium 4.3 mmol/L (3.5-5.1); Sodium 144 mmol/L (136-145); Total Bilirubin 0.2 mg/dL (0.15-1.2); Total Protein 6.8 g/dL (6.6-8.7)
--- NOTE | 2024-04-13 15:50 | DCPLANNER ---
message sent to wound care
[2024-04-13 16:29] VITALS: BP 137/78; PULSE 66; RESP 16; TEMP 36.7; O2SAT 93
== END 2024-04-13 16:31 | disposition home or self-care (01) ==
PROVIDERS: Emergency Provider Physician Assistant; PCP Family Medicine
DX: L03.115 Cellulitis of right lower limb (principal); Z79.82 Long term (current) use of aspirin; Z79.84 Long term (current) use of oral hypoglycemic drugs; Z87.891 Personal history of nicotine dependence; J44.9 Chronic obstructive pulmonary disease, unspecified; I10 Essential (primary) hypertension
CPT/HCPCS: 36415; 80053; 85025; 86140; 87070; 87075; 87077; 87186; 87205; 93971; 99284

== ENCOUNTER 2024-04-14 09:49 | Outpatient (CLI) | payer MEDICARE, MEDICAID, SELFPAY ==
[2024-04-14 10:30] LABS: Alanine Aminotransferase 25 U/L (0-33); Albumin Level 3.9 g/dL (3.5-5.2); Alkaline Phosphatase 96 U/L (35-105); Aspartate Amino Transferase 22 U/L (0-32); Blood Urea Nitrogen 22 mg/dL (8-23); Calcium 9.5 mg/dL (8.5-10.5); Carbon Dioxide 29 mmol/L (22-29); Chloride 99 mmol/L (98-107); Chol HDL Ratio 3.81 mg/dL (0.0-4.40); Cholesterol 179 mg/dL (0-200); Globulin 2.9 g/dL (1.3-4.6); Glucose 171 mg/dL (65-115); HDL Cholesterol 47 mg/dL (60-100); LDL Cholesterol Calculated 95 mg/dL (50-129); LDL HDL Ratio 2.02 RATIO (0.00-3.22); Osmolality Calculated 297 mOsm/kg (285-295); Sodium 140 mmol/L (136-145); Total Bilirubin 0.2 mg/dL (0.15-1.2); Total Protein 6.8 g/dL (6.6-8.7); Triglycerides 184 mg/dL (0-150)
[2024-04-14 10:32] LABS: Estmated Average Glucose 174; Hemoglobin A1C 7.7 % (4.0-6.0)
[2024-04-14 10:57] LABS: Creatinine Urine, Random 67 mg/dL (28-217); Microalbumin Random Urine 4 ug/dL (0-20)
[2024-04-14 10:58] LABS: Microalbum Creatinine Ratio Ur 60 mg/dL (0-20)
== END 2024-04-14 09:50 | disposition home or self-care (01) ==
LOC: LAB 09:50
PROVIDERS: PCP Family Medicine; Visit Provider Internal Medicine
DX: E78.2 Mixed hyperlipidemia (principal); E11.40 Type 2 diabetes mellitus with diabetic neuropathy, unspecified; I10 Essential (primary) hypertension; E11.9 Type 2 diabetes mellitus without complications
CPT/HCPCS: 36415; 80053; 80061; 82044; 83036

== ENCOUNTER → 2024-04-19 08:02 | Outpatient (BNVA) | payer MEDICARE, MEDICAID, SELFPAY | PROVIDERS: PCP Family Medicine; Visit Provider Thoracic Surgery (Cardiothoracic Vascular Surgery) | DX: E11.52 Type 2 diabetes mellitus with diabetic peripheral angiopathy with gangrene (principal); E11.621 Type 2 diabetes mellitus with foot ulcer; L97.811 Non-pressure chronic ulcer of other part of right lower leg limited to breakdown of skin | CPT/HCPCS: 97597; 97598; 99213 ==

== ENCOUNTER → 2024-04-20 14:25 | Outpatient (BNVA) | payer MEDICARE, MEDICAID, SELFPAY | PROVIDERS: PCP Family Medicine; Visit Provider Thoracic Surgery (Cardiothoracic Vascular Surgery) | DX: Z51.89 Encounter for other specified aftercare (principal) | CPT/HCPCS: 29581; A6252 ==

== ENCOUNTER → 2024-04-26 10:00 | Outpatient (BNVA) | payer MEDICARE, MEDICAID, SELFPAY | PROVIDERS: PCP Family Medicine; Visit Provider Thoracic Surgery (Cardiothoracic Vascular Surgery) | DX: E11.52 Type 2 diabetes mellitus with diabetic peripheral angiopathy with gangrene (principal); E11.622 Type 2 diabetes mellitus with other skin ulcer; L97.811 Non-pressure chronic ulcer of other part of right lower leg limited to breakdown of skin | CPT/HCPCS: 97597 ==

== ENCOUNTER → 2024-05-03 09:13 | Outpatient (BNVA) | payer MEDICARE, MEDICAID, SELFPAY | PROVIDERS: PCP Family Medicine; Visit Provider Thoracic Surgery (Cardiothoracic Vascular Surgery) | DX: E11.52 Type 2 diabetes mellitus with diabetic peripheral angiopathy with gangrene (principal); E11.621 Type 2 diabetes mellitus with foot ulcer; L97.811 Non-pressure chronic ulcer of other part of right lower leg limited to breakdown of skin | CPT/HCPCS: 97597; A6021 ==

== ENCOUNTER → 2024-05-10 08:38 | Outpatient (BNVA) | payer MEDICARE, MEDICAID, SELFPAY | PROVIDERS: PCP Family Medicine; Visit Provider Thoracic Surgery (Cardiothoracic Vascular Surgery) | DX: E11.52 Type 2 diabetes mellitus with diabetic peripheral angiopathy with gangrene (principal); E11.622 Type 2 diabetes mellitus with other skin ulcer; L97.811 Non-pressure chronic ulcer of other part of right lower leg limited to breakdown of skin | CPT/HCPCS: 97597 ==

== ENCOUNTER → 2024-05-18 10:29 | Outpatient (BNVA) | payer MEDICARE, MEDICAID, SELFPAY | PROVIDERS: PCP Family Medicine; Visit Provider Thoracic Surgery (Cardiothoracic Vascular Surgery) | DX: Z09 Encounter for follow-up examination after completed treatment for conditions other than malignant neoplasm (principal); Z87.2 Personal history of diseases of the skin and subcutaneous tissue | CPT/HCPCS: 99212; A6212 ==

== ENCOUNTER 2024-05-30 13:53 | Outpatient (CLI) | payer MEDICARE, MEDICAID, SELFPAY ==
--- NOTE | 2024-05-30 14:01 | XR_ITS ---
WS: [id number] XR shoulder RT min 2V* [id number] REASON FOR EXAM: R ROTATOR CUFF SYNDROME FINDINGS: No acute fracture or focal bone lesion. Moderate narrowing of the acromioclavicular joint space with mild subchondral sclerosis. Moderate neeraj nward slant of the acromial process. Glenohumeral joint is intact with mild narrowing. No significant subarticular bone abnormality in the humeral head. No soft tissue abnormality. 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 Moderate downward slant of the acromial process which is a risk factor for rota tor cuff tendinosis.
== END 2024-05-30 13:54 | disposition home or self-care (01) ==
LOC: RAD 13:57
PROVIDERS: PCP Family Medicine; Visit Provider Family Medicine
DX: M75.101 Unspecified rotator cuff tear or rupture of right shoulder, not specified as traumatic (principal); M19.011 Primary osteoarthritis, right shoulder
CPT/HCPCS: 73030

== ENCOUNTER → 2024-06-02 09:29 | Outpatient (BNVA) | payer MEDICARE, MEDICAID, SELFPAY | PROVIDERS: PCP Family Medicine; Visit Provider Specialist | DX: M17.0 Bilateral primary osteoarthritis of knee (principal); E66.01 Morbid (severe) obesity due to excess calories; Z68.42 Body mass index [BMI] 45.0-49.9, adult; Z71.89 Other specified counseling | CPT/HCPCS: 20610; J1100; J2795; J3301 ==

== ENCOUNTER → 2024-06-07 15:07 | Outpatient (BNVA) | payer MEDICARE, MEDICAID, SELFPAY | PROVIDERS: PCP Family Medicine; Visit Provider Nurse Practitioner | DX: M19.011 Primary osteoarthritis, right shoulder (principal); M75.81 Other shoulder lesions, right shoulder | CPT/HCPCS: 99214 ==

== ENCOUNTER 2024-06-16 14:19 | Outpatient (CLI) | payer MEDICARE, MEDICAID, SELFPAY ==
--- NOTE | 2024-06-16 14:21 | CTR_ITS ---
PROCEDURE INFORMATION: Exam: CT Chest Without Contrast; Diagnostic Exam date and time: 06/16/2024 2:47 PM Age: 69 years old Clinical indication: Abnormal findings; Abnormal radiologic exam of lung or chest; Additional info: Lung nodule TECHNIQUE: Imaging protocol: Diagnostic computed tomography of the chest without contrast. Radiation optimization: All CT scans at this facility use at least one of these dose optimization techniques: automated exposure control; mA and/or kV adjustment per patient size (includes targeted exams where dose is matched to clinical indication); or iterative reconstruction. COMPARISON: CT lung screening [id number] 12/08/2023 10:27 AM RADIATION DOSE METRICS: Total DLP (mGy-cm): 729.73 FINDINGS: Lungs: There is an 11 mm ovoid well-defined lingular pulmonary nodule on axial series 5, image 39, unchanged since 12/07/2022, and probably stable since 07/22/2021 although suboptimally visualized on that exam due to respiratory motion artifact and additional pulmonary opacities. 3 mm noncalcified pulmonary nodule in the left lower lobe, stable since 12/08/2023. Mild subsegmental atelectasis or scarring in the dependent portions of both lower lobes is stable. Minimal subsegmental atelectasis and scarring in the lingula is stable. There is a calcified granuloma in the right middle lobe. Trachea and bronchi are unremarkable. Pleural spaces: There is no pleural effusion or pneumothorax. Heart: There is mild cardiac enlargement. There is no pericardial effusion. Coronary arteries: There is moderate coronary artery calcification. Lymph nodes: There is no mediastinal or hilar lymphadenopathy. There are calcified lymph nodes in the right hilum. Vasculature: There is moderate aortic atherosclerotic disease. Liver: There is a subcapsular mass in the pericaval portion of the liver including the posterior right lobe and caudate lobe measuring 11.9 x 4.4 x 6.1 cm, similar to the findings on 12/08/2023. The mass was present but poorly visualized on chest CT 07/22/2021. Adrenal glands: There is low-density 19 x 11 mm left adrenal nodule consistent with a benign lipid rich adenoma. No follow-up imaging is necessary. Bones/joints: Bones are unremarkable. Soft tissues: The extrathoracic soft tissues are unremarkable. CT/CT chest con [id number] IMPRESSION: 1. 11 mm lingular pulmonary nodule, stable since 12/07/2022. Given stability, a single additional follow-up chest CT in 1 year is recommended. Follow-up of this nodule may be discontinued at that time if the nodule remains stable. (Reference: Heidi) 2. 11.9 cm liver mass, stable since 12/08/2023 and present but suboptimally visualized on 07/22/2021. Probable benign neoplasm. Recommend nonemergent liver MRI. COMMENTS: Consistent with the [employer]'s Incidental Findings Committee white paper (J Am Elvira Radiol 2017): For any incidental adrenal lesion greater than or equal to 1 cm but less than or equal to 4 cm classified in this report as benign, likely benign, or containing fat (including classification as an adenoma or myelolipoma), no follow-up imaging is recommended per consensus recommendations based on imaging criteria. Further lab evaluation could be pursued if warranted based on clinical findings. REFERENCES: Heidi Swann, et al. Guidelines for Management of Incidental Pulmonary Nodules Detected on CT Images: From the Fleischner Society 2017. Radiology. 2017;284(1):228-243.
== END 2024-06-16 14:20 | disposition home or self-care (01) ==
LOC: RAD 14:19
PROVIDERS: PCP Family Medicine; Visit Provider Family Medicine
DX: R91.8 Other nonspecific abnormal finding of lung field (principal); J84.10 Pulmonary fibrosis, unspecified; R16.0 Hepatomegaly, not elsewhere classified; I25.84 Coronary atherosclerosis due to calcified coronary lesion; I70.0 Atherosclerosis of aorta
CPT/HCPCS: 71250

== ENCOUNTER 2024-06-22 14:47 | Outpatient (CLI) | payer MEDICARE, MEDICAID, SELFPAY ==
--- NOTE | 2024-06-22 14:51 | CT_ITS ---
WS: [id number] CT ABDOMEN AND PELVIS WITH CONTRAST HISTORY: RENAL LESION TECHNIQUE: Imaging performed of the abdomen and pelvis with IV contrast. Single phase imaging of the abdomen. Coronal and sagittal reformats are submitted. All CT scans at [facility] use at [address] one of these dose optimization techniques: automated exposure control; mA and/or kV adjustment per patient size (includes targeted exams where dose is matched to clinical indication); or iterative re construction. IV CONTRAST: Omnipaque 350; 100 mL IV. Oral contrast: No DLP: 1123.59 mGy.cm COMPARISON: 12/28/2023, 06/22/2016 Lower thorax: Mild dependent changes at the lung bases. No change in the ovoid nodule measuring 8 mm in the LEFT lower lobe. Benign granuloma RIGHT lung base. Mild cardiomegaly. Small hiatal hernia. Liver/biliary system: Normal size liver. Globular peripheral enhancement of the hepatic lesion in the RIGHT posterior lobe and also the caudate lobe. The largest mass in the posterior RIGHT hepatic lobe measures 8.2 x 5.6 x 6.6 cm and has not increased in size. These are most consistent with hemangioma s. Gallbladder: Prior cholecystectomy. Pancreas: Normal size pancreas and pancreatic duct. No adjacent inflammation. Spleen: Granulomata. Adrenal glands: Normal. Right kidney: Normal size kidney. No change in the exophytic mildly complex mass superior pole measur ing 1.2 cm. Hounsfield units are slightly elevated. No additional mass or obstruction. Left kidney: Normal. No mass identified today. Aorta: Mild atherosclerosis with no aneurysm. Lymphadenopathy: None. Free fluid: None. GI tract: Nondistended stomach. No small bowel obstruction. Mild diffuse constipation. Prior appendec amadou. Increasing diverticular burden in the distal colon. No acute diverticulitis. Abdominal wall: Mild edema in the anterior abdominal wall. Pelvis: Atrophic uterus. No free fluid or adnexal mass. Normal urinary bladder. Bones: Degenerative rotoscoliosis of the lumbar spine. Vacuum disc phenomenon throughout the lower th oracic and lumbar spines. CT/CT abdomen pelvis w con* [id number] IMPRESSION: 1. No interval increase in size of the indeterminate RIGHT renal mass, superio r pole measures 1.2 cm. New since 2005 with no change since 12/28/2023. Consider additional 6-month CT follow-up to demonstrate long-term stability. Renal mass CT protocol is recommended. 2. Hepatic hemangiomas are unchanged. 3. Prior cholecystectomy. 4. Moderate distal colonic diverticular burden.
[2024-06-22 16:19] LABS: Blood Urea Nitrogen 18 mg/dL (8-23); Glomerular Filtration Rate 99.1 mL/min (90-130)
[2024-06-22] MEDS: iohexol 350 mg/mL 500 mL Btl (per mL) IV (16:33)
== END 2024-06-22 14:48 | disposition home or self-care (01) ==
LOC: RAD 14:47
PROVIDERS: PCP Family Medicine; Visit Provider Family Medicine
DX: N28.89 Other specified disorders of kidney and ureter (principal); J84.10 Pulmonary fibrosis, unspecified; K44.9 Diaphragmatic hernia without obstruction or gangrene; Z90.49 Acquired absence of other specified parts of digestive tract; D73.9 Disease of spleen, unspecified; N85.8 Other specified noninflammatory disorders of uterus; K57.30 Diverticulosis of large intestine without perforation or abscess without bleeding
CPT/HCPCS: 74177; 82565; 84520; Q9967

== ENCOUNTER 2024-07-17 08:59 | Outpatient (CLI) | payer MEDICARE, MEDICAID, SELFPAY ==
[2024-07-17 10:09] LABS: Alanine Aminotransferase 40 U/L (0-33); Albumin Level 3.8 g/dL (3.5-5.2); Alkaline Phosphatase 87 U/L (35-105); Anion Gap 15.7 (5-19); Aspartate Amino Transferase 29 U/L (0-32); Blood Urea Nitrogen 17 mg/dL (8-23); Calcium 9.5 mg/dL (8.5-10.5); Carbon Dioxide 30 mmol/L (22-29); Chloride 102 mmol/L (98-107); Chol HDL Ratio 4.24 mg/dL (0.0-4.40); Cholesterol 178 mg/dL (0-200); Globulin 2.8 g/dL (1.3-4.6); Glomerular Filtration Rate 99.1 mL/min (90-130); Glucose 193 mg/dL (65-115); HDL Cholesterol 42 mg/dL (60-100); LDL Cholesterol Calculated 98 mg/dL (50-129); LDL HDL Ratio 2.33 RATIO (0.00-3.22); Osmolality Calculated 303 mOsm/kg (285-295); Potassium 4.7 mmol/L (3.5-5.1); Sodium 143 mmol/L (136-145); Total Bilirubin 0.2 mg/dL (0.15-1.2); Total Protein 6.6 g/dL (6.6-8.7); Triglycerides 191 mg/dL (0-150)
[2024-07-17 10:13] LABS: Creatinine Urine, Random 69 mg/dL (28-217); Microalbumin Random Urine 29 ug/dL (0-20)
[2024-07-17 10:14] LABS: Microalbum Creatinine Ratio Ur 420 mg/dL (0-20)
[2024-07-17 11:23] LABS: Estmated Average Glucose 189; Hemoglobin A1C 8.2 % (4.0-6.0)
== END 2024-07-17 09:00 | disposition home or self-care (01) ==
LOC: LAB 09:00
PROVIDERS: PCP Family Medicine; Visit Provider Internal Medicine
DX: E78.2 Mixed hyperlipidemia (principal); I10 Essential (primary) hypertension; E11.9 Type 2 diabetes mellitus without complications
CPT/HCPCS: 36415; 80053; 80061; 82044; 83036

== ENCOUNTER → 2024-07-25 10:52 | Outpatient (BNVA) | payer MEDICARE, MEDICAID, SELFPAY | PROVIDERS: PCP Family Medicine; Visit Provider Internal Medicine | DX: E78.2 Mixed hyperlipidemia (principal); E11.40 Type 2 diabetes mellitus with diabetic neuropathy, unspecified; E27.9 Disorder of adrenal gland, unspecified; I10 Essential (primary) hypertension; Z79.4 Long term (current) use of insulin; Z79.890 Hormone replacement therapy | CPT/HCPCS: 99214 ==

== ENCOUNTER 2024-08-22 09:25 | Outpatient (CLI) | payer MEDICARE, MEDICAID, SELFPAY ==
--- NOTE | 2024-08-22 09:27 | MM_ITS ---
WS: [id number] BILATERAL 3D TOMOSYNTHESIS DIGITAL SCREENING MAMMOGRAPHY WITH CAD CLINICAL INFORMATION: Screening HISTORY: Screening mammogram. No current complaints. COMPARISON: 2022 TECHNIQUE: Bilateral CC and MLO views. FINDINGS: Scattered fibroglandular densities bilaterally. No suspicious focal mass, asymmetry, calcifications, or architectural distortion. No evidence of malignancy. Few tiny incidental punctate calcifications. MM/MM scr tomosynthesis [id number] IMPRESSION: DENSITY: There are scattered areas of fibroglandular density. BI-RADS: 2 - Benign. FOLLOW UP: 1 Year Follow-up Recommend return to annual screening mammography.
== END 2024-08-22 09:26 | disposition home or self-care (01) ==
LOC: RAD 09:25
PROVIDERS: PCP Family Medicine; Visit Provider Family Medicine
DX: Z12.31 Encounter for screening mammogram for malignant neoplasm of breast (principal); R92.323 Mammographic fibroglandular density, bilateral breasts
CPT/HCPCS: 77063; 77067

== ENCOUNTER 2024-09-12 17:46 | Emergency (ER) | payer MEDICARE, MEDICAID, SELFPAY ==
[2024-09-12 17:52] VITALS: BP 121/68; PULSE 73; TEMP 37.1; O2SAT 95; BMI 47.5
[2024-09-12 17:57] VITALS: BP 140/76; PULSE 72; O2SAT 92
--- NOTE | 2024-09-12 18:26 | XRR_ITS ---
PROCEDURE INFORMATION: Exam: XR Right Foot Exam date and time: 09/12/2024 6:31 PM Age: 69 years old Clinical indication: Pain; Foot; Right; Additional info: Pain mid foot no trauma TECHNIQUE: Imaging protocol: Radiologic exam of the right foot. Views: 3 or more views. COMPARISON: CR XR knees AP WB w BI lmt ORTH 01/12/2022 9:05 AM FINDINGS: Bones/joints: Osseous structures are intact. Negative for fracture. Joint spaces are preserved. Small enthesophyte noted at the Achilles insertion. Normal variant os trigonum noted. Soft tissues: Normal. XR/XR foot RT min 3V* [id number] IMPRESSION: No acute findings.
--- NOTE | 2024-09-12 18:53 | ED_ITS ---
HPI - Extremity Problem 2 General: Chief complaint: Extremity Problem,Nontraumatic Stated complaint: right foot pain Time Seen by Provider: 09/12/24 18:07 History of Present Illness: Patient complains of right foot pain. Patient denies any trauma. She says hurts to walk on states has been going on for several days now. Patient is able to move extremity in all directions no obvious deformity or cellulitic changes patient is a diabetic Related Data Home Medications Medication Instructions Recorded Confirmed escitalopram oxalate 10 mg tablet 10 mg PO DAILY 12/26/19 07/25/24 fluticasone propionate 50 2 spray intranasal DAILY 12/26/19 07/25/24 mcg/actuation nasal spray,suspension gabapentin 100 mg capsule 100 mg PO TID 12/26/19 07/25/24 atorvastatin 40 mg tablet 40 mg PO DAILY 07/22/21 07/25/24 bupropion HCl 100 mg tablet,12 hr 100 mg PO BID 07/22/21 07/25/24 sustained-release latanoprost 0.005 % eye drops 1 drp ophthalmic (eye) DAILY 07/22/21 07/25/24 levothyroxine 88 mcg tablet 88 mcg PO DAILY 07/22/21 07/25/24 losartan 100 1 tab PO DAILY 07/22/21 07/25/24 mg-hydrochlorothiazide 12.5 mg tablet multivitamin 1 tab PO DAILY 07/22/21 07/25/24 aspirin 81 mg chewable tablet 81 mg PO DAILY 04/01/22 07/25/24 amlodipine 10 mg tablet 10 mg PO DAILY 01/28/23 07/25/24 divalproex 250 mg tablet,extended 250 mg PO DAILY 10/08/23 07/25/24 release 24 hr albuterol sulfate 90 mcg/actuation 2 inh inhalation Q6H PRN 10/26/23 07/25/24 breath activated powder inhaler benzonatate 100 mg capsule 100 mg PO BID PRN 10/26/23 07/25/24 naproxen 500 mg tablet 500 mg PO BID 01/25/24 07/25/24 Previous Rx's Medication Instructions Recorded pen needle, diabetic 31 gauge x #100 ea 03/31/23 3/16 (Comfort EZ Pen [place]) primidone 50 mg tablet See Rx Instructions .Route 03/29/24 .COMPLEX #360 tabs propranolol 20 mg tablet 20 mg PO Q8H #90 tabs 05/22/24 celecoxib 100 mg capsule (Celebrex) 100 mg PO BID 90 days #180 caps 06/09/24 diclofenac sodium 1 % topical gel 2 g topical QID #100 grams 06/09/24 dulaglutide 0.75 mg/0.5 mL 0.75 mg (0.5 mL) SUBCUT Q7D 1 07/25/24 subcutaneous pen injector month #2 mL (Trulicity) dulaglutide 3 mg/0.5 mL 3 mg (0.5 mL) SUBCUT Q7D #2 mL 07/25/24 subcutaneous pen injector (Trulicity) dulaglutide 1.5 mg/0.5 mL 1.5 mg (0.5 mL) .Route .COMPLEX #2 08/28/24 subcutaneous pen injector mL (Trulicity) metformin 500 mg tablet,extended See Rx Instructions .Route 09/02/24 release 24 hr .COMPLEX #90 tabs acarbose 25 mg tablet 25 mg PO TID #270 tabs 09/05/24 hydrocodone 5 mg-acetaminophen 325 1 tab PO Q6H PRN pain #14 tabs 09/12/24 mg tablet Allergies Allergy/AdvReac Type Severity Reaction Status Date / Time azithromycin Allergy hives/ GI Verified 09/12/24 17:57 upset tramadol AdvReac hives Verified 09/12/24 17:57 Review of Systems 2 General: Reports: 10 or more systems reviewed and unremarkable except in HPI and below PFSH ED 2 PFSH: Medical History Right rotator cuff tendonitis AC (acromioclavicular) arthritis Primary osteoarthritis, right shoulder PERCY (obstructive sleep apnea) COPD (chronic obstructive pulmonary disease) Pneumonia due to COVID-19 virus Hypertension COVID-19 Surgical History History of detached retina repair History of tonsillectomy Family History Other Hypertension Social History Smoking and tobacco/nicotine status: former use of tobacco/nicotine Quit status (tobacco/nicotine): has quit using Year quit tobacco: 2014 Former quit date comment: 1 pack per day for 48 years Second hand smoke exposure: No Alcohol intake: never Substance/Drug Use: never Lives independently: Yes Pets and animals: Yes Pets & animals: cat(s) Current gender identity: Female Special roxanne needs: No Physical Exam 2 Const: COMMON NORMALS: no acute distress, average body habitus, patient oriented x3, no limitations, healthy appearing, alert and well nourished HENMT: COMMON NORMALS: normocephalic, hearing grossly normal bilaterally, external ears normal, Normal external nose present and moist oral mucous membranes HEAD & SCALP: normocephalic NOSE: Normal external nose present EXTERNAL EAR: Yes external ears normal Neck/C-Spine: COMMON NORMALS: no JVD Chest: COMMONS NORMALS: normal inspection of the chest and normal palpation of entire chest wall Resp: COMMON NORMALS: normal respiratory effort, No retractions, No use of accessory muscles and clear to auscultation bilaterally AUSCULTATION: clear to auscultation bilaterally Cardio: COMMON NORMALS: no JVD, regular rate, regular rhythm, S1 normal heart sound present, S2 normal heart sound present, No gallops present (Cardio), No clicks present (Cardio), No murmurs present (Cardio) and No rub (Cardio) R ATE: regular rate RHYTHM: regular rhythm HEART SOUNDS: S1 normal heart sound present and S2 normal heart sound present GI: COMMON NORMALS: Normal to inspection, nondistended, normoactive bowel sounds present, Soft to palpation, non-tender, No hepatosplenomegaly present and no masses PALPATION: Yes Soft to palpation and Yes No hepatosplenomegaly present Extremity: NARRATIVE EXTREMITY EXAM: Mild tender palpation over midfoot on the right side. No obvious deformity crepitus or cellulitic changes noted. Neuro: COMMON NORMALS: patient oriented x3 SENSORIUM/ORIENTATION: Yes alert Course 2 Vital Signs: Vital signs: Vital Signs Temperature 98.8 F 09/12/24 17:52 Pulse Rate 70 09/12/24 19:57 Blood Pressure 152/86 09/12/24 19:57 Pulse Oximetry 94 09/12/24 19:57 Oxygen Delivery Me thod Room Air 09/12/24 17:52 MDM - Extremity (Nontraumatic) Medical Decision Making Lab work and x-ray was obtained which is essentially unremarkable. The results were discussed with the patient. Patient will stay off her foot for the next couple days we will prescribe her some hydrocodone to take as needed for pain. Medical Records I reviewed the patient's medical records. Lab Data I reviewed the patient's lab results. 09/12/24 19:13 09/12/24 19:13 Radiology Impressions Foot X-Ray 09/12/24 18:26 IMPRESSION: No acute findings. Laboratory Results WBC 8.55 10^3/uL (3.29-11.43) 09/12/24 19:13 RBC 4.05 10^6/uL (3.85-5.65) 09/12/24 19:13 Hgb 12.20 g/dL (11.27-16.99) 09/12/24 19:13 Hct 38.9 % (36-47) 09/12/24 19:13 MCV 96.0 fl (85-98) 09/12/24 19:13 MCH 30.1 pg (27-33) 09/12/24 19:13 MCHC 31.4 g/dL (30-55) 09/12/24 19:13 RDW 14.6 % (12.1-15.1) 09/12/24 19:13 Plt Count 258 10^3/cmm (157-399) 09/12/24 19:13 MPV 10.0 fL (7.4-10.4) 09/12/24 19:13 Neut % (Auto) 65.2 % 09/12/24 19:13 Lymph % (Auto) 22.0 % 09/12/24 19:13 [place] % (Auto) 9.6 % 09/12/24 19:13 Eos % (Auto) 2.2 % 09/12/24 19:13 Baso % (Auto) 0.6 % 09/12/24 19:13 Neut # (Auto) 5.58 10^3/uL (1.8-7.7) 09/12/24 19:13 Lymph # (Auto) 1.9 10^3/uL (0.8-4.8) 09/12/24 19:13 [place] # (Auto) 0.8 10^3/uL (0.2-0.9) 09/12/24 19:13 Eos # (Auto) 0.2 10^3/uL (0.0-0.8) 09/12/24 19:13 Baso # (Auto) 0.1 10^3/uL (0.0-0.1) 09/12/24 19:13 Nucleated RBC % (auto) 0 % 09/12/24 19:13 Nucleated RBCs # 0.0 /100WBC 09/12/24 19:13 Sodium 142 mmol/L (136-145) 09/12/24 19:13 Potassium 4.1 mmol/L (3.5-5.1) 09/12/24 19:13 Chloride 100 mmol/L (98-107) 09/12/24 19:13 Carbon Dioxide 32 mmol/L (22-29) H 09/12/24 19:13 Anion Gap 14.1 (5-19) 09/12/24 19:13 BUN 22 mg/dL (8-23) 09/12/24 19:13 Creatinine 0.7 mg/dL (0.5-0.9) 09/12/24 19:13 GFR Calculation 83.0 mL/min (90-130) L 09/12/24 19:13 Glucose 166 mg/dL (65-115) H 09/12/24 19:13 Calculated Osmolality 301 mOsm/kg (285-295) H 09/12/24 19:13 Calcium 9.6 mg/dL (8.5-10.5) 09/12/24 19:13 Total Bilirubin 0.2 mg/dL (0.15-1.2) 09/12/24 19:13 AST 28 U/L (0-32) 09/12/24 19:13 ALT 37 U/L (0-33) H 09/12/24 19:13 Alkaline Phosphatase 82 U/L (35-105) 09/12/24 19:13 C-Reactive Protein 3.6 mg/L (0.0-4.9) 09/12/24 19:13 Total Protein 6.1 g/dL (6.6-8.7) L 09/12/24 19:13 Albumin 4.0 g/dL (3.5-5.2) 09/12/24 19:13 Globulin 2.1 g/dL (1.3-4.6) 09/12/24 19:13 All radiology interpretation(s) finalized by discharge Discharge Plan Discharge Patient Disposition: Home Clinical Impression: Acute pain of right foot Condition: Stable Prescriptions: New hydrocodone-acetaminophen 5-325 mg tablet 1 tab PO Q6H PRN (Reason: pain) Qty: 14 0RF No Action aspirin 81 mg tablet,chewable 81 mg PO DAILY Hold Instructions: Resume on 08/01/22. fluticasone propionate 50 mcg/actuation spray,suspension 2 spray INTRANASAL DAILY gabapentin 100 mg capsule 100 mg PO TID escitalopram oxalate 10 mg tablet 10 mg PO DAILY primidone 50 mg tablet See Rx Instructions .ROUTE .COMPLEX Qty: 360 3RF Dose Instruction: TAKE 2 TABLET BY MOUTH TWICE A DAY Rx Instructions: TAKE 2 TABLET BY MOUTH TWICE A DAY propranolol 20 mg tablet 20 mg PO Q8H Qty: 90 5RF benzonatate 100 mg capsule 100 mg PO BID PRN albuterol sulfate 90 mcg/actuation aerosol powdr breath activated 2 inh inhalation Q6H PRN Trulicity 0.75 mg/0.5 mL pen injector 0.75 mg SUBCUT Q7D 30 Days Qty: 2 0RF Rx Instructions: inject 0.75mg weekly for one month Trulicity 3 mg/0.5 mL pen injector 3 mg SUBCUT Q7D Qty: 2 0RF Rx Instructions: inject 3mg weekly amlodipine 10 mg tablet 10 mg PO DAILY divalproex 250 mg tablet extended release 24 hr 250 mg PO DAILY naproxen 500 mg tablet 500 mg PO BID (DME) pen needle, diabetic [Comfort EZ Pen [place]] 31 gauge x 3/16 needle See Rx Instructions .Route Qty: 100 2RF Rx Instructions: As directed diclofenac sodium 1 % gel 2 g topical QID Qty: 100 3RF Rx Instructions: apply to single elbow, wrist or hand; for hand includes palm/fingers/back of hand celecoxib [Celebrex] 100 mg capsule 100 mg PO BID 90 Days Qty: 180 0RF Trulicity 1.5 mg/0.5 mL pen injector 1.5 mg .ROUTE .COMPLEX Qty: 2 1RF Rx Instructions: 1.5 mg; metformin 500 mg tablet extended release 24 hr See Rx Instructions .ROUTE .COMPLEX Qty: 90 1RF Dose Instruction: TAKE 2 TABLETS BY MOUTH IN THE MORNING AND 1 TABLET AT NIGHT Rx Instructions: TAKE 2 TABLETS BY MOUTH IN THE MORNING AND 1 TABLET AT NIGHT acarbose 25 mg tablet 25 mg PO TID Qty: 270 1RF multivitamin Tablet 1 tab PO DAILY latanoprost 0.005 % Drops 1 drp OPHTHALMIC (EYE) DAILY atorvastatin 40 mg tablet 40 mg PO DAILY bupropion HCl 100 mg tablet sustained-release 12 hr 100 mg PO BID levothyroxine 88 mcg tablet 88 mcg PO DAILY losartan-hydrochlorothiazide 100-12.5 mg tablet 1 tab PO DAILY Discharge Orders: Discharge ED (Routine); Ordered 09/12/24 Ordered By: Swapnil Elmore Referrals: Roman Clifton MD [Primary Care Provider] - 1 week Patient Instructions: Opioid Safety, Pain Management Activity Restrictions/Additional Instructions: Thank you for choosing [facility] for your healthcare needs today. Please realize that you were seen in the emergency department and that we are providing you with an emergency medical screening exam and this may not be a complete and all exclusive of all testing and/or medical workup we may need to determine your element or severity of your illness. It is very important that you follow-up as instructed with your primary care provider or specialist for the additional evaluation and to discuss your medical treatment plan. You may return to the emergency department should you have concerns or if your condition changes or worsens in any way. Coding Level of Care Code ED In Store Representative for Ursula Grewal
[2024-09-12] MEDS: acetaminophen 500 mg Tablet 1000 MG PO (19:10)
[2024-09-12 19:19] LABS: Basophils # 0.1 10^3/uL (0.0-0.1); Basophils % 0.6 %; Eosinophils # 0.2 10^3/uL (0.0-0.8); Eosinophils % 2.2 %; Hematocrit 38.9 % (36-47); Lymphocytes # 1.9 10^3/uL (0.8-4.8); Mean Corpuscular HGB Conc 31.4 g/dL (30-55); Mean Corpuscular Hemoglobin 30.1 pg (27-33); Monocytes # 0.8 10^3/uL (0.2-0.9); Monocytes % 9.6 %; Neutrophils # 5.58 10^3/uL (1.8-7.7); Neutrophils % 65.2 %; Nucleated Red Blood Cells % 0 %; Platelet Count 258 10^3/cmm (157-399); Red Blood Count 4.05 10^6/uL (3.85-5.65); Red Cell Distribution Width 14.6 % (12.1-15.1); White Blood Count 8.55 10^3/uL (3.29-11.43)
[2024-09-12 19:38] LABS: Alanine Aminotransferase 37 U/L (0-33); Alkaline Phosphatase 82 U/L (35-105); Anion Gap 14.1 (5-19); Aspartate Amino Transferase 28 U/L (0-32); Blood Urea Nitrogen 22 mg/dL (8-23); C Reactive Protein 3.6 mg/L (0.0-4.9); Calcium 9.6 mg/dL (8.5-10.5); Carbon Dioxide 32 mmol/L (22-29); Chloride 100 mmol/L (98-107); Creatinine Clr Calc Pharmacy 83.8878; Globulin 2.1 g/dL (1.3-4.6); Glucose 166 mg/dL (65-115); Osmolality Calculated 301 mOsm/kg (285-295); Potassium 4.1 mmol/L (3.5-5.1); Sodium 142 mmol/L (136-145); Total Bilirubin 0.2 mg/dL (0.15-1.2); Total Protein 6.1 g/dL (6.6-8.7)
[2024-09-12 19:57] VITALS: BP 152/86; PULSE 70; O2SAT 94
[2024-09-12 20:26] VITALS: BP 152/86; PULSE 68; O2SAT 93
== END 2024-09-12 20:27 | disposition home or self-care (01) ==
PROVIDERS: Emergency Provider Emergency Medicine; PCP Family Medicine
DX: M79.671 Pain in right foot (principal); Z79.82 Long term (current) use of aspirin; Z79.85 Long-term (current) use of injectable non-insulin antidiabetic drugs; Z79.84 Long term (current) use of oral hypoglycemic drugs; Z87.891 Personal history of nicotine dependence; J44.9 Chronic obstructive pulmonary disease, unspecified; E11.9 Type 2 diabetes mellitus without complications; I10 Essential (primary) hypertension
CPT/HCPCS: 73630; 80053; 85025; 86140; 99284

== ENCOUNTER 2024-09-21 15:34 | Outpatient (CLI) | payer MEDICARE, MEDICAID, SELFPAY ==
--- NOTE | 2024-09-21 15:36 | USR_ITS ---
PROCEDURE INFORMATION: Exam: US Duplex Right Lower Extremity Veins, Limited Exam date and time: 09/21/2024 4:05 PM Age: 69 years old Clinical indication: Pain; Foot; Right; Additional info: Right foot pain, leg erythema TECHNIQUE: Imaging protocol: Real-time duplex ultrasound of the right extremity with 2-D mcdermott scale, color Doppler flow and spectral waveform analysis including responses to compression and other maneuvers (when performed) with image documentation. Limited exam was focused on the right lower extremity veins. COMPARISON: US renal BI* [id number] 01/26/2024 12:56 PM FINDINGS: Right deep veins: Unremarkable. The common femoral, femoral, proximal profunda femoral and popliteal veins are patent without thrombus. Normal Doppler waveforms. Normal compressibility and/or augmentation response. Superficial veins: Greater saphenous vein at the saphenofemoral junction is patent without thrombus. Soft tissues: Unremarkable. US/[place] [id number] IMPRESSION: No evidence of deep vein thrombosis.
== END 2024-09-21 15:35 | disposition home or self-care (01) ==
LOC: RAD 15:35
PROVIDERS: PCP Family Medicine; Visit Provider Nurse Practitioner Family
DX: L53.9 Erythematous condition, unspecified (principal); R58 Hemorrhage, not elsewhere classified; M79.671 Pain in right foot
CPT/HCPCS: 93971

== ENCOUNTER → 2024-09-29 10:56 | Outpatient (BNVA) | payer MEDICARE, MEDICAID, SELFPAY | PROVIDERS: PCP Family Medicine; Visit Provider Nurse Practitioner | DX: M75.81 Other shoulder lesions, right shoulder (principal); M19.011 Primary osteoarthritis, right shoulder | CPT/HCPCS: 20610; 99214; J1100; J2795; J3301 ==

== ENCOUNTER → 2024-10-16 14:54 | Outpatient (BNVA) | payer MEDICARE, MEDICAID, OTHER, SELFPAY | PROVIDERS: PCP Family Medicine; Visit Provider Specialist | DX: M65.342 Trigger finger, left ring finger | CPT/HCPCS: 73130; 99214 ==

== ENCOUNTER → 2024-10-20 10:58 | Outpatient (BNVA) | payer MEDICARE, MEDICAID, OTHER, SELFPAY | PROVIDERS: PCP Family Medicine; Visit Provider Specialist | DX: M17.0 Bilateral primary osteoarthritis of knee; E66.01 Morbid (severe) obesity due to excess calories; Z68.42 Body mass index [BMI] 45.0-49.9, adult; Z71.89 Other specified counseling | CPT/HCPCS: 20610; J1100; J2795; J3301 ==

== ENCOUNTER 2024-11-15 08:19 | Outpatient (CLI) | payer MEDICAID, MEDICARE, SELFPAY ==
[2024-11-15 08:59] LABS: Estmated Average Glucose 192; Hemoglobin A1C 8.3 % (4.0-6.0)
[2024-11-15 09:03] LABS: Alanine Aminotransferase 38 U/L (0-33); Alkaline Phosphatase 93 U/L (35-105); Anion Gap 18.5 (5-19); Aspartate Amino Transferase 29 U/L (0-32); Blood Urea Nitrogen 25 mg/dL (8-23); Calcium 10.1 mg/dL (8.5-10.5); Carbon Dioxide 28 mmol/L (22-29); Chloride 97 mmol/L (98-107); Cholesterol 169 mg/dL (0-200); Creatinine Clr Calc Pharmacy 83.8878; Globulin 3.1 g/dL (1.3-4.6); Glomerular Filtration Rate 99.1 mL/min (90-130); Glucose 148 mg/dL (65-115); HDL Cholesterol 47 mg/dL (60-100); LDL Cholesterol Calculated 96 mg/dL (50-129); LDL HDL Ratio 2.04 RATIO (0.00-3.22); Osmolality Calculated 297 mOsm/kg (285-295); Potassium 3.5 mmol/L (3.5-5.1); Sodium 140 mmol/L (136-145); Total Bilirubin 0.3 mg/dL (0.15-1.2); Total Protein 7.1 g/dL (6.6-8.7); Triglycerides 132 mg/dL (0-150)
[2024-11-15 10:43] LABS: Creatinine Urine, Random 159 mg/dL (28-217); Microalbum Creatinine Ratio Ur 31 mg/dL (0-20); Microalbumin Random Urine 5 ug/dL (0-20)
--- NOTE | 2024-11-15 15:15 | MR_ITS ---
WS: [id number] MRI RIGHT SHOULDER NONCONTRAST TECHNIQUE: Sagittal T2, coronal T1, T2 and proton density imaging. Axial gradient PDE imaging. CLINICAL INFORMATION: primary osteoarthritis of right shoulder COMPARISON: None. FINDINGS: Some images graded by motion. Moderate degenerative arthritis AC joint with fluid and edema. Subacromial subdeltoid fluid. Subacrom ial spurring with impingement on the distal supraspinatus. Mild downsloping of the acromion. Tendinopathy supraspinatus. Tendinopathy infraspinatus. Small intrasubstance involving the distal sup raspinatus extending to the bursal surface near the insertion. No significant tendon retraction. Dajuan a in the supraspinatus tendon. Infraspinatus appears intact with tendinopathy. Normal teres minor. Jennings bscapularis tendon appears intact. Small intrasubstance tear involving the subscapularis tendon. Biceps tendon appears intact in the bic ipital groove. Moderate degenerative narrowing of the glenohumeral articulation. Tendinopathy intra-a rticular biceps tendon. Biceps labral complex appears intact. Fluid in the subcoracoid bursa. MR/MR shoulder RT wo con* [id number] IMPRESSION: 1. Moderate degenerative arthritis AC joint fluid and edema. Slight impingemen t on the distal supraspinatus. 2. Small intrasubstance tear near the supraspinatus insertion with associated fluid and edema. No tendon retraction. 3. Tendinopathy infraspinatus. 4. Small intrasubstance tear of subscapularis which appears intact. 5. Tendinopathy intra-articular biceps tendon.
[2024-11-17 17:18] LABS: Total Volume Urine 1600 ml
[2024-11-17 17:37] LABS: Urine Creatinine 81 mg/dL (28-217)
== END 2024-11-15 08:20 | disposition home or self-care (01) ==
LOC: RAD 08:23
PROVIDERS: Absent Provider Internal Medicine; PCP Family Medicine; Visit Provider Nurse Practitioner
DX: M19.011 Primary osteoarthritis, right shoulder (principal); M25.711 Osteophyte, right shoulder; M75.121 Complete rotator cuff tear or rupture of right shoulder, not specified as traumatic; M66.811 Spontaneous rupture of other tendons, right shoulder; M75.21 Bicipital tendinitis, right shoulder; E78.2 Mixed hyperlipidemia; E11.40 Type 2 diabetes mellitus with diabetic neuropathy, unspecified; E27.9 Disorder of adrenal gland, unspecified; I10 Essential (primary) hypertension
CPT/HCPCS: 36415; 73221; 80053; 80061; 82044; 82088; 82570; 83036; 84244

== ENCOUNTER → 2024-11-21 15:42 | Outpatient (BNVA) | payer MEDICARE, MEDICAID, SELFPAY | PROVIDERS: PCP Family Medicine; Visit Provider Podiatrist Foot & Ankle Surgery | DX: L60.3 Nail dystrophy (principal); G62.9 Polyneuropathy, unspecified; L84 Corns and callosities; E11.42 Type 2 diabetes mellitus with diabetic polyneuropathy; Z79.84 Long term (current) use of oral hypoglycemic drugs | CPT/HCPCS: 11055; 11721; 99203 ==

== ENCOUNTER → 2024-11-27 14:26 | Outpatient (BNVA) | payer MEDICARE, MEDICAID, SELFPAY | PROVIDERS: PCP Family Medicine; Visit Provider Nurse Practitioner | DX: M67.911 Unspecified disorder of synovium and tendon, right shoulder (principal); M19.011 Primary osteoarthritis, right shoulder | CPT/HCPCS: 99214 ==

== ENCOUNTER → 2024-12-12 13:07 | Outpatient (BNVA) | payer MEDICARE, MEDICAID, SELFPAY | PROVIDERS: PCP Family Medicine; Visit Provider Surgery | DX: Z12.11 Encounter for screening for malignant neoplasm of colon (principal) | CPT/HCPCS: 99024; 99214 ==

== ENCOUNTER → 2024-12-14 13:04 | Outpatient (BNVA) | payer MEDICARE, MEDICAID, SELFPAY | PROVIDERS: PCP Family Medicine; Referring Provider Family Medicine; Visit Provider Nurse Practitioner Family | DX: L21.8 Other seborrheic dermatitis (principal); D69.2 Other nonthrombocytopenic purpura; L73.8 Other specified follicular disorders; L82.1 Other seborrheic keratosis; L81.4 Other melanin hyperpigmentation; L57.8 Other skin changes due to chronic exposure to nonionizing radiation; D22.5 Melanocytic nevi of trunk; L82.0 Inflamed seborrheic keratosis; R20.8 Other disturbances of skin sensation; L53.8 Other specified erythematous conditions; R58 Hemorrhage, not elsewhere classified; L29.89 Other pruritus; L57.0 Actinic keratosis | CPT/HCPCS: 17000; 17110; 99203 ==

== ENCOUNTER → 2025-01-05 08:31 | Outpatient (BNVA) | payer MEDICARE, MEDICAID, SELFPAY | PROVIDERS: PCP Family Medicine; Visit Provider Nurse Practitioner | DX: M19.011 Primary osteoarthritis, right shoulder (principal); M67.911 Unspecified disorder of synovium and tendon, right shoulder; Z71.89 Other specified counseling | CPT/HCPCS: 20610; 99213; J1100; J2795; J3301 ==

== ENCOUNTER 2025-01-11 08:25 | Day surgery (SDC) | payer MEDICARE, MEDICAID, SELFPAY ==
[2025-01-11 08:40] VITALS: BP 134/104; PULSE 90; RESP 18; TEMP 36.3; O2SAT 91
--- NOTE | 2025-01-11 08:44 | W.PM.OPSFHP ---
Same Day Surgery H&P Indication for Procedure/HPI DATE OF PROCEDURE: January 11, 2025 CHIEF COMPLAINT/INDICATIONFOR SURGICAL PROCEDURE: need for screening colonoscopy PREOP DIAGNOSIS: screening for colon cancer PLANNED PROCEDURE: Operation Date: 01/11/25 09:40 Proposed Procedures p Colonoscopy 72541 G0121 Z12.11(Not Applicable) - Billy Geiger MD Medications/Allergies* Home Medications ?Medication ?Instructions ?Recorded ?Confirmed ?Type escitalopram oxalate 10 mg tablet 10 mg PO DAILY 12/26/19 01/09/25 History (Lexapro) fluticasone propionate 50 2 spray intranasal DAILY 12/26/19 01/09/25 History mcg/actuation nasal spray,suspension gabapentin 100 mg capsule 100 mg PO TID 12/26/19 01/09/25 History atorvastatin 40 mg tablet 40 mg PO DAILY 07/22/21 01/09/25 History bupropion HCl 100 mg tablet,12 hr 100 mg PO BID 07/22/21 01/09/25 History sustained-release latanoprost 0.005 % eye drops 1 drp ophthalmic (eye) DAILY 07/22/21 01/09/25 History levothyroxine 88 mcg tablet 88 mcg PO DAILY 07/22/21 01/09/25 History losartan 100 1 tab PO DAILY 07/22/21 01/09/25 History mg-hydrochlorothiazide 12.5 mg tablet multivitamin 1 tab PO DAILY 07/22/21 01/09/25 History aspirin 81 mg chewable tablet 81 mg PO DAILY 04/01/22 01/09/25 History Held on 07/28/22. Instructions: Resume on 08/01/22. amlodipine 10 mg tablet 10 mg PO DAILY 01/28/23 01/09/25 History divalproex 250 mg tablet,extended 250 mg PO DAILY 10/08/23 01/09/25 History release 24 hr albuterol sulfate 90 mcg/actuation 2 inh inhalation Q6H PRN Shortness 10/26/23 01/09/25 History breath activated powder inhaler Of Breath Or Wheezing glycopyrrolate 9 mcg-formoterol 2 puff inhalation BID 12/25/24 01/09/25 History 4.8 mcg HFA aerosol inhaler (Bevespi Aerosphere) meloxicam 7.5 mg tablet 7.5 mg PO DAILY 12/25/24 01/09/25 History metformin 500 mg tablet,extended 500 mg PO DAILY 12/25/24 01/09/25 History release 24 hr primidone 50 mg tablet 100 mg PO BID 12/25/24 01/09/25 History dulaglutide 3 mg/0.5 mL 3 mg SUBCUT .Q7DAYS 01/09/25 01/09/25 History subcutaneous pen injector (Trulicity) Allergies/Adverse Reactions Allergy/AdvReac Type Severity Reaction Status Date / Time azithromycin Allergy hives/ GI Verified 01/09/25 10:47 upset tramadol AdvReac hives Verified 01/09/25 10:47 Pertinent History/Comorbid Conditions* Medical History (Updated 11/28/24 @ 14:49 by ENRIKE Viera) Right rotator cuff tendonitis AC (acromioclavicular) arthritis Primary osteoarthritis, right shoulder PERCY (obstructive sleep apnea) COPD (chronic obstructive pulmonary disease) Pneumonia due to COVID-19 virus Hypertension COVID-19 Surgical History (Updated 05/08/22 @ 10:29 by Sandra Cummins MD) History of detached retina repair History of tonsillectomy Family History (Updated 05/08/22 @ 10:29 by Sandra Cummins MD) Hypertension Social History Smoking and tobacco/nicotine status: former use of tobacco/nicotine Quit status (tobacco/nicotine): has quit using Year quit tobacco: 2014 Former quit date comment: 1 pack per day for 48 years Second hand smoke exposure: No Alcohol intake: never Substance/Drug Use: never Lives independently: Yes Pets and animals: Yes Pets & animals: cat(s) Current gender identity: Female Special roxanne needs: No Pertinent Exam Findings alert, oriented x 3, clear to auscultation bilaterally and regular rate & rhythm Recommendations Surgery/Procedure today Coding Level of Care Code Acute Code for Chg Fwd
[2025-01-11] MEDS: sodium chloride 0.9% 1,000 ML 30 ML IV (08:53)
[2025-01-11 08:56] LABS: Glucose Point of Care 201 mg/dL (70-110)
--- NOTE | 2025-01-11 09:01 | ANES.PREANE2 ---
Pre-Anesthetic Assessment Height/Weight: Height 1.6 m Weight 117.027 kg Temp Pulse Resp BP Pulse Ox O2 Del Method 97.4 F L 90 18 134/104 91 Room Air 01/11/25 08:40 01/11/25 08:40 01/11/25 08:40 01/11/25 08:40 01/11/25 08:40 01/11/25 08:40 Preop Diagnosis: screening for colon cancer Operation Date: 01/11/25 09:40 Proposed Procedures p Colonoscopy 18021 G0121 Z12.11(Not Applicable) - Billy Geiger MD Was Beta Christine taken within 24 hours: Yes Was Clonidine taken within 24 hours: N/A Last intake: Intake Last Liquid Date 01/10/25 Last Liquid Time 21:00 Last Solid Date 01/09/25 Last Solid Time 18:00 Social No alcohol and No tobacco Exam alert, oriented x 3, clear to auscultation bilaterally and regular rate & rhythm Airway Submandibular: within normal limits Cervical ROM: within normal limits Mallampati: Class II Dentition: false Comments: Comments: Edentulous History/ROS No significant history except as noted and No significant complaints Pulmonary Chronic Obstructive Pulmonary Disease, Exertional Dyspnea and Sleep Apnea CV/HEM Hypertension None reported Hepatic None reported GI None reported Metabolic Diabetes Mellitus and Thyroid Disease Musc/skel None reported Neuropsych None reported Anesthetic Plan ASA status: 3 Anesthesia: Anesthesia Evaluation and MAC Risk of > 500 ml blood loss (7ml/kg in children): No Medications/Allergies Home Medications ?Medication ?Instructions ?Recorded ?Confirmed ?Last Taken ?Type escitalopram oxalate 10 mg tablet 10 mg PO DAILY 12/26/19 01/09/25 01/08/25 History (Lexapro) fluticasone propionate 50 2 spray intranasal DAILY 12/26/19 01/09/25 01/09/25 History mcg/actuation nasal spray,suspension gabapentin 100 mg capsule 100 mg PO TID 12/26/19 01/09/25 01/11/25 History atorvastatin 40 mg tablet 40 mg PO DAILY 07/22/21 01/09/25 01/09/25 History bupropion HCl 100 mg tablet,12 hr 100 mg PO BID 07/22/21 01/09/25 01/09/25 History sustained-release latanoprost 0.005 % eye drops 1 drp ophthalmic (eye) DAILY 07/22/21 01/09/25 01/09/25 History levothyroxine 88 mcg tablet 88 mcg PO DAILY 07/22/21 01/09/25 01/11/25 History losartan 100 1 tab PO DAILY 07/22/21 01/09/25 01/09/25 History mg-hydrochlorothiazide 12.5 mg tablet multivitamin 1 tab PO DAILY 07/22/21 01/09/25 01/09/25 History aspirin 81 mg chewable tablet 81 mg PO DAILY 04/01/22 01/09/25 01/09/25 History Held on 07/28/22. Instructions: Resume on 08/01/22. amlodipine 10 mg tablet 10 mg PO DAILY 01/28/23 01/09/25 01/11/25 History pen needle, diabetic 31 gauge x #100 ea 03/31/23 01/05/25 Unknown Rx 3/16 (Comfort EZ Pen [employer]) divalproex 250 mg tablet,extended 250 mg PO DAILY 10/08/23 01/09/25 01/08/25 History release 24 hr albuterol sulfate 90 mcg/actuation 2 inh inhalation Q6H PRN Shortness 10/26/23 01/09/25 2 Days Ago History breath activated powder inhaler Of Breath Or Wheezing ~12/23/24 diabetic shoes and 3 inserts #1 ea 11/21/24 01/05/25 Unknown Rx ondansetron HCl 4 mg tablet 4 mg PO Q8H PRN nausea and 12/12/24 01/09/25 Unknown Rx vomiting #3 tabs polyethylene glycol 3350 17 17 g PO BID 10 days #340 grams 12/12/24 01/09/25 01/09/25 Rx gram/dose oral powder (Miralax) glycopyrrolate 9 mcg-formoterol 2 puff inhalation BID 12/25/24 01/09/25 01/09/25 History 4.8 mcg HFA aerosol inhaler (Bevespi Aerosphere) meloxicam 7.5 mg tablet 7.5 mg PO DAILY 12/25/24 01/09/25 01/09/25 History metformin 500 mg tablet,extended 500 mg PO DAILY 12/25/24 01/09/25 01/08/25 History release 24 hr primidone 50 mg tablet 100 mg PO BID 12/25/24 01/09/25 01/08/25 History acarbose 25 mg tablet 25 mg PO TID #90 tabs 01/05/25 01/09/25 01/08/25 Rx dulaglutide 3 mg/0.5 mL 3 mg SUBCUT .Q7DAYS 01/09/25 01/09/25 12/31/24 History subcutaneous pen injector (Trulicity) Allergies Allergy/AdvReac Type Severity Reaction Status Date / Time azithromycin Allergy hives/ GI Verified 01/09/25 10:47 upset tramadol AdvReac hives Verified 01/09/25 10:47 Current Medications Generic Name Dose Route Start Last Admin Trade Name Freq PRN Reason Stop Dose Admin Sodium Chloride 1,000 mls @ 30 mls/hr 01/11/25 08:45 01/11/25 08:53 Sodium Chloride 0.9% IV 30 mls/hr .Q24H THERESA Administration PFSH Anesthesia Medical History Right rotator cuff tendonitis AC (acromioclavicular) arthritis Primary osteoarthritis, right shoulder PERCY (obstructive sleep apnea) COPD (chronic obstructive pulmonary disease) Pneumonia due to COVID-19 virus Hypertension COVID-19 Surgical History History of detached retina repair History of tonsillectomy Family History Other Hypertension Social History Smoking and tobacco/nicotine status: former use of tobacco/nicotine Quit status (tobacco/nicotine): has quit using Year quit tobacco: 2014 Former quit date comment: 1 pack per day for 48 years Second hand smoke exposure: No Alcohol intake: never Substance/Drug Use: never Lives independently: Yes Pets and animals: Yes Pets & animals: cat(s) Current gender identity: Female Special roxanne needs: No Data Anesthesia Cardiac Studies: Echocardiogram 11/05/23 Sestamibi Stress Test (Cardiology) 11/05/23
--- NOTE | 2025-01-11 10:17 | SUR.OPER ---
attempted to remove polyps with biopsy forcep but was unsuccessful
[2025-01-11 10:23] VITALS: BP 125/49; PULSE 65; RESP 14; TEMP 36.1; O2SAT 94
[2025-01-11 10:38] VITALS: BP 110/77; PULSE 66; RESP 16; O2SAT 94
--- NOTE | 2025-01-11 11:05 | ANE.PACU2 ---
Inpatient post-anesthesia follow up: Airway intact: Yes Vital signs: Temperature 96.9 F Pulse Rate 66 Respiratory Rate 16 Blood Pressure 110/77 Pulse Oximetry 94 Oxygen Delivery Me thod Room Air Oxygen Flow Rate Fraction of Inspir ed Oxygen Hydration adequate: Yes Nausea and vomiting: No Pain level: 1 Mental status: Baseline
== END 2025-01-11 11:04 | disposition home or self-care (01) ==
PROVIDERS: PCP Family Medicine; Visit Provider Surgery
PROC: 0DJD8ZZ Inspection of Lower Intestinal Tract, Via Natural or Artificial Opening Endoscopic (ICD-10-PCS; CPT 45378; principal; 2025-01-11 09:40)
DX: Z12.11 Encounter for screening for malignant neoplasm of colon (principal); K57.30 Diverticulosis of large intestine without perforation or abscess without bleeding; K63.5 Polyp of colon; K63.89 Other specified diseases of intestine; G47.33 Obstructive sleep apnea (adult) (pediatric); E11.9 Type 2 diabetes mellitus without complications; I10 Essential (primary) hypertension; Z87.891 Personal history of nicotine dependence; Z79.899 Other long term (current) drug therapy; Z79.85 Long-term (current) use of injectable non-insulin antidiabetic drugs; Z79.84 Long term (current) use of oral hypoglycemic drugs; Z79.82 Long term (current) use of aspirin; Z79.890 Hormone replacement therapy; Z88.1 Allergy status to other antibiotic agents; Z88.8 Allergy status to other drugs, medicaments and biological substances; Z86.0100 Personal history of colon polyps, unspecified
CPT/HCPCS: 36416; 82962; G0105; J2704; J7030

== ENCOUNTER → 2025-01-23 11:12 | Outpatient (BNVA) | payer MEDICARE, MEDICAID, SELFPAY | PROVIDERS: PCP Family Medicine; Visit Provider Surgery | DX: Z09 Encounter for follow-up examination after completed treatment for conditions other than malignant neoplasm (principal) | CPT/HCPCS: 11055; 11721; G0463 ==

== ENCOUNTER → 2025-01-26 11:11 | Outpatient (BNVA) | payer MEDICARE, MEDICAID, SELFPAY | PROVIDERS: PCP Family Medicine; Visit Provider Internal Medicine | DX: E11.9 Type 2 diabetes mellitus without complications (principal); I10 Essential (primary) hypertension; E78.2 Mixed hyperlipidemia; E11.40 Type 2 diabetes mellitus with diabetic neuropathy, unspecified; E27.9 Disorder of adrenal gland, unspecified | CPT/HCPCS: 99214 ==

== ENCOUNTER → 2025-01-31 10:25 | Outpatient (BNVA) | payer MEDICARE, MEDICAID, SELFPAY | PROVIDERS: PCP Family Medicine; Visit Provider Specialist | DX: M17.0 Bilateral primary osteoarthritis of knee (principal); E66.01 Morbid (severe) obesity due to excess calories; Z68.42 Body mass index [BMI] 45.0-49.9, adult | CPT/HCPCS: 20610; J1100; J2795; J3301; J9999 ==

== ENCOUNTER → 2025-03-28 13:45 | Outpatient (BNVA) | payer MEDICARE, MEDICAID, SELFPAY | PROVIDERS: PCP Family Medicine; Visit Provider Podiatrist Foot & Ankle Surgery | DX: E11.42 Type 2 diabetes mellitus with diabetic polyneuropathy (principal); L60.3 Nail dystrophy; L84 Corns and callosities; G62.9 Polyneuropathy, unspecified; R60.9 Edema, unspecified; L03.115 Cellulitis of right lower limb; Z79.84 Long term (current) use of oral hypoglycemic drugs | CPT/HCPCS: 11055; 11721; 99214 ==

== ENCOUNTER → 2025-04-11 13:49 | Outpatient (BNVA) | payer MEDICARE, MEDICAID, SELFPAY | PROVIDERS: PCP Family Medicine; Visit Provider Podiatrist Foot & Ankle Surgery | DX: L03.115 Cellulitis of right lower limb (principal); L60.3 Nail dystrophy; G62.9 Polyneuropathy, unspecified; L84 Corns and callosities; R60.9 Edema, unspecified; E11.42 Type 2 diabetes mellitus with diabetic polyneuropathy; Z79.84 Long term (current) use of oral hypoglycemic drugs | CPT/HCPCS: 99213 ==

== ENCOUNTER → 2025-05-14 14:47 | Outpatient (BNVA) | payer OTHER, MEDICAID, SELFPAY | PROVIDERS: PCP Family Medicine; Visit Provider Nurse Practitioner | DX: M19.011 Primary osteoarthritis, right shoulder (principal); M25.512 Pain in left shoulder; M19.012 Primary osteoarthritis, left shoulder; M67.911 Unspecified disorder of synovium and tendon, right shoulder; Z71.89 Other specified counseling | CPT/HCPCS: 20610; 99214; J1100; J2795; J3301; J9999 ==

== ENCOUNTER → 2025-05-17 09:20 | Outpatient (BNVA) | payer OTHER, MEDICAID, SELFPAY | PROVIDERS: PCP Family Medicine; Visit Provider Internal Medicine | DX: E11.69 Type 2 diabetes mellitus with other specified complication (principal); E78.2 Mixed hyperlipidemia; E11.40 Type 2 diabetes mellitus with diabetic neuropathy, unspecified; E27.9 Disorder of adrenal gland, unspecified; Z79.84 Long term (current) use of oral hypoglycemic drugs | CPT/HCPCS: 99214 ==

== ENCOUNTER → 2025-05-18 08:30 | Outpatient (BNVA) | payer MEDICARE, MEDICAID, SELFPAY | PROVIDERS: PCP Family Medicine; Visit Provider Specialist | DX: M17.0 Bilateral primary osteoarthritis of knee (principal) | CPT/HCPCS: 20610; J1100; J2795; J3301; J9999 ==

== ENCOUNTER → 2025-05-30 13:33 | Outpatient (BNVA) | payer MEDICARE, MEDICAID, SELFPAY | PROVIDERS: PCP Family Medicine; Visit Provider Podiatrist Foot & Ankle Surgery | DX: E11.42 Type 2 diabetes mellitus with diabetic polyneuropathy (principal); L60.3 Nail dystrophy; L84 Corns and callosities; G62.9 Polyneuropathy, unspecified; R60.9 Edema, unspecified; Z79.84 Long term (current) use of oral hypoglycemic drugs | CPT/HCPCS: 11721; 99213 ==

== ENCOUNTER 2025-06-05 15:36 | Emergency (ER) | payer MEDICARE, MEDICAID, SELFPAY ==
[2025-06-05 15:42] VITALS: BP 128/70; PULSE 79; TEMP 37; O2SAT 91
--- OUTSIDE RECORDS SUMMARY | 2025-06-05 15:42 | XMS_ITS | Clinical Summary ---
Author Organization [facility] Address [address] [facility] Attn: Epic Prelude ADT GILDA PARMAR [address] Care Team Providers Care Database Analyst Name Role Phone Piero Pelaez NP Primary Care Provider [phone] Allergies Active Allergy Reactions Criticality Noted Date Comments Azithromycin Hives High 07/02/2022 Erythromycin Nausea and Vomiting 09/22/2013 Tramadol Hives High 09/22/2013 Unclassified Drug Other (See Comments) 09/22/20 13 Pt cannot take regular thyroid medication face swells and eyes swell shut Medications citalopram (CeleXA) 40 mg tablet Take 40 mg by mouth daily. Active levothyroxine 88 mcg tablet Take 88 mcg by mouth daily in the morning. Active nebivoloL (BYSTOLIC) 5 mg Tablet Take 5 mg by mouth daily. Active telmisartan (MICARDIS) 40 mg Tablet Take 40 mg by mouth daily. Active latanoprost (XALATAN) 0.005 % solution Administer 1 Drop in both eyes daily at bedtime. 2 Active atorvastatin (LIPITOR) 40 mg tablet Take 40 mg by mouth daily. 2 Active buPROPion HCL (WELLBUTRIN SR) 100 mg Sustained Release 12 hour tablet Take 100 mg by mouth 2 times daily. 2 Active divalproex (DEPAKOTE) 250 mg Delayed Release tablet Take 250 mg by mouth daily at bedtime. 2 Active gabapentin (NEURONTIN) 300 mg capsule Take 100 mg by mouth 3 times daily. 2 Active HYDROcodone-waleska taminophen (NORCO) 5-325 mg tablet Take 1 Tablet by mouth every 6 hours as needed. 2 Active losartan-hydroC HLOROthiazide (HYZAAR) 100-25 mg tablet Take 1 Tablet by mouth daily. 2 Active metFORMIN (GLUCOPHAGE) 500 mg tablet Take 500 mg by mouth 2 times daily. 2 Active primidone (MYSOLINE) 50 mg tablet Take 100 mg by mouth daily. 2 Active Ozempic 0.25 mg or 0.5 mg(2 mg/1.5 mL) Pen Injector Inject 0.5 mg by subcutaneous injection every 7 days. 2 Active escitalopram oxalate (LEXAPRO) 10 mg tablet Take 10 mg by mouth daily. 2 Active aspirin (ECOTRIN EC) 81 mg Tablet, Delayed Release (E.C.) Take 81 mg by mouth daily. Active dexAMETHasone (DECADRON) 2 mg tablet Take 2 mg by mouth 2 times daily. Active Stiolto Respimat 2.5-2.5 mcg/actuation metered inhaler 2 Active Accu-Chek Kalyn Plus test strp Strip USE TO TEST FASTING SUGAR ONCE DAILY 2 Active albuterol sulfate HFA 90 mcg/actuation aerosol inhaler Take 90 Puffs by inhalation Continuous as needed. 3 Active semaglutide 0.25 mg or 0.5 mg(2 mg/1.5 mL) Pen Injector Inject by subcutaneous injection. 2 Active semaglutide 1 mg/dose (4 mg/3 mL) Pen Injector Inject by subcutaneous injection. 2 Active amoxicillin (AMOXIL) 500 mg capsule Take by mouth. 3 Active benzonatate (TESSALON) 100 mg capsule Take by mouth. 3 Active diclofenac sodium (VOLTAREN) 50 mg Tablet, Delayed Release (E.C.) diclofenac sodium 50 mg tablet,delayed release (DR/EC) 1 Active ketoconazole (NIZORAL) 2 % Shampoo Apply to affected area. 1 Active liraglutide (Victoza 2-Morales) 0.6 mg/0.1 mL (18 mg/3 mL) Victoza 3-Morales 0.6 mg/0.1 mL (18 mg/3 mL) pen injector 3 Active methylPREDNISol one (MEDROL DOSPACK) 4 mg Tablets, Dose Pack Take by mouth. 2 Active neomycin-polymy kaitlin-dexAMETHaso ne (MAXITROL) 3.5 mg/g-10,000 unit/g-0.1 % ointment neomycin-polymyx in B-dexameth 3.5 mg/g-10,000 unit/g-0.1 % ointment 2 Active nitrofurantoin (Macrobid) 100 mg capsule Macrobid 100 mg capsule 2 Active prednisoLONE acetate (PRED FORTE) 1 % suspension prednisolone acetate 1% drops,suspension 2 Active predniSONE (DELTASONE) 20 mg tablet Take by mouth. 3 Active triamcinolone acetonide (KENALOG) 0.1 % Cream Apply to affected area. 2 Active amLODIPine (NORVASC) 10 mg tablet Take by mouth. 3 Active HYDROcodone-waleska taminophen (NORCO) 5-325 mg tablet Take 1 Tablet by mouth every 6 hours. 2 Active levothyroxine 88 mcg tablet Take 88 mcg by mouth. 2 Active losartan-hydroC HLOROthiazide (HYZAAR) 100-12.5 mg tablet losartan-hydroch lorothiazide 100-12.5 mg tablet 1 Active brimonidine (ALPHAGAN) 0.2 % solution 1 Drop every 8 hours. Active SITagliptin phosphate (JANUVIA) 100 mg Tablet Take 100 mg by mouth daily with breakfast. Active acarbose (PRECOSE) 25 mg tablet take 1 tablet by mouth 3 times a day Active dulaglutide (Trulicity) 1.5 mg/0.5 mL injection Trulicity 1.5 mg/0.5 mL subcutaneous pen injector 4 Active fluticasone propionate (FLONASE) 50 mcg/spray [place], Suspension nasal inhaler Administer 1 [place] in each nostril. 4 Active Bevespi Aerosphere 9-4.8 mcg HFA Aerosol Inhaler Take 2 Puffs by inhalation every 12 hours. 4 Active meloxicam (MOBIC) 7.5 mg tablet Take 7.5 mg by mouth 2 times daily. Active multivitamin (DAILY-JACOBO) tablet Take 1 Tablet by mouth daily in the morning. 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); Angiomyolipoma of left kidney; Cyst of kidney, acquired; Renal mass 05/24/[address] [place] [address] Ken Collins MD Erroneous encounter-disregar d 05/23/2025 External Device Data [facility] ABSTRACTION Provider, Abstract 05/22/2025 External Device Data [facility] ABSTRACTION Provider, Abstract 05/03/2025 Results Follow-Up [address] [place] [phone] ABDOMEN W WO CONTRAST 04/30/2025 12:59 PM CDT - 04/30/2025 11:59 PM CDT Hospital Encounter [facility] [address] [place] [phone] Ken Collins MD Discharge Disposition: Home or Self Care 04/24/2025 8:30 AM CDT - 04/24/2025 11:59 PM CDT Hospital Encounter [facility] [address] [place] [phone] Don Conteh MD Discharge Disposition: Home or Self Care 04/24/2025 8:00 AM CDT - 04/24/2025 11:59 PM CDT Hospital Encounter [facility] CT Scan [address] [place] [phone] Don Conteh MD Discharge Disposition: Home or Self Care 04/24/2025 External Device Data ST[facility] ABSTRACTION Provider, Abstract 04/13/2025 Transcribe Orders [facility] Scheduling [place] CALL TO MAKE APPOINTMENT ONLY [address] [place] [phone] Don Conteh MD Abnormal colonoscopy (Primary Dx) 04/03/2025 External Device Data STL ABSTRACTION Provider, Abstract 04/03/[address] Entr[address], [address] [place] [address] Ken Collins MD Information 03/29/2025 External Device Data [facility] ABSTRACTION Provider, Abstract 03/29/[address] Entrance B, [address] [place] [phone] Ken Collins MD Information 03/28/2025 External Device Data [facility] ABSTRACTION Provider, Abstract 03/27/2025 External Device Data [facility] ABSTRACTION Provider, Abstract from Last 3 Months Family History Medical History Relation Name Comments Colon Cancer Neg Hx Social History Tobacco Use Types Packs/Day Years Used Date Smoking Tobacco: Former Smokeless Tobacco: Never Tobacco Cessation:Counseling Given: No Alcohol Use Standard Drinks/Week Comments No 0 (1 standard drink = 0.6 oz pur e alcohol) Comments No Sex and Gender Information Value Date Recorded Sex Assigned at Not on file Legal Sex Female 2:20 AM [employer] Gender Identity Not on file Sexual Orientation Not on file Last Filed Vital Signs Vital Sign Reading Time Taken Comments Blood Pressure 123/68 02/13/2025 2:42 PM CDT Pulse 65 02/13/2025 2:42 PM CDT Temperature 36.6 C (97.8 F) 10/08/2022 1:06 PM [employer] Respiratory Rate 16 02/13/2025 2:42 PM CDT Oxygen Saturation 94% 02/13/2025 2:42 PM CDT Inhaled Oxygen Concentration - - Weight 119.3 kg (263 lb) 02/02/2025 8:53 AM CDT Height 160 cm (5' 3 ) 02/02/2025 8:53 AM CDT Body Mass Index 46.59 02/02/2025 8:53 AM CDT Plan of Treatment Upcoming Encounters Date Type Department Care Team (Late st Contact Info) Description 11/29/2025 1:15 PM [employer] Office Visit [facility] [address] [place] [address] Ken Collins MD [address] [place] [address] Health Maintenance Due Date Last Done Comments DIABETES ANNUAL FOOT EXAM 1973 DIABETES MICROALBUMIN ANNUAL SCREEN 1973 LDL CHOLESTEROL ANNUAL 1973 DTAP/TDAP/TD VACCINES (1 - Tdap) 1974 BREAST CANCER SCREENING 1995 FIT-DNA Q 3 years 02/23/2000 FIT/FOBT Q 1 year 02/23/2000 ZOSTER VACCINE (1 of 2) 2005 RSV VACCINE (60+ or ) (1 - Risk 60-74 years 1-dose series) 2015 OSTEOPOROSIS SCREENING 02/23/2020 DIABETES HBA1C Q 6 MONTHS 12/16/2023 06/15/2023 COVID-19 Vaccine (2 - 2023-2 5 season) 2024 04/15/2021 DIABETES ANNUAL RETINAL EXAM 11/24/2024, 11/24/2023, 11/24/2023, Additional history exists INFLUENZA VACCINE (#1) 2025 08/26/2023 COLORECTAL SCREENING 02/14/2028 02/13/2025, 02/14/20 25 Colorectal Cancer Screening 02/14/2028 Flex Sig/CT Colonography Q 5 years 04/24/20302024 PNEUMOCOCCAL VACCINE 50+ YEARS Completed 10/10/2024 , 08/26/2023 Procedures Procedure Name Priority Date/Time Associated Diagnosis Comments CT ABDOMEN W WO CONTRAST Routine 04/30/2025 1:43 PM CDT Renal mass POC CREATININE Routine 04/30/2025 1:[address] COLONOGRAPHY DIAG WO CONTRAST Routine 04/24/2025 10:09 AM CDT Abnormal colonoscopy XR ABDOMEN 1 VW Routine 04/24/2025 8:56 AM CDT Abnormal colonoscopy COLONOSCOPY REPORT 02/13/2025 2: 23 PM CDT from Last 3 Months or Most Recently Relevant to Health Maintenance Results * CT ABDOMEN W WO CONTRAST (04/30/2025 1:43 PM CDT) Anatomical Region Laterality Modality Abdomen Computed Tomogra phy 04/30/2025 1:29 PM CDT Impressions 04/30/2025 2:13 PM CDT IMPRESSION: Please see below. Exam: CT ABDOMEN W WO CONTRAST Date/Time of Exam: 04/30/2025 1:43 PM Reason For Exam: Renal mass/cyst, indeterminate. Diagnosis: Renal mass. Technique: CT of the abdomen was performed prior to and following the administration of intravenous contrast. Contrast: IOPAMIDOL 61 % INTRAVENOUS SOLUTION (MULTI-DOSE BULK PACK) Given:100 mL. Comparison: None. FINDINGS: Lower Chest: There is a mild degree of patchy linear scar versus atelectasis within the lung bases. There is an indeterminant noncalcified nodular opacity within the lingula measuring 1.0 cm. Aorta/Vasculature: The aorta is nonaneurysmal. Lymph Nodes: There are mildly enlarged periportal lymph nodes measuring up to 1.6 cm in short axis dimension. There is no retroperitoneal lymphadenopathy. Liver: The liver is enlarged with the right lobe measuring at least 25.5 cm in length. There are indeterminate lobulated heterogeneous low-attenuation lesions within the right and caudate lobes of the liver with the largest measuring 4.6 x 7.8 cm. There is a mild degree of diffuse steatosis. Gallbladder and Biliary: The gallbladder is not well delineated and may be contracted or surgically absent. There is no biliary ductal dilatation. Spleen: The spleen is within normal limits. Pancreas: The pancreas is within normal limits. Adrenal Glands: The adrenal glands are within normal limits. Kidneys: There is a 2.0 cm cyst arising exophytically from the superior pole of the right kidney. There is a subcentimeter angiomyolipoma within the superior to mid pole of the left kidney. There is a solid enhancing low-attenuation lesion within the lateral midpole of the left kidney measuring 2.1 cm suspicious for primary neoplasia. There is no obstructive uropathy. Stomach: There is a small hiatal hernia. Bowel: The bowel loops are normal in position and caliber. There is colonic diverticulosis. There are no focal inflammatory changes. Peritoneum: There is no free air or abnormal free fluid. Subcutaneous Soft Tissues: There is no significant subcutaneous soft tissue pathology. Bones: There is a moderate age-indeterminate superior endplate compression fracture involving T8 which may be subacute. There are no suspicious lesions. IMPRESSION: Small solid enhancing left renal cortical lesion concerning for primary renal cell carcinoma. Indeterminate hepatic lesions; contrast-enhanced MRI is recommended for further characterization. Indeterminate noncalcified left basilar pulmonary nodule; short-term follow-up chest CT, PET/CT or biopsy could assess further. Incidental findings as above. Narrative Procedure Note Arley Greco, DO - 04/30/2025 IMPRESSION: Please see below. Exam: CT ABDOMEN W WO CONTRAST Date/Time of Exam: 04/30/2025 1:43 PM Reason For Exam: Renal mass/cyst, indeterminate. Diagnosis: Renal mass. Technique: CT of the abdomen was performed prior to and following the administration of intravenous contrast. Contrast: IOPAMIDOL 61 % INTRAVENOUS SOLUTION (MULTI-DOSE BULK PACK) Given:100 mL. Comparison: None. FINDINGS: Lower Chest: There is a mild degree of patchy linear scar versus atelectasis within the lung bases. There is an indeterminant noncalcified nodular opacity within the lingula measuring 1.0 cm. Aorta/Vasculature: The aorta is nonaneurysmal. Lymph Nodes: There are mildly enlarged periportal lymph nodes measuring up to 1.6 cm in short axis dimension. There is no retroperitoneal lymphadenopathy. Liver: The liver is enlarged with the right lobe measuring at least 25.5 cm in length. There are indeterminate lobulated heterogeneous low-attenuation lesions within the right and caudate lobes of the liver with the largest measuring 4.6 x 7.8 cm. There is a mild degree of diffuse steatosis. Gallbladder and Biliary: The gallbladder is not well delineated and may be contracted or surgically absent. There is no biliary ductal dilatation. Spleen: The spleen is within normal limits. Pancreas: The pancreas is within normal limits. Adrenal Glands: The adrenal glands are within normal limits. Kidneys: There is a 2.0 cm cyst arising exophytically from the superior pole of the right kidney. There is a subcentimeter angiomyolipoma within the superior to mid pole of the left kidney. There is a solid enhancing low-attenuation lesion within the lateral midpole of the left kidney measuring 2.1 cm suspicious for primary neoplasia. There is no obstructive uropathy. Stomach: There is a small hiatal hernia. Bowel: The bowel loops are normal in position and caliber. There is colonic diverticulosis. There are no focal inflammatory changes. Peritoneum: There is no free air or abnormal free fluid. Subcutaneous Soft Tissues: There is no significant subcutaneous soft tissue pathology. Bones: There is a moderate age-indeterminate superior endplate compression fracture involving T8 which may be subacute. There are no suspicious lesions. IMPRESSION: Small solid enhancing left renal cortical lesion concerning for primary renal cell carcinoma. Indeterminate hepatic lesions; contrast-enhanced MRI is recommended for further characterization. Indeterminate noncalcified left basilar pulmonary nodule; short-term follow-up chest CT, PET/CT or biopsy could assess further. Incidental findings as above. Ken Collins MD CT ORDERABLES Tammie l Result * POC CREATININE (04/30/2025 1:11 PM CDT) CREATININE POC 1.00 0.60 - 1.30 mg/dL 04/30/2025 1:11 PM T [facility] Comment:The GFR result is no t clinically significant on patients <18 or >70 years of age. GFR POC >60 mL/min/1.7 3 sq meter 04/30/2025 1:11 PM [facility] Comment:eGFR calculated with 2020 CKD-EPI equation. Vegetarian diet, extremely high or low muscle mass, and may affect results. Cystatin C with Glomerular Filtration Rate is a suitable alternative for these patients. Blood, whole 04/30/2025 1:11 PM CDT 04/30/2025 1:24 PM CDT us Ken Collins MD POINT OF CARE TESTIN G Final Result [facility] CLIA# [id number] [address] [address] * CT COLONOGRAPHY DIAG WO CONTRAST (04/24/2025 10:09 AM CDT) Anatomical Region Laterality Modality Abdomen Computed Tomogra phy 04/24/2025 9:41 AM CDT Impressions 04/26/2025 4:09 PM CDT IMPRESSION: 1. Limited study secondary to substantial artifact from body habitus and incomplete distention of the colon; within the limitations no polyps/masses greater than 10 mm in size are identified. Consider a repeat colonoscopy as assessment by CT imaging remains limited. 2. Small 10 x 6 mm pulmonary nodule in the lingula; a 3 month follow-up low-dose chest CT is recommended to assess stability if the patient has no priors for comparison. 3. Small hiatal hernia. 4. Colonic diverticulosis. 5. Otherwise as above. Narrative 04/26/2025 4:09 PM CDT EXAM: CT COLONOGRAPHY DIAG WO CONTRAST DATE/TIME OF EXAM: 04/24/2025 10:09 AM REASON FOR EXAM: incomplete colonoscopy DIAGNOSIS: Abnormal colonoscopy COMPARISON: None. TECHNIQUE: This examination was performed using automated exposure control, adjustment of mA or kV according to patient size, and/or use of iterative reconstruction technique. Axial noncontrast images of the abdomen and pelvis obtained for a CT colonography both in the supine and prone position after insufflation of the colon. LIMITATIONS: Lack of intravenous contrast decreases sensitivity for the detection of solid organ lesions and inflammatory disease. Substantial beam hardening artifact related to body habitus. PROBABLE NONSPECIFIC FINDINGS: The colon overall is inadequately distended both in the supine and prone positions including relatively collapsed/decompressed descending colon and portions of the sigmoid colon; the cecum is nearly completely decompressed on the prone images. Diverticulosis is noted in the descending and sigmoid colon; no features to suggest superimposed acute colonic diverticulitis. No significant formed stool within the colon. No polyps or masses greater than 10 mm identified in the imaged portions of the colon. FINDINGS: - Lower chest: No acute findings. Small hiatal hernia. Calcified granuloma in the right middle lobe and a few calcified right hilar lymph nodes compatible with remote granulomatous disease. Nonspecific 10 x 6 mm pulmonary nodule in the lingula which may be partly related to mucoid impaction. - Liver: Normal attenuation and contour. Evaluation for hepatic lesions remain significantly limited. - Gallbladder/Biliary: The gallbladder is not clearly identified and may be entirely contracted or surgically absent. - Pancreas: Within normal limits. - Adrenals: Within normal limits. - Spleen: Within normal limits. - Kidneys, ureters, urinary bladder: No radiodense renal or ureteral calculi. No hydronephrosis. Urinary bladder appears decompressed though visualization is severely limited by artifact in the pelvis. - Peritoneum and extraperitoneum: No ascites or free air. No suspicious lymphadenopathy. - Gastrointestinal tract: Please see above. - Reproductive System: No suspicious pelvic masses. - Vascular: No abdominal aortic aneurysm. - Bones/Soft tissues: Relatively severe multilevel degenerative disc disease throughout the visualized lower thoracic and lumbar spine. Age-indeterminate moderate T8 compression fracture with a mild wedge deformity. Additional comments: None. Procedure Note Nikolai Mccray MD - 04/26/2025 EXAM: CT COLONOGRAPHY DIAG WO CONTRAST DATE/TIME OF EXAM: 04/24/2025 10:09 AM REASON FOR EXAM: incomplete colonoscopy DIAGNOSIS: Abnormal colonoscopy COMPARISON: None. TECHNIQUE: This examination was performed using automated exposure control, adjustment of mA or kV according to patient size, and/or use of iterative reconstruction technique. Axial noncontrast images of the abdomen and pelvis obtained for a CT colonography both in the supine and prone position after insufflation of the colon. LIMITATIONS: Lack of intravenous contrast decreases sensitivity for the detection of solid organ lesions and inflammatory disease. Substantial beam hardening artifact related to body habitus. PROBABLE NONSPECIFIC FINDINGS: The colon overall is inadequately distended both in the supine and prone positions including relatively collapsed/decompressed descending colon and portions of the sigmoid colon; the cecum is nearly completely decompressed on the prone images. Diverticulosis is noted in the descending and sigmoid colon; no features to suggest superimposed acute colonic diverticulitis. No significant formed stool within the colon. No polyps or masses greater than 10 mm identified in the imaged portions of the colon. FINDINGS: - Lower chest: No acute findings. Small hiatal hernia. Calcified granuloma in the right middle lobe and a few calcified right hilar lymph nodes compatible with remote granulomatous disease. Nonspecific 10 x 6 mm pulmonary nodule in the lingula which may be partly related to mucoid impaction. - Liver: Normal attenuation and contour. Evaluation for hepatic lesions remain significantly limited. - Gallbladder/Biliary: The gallbladder is not clearly identified and may be entirely contracted or surgically absent. - Pancreas: Within normal limits. - Adrenals: Within normal limits. - Spleen: Within normal limits. - Kidneys, ureters, urinary bladder: No radiodense renal or ureteral calculi. No hydronephrosis. Urinary bladder appears decompressed though visualization is severely limited by artifact in the pelvis. - Peritoneum and extraperitoneum: No ascites or free air. No suspicious lymphadenopathy. - Gastrointestinal tract: Please see above. - Reproductive System: No suspicious pelvic masses. - Vascular: No abdominal aortic aneurysm. - Bones/Soft tissues: Relatively severe multilevel degenerative disc disease throughout the visualized lower thoracic and lumbar spine. Age-indeterminate moderate T8 compression fracture with a mild wedge deformity. Additional comments: None. IMPRESSION: 1. Limited study secondary to substantial artifact from body habitus and incomplete distention of the colon; within the limitations no polyps/masses greater than 10 mm in size are identified. Consider a repeat colonoscopy as assessment by CT imaging remains limited. 2. Small 10 x 6 mm pulmonary nodule in the lingula; a 3 month follow-up low-dose chest CT is recommended to assess stability if the patient has no priors for comparison. 3. Small hiatal hernia. 4. Colonic diverticulosis. 5. Otherwise as above. us Don Conteh MD CT ORDERABLES Final Res ult * XR ABDOMEN 1 VW (04/24/2025 8:56 AM CDT) Anatomical Region Laterality Modality Abdomen Computed Radiogr aphy 04/24/2025 8:56 AM CDT Impressions 04/24/2025 9:46 AM CDT IMPRESSION: Nonobstructive bowel gas pattern with no significant colonic stool detected. Narrative 04/24/2025 9:46 AM CDT EXAM: XR ABDOMEN 1 VW DATE/TIME OF EXAM: 04/24/2025 8:56 AM REASON FOR EXAM: See Diagnosis DIAGNOSIS: Abnormal colonoscopy COMPARISON: None. FINDINGS: No radiographic evidence of urinary stone disease. No gas-filled dilated small bowel or colon identified to suggest the presence of an obstruction or ileus. No significant formed stool identified. Degenerative disease throughout the lumbar spine with a mild dextroconvex lumbar scoliosis. Procedure Note Nikolai Mccray MD - 04/24/2025 EXAM: XR ABDOMEN 1 VW DATE/TIME OF EXAM: 04/24/2025 8:56 AM REASON FOR EXAM: See Diagnosis DIAGNOSIS: Abnormal colonoscopy COMPARISON: None. FINDINGS: No radiographic evidence of urinary stone disease. No gas-filled dilated small bowel or colon identified to suggest the presence of an obstruction or ileus. No significant formed stool identified. Degenerative disease throughout the lumbar spine with a mild dextroconvex lumbar scoliosis. IMPRESSION: Nonobstructive bowel gas pattern with no significant colonic stool detected. us Don Conteh MD DIAGNOSTIC IMAGING ORDERA BLES Final Result * COLONOSCOPY REPORT (02/13/2025 2:23 PM CDT) Narrative Procedure Note Don Conteh MD - 02/13/2025 2:23 PM CDT [facility] GI Patient Name: Ester Wilson Procedure Date: 02/13/2025 Date of : 1955 Admit Type: Outpatient Age: 69 Attending MD: Don Conteh MD, Procedure: Colonoscopy Indications: High risk colon cancer surveillance: Personal history of colonic polyps Providers: Don Conteh MD Referring MD: Billy Bishop Medicines: Monitored Anesthesia Care Complications: No immediate complications. Procedure: After I obtained informed consent, the scope was passed under direct vision. Throughout the procedure, the patient's blood pressure, pulse, and oxygen saturations were monitored continuously. The Colonoscope was introduced through the anus and advanced to the ascending colon. The quality of the bowel preparation was marginal Estimated Blood Loss: Estimated blood loss was minimal. Findings: There were no large polyps or masses but the bowel prep was inadequate to exclude smaller polyps. There was excessive looping and despite two-person abdominal pressure and position change we are unable to intubate the cecum. There was a 6 mm sessile polyp in the descending colon that was removed with cold snare polypectomy and retrieved. There was a 5 mm sessile polyp in the sigmoid colon that was removed by cold snare polypectomy and retrieved. There was left-sided diverticular disease and internal hemorrhoids that were not actively bleeding and not thrombosed Impression: Incomplete procedure due to excessive looping and marginal bowel prep Benign-appearing polyps removed with cold snare Left-sided diverticular disease Internal hemorrhoids Recommendation: Await pathology CT colonography to clear cecum and ascending colon Don Conteh MD 02/13/2025 2:23:10 PM Number of Addenda: 0 Note Initiated On: 02/13/2025 1:32 PM Scope Withdrawal Time Scope In: 2:02:13 PM Scope Out: 2:17:32 PM [address], [place] Don Conteh MD GI PROCEDURE ORDERABLES F inal Result from Last 3 Months or Most Recently Relevant to Health Maintenance Insurance MED[place]ID [place] D[place] COM[place] HMO [facility] [id number] Advance Directives For more information, please contact: [phone] * Full Code (Latest Code Status on File) Date Activated Date Inactivated Comments 02/13/2025 1:41 PM 02/13/2025 5:04 PM Care Teams Database Analyst Relationship Specialty Start Date End Date Piero Pelaez NP [address] [place] [address] PCP - General NURSE PRACTITIONER 10/03/13
--- OUTSIDE RECORDS SUMMARY | 2025-06-05 15:42 | XMS_ITS | Clinical Summary ---
Author Organization [facility] Address [address] [place] [address] Care Team Providers Care Feed Project Engineer Name Role Phone Piero Pelaez HOLLOW CORE DOOR FRAME ASSEMBLER Primary Care Provider [phone] Allergies Active Allergy Reactions Criticality Noted Date Comments Erythromycin Nausea and Vomiting 09/22/2013 Tramadol Hives 09/22/2013 Unclassified Drug Other (See Comments) 09/22/20 13 Pt cannot take regular thyroid medication face swells and eyes swell shut Medications nebivolol (BYSTOLIC) 5 mg Tablet Take 5 mg by mouth. daily Active telmisartan (MICARDIS) 40 mg Tablet Take 40 mg by mouth daily. Active levothyroxine 88 mcg Oral tablet Take 88 mcg by mouth daily mobile manager. Active citalopram (CELEXA) 40 mg tablet Take 40 mg by mouth daily. 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 Gender Identity Not on file Sexual Orientation Not on file Last Filed Vital Signs Vital Sign Reading Time Taken Comments Blood Pressure 124/56 09/22/2013 8:29 AM PIPE LINE REPAIRER Pulse 60 09/22/2013 8:29 AM PIPE LINE REPAIRER Temperature - - Respiratory Rate - - Oxygen Saturation - - Inhaled Oxygen Concentration - - Weight 117.9 kg (260 lb) 09/22/2013 8:29 AM PIPE LINE REPAIRER Height 164.5 cm (5' 4.75 ) 09/22/2013 8:29 AM CS T Body Mass Index 43.6 09/22/2013 8:29 AM PIPE LINE REPAIRER Plan of Treatment Health Maintenance Due Date Last Done Comments DTAP/TDAP/TD VACCINES (1 - Tdap) 1974 BREAST CANCER SCREENING 1995 COLORECTAL SCREENING 02/23/2000 Colorectal Cancer Screening 02/23/2000 FIT-DNA Q 3 years 02/23/2000 FIT/FOBT Q 1 year 02/23/2000 Flex Sig/CT Colonography Q 5 years 02/23/2000 PNEUMOCOCCAL VACCINE 50+ YEARS (1 of 1 - PCV) 02/23/20 05 ZOSTER VACCINE (1 of 2) 2005 OSTEOPOROSIS SCREENING 02/23/2020 INFLUENZA VACCINE (#1) 2025 RSV VACCINE (60+ or ) (1 - 1-dose 75+ series) 2030 Care Teams Feed Project Engineer Relationship Specialty Start Date End Date Piero Pelaez NP [address] [place] [address] PCP - General NURSE PRACTITIONER 10/03/13
--- NOTE | 2025-06-05 15:53 | XRR_ITS ---
PROCEDURE INFORMATION: Exam: XR Right Knee Exam date and time: 06/05/2025 3:56 PM Age: 70 years old Clinical indication: Pain; Knee; Right TECHNIQUE: Imaging protocol: Radiologic exam of the right knee. Views: 3 views. COMPARISON: CR XR knees AP WB w BI lmt ORTH 01/12/2022 9:05 AM FINDINGS: Bones/joints: Prominent bony spurring involves the femoral condyles, tibial plateaus and patella. There is prominent joint space narrowing medially. No fracture or joint effusion noted. Soft tissues: Normal. XR/XR knee RT 3V* [id number] IMPRESSION: Prominent osteoarthritis
--- NOTE | 2025-06-05 15:54 | W.ED.EXTPRO ---
HPI - Extremity Problem General: Chief complaint: Extremity Problem,Nontraumatic Stated complaint: rt knee pain Time Seen by Provider: 06/05/25 15:53 History of Present Illness: 70-year-old female presents emergency room complaining of right knee pain. No recent injury or fall no recent travel. No abrasions or trauma no fever sweats there is chills Associated symptoms: Deny chest pain, fever(s) or rash Related Data Home Medications ?Medication ?Instructions ?Recorded ?Confirmed fluticasone propionate 50 2 spray intranasal DAILY 12/26/19 05/30/25 mcg/actuation nasal spray,suspension gabapentin 100 mg capsule 100 mg PO TID 12/26/19 05/30/25 atorvastatin 40 mg tablet 40 mg PO DAILY 07/22/21 05/30/25 bupropion HCl 100 mg tablet,12 hr 100 mg PO BID 07/22/21 05/30/25 sustained-release latanoprost 0.005 % eye drops 1 drp ophthalmic (eye) DAILY 07/22/21 05/30/25 levothyroxine 88 mcg tablet 88 mcg PO DAILY 07/22/21 05/30/25 losartan 100 1 tab PO DAILY 07/22/21 05/30/25 mg-hydrochlorothiazide 12.5 mg tablet multivitamin 1 tab PO DAILY 07/22/21 05/30/25 aspirin 81 mg chewable tablet 81 mg PO DAILY 04/01/22 05/30/25 amlodipine 10 mg tablet 10 mg PO DAILY 01/28/23 05/30/25 divalproex 250 mg tablet,extended 250 mg PO DAILY 10/08/23 05/30/25 release 24 hr albuterol sulfate 90 mcg/actuation 2 inh inhalation Q6H PRN Shortness 10/26/23 05/30/25 breath activated powder inhaler Of Breath Or Wheezing glycopyrrolate 9 mcg-formoterol 2 puff inhalation BID 12/25/24 05/30/25 4.8 mcg HFA aerosol inhaler (Bevespi Aerosphere) meloxicam 7.5 mg tablet 7.5 mg PO DAILY 12/25/24 05/30/25 metformin 500 mg tablet,extended 500 mg PO DAILY 12/25/24 05/30/25 release 24 hr primidone 50 mg tablet 100 mg PO BID 12/25/24 05/30/25 Previous Rx's ?Medication ?Instructions ?Recorded pen needle, diabetic 31 gauge x #100 ea 03/31/23/ (Comfort EZ Pen [place]) diabetic shoes and 3 inserts #1 ea 11/21/24 ondansetron HCl 4 mg tablet 4 mg PO Q8H PRN nausea and 12/12/24 vomiting #3 tabs polyethylene glycol 3350 17 17 g PO BID 10 days #340 grams 12/12/24 gram/dose oral powder (Miralax) dulaglutide 4.5 mg/0.5 mL See Rx Instructions .Route 02/20/25 subcutaneous pen injector .COMPLEX #2.5 mL (Trulicity) cephalexin 500 mg capsule 500 mg PO TID #21 caps 03/28/25 acarbose 50 mg tablet 50 mg .Route TID #30 tabs 05/21/25 hydrocodone 5 mg-acetaminophen 325 1 tab PO Q6H PRN pain #25 tabs 06/05/25 mg tablet methylprednisolone 4 mg tablets in See Rx Instructions PO .COMPLEX 06/05/25 a dose pack (Medrol (Morales)) #21 ea Allergies Allergy/AdvReac Type Severity Reaction Status Date / Time azithromycin Allergy hives/ GI Verified 06/05/25 15:48 upset tramadol AdvReac hives Verified 06/05/25 15:48 Review of Systems Const: Denies: fever(s) or chills Card: Denies: chest pain Resp: Denies: dyspnea GI: Denies: abdominal pain : Denies: dysuria, urinary frequency or urinary urgency Musc: Denies: neck pain or back pain Skin/Breast: Denies: rash PFSH ED PFSH: Medical History Primary osteoarthritis of shoulders, bilateral Right rotator cuff tendonitis AC (acromioclavicular) arthritis Primary osteoarthritis, right shoulder PERCY (obstructive sleep apnea) COPD (chronic obstructive pulmonary disease) Pneumonia due to COVID-19 virus Hypertension COVID-19 Surgical History History of detached retina repair History of tonsillectomy Family History Other Hypertension Social History (Reviewed 08/04/25 @ 07:27 by JAMILAH Norton Smoking and tobacco/nicotine status: former use of tobacco/nicotine Quit status (tobacco/nicotine): has quit using Year quit tobacco: 2014 Former quit date comment: 1 pack per day for 48 years Second hand smoke exposure: No Alcohol intake: never Substance/Drug Use: never Lives independently: Yes Pets and animals: Yes Pets & animals: cat(s) Current gender identity: Female Special roxanne needs: No Physical Exam Const: COMMON NORMALS: no acute distress GENERAL APPEARANCE: cooperative and comfortable ORIENTATION/CONSCIOUSNESS: Yes awake, Yes oriented to person, Yes oriented to place and Yes oriented to time HENMT: COMMON NORMALS: normocephalic, atraumatic and hearing grossly normal bilaterally HEAD & SCALP: normocephalic and atraumatic Resp: COMMON NORMALS: normal respiratory effort, No retractions, No use of accessory muscles and clear to auscultation bilaterally AUSCULTATION: clear to auscultation bilaterally Cardio: COMMON NORMALS: regular rate, regular rhythm and No murmurs present (Cardio) RATE: regular rate RHYTHM: regular rhythm GI: COMMON NORMALS: Soft to palpation and No hepatosplenomegaly present AUSCULTATION: Yes normoactive bowel sounds PALPATION: Yes Soft to palpation, No Tenderness to palpation present (GI), No Guarding due to palpation present (GI) and Yes No hepatosplenomegaly present Extremity: COMMON NORMALS: normal to inspection, capillary refill normal, no clubbing, cyanosis or edema, no calf tenderness and no pedal edema OTHER: Knee joint itself is hot to the touch painful with even small movements of the knee joint. Neuro: SENSORIUM/ORIENTATION: Yes oriented to person, Yes oriented to place and Yes oriented to time Skin: COMMON NORMALS: no rashes or lesions noted GENERAL SKIN EXAM: no rashes or lesions noted Course Vital Signs: Vital signs: Vital Signs Temperature 98.6 F 06/05/25 15:42 Pulse Rate 72 06/05/25 18:05 Respiratory Rate 16 06/05/25 18:05 Blood Pressure 136/68 06/05/25 17:22 Pulse Oximetry 98 06/05/25 18:05 Oxygen Delivery Me thod Room Air 06/05/25 17:22 MDM - Extremity (Nontraumatic) Medical Decision Making Suspect gout white count is normal CRP is normal. Patient given a steroid pack as well as hydrocodone follow-up with primary care if not improving Lab Data 06/05/25 16:30 Radiology Impressions Knee X-Ray 06/05/25 15:53 IMPRESSION: Prominent osteoarthritis Laboratory Results WBC 9.44 10^3/uL (3.29-11.43) 06/05/25 16:30 RBC 3.80 10^6/uL (3.85-5.65) L 06/05/25 16:30 Hgb 11.60 g/dL (11.27-16.99) 06/05/25 16:30 Hct 36.1 % (36-47) 06/05/25 16:30 MCV 95.0 fl (85-98) 06/05/25 16:30 MCH 30.5 pg (27-33) 06/05/25 16:30 MCHC 32.1 g/dL (30-55) 06/05/25 16:30 RDW 15.7 % (12.1-15.1) H 06/05/25 16:30 Plt Count 236 10^3/cmm (157-399) 06/05/25 16:30 MPV 10.3 fL (7.4-10.4) 06/05/25 16:30 Neut % (Auto) 67.7 % 06/05/25 16:30 Lymph % (Auto) 18.5 % 06/05/25 16:30 [place] % (Auto) 11.1 % 06/05/25 16:30 Eos % (Auto) 1.2 % 06/05/25 16:30 Baso % (Auto) 0.5 % 06/05/25 16:30 Neut # (Auto) 6.39 10^3/uL (1.8-7.7) 06/05/25 16:30 Lymph # (Auto) 1.8 10^3/uL (0.8-4.8) 06/05/25 16:30 [place] # (Auto) 1.1 10^3/uL (0.2-0.9) H 06/05/25 16:30 Eos # (Auto) 0.1 10^3/uL (0.0-0.8) 06/05/25 16:30 Baso # (Auto) 0.1 10^3/uL (0.0-0.1) 06/05/25 16:30 Nucleated RBC % (auto) 0 % 06/05/25 16:30 Nucleated RBCs # 0.0 /100WBC 06/05/25 16:30 C-Reactive Protein 19.4 mg/L (0.0-4.9) H 06/05/25 16:30 All radiology interpretation(s) finalized by discharge Discharge Plan Discharge Patient Disposition: Home Clinical Impression: Gouty arthritis Condition: Stable Prescriptions: New hydrocodone-acetaminophen 5-325 mg tablet 1 tab PO Q6H PRN (Reason: pain) Qty: 25 0RF methylprednisolone [Medrol (Morales)] 4 mg tablets,dose pack See Rx Instructions .ROUTE .COMPLEX Qty: 21 0RF Rx Instructions: orally per package directions No Action aspirin 81 mg tablet,chewable 81 mg PO DAILY fluticasone propionate 50 mcg/actuation spray,suspension 2 spray INTRANASAL DAILY gabapentin 100 mg capsule 100 mg PO TID albuterol sulfate 90 mcg/actuation aerosol powdr breath activated 2 inh inhalation Q6H PRN (Reason: Shortness Of Breath Or Wheezing) amlodipine 10 mg tablet 10 mg PO DAILY divalproex 250 mg tablet extended release 24 hr 250 mg PO DAILY (DME) diabetic shoes and 3 inserts See Rx Instructions .Route .MEDSUPPLY Qty: 1 0RF Rx Instructions: As directed to the asiya song ondansetron HCl 4 mg tablet 4 mg PO Q8H PRN (Reason: nausea and vomiting) Qty: 3 0RF polyethylene glycol 3350 [Miralax] 17 gram/dose powder 17 g PO BID 10 Days Qty: 340 0RF cephalexin 500 mg capsule 500 mg PO TID Qty: 21 0RF (DME) pen needle, diabetic [Comfort EZ Pen [place]] 31 gauge x 3/16 needle See Rx Instructions .Route Qty: 100 2RF Rx Instructions: As directed Trulicity 4.5 mg/0.5 mL pen injector See Rx Instructions .ROUTE .COMPLEX Qty: 2.5 4RF Dose Instruction: INJECT 0.5 ML SUBCUTANEOUSLY ONCE EVERY 7 DAYS Rx Instructions: INJECT 0.5 ML SUBCUTANEOUSLY ONCE EVERY 7 DAYS acarbose 50 mg tablet 50 mg .ROUTE TID Qty: 30 0RF Rx Instructions: 50 mg three times daily; multivitamin Tablet 1 tab PO DAILY latanoprost 0.005 % Drops 1 drp OPHTHALMIC (EYE) DAILY atorvastatin 40 mg tablet 40 mg PO DAILY bupropion HCl 100 mg tablet sustained-release 12 hr 100 mg PO BID levothyroxine 88 mcg tablet 88 mcg PO DAILY losartan-hydrochlorothiazide 100-12.5 mg tablet 1 tab PO DAILY primidone 50 mg tablet 100 mg PO BID metformin 500 mg tablet extended release 24 hr 500 mg PO DAILY meloxicam 7.5 mg Tablet 7.5 mg PO DAILY Bevespi Aerosphere 9-4.8 mcg Hfa Aerosol Inhaler 2 puff INHALATION BID Discharge Orders: Discharge ED (Routine); Ordered 06/05/25 Ordered By: Moises Newton Referrals: Roman Clifton MD [Primary Care Provider, Family Practice] Discharge Diet: Usual diet Discharge Activity: Increase activity as tolerated Patient Instructions: Gout (ED), Opioid Safety, Pain Management, Patient Portal & Mello Instructions Activity Restrictions/Additional Instructions: Thank you for choosing [facility] for your healthcare needs today. It is very important that you follow up as instructed or that you return to the Emergency Department should you have concerns or if your condition changes or worsens in any way. Print Language: Macedonian Coding Level of Care Code ED Carroting Machine Offbearer for Ursula Grewal
[2025-06-05 17:00] LABS: Hematocrit 36.1 % (36-47); Hemoglobin 11.60 g/dL (11.27-16.99); Mean Corpuscular HGB Conc 32.1 g/dL (30-55); Mean Corpuscular Hemoglobin 30.5 pg (27-33); Mean Corpuscular Volume 95.0 fl (85-98); Nucleated Red Blood Cells % 0 %; Platelet Count 236 10^3/cmm (157-399); Red Blood Count 3.80 10^6/uL (3.85-5.65); White Blood Count 9.44 10^3/uL (3.29-11.43)
[2025-06-05 17:22] VITALS: BP 136/68; PULSE 73; RESP 16; O2SAT 94
[2025-06-05 18:05] VITALS: PULSE 72; RESP 16; O2SAT 98
[2025-06-05] MEDS: methylPREDNISolone sod succ 125 mg/2 mL INJ IM (18:20)
== END 2025-06-05 18:33 | disposition home or self-care (01) ==
PROVIDERS: Emergency Provider Family Medicine; PCP Family Medicine
DX: M10.061 Idiopathic gout, right knee (principal); Z79.82 Long term (current) use of aspirin; Z79.84 Long term (current) use of oral hypoglycemic drugs; Z87.891 Personal history of nicotine dependence; J44.9 Chronic obstructive pulmonary disease, unspecified; I10 Essential (primary) hypertension
CPT/HCPCS: 36415; 73562; 85025; 86140; 96372; 99284; J2919

== ENCOUNTER 2025-06-12 16:30 | Inpatient (IN) | payer OTHER, MEDICAID, SELFPAY ==
[2025-06-12] VITALS (7 sets, daily range): BP systolic 136–157; BP diastolic 67–87; PULSE 67–73; RESP 16; TEMP 36.6; O2SAT 93–96; BMI 44.7
--- OUTSIDE RECORDS SUMMARY | 2025-06-12 16:38 | XMS_ITS | Clinical Summary ---
Author Organization [facility] Address [address] [place] [address] Care Team Providers Care Shale Processing Technician Name Role Phone Piero Pelaez ABRADING MACHINE TENDER Primary Care Provider [phone] Allergies Active Allergy Reactions Criticality Noted Date [...] tablet Take 88 mcg by mouth daily museum informatics specialist. Active citalopram (CELEXA) 40 mg tablet Take [...] on file Legal Sex Female 6:45 AM TIRE RECAPPING MACHINE OPERATOR Gender Identity Not on file Sexual Orientation Not on file Last Filed Vital Signs Vital Sign Reading Time Taken Comments Blood Pressure 124/56 09/22/2013 8:29 AM TIRE RECAPPING MACHINE OPERATOR Pulse 60 09/22/2013 8:29 AM TIRE RECAPPING MACHINE OPERATOR Temperature - - Respiratory Rate - - Oxygen Saturation - - Inhaled Oxygen Concentration - - Weight 117.9 kg (260 lb) 09/22/2013 8:29 AM TIRE RECAPPING MACHINE OPERATOR Height 164.5 cm (5' 4.75 ) 09/22/2013 8:29 AM CS T Body Mass Index 43.6 09/22/2013 8:29 AM TIRE RECAPPING MACHINE OPERATOR Plan of Treatment Health Maintenance Due Date [...] - 1-dose 75+ series) 2030 Care Teams Shale Processing Technician Relationship Specialty Start Date End Date Piero Pelaez NP [address] [place] [address] PCP - General NURSE PRACTITIONER 10/03/13
--- OUTSIDE RECORDS SUMMARY | 2025-06-12 16:38 | XMS_ITS | Clinical Summary ---
Author Organization [email or web address] [facility] Address [address] [facility] [facility] Attn: Epic Prelude ADT GILDA PARMAR [address] Care Team Providers Care Contract Officer Name Role Phone Piero Pelaez NP Primary Care Provider [phone] Allergies Active Allergy Reactions Criticality Noted Date [...] 4 Active fluticasone propionate (FLONASE) 50 mcg/spray [place], Suspension nasal inhaler Administer 1 [place] in each nostril. 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); Angiomyolipoma of left kidney; Cyst of kidney, acquired; Renal mass 05/24/[address] [place] [address] Ken Collins MD Erroneous encounter-disregar d 05/23/2025 External Device Data STL ABSTRACTION Provider, Abstract 05/22/2025 External Device Data STL ABSTRACTION Provider, Abstract 05/03/2025 Results Follow-Up [address] [place] [phone] ABDOMEN W WO CONTRAST 04/30/2025 12:59 PM CDT - 04/30/2025 11:59 PM CDT Hospital Encounter [facility] [address] [place] [phone] Ken Collins MD Discharge Disposition: Home or Self Care 04/24/2025 8:30 AM CDT - 04/24/2025 11:59 PM CDT Hospital Encounter [facility] Imaging Services [address] [place] [phone] Don Conteh MD Discharge Disposition: Home or Self Care 04/24/2025 8:00 AM CDT - 04/24/2025 11:59 PM CDT Hospital Encounter [facility] CT Scan [address] [place] [phone] Don Conteh MD Discharge Disposition: Home or Self Care 04/24/2025 External Device Data STL ABSTRACTION Provider, Abstract 04/13/2025 Transcribe Orders [facility] Scheduling [place] CALL TO MAKE APPOINTMENT ONLY [address] [place] [phone] Don Conteh MD Abnormal colonoscopy (Primary Dx) 04/03/2025 External Device Data STL ABSTRACTION Provider, Abstract 04/03/[address] Entrance B, [address] [place] [address] Ken Collins MD Information 03/29/2025 External Device Data STL ABSTRACTION Provider, Abstract 03/29/[address] Entrance B, [address] [place] [phone] Ken Collins MD Information 03/28/2025 External Device [...] on file Legal Sex Female 2:20 AM TOWER AIR TRAFFIC CONTROL SPECIALIST Gender Identity Not on file Sexual Orientation Not on file Last Filed Vital Signs Vital Sign Reading Time Taken Comments Blood Pressure 123/68 02/13/2025 2:42 PM CDT Pulse 65 02/13/2025 2:42 PM CDT Temperature 36.6 C (97.8 F) 10/08/2022 1:06 PM TOWER AIR TRAFFIC CONTROL SPECIALIST Respiratory Rate 16 02/13/2025 2:42 PM CDT [...] st Contact Info) Description 11/29/2025 1:15 PM TOWER AIR TRAFFIC CONTROL SPECIALIST Office Visit [facility] [address] [address] [place] [address] Ken Collins MD [address] [place] [address] Health Maintenance Due Date Last [...] - 1.30 mg/dL 04/30/2025 1:11 PM T [facility] Comment:The GFR result is no t clinically significant on patients <18 or >70 years of age. GFR POC >60 mL/min/1.7 3 sq meter 04/30/2025 1:11 PM [facility] Comment:eGFR calculated with 2020 CKD-EPI equation. Vegetarian diet, extremely high or low muscle mass, and may affect results. Cystatin C with Glomerular Filtration Rate is a suitable alternative for these patients. Blood, whole 04/30/2025 1:11 PM CDT 04/30/2025 1:24 PM CDT us Ken Collins MD POINT OF CARE TESTIN G Final Result [facility] CLIA# [id number] [address] [address] * CT COLONOGRAPHY DIAG WO CONTRAST (04/24/2025 [...] Conteh MD - 02/13/2025 2:[address] [facility] GI Patient Name: Ester Wilson Procedure Date: [...] 2:02:13 PM Scope Out: 2:17:32 PM [address] [place], [place] Don Conteh MD GI PROCEDURE ORDERABLES F inal Result from Last 3 Months or Most Recently Relevant to Health Maintenance Insurance [place] [facility] [id number] Advance Directives For more information, please contact: [phone] * Full Code (Latest Code Status on File) Date Activated Date Inactivated Comments 02/13/2025 1:41 PM 02/13/2025 5:04 PM Care Teams Contract Officer Relationship Specialty Start Date End Date Piero Pelaez NP [address] [place] [address] PCP - General NURSE PRACTITIONER 10/03/13
--- OUTSIDE RECORDS SUMMARY | 2025-06-12 16:38 | XMS_ITS ---
Author Organization Unknown Problems Date Problem Result OnSetDate Icd10 SnomedCode Severity Cu stom 09/21/2024 14:21:39 Foot pain, right 09/21/2024 00:00:00 M79.671 [id number] 09/21/2024 14:21:50 Leg erythema 09/21/2024 00:00:00 L53.9 [id number] 03/26/2025 14:15:05 Glaucoma 03/26/2025 00:00:00 H40.9 [id number] 10/10/2024 13:09:36 Body mass index (BMI) 40.0-44.9, adult 10/10/2024 00:00:00 Z68.41 10/10/2024 13:14:47 Difficulty cutting own toenails 10/10/2024 00:00:00 Z74.1 [id number] 10/10/2024 13:16:33 Need for prophylactic vaccination against streptococcus pneumoniae (Pneumococcus) 10/10/2024 00:00:00 Z23 [id number] 09/21/2024 14:21:26 Ecchymosis 09/21/2024 00:00:00 R58 [id number] 11/24/2024 11:25:01 Back pain, low 11/24/2024 00:00:00 M54.50 [id number]
--- NOTE | 2025-06-12 16:49 | XRR_ITS ---
PROCEDURE INFORMATION: Exam: XR Chest Exam date and time: 06/12/2025 4:52 PM Age: 70 years old Clinical indication: Cough and dyspnea; Additional info: Dyspnea/cough TECHNIQUE: Imaging protocol: Radiologic exam of the chest. Views: 1 view. COMPARISON: CT chest con [id number] 06/16/2024 2:47 PM FINDINGS: Lungs: No infiltrates. Calcified granuloma in the right lower lung field. Pleural spaces: No pneumothorax. Blunting of the left costophrenic angle which can be seen with trace pleural effusion. Heart/Mediastinum: Mild cardiomegaly. Bones/joints: Unremarkable. XR/XR chest 1V portable [id number] IMPRESSION: 1. Blunting of the left costophrenic angle which can be seen with trace pleural effusion. 2. Mild cardiomegaly.
--- NOTE | 2025-06-12 17:20 | W.ED.GENADLT ---
HPI - General Adult General: Chief complaint: General Medical Stated complaint: leaking fluid from both legs, swelling Time Seen by Provider: 06/12/25 16:49 History of Present Illness: 70-year-old female presents to the emergency room with reddened inflamed lower leg. She been seen within the last week had a reddened inflamed knee no elevation white count minimal ovation of the CRP was felt to be gouty arthritis she was started on steroids she said that portion of the discomfort got better and she was feeling much improved now her lower extremity is gotten red and inflamed she has some significant swelling in there is some skin breakdown or weeping serous fluid. Associated symptoms: Deny chest pain, dyspnea or rash Related Data Home Medications ?Medication ?Instructions ?Recorded ?Confirmed fluticasone propionate 50 2 spray intranasal DAILY 12/26/19 06/13/25 mcg/actuation nasal spray,suspension bupropion HCl 100 mg tablet,12 hr 100 mg PO BID 07/22/21 06/13/25 sustained-release latanoprost 0.005 % eye drops 1 drp ophthalmic (eye) DAILY 07/22/21 06/13/25 levothyroxine 88 mcg tablet 88 mcg PO QAM 07/22/21 06/13/25 losartan 100 1 tab PO DAILY 07/22/21 06/13/25 mg-hydrochlorothiazide 12.5 mg tablet multivitamin 1 tab PO DAILY 07/22/21 06/13/25 aspirin 81 mg chewable tablet 81 mg PO DAILY 04/01/22 06/13/25 divalproex 250 mg tablet,extended 250 mg PO BEDTIME 10/08/23 06/13/25 release 24 hr albuterol sulfate 90 mcg/actuation 2 inh inhalation Q6H PRN Shortness 10/26/23 06/13/25 breath activated powder inhaler Of Breath Or Wheezing glycopyrrolate 9 mcg-formoterol 2 puff inhalation BID 12/25/24 06/13/25 4.8 mcg HFA aerosol inhaler (Bevespi Aerosphere) meloxicam 7.5 mg tablet 7.5 mg PO DAILY 12/25/24 06/13/25 metformin 500 mg tablet,extended 500 mg PO TID 12/25/24 06/13/25 release 24 hr primidone 50 mg tablet 100 mg PO BID 12/25/24 06/13/25 amlodipine 10 mg-atorvastatin 40 1 tab PO DAILY 06/13/25 06/13/25 mg tablet brimonidine 0.2 % eye drops 1 drp ophthalmic (eye) BID 06/13/25 06/13/25 escitalopram oxalate 10 mg tablet 10 mg PO DAILY 06/13/25 06/13/25 gabapentin 400 mg capsule 400 mg PO TID 06/13/25 06/13/25 Previous Rx's ?Medication ?Instructions ?Recorded pen needle, diabetic 31 gauge x #100 ea 03/31/2301/21 (Comfort EZ Pen [place]) diabetic shoes and 3 inserts #1 ea 11/21/24 ondansetron HCl 4 mg tablet 4 mg PO Q8H PRN nausea and 12/12/24 vomiting #3 tabs polyethylene glycol 3350 17 17 g PO BID 10 days #340 grams 12/12/24 gram/dose oral powder (Miralax) dulaglutide 4.5 mg/0.5 mL See Rx Instructions .Route 02/20/25 subcutaneous pen injector .COMPLEX #2.5 mL (Trulicity) acarbose 50 mg tablet 50 mg .Route TID #30 tabs 05/21/25 hydrocodone 5 mg-acetaminophen 325 1 tab PO Q6H PRN pain #25 tabs 06/05/25 mg tablet methylprednisolone 4 mg tablets in See Rx Instructions PO .COMPLEX 06/05/25 a dose pack (Medrol ([place])) #21 ea Allergies Allergy/AdvReac Type Severity Reaction Status Date / Time azithromycin Allergy hives/ GI Verified 06/05/25 15:48 upset tramadol AdvReac hives Verified 06/05/25 15:48 Review of Systems Const: Denies: fever(s) or chills Card: Denies: chest pain Resp: Denies: dyspnea GI: Denies: abdominal pain : Denies: dysuria, urinary frequency or urinary urgency Musc: Reports: extremity pain and extremity swelling; Denies: neck pain or back pain Skin/Breast: Denies: rash PFSH ED PFSH: Medical History Primary osteoarthritis of shoulders, bilateral Right rotator cuff tendonitis AC (acromioclavicular) arthritis Primary osteoarthritis, right shoulder PERCY (obstructive sleep apnea) COPD (chronic obstructive pulmonary disease) Pneumonia due to COVID-19 virus Hypertension COVID-19 Surgical History History of detached retina repair History of tonsillectomy Family History Other Hypertension Social History Smoking and tobacco/nicotine status: former use of tobacco/nicotine Quit status (tobacco/nicotine): has quit using Year quit tobacco: 2014 Former quit date comment: 1 pack per day for 48 years Second hand smoke exposure: No Alcohol intake: never Substance/Drug Use: never Lives independently: Yes Pets and animals: Yes Pets & animals: cat(s) Current gender identity: Female Special roxanne needs: No Physical Exam Const: GENERAL APPEARANCE: cooperative ORIENTATION/CONSCIOUSNESS: Yes awake, Yes oriented to person, Yes oriented to place and Yes oriented to time HENMT: COMMON NORMALS: normocephalic, atraumatic and hearing grossly normal bilaterally HEAD & SCALP: normocephalic and atraumatic Resp: COMMON NORMALS: normal respiratory effort, No retractions, No use of accessory muscles and clear to auscultation bilaterally AUSCULTATION: clear to auscultation bilaterally Cardio: COMMON NORMALS: regular rate, regular rhythm and No murmurs present (Cardio) RATE: regular rate RHYTHM: regular rhythm GI: COMMON NORMALS: Soft to palpation and No hepatosplenomegaly present AUSCULTATION: Yes normoactive bowel sounds PALPATION: Yes Soft to palpation, No Tenderness to palpation present (GI), No Guarding due to palpation present (GI) and Yes No hepatosplenomegaly present Extremity: OTHER: Right lower leg edema moderate redness circumferential on the lower leg no pain at the knee joint itself the area that was previously tender is now nontender. Lower extremity has some skin breakdown stretching and serous drainage. Neuro: SENSORIUM/ORIENTATION: Yes oriented to person, Yes oriented to place and Yes oriented to time Skin: COMMON NORMALS: no rashes or lesions noted GENERAL SKIN EXAM: no rashes or lesions noted Course Vital Signs: Vital signs: Vital Signs Temperature 98.0 F 06/13/25 11:13 Pulse Rate 80 06/13/25 11:13 Respiratory Rate 16 06/13/25 11:13 Blood Pressure 122/74 06/13/25 11:13 Pulse Oximetry 93 06/13/25 11:13 Oxygen Delivery Me thod Room Air 06/13/25 11:13 MDM - General Adult Medical Decision Making Patient was seen within the last week with pain and mildly reddened right knee. She had an isolated area that was hot to the touch and some joint pain there is no elevated white count and a CRP was minimally elevated was felt to likely be gout because of the degree of discomfort she had in the joint itself. There did not appear to be any infectious component in the joint at the time. Appears to have evidence of's cellulitis now extending down the anterior tibia of the lower leg which was not present at previous exam. Venous duplex lower extremity does not show any DVTs. Cultures done started on vancomycin discussed with hospitalist orders written Medical Records I reviewed the patient's medical records. Lab Data I reviewed the patient's lab results. 06/13/25 04:46 06/13/25 04:46 Radiology Impressions Chest X-Ray 06/12/25 16:49 IMPRESSION: 1. Blunting of the left costophrenic angle which can be seen with trace pleural effusion. 2. Mild cardiomegaly. Venous Duplex 06/12/25 17:32 IMPRESSION: No evidence of deep vein thrombosis or superficial vein thrombosis in the visualized veins of the right lower extremity. Lower Extremity CT 06/12/25 20:37 PROCEDURE INFORMATION: Exam: CT Right Lower Extremity Without Contrast, Leg Exam date and time: 06/13/2025 5:02 AM Age: 70 years old Clinical indication: Cellulitis; Lower leg; Right; Additional info: Erythema, swelling, cellulitis TECHNIQUE: Imaging protocol: CT of the right lower extremity without contrast was performed. Exam focused on the lower leg. Radiation optimization: All CT scans at this facility use at least one of these dose optimization techniques: automated exposure control; mA and/or kV adjustment per patient size (includes targeted exams where dose is matched to clinical indication); or iterative reconstruction. COMPARISON: [place] [id number] 06/12/2025 5:43 PM RADIATION DOSE METRICS: Total DLP (mGy-cm): 637.73 FINDINGS/IMPRESSION: Bones/joints: There are moderate to severe chronic degenerative changes of the right knee including narrowing of the medial and lateral compartments with extensive osteophytosis. There is bony sclerosis of the medial femoral condyle and tibial plateau. There are large osteophytes of the patellofemoral compartment. There is a small right knee effusion. Soft tissues: There is diffuse subcutaneous edema throughout the visualized portions of the right lower extremity which includes the level of the patella to the level of the right ankle. There is no gas in the soft tissues. The findings are concerning for cellulitis. There is a partially imaged complex cystic mass posterior to the right femur and superior to the popliteal fossa. The greatest transverse dimension of the cystic mass that is included in the field of view measures about 6 x 4.9 cm. This cystic lesion appears septated and appears deep to the distal biceps femoris. Further evaluation with a contrast-enhanced CT of the right lower extremity focused from the hip to the tibial plateau is recommended to further characterize this lesion. Laboratory Results WBC 9.61 10^3/uL (3.29-11.43) 06/12/25 17: RBC 3.84 10^6/uL (3.85-5.65) L 06/12/25 17: Hgb 11.10 g/dL (11.27-16.99) L 06/12/25 17:28 Hct 35.8 % (36-47) L 06/12/25 17: MCV 93.2 fl (85-98) 06/12/25 17: MCH 28.9 pg (27-33) 06/12/25 17: MCHC 31.0 g/dL (30-55) 06/12/25 17: RDW 15.9 % (12.1-15.1) H 06/12/25 17: Plt Count 283 10^3/cmm (157-399) 06/12/25 17: MPV 9.4 fL (7.4-10.4) 06/12/25 17: Neut % (Auto) 67.5 % 06/12/25 17: Lymph % (Auto) 19.5 % 06/12/25 17: [place] % (Auto) 10.9 % 06/12/25 17:28 Eos % (Auto) 0.9 % 06/12/25 17: Baso % (Auto) 0.3 % 06/12/25 17: Neut # (Auto) 6.48 10^3/uL (1.8-7.7) 06/12/25 17:28 Lymph # (Auto) 1.9 10^3/uL (0.8-4.8) 06/12/25 17: [place] # (Auto) 1.1 10^3/uL (0.2-0.9) H 06/12/25 17:28 Eos # (Auto) 0.1 10^3/uL (0.0-0.8) 06/12/25 17: Baso # (Auto) 0.0 10^3/uL (0.0-0.1) 06/12/25 17: Nucleated RBC % (auto) 0 % 06/12/25 17: Nucleated RBCs # 0.0 /100WBC 06/12/25 17: ESR 16 mm/hr (0-15) H 06/12/25 17:28 Sodium 142 mmol/L (136-145) 06/12/25 17: Potassium 4.5 mmol/L (3.5-5.1) 06/12/25 17: Chloride 107 mmol/L (98-107) 06/12/25 17: Carbon Dioxide 24 mmol/L (22-29) 06/12/25 17: Anion Gap 15.5 (5-19) 06/12/25 17: BUN 24 mg/dL (8-23) H 06/12/25 17:28 Creatinine 0.6 mg/dL (0.5-0.9) 06/12/25 17: GFR Calculation 98.8 mL/min (90-130) 06/12/25 17: Glucose 144 mg/dL (65-115) H 06/12/25 17:28 Calculated Osmolality 301 mOsm/kg (285-295) H 06/12/25 17:28 Lactic Acid 2.5 mmol/L (0.5-2.2) H 06/12/25 17: Calcium 9.4 mg/dL (8.5-10.5) 06/12/25 17:28 Total Bilirubin 0.2 mg/dL (0.15-1.2) 06/12/25 17:28 AST 20 U/L (0-32) 06/12/25 17: ALT 46 U/L (0-33) H 06/12/25 17:28 Alkaline Phosphatase 82 U/L (35-105) 06/12/25 17:28 C-Reactive Protein 4.9 mg/L (0.0-4.9) 06/12/25 17:28 NT-Pro-B Natriuret Pep 72 pg/mL (0-125) 06/12/25 17:28 Total Protein 6.3 g/dL (6.6-8.7) L 06/12/25 17:28 Albumin 3.4 g/dL (3.5-5.2) L 06/12/25 17:28 Globulin 2.9 g/dL (1.3-4.6) 06/12/25 17:28 Procalcitonin 0.05 ng/mL (0-0.5) 06/12/25 17:28 All radiology interpretation(s) finalized by discharge Discharge Plan Discharge Patient Disposition: Admitted As Inpatient Admit Provider: Jasiel Rothman Clinical Impression: Cellulitis, Diastolic congestive heart failure, Type 2 diabetes mellitus Condition: Stable Coding Level of Care Code ED Chuck Wagon Cook for Ursula Grewal
--- NOTE | 2025-06-12 17:22 | ECG_ITS ---
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 Measurements Intervals [place] Rate: 73 P: 31 WI: 171 QRS: 16 QRSD: 92 T: 3 QT: 369 QTc: 408 Interpretive Statements SINUS RHYTHM Compared to ECG 07/22/2021 15:55:16 Sinus tachycardia no longer present Myocardial infarct finding no longer present Heavy baseline artifacts; Need to repeat the study. Electronically Signed On 06-12-2025 22:57:09 CDT by Bharathi Vital M.D. [email or web address]
--- NOTE | 2025-06-12 17:32 | USR_ITS ---
PROCEDURE INFORMATION: Exam: US Duplex Right Lower Extremity Veins, Limited Exam date and time: 06/12/2025 5:43 PM Age: 70 years old Clinical indication: Swelling (edema) of limb; Lower extremity, right; Additional info: Leg swelling TECHNIQUE: Imaging protocol: Real-time duplex ultrasound of the right extremity with 2-D mcdermott scale, color Doppler flow and spectral waveform analysis including responses to compression and other maneuvers (when performed) with image documentation. Limited exam was focused on the right lower extremity veins. COMPARISON: US renal BI* [id number] 01/26/2024 12:56 PM FINDINGS: Right deep veins: Unremarkable. The common femoral, femoral, proximal profunda femoral and popliteal veins are patent without thrombus. Normal Doppler waveforms. Normal compressibility and/or augmentation response. Superficial veins: Greater saphenous vein at the saphenofemoral junction is patent without thrombus. Soft tissues: Unremarkable. US/[place] [id number] IMPRESSION: No evidence of deep vein thrombosis or superficial vein thrombosis in the visualized veins of the right lower extremity.
[2025-06-12 17:42] LABS: Hematocrit 35.8 % (36-47); Hemoglobin 11.10 g/dL (11.27-16.99); Mean Corpuscular HGB Conc 31.0 g/dL (30-55); Mean Corpuscular Hemoglobin 28.9 pg (27-33); Mean Corpuscular Volume 93.2 fl (85-98); Nucleated Red Blood Cells % 0 %; Platelet Count 283 10^3/cmm (157-399); Red Blood Count 3.84 10^6/uL (3.85-5.65); White Blood Count 9.61 10^3/uL (3.29-11.43)
[2025-06-12 18:00] LABS: Alanine Aminotransferase 46 U/L (0-33); Albumin Level 3.4 g/dL (3.5-5.2); Alkaline Phosphatase 82 U/L (35-105); Anion Gap 15.5 (5-19); Aspartate Amino Transferase 20 U/L (0-32); Blood Urea Nitrogen 24 mg/dL (8-23); Calcium 9.4 mg/dL (8.5-10.5); Carbon Dioxide 24 mmol/L (22-29); Chloride 107 mmol/L (98-107); Creatinine Clr Calc Pharmacy 79.8949; Globulin 2.9 g/dL (1.3-4.6); Glucose 144 mg/dL (65-115); Osmolality Calculated 301 mOsm/kg (285-295); Potassium 4.5 mmol/L (3.5-5.1); Sodium 142 mmol/L (136-145); Total Protein 6.3 g/dL (6.6-8.7)
[2025-06-12 18:01] LABS: Lactic Sepsis W/Reflex 2.5 mmol/L (0.5-2.2)
[2025-06-12 19:24] LABS: Reflex Lactate Order REFLEX LACTIC ORDERD
--- NOTE | 2025-06-12 20:27 | PM.HP ---
Providers/Chief Complaint Primary Care Provider: Roman Clifton MD Chief Complaint: leaking fluid from both legs, swelling History of Present Illness Ester Wilson is a 70 year old female with a past history of type 2 diabetes mellitus, hypertension, hyperlipidemia, who presents to [facility] right lower extremity erythema, swelling, and history of bilateral extremity pitting and weeping edema. Currently patient is unable to denies any chest pain, shortness of breath she was in the emergency room on June 05 due to right knee swelling, she was diagnosed with gouty arthritis, discharged on steroids, she tells me the right knee swelling has improved, but she started developing right lower extremity erythema, swelling, tenderness, warmth, with bilateral pitting edema, bilateral weeping edema, no fevers, chills, she does report having cats at home, denies any cat bites but does report cat scratches Review of Systems Const: Denies: fever(s) or chills Card: Denies: chest pain Resp: Denies: dyspnea Medications/Allergies Home Medications ?Medication ?Instructions ?Recorded ?Confirmed ?Last Taken ?Type fluticasone propionate 50 2 spray intranasal DAILY 12/26/19 05/30/25 01/09/25 History mcg/actuation nasal spray,suspension gabapentin 100 mg capsule 100 mg PO TID 12/26/19 05/30/25 01/11/25 History atorvastatin 40 mg tablet 40 mg PO DAILY 07/22/21 05/30/25 01/09/25 History bupropion HCl 100 mg tablet,12 hr 100 mg PO BID 07/22/21 05/30/25 01/09/25 History sustained-release latanoprost 0.005 % eye drops 1 drp ophthalmic (eye) DAILY 07/22/21 05/30/25 01/09/25 History levothyroxine 88 mcg tablet 88 mcg PO DAILY 07/22/21 05/30/25 01/11/25 History losartan 100 1 tab PO DAILY 07/22/21 05/30/25 01/09/25 History mg-hydrochlorothiazide 12.5 mg tablet multivitamin 1 tab PO DAILY 07/22/21 05/30/25 01/09/25 History aspirin 81 mg chewable tablet 81 mg PO DAILY 04/01/22 05/30/25 01/09/25 History amlodipine 10 mg tablet 10 mg PO DAILY 01/28/23 05/30/25 01/11/25 History pen needle, diabetic 31 gauge x #100 ea 03/31/23 05/30/25 Unknown Rx 3/ (Comfort EZ Pen [place]) divalproex 250 mg tablet,extended 250 mg PO DAILY 10/08/23 05/30/25 01/08/25 History release 24 hr albuterol sulfate 90 mcg/actuation 2 inh inhalation Q6H PRN Shortness 10/26/23 05/30/25 2 Days Ago History breath activated powder inhaler Of Breath Or Wheezing ~12/23/24 diabetic shoes and 3 inserts #1 ea 11/21/24 05/30/25 Unknown Rx ondansetron HCl 4 mg tablet 4 mg PO Q8H PRN nausea and 12/12/24 05/30/25 Unknown Rx vomiting #3 tabs polyethylene glycol 3350 17 17 g PO BID 10 days #340 grams 12/12/24 05/30/25 01/09/25 Rx gram/dose oral powder (Miralax) glycopyrrolate 9 mcg-formoterol 2 puff inhalation BID 12/25/24 05/30/25 01/09/25 History 4.8 mcg HFA aerosol inhaler (Bevespi Aerosphere) meloxicam 7.5 mg tablet 7.5 mg PO DAILY 12/25/24 05/30/25 01/09/25 History metformin 500 mg tablet,extended 500 mg PO DAILY 12/25/24 05/30/25 01/08/25 History release 24 hr primidone 50 mg tablet 100 mg PO BID 12/25/24 05/30/25 01/08/25 History dulaglutide 4.5 mg/0.5 mL See Rx Instructions .Route 02/20/25 05/30/25 Unknown Rx subcutaneous pen injector .COMPLEX #2.5 mL (Trulicity) cephalexin 500 mg capsule 500 mg PO TID #21 caps 03/28/25 05/30/25 Unknown Rx acarbose 50 mg tablet 50 mg .Route TID #30 tabs 05/21/25 05/30/25 Unknown Rx hydrocodone 5 mg-acetaminophen 325 1 tab PO Q6H PRN pain #25 tabs 06/05/25 Unknown Rx mg tablet methylprednisolone 4 mg tablets in See Rx Instructions PO .COMPLEX 06/05/25 Unknown Rx a dose pack (Medrol ([place])) #21 ea Allergies Allergy/AdvReac Type Severity Reaction Status Date / Time azithromycin Allergy hives/ GI Verified 06/05/25 15:48 upset tramadol AdvReac hives Verified 06/05/25 15:48 PFSH Acute PFSH: Medical History Primary osteoarthritis of shoulders, bilateral Right rotator cuff tendonitis AC (acromioclavicular) arthritis Primary osteoarthritis, right shoulder PERCY (obstructive sleep apnea) COPD (chronic obstructive pulmonary disease) Pneumonia due to COVID-19 virus Hypertension COVID-19 Surgical History History of detached retina repair History of tonsillectomy Family History Other Hypertension Social History Smoking and tobacco/nicotine status: former use of tobacco/nicotine Quit status (tobacco/nicotine): has quit using Year quit tobacco: 2014 Former quit date comment: 1 pack per day for 48 years Second hand smoke exposure: No Alcohol intake: never Substance/Drug Use: never Lives independently: Yes Pets and animals: Yes Pets & animals: cat(s) Current gender identity: Female Special roxanne needs: No Vitals/I&O/Wt Last Vital Signs Temp 97.9 F 06/12/25 16:32 Pulse 69 06/12/25 19:05 Resp 16 06/12/25 16:32 BP 142/85 06/12/25 19:05 Pulse Ox 93 06/12/25 19:05 O2 Del Method Room Air 06/12/25 19:05 06/12/25 06/12/25 06/12/25 06:59 14:59 22:59 Intake Total 250 / 250 Balance 250 / 250 Weight last 48 hrs Weight 114.759 kg Physical Exam Const: COMMON NORMALS: no acute distress and patient oriented x3 HENMT: COMMON NORMALS: normocephalic HEAD & SCALP: normocephalic Eye: COMMON NORMALS: Equal, round and reactive pupils present Chest: COMMONS NORMALS: normal inspection of the chest Resp: COMMON NORMALS: normal respiratory effort, No retractions, No use of accessory muscles and clear to auscultation bilaterally AUSCULTATION: clear to auscultation bilaterally Cardio: COMMON NORMALS: regular rate, regular rhythm, S1 normal heart sound present and S2 normal heart sound present RATE: regular rate RHYTHM: regular rhythm HEART SOUNDS: S1 normal heart sound present and S2 normal heart sound present GI: COMMON NORMALS: Normal to inspection, nondistended, normoactive bowel sounds present, Soft to palpation and non-tender Extremity: OTHER: Bilateral lower extremity edema, 2+, weeping edema Right lower extremity Erythema, swelling, tenderness extending from below the knee joint, down to just above the ankle, with irregular borders, good DP PT pulses bilaterally, right knee joint no significant erythema, swelling, tenderness, pain on palpation Neuro: COMMON NORMALS: patient oriented x3, CN's II-XII intact bilaterally and moves all extremities Psych: COMMON NORMALS: mental status grossly normal Data 06/12/25 17:28 06/12/25 17:28 Micro: Microbiology 06/12/25 17:40 Blood Culture - Preliminary Blood SPECIMEN COLLECTED 06/12/25 17:28 Blood Culture - Preliminary Blood SPECIMEN COLLECTED A&P Assessment and plan 1. Hypertension: 2. Hyperlipemia, mixed: 3. Diabetes type 2, uncontrolled: 4. Hypothyroidism: 5. COPD (chronic obstructive pulmonary disease): 6. Cellulitis: 7. Diastolic congestive heart failure: Plan: Fluid overload, bilateral extremity edema, diastolic CHF exacerbation -BMP - Lasix 40 mg IV every 24 hours Right lower lower extremity cellulitis - With history of cat scratches - Continue vancomycin - Add Zosyn - Follow-up blood cultures Type 2 diabetes mellitus, low-dose sliding scale Gouty arthritis, hold prednisone History of CAD History of hyperlipidemia History of diabetic neuropathy Full code Lovenox for DVT prophylaxis PDMP PDMP Reviewed: Last Reviewed 06/12/25 20:20 by Jasiel Rothman MD Attestations Medical Necessity Statement*: Patient requires hospitalization for fluid overload and right lower extremity cellulitis, bilateral lower extremity, outpatient observation Diagnoses Hypertension I10 Hyperlipemia, mixed E78.2 Diabetes type 2, uncontrolled Hypothyroidism E03.9 COPD (chronic obstructive pulmonary disease) J44.9 Cellulitis L03.90 Diastolic congestive heart failure I50.30
[2025-06-12] MEDS: FUROsemide 10 mg/mL SDV 10mL 60 MG IVP (20:29)
--- NOTE | 2025-06-12 20:37 | CTR_ITS ---
CT/CT lower leg RT wo con* [id number] PROCEDURE INFORMATION: Exam: CT Right Lower Extremity Without Contrast, Leg Exam date and time: 06/13/2025 5:02 AM Age: 70 years old Clinical indication: Cellulitis; Lower leg; Right; Additional info: Erythema, swelling, cellulitis TECHNIQUE: Imaging protocol: CT of the right lower extremity without contrast was performed. Exam focused on the lower leg. Radiation optimization: All CT scans at this facility use at least one of these dose optimization techniques: automated exposure control; mA and/or kV adjustment per patient size (includes targeted exams where dose is matched to clinical indication); or iterative reconstruction. COMPARISON: [place] [id number] 06/12/2025 5:43 PM RADIATION DOSE METRICS: Total DLP (mGy-cm): 637.73 FINDINGS/IMPRESSION: Bones/joints: There are moderate to severe chronic degenerative changes of the right knee including narrowing of the medial and lateral compartments with extensive osteophytosis. There is bony sclerosis of the medial femoral condyle and tibial plateau. There are large osteophytes of the patellofemoral compartment. There is a small right knee effusion. Soft tissues: There is diffuse subcutaneous edema throughout the visualized portions of the right lower extremity which includes the level of the patella to the level of the right ankle. There is no gas in the soft tissues. The findings are concerning for cellulitis. There is a partially imaged complex cystic mass posterior to the right femur and superior to the popliteal fossa. The greatest transverse dimension of the cystic mass that is included in the field of view measures about 6 x 4.9 cm. This cystic lesion appears septated and appears deep to the distal biceps femoris. Further evaluation with a contrast-enhanced CT of the right lower extremity focused from the hip to the tibial plateau is recommended to further characterize this lesion.
[2025-06-12 20:43] LABS: Lactic Acid level (Lactate) 1.8 mmol/L (0.5-2.2)
[2025-06-12 21:02] LABS: NT Pro B Type Natriuretic Pept 72 pg/mL (0-125); Procalcitonin 0.05 ng/mL (0-0.5)
--- NOTE | 2025-06-12 21:54 | PHA.VACGOAL ---
Vancomycin Goal - Goal Vancomycin Goal:: 10-15 mg/L Vancomycin Indication:: Other - Therapy Current therapy:: Pip/Tazo Day of therpy:: Day []of [] . Actual body weight (kg): 253 lb - Data Labs: WBC 9.61 10^3/uL (3.29-11.43) 06/12/25 17: RBC 3.84 10^6/uL (3.85-5.65) L 06/12/25 17: Hgb 11.10 g/dL (11.27-16.99) L 06/12/25 17:28 Hct 35.8 % (36-47) L 06/12/25 17: MCV 93.2 fl (85-98) 06/12/25 17: MCH 28.9 pg (27-33) 06/12/25 17: MCHC 31.0 g/dL (30-55) 06/12/25 17: RDW 15.9 % (12.1-15.1) H 06/12/25 17:28 Sodium 142 mmol/L (136-145) 06/12/25 17:28 Potassium 4.5 mmol/L (3.5-5.1) 06/12/25 17:28 Chloride 107 mmol/L (98-107) 06/12/25 17: Carbon Dioxide 24 mmol/L (22-29) 06/12/25 17: Anion Gap 15.5 (5-19) 06/12/25 17:28 BUN 24 mg/dL (8-23) H 06/12/25 17:28 Creatinine 0.6 mg/dL (0.5-0.9) 06/12/25 17:28 GFR Calculation 98.8 mL/min (90-130) 06/12/25 17:28 Treatment plan:: new consult Regimen:: TREATING SKIN INFECTION, STARTED MAINTENANCE DOSE OF 1750MG Q12H PER PROTOCOL. WILL DRAW TROUGH BEFORE 4TH DOSE.
[2025-06-12] MEDS: pantoprazole 40 mg SDV IVP (22:31)
[2025-06-12] MEDS: piperacillin-tazobactam 3.375 GM in sodium chloride 0.9% (plus) 50 ML IV (22:31)
[2025-06-13] VITALS (11 sets, daily range): BP systolic 107–158; BP diastolic 58–89; PULSE 75–85; RESP 16–17; TEMP 35.3–36.8; O2SAT 90–94
[2025-06-13] MEDS: vancomycin 1,750 MG/350 ML PIGGYBACK 175 MG IV ×2 (00:12→14:54)
--- OUTSIDE RECORDS SUMMARY | 2025-06-13 01:48 | XMS_ITS | Clinical Summary ---
Author Organization [facility] Address [address] [facility] Attn: Epic Prelude ADT GILDA PARMAR [address] Care Team Providers Care Thoracic Medicine Specialist Name Role Phone Piero Pelaez NP Primary Care Provider [phone] Allergies Active Allergy Reactions Criticality Noted Date [...] 4 Active fluticasone propionate (FLONASE) 50 mcg/spray [place], Suspension nasal inhaler Administer 1 [place] in each nostril. 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); Angiomyolipoma of left kidney; Cyst of kidney, acquired; Renal mass 05/24/[address] [place] [address] Ken Collins MD Erroneous encounter-disregar d 05/23/2025 External Device Data STL ABSTRACTION Provider, Abstract 05/22/2025 External Device Data ST[facility] ABSTRACTION Provider, Abstract 05/03/2025 Results Follow-Up [address] [place] [phone] ABDOMEN W WO CONTRAST 04/30/2025 12:59 PM CDT - 04/30/2025 11:59 PM CDT Hospital Encounter [facility] CT [address] [place] [phone] Ken Collins MD Discharge Disposition: Home or Self Care 04/24/2025 8:30 AM CDT - 04/24/2025 11:59 PM CDT Hospital Encounter [facility] Imaging Services [address] [place] [phone] Don Conteh MD Discharge Disposition: Home or Self Care 04/24/2025 8:00 AM CDT - 04/24/2025 11:59 PM CDT Hospital Encounter [facility] CT Scan [address] [place] [phone] Don Conteh MD Discharge Disposition: Home or Self Care 04/24/2025 External Device Data STL ABSTRACTION Provider, Abstract 04/13/2025 Transcribe Orders [facility] Scheduling [place] CALL TO MAKE APPOINTMENT ONLY [address] [place] [phone] Don Conteh MD Abnormal colonoscopy (Primary Dx) 04/03/2025 External Device Data STL ABSTRACTION Provider, Abstract 04/03/[address] Entrance B, [address] [place] [address] Ken Collins MD Information 03/29/2025 External Device Data STL ABSTRACTION Provider, Abstract 03/29/[address] Entrance B, [address] [place] [phone] Ken Collins MD Information 03/28/2025 External Device [...] on file Legal Sex Female 2:20 AM CARE MANAGEMENT SPECIALIST Gender Identity Not on file Sexual Orientation Not on file Last Filed Vital Signs Vital Sign Reading Time Taken Comments Blood Pressure 123/68 02/13/2025 2:42 PM CDT Pulse 65 02/13/2025 2:42 PM CDT Temperature 36.6 C (97.8 F) 10/08/2022 1:06 PM CARE MANAGEMENT SPECIALIST Respiratory Rate 16 02/13/2025 2:42 PM [...] st Contact Info) Description 11/29/2025 1:15 PM CARE MANAGEMENT SPECIALIST Office Visit [facility] [place] [address] [place] [address] Ken Collins MD [address] [place] [address] Health Maintenance Due Date Last [...] - 1.30 mg/dL 04/30/2025 1:11 PM T [facility] Comment:The GFR result is no t clinically significant on patients <18 or >70 years of age. GFR POC >60 mL/min/1.7 3 sq meter 04/30/2025 1:11 PM [facility] Comment:eGFR calculated with 2020 CKD-EPI equation. Vegetarian diet, extremely high or low muscle mass, and may affect results. Cystatin C with Glomerular Filtration Rate is a suitable alternative for these patients. Blood, whole 04/30/2025 1:11 PM CDT 04/30/2025 1:24 PM CDT us Ken Collins MD POINT OF CARE TESTIN G Final Result [facility] CLIA# [id number] [address] * CT COLONOGRAPHY DIAG WO CONTRAST (04/24/2025 [...] Conteh MD - 02/13/2025 2:23 PM CDT [facility] GI Patient Name: Ester Wilson Procedure [...] 2:02:13 PM Scope Out: 2:17:32 PM [address] [place], [place] Don Conteh MD GI PROCEDURE ORDERABLES F inal Result from Last 3 Months or Most Recently Relevant to Health Maintenance Insurance MEDICAID [place] [employer] [facility] [id number] Advance Directives For more information, please contact: [phone] * Full Code (Latest Code Status on File) Date Activated Date Inactivated Comments 02/13/2025 1:41 PM 02/13/2025 5:04 PM Care Teams Thoracic Medicine Specialist Relationship Specialty Start Date End Date Piero Pelaez NP [address] [place] [phone] PCP - General NURSE PRACTITIONER 10/03/13
--- OUTSIDE RECORDS SUMMARY | 2025-06-13 01:48 | XMS_ITS | Clinical Summary ---
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 Active citalopram (CELEXA) 40 mg tablet Take [...] on file Legal Sex Female 6:45 AM SENIOR PRINCIPAL SOFTWARE ENGINEER Gender Identity Not on file Sexual Orientation Not on file Last Filed Vital Signs Vital Sign Reading Time Taken Comments Blood Pressure 124/56 09/22/2013 8:29 AM SENIOR PRINCIPAL SOFTWARE ENGINEER Pulse 60 09/22/2013 8:29 AM SENIOR PRINCIPAL SOFTWARE ENGINEER Temperature - - Respiratory Rate - - Oxygen Saturation - - Inhaled Oxygen Concentration - - Weight 117.9 kg (260 lb) 09/22/2013 8:29 AM SENIOR PRINCIPAL SOFTWARE ENGINEER Height 164.5 cm (5' 4.75 ) 09/22/2013 8:29 AM CS T Body Mass Index 43.6 09/22/2013 8:29 AM SENIOR PRINCIPAL SOFTWARE ENGINEER Plan of Treatment Health Maintenance Due Date [...] - 1-dose 75+ series) 2030 Care Teams Hammer Repairer Relationship Specialty Start Date End Date Piero Pelaez NP [address] [place] [address] PCP - General NURSE PRACTITIONER 10/03/13
[2025-06-13 05:18] LABS: Glucose Urine UA Negative (Normal); Nitrate Urine Negative (Negative); Specific Gravity, Urine 1.016 (1.005-1.030)
[2025-06-13 05:21] LABS: Hematocrit 35.8 % (36-47); Hemoglobin 11.20 g/dL (11.27-16.99); Mean Corpuscular HGB Conc 31.3 g/dL (30-55); Mean Corpuscular Hemoglobin 29.7 pg (27-33); Mean Corpuscular Volume 95.0 fl (85-98); Nucleated Red Blood Cells % 0 %; Platelet Count 289 10^3/cmm (157-399); Red Blood Count 3.77 10^6/uL (3.85-5.65); White Blood Count 10.79 10^3/uL (3.29-11.43)
[2025-06-13 05:23] LABS: Add Urine Microscopic? YES
[2025-06-13 05:41] LABS: Alanine Aminotransferase 45 U/L (0-33); Albumin Level 3.1 g/dL (3.5-5.2); Alkaline Phosphatase 81 U/L (35-105); Anion Gap 17.9 (5-19); Aspartate Amino Transferase 26 U/L (0-32); Blood Urea Nitrogen 22 mg/dL (8-23); Calcium 9.1 mg/dL (8.5-10.5); Carbon Dioxide 26 mmol/L (22-29); Chloride 102 mmol/L (98-107); Creatinine Clr Calc Pharmacy 79.8126; Globulin 3.2 g/dL (1.3-4.6); Glucose 112 mg/dL (65-115); Osmolality Calculated 298 mOsm/kg (285-295); Potassium 3.9 mmol/L (3.5-5.1); Sodium 142 mmol/L (136-145); Total Protein 6.3 g/dL (6.6-8.7)
[2025-06-13 05:55] LABS: Cholesterol 109 mg/dL (0-200); HDL Cholesterol 36 mg/dL (60-100); Thyroid Stimulating Hormone 4.26 uIU/mL (0.27-4.20); Triglycerides 164 mg/dL (0-150)
[2025-06-13 06:03] LABS: Estmated Average Glucose 169; Hemoglobin A1C 7.5 % (4.0-6.0)
[2025-06-13] MEDS: FUROsemide 10 mg/mL SDV 4mL 40 MG IVP (06:22)
[2025-06-13] MEDS: piperacillin-tazobactam 3.375 GM in sodium chloride 0.9% (plus) 50 ML IV ×2 (06:22→17:14)
[2025-06-13] MEDS: divalproex ER 250 mg Tablet (24H) PO (08:47)
[2025-06-13] MEDS: polyethylene glycol 3350 Pkt 17 gm PO (08:47)
--- NOTE | 2025-06-13 15:58 | PC.NURSE ---
Insulin dose missed at lunch. Blood sugar retaken approx. 1430 and was 140. No insulin given. Will have evening blood sugar checked in a couple of hours. Patient ate 50% of meal at lunch.
[2025-06-13] MEDS: HYDROcodone-acetaminophen 5-325 mg Tablet 1 TAB PO (20:28)
[2025-06-13] MEDS: pantoprazole 40 mg SDV IVP (21:25)
--- NOTE | 2025-06-13 22:51 | P.PN_ITS ---
Subjective 2 Subjective: seen at 9 Am today Chart reveiwed diffuse LE swelling right side Vitals/I&O/Wt Last Vital Signs Temp 98.2 F 06/13/25 20:00 Pulse 83 06/13/25 20:00 Resp 16 06/13/25 20:00 BP 137/58 06/13/25 20:00 Pulse Ox 94 06/13/25 20:00 O2 Del Method Room Air 06/13/25 20:00 06/13/25 06/13/25 06/13/25 06:59 14:59 22:59 Intake Total 640 / 950 480 / 480 930 / 1410 Output Total 1150 / 1150 300 / 1450 Balance 640 / 950 -670 / -670 630 / -40 Weight last 48 hrs Weight 114.56 kg Weight 114.56 kg Weight 114.759 kg Physical Exam 2 Narrative: General: No acute distress, AO x3 HEENT: PERRLA, pupils bilaterally equal and reactive, pallors not present Chest: Normal vesicular breath sounds, no added sounds, equal good air entry bilaterally CVS: S1-S2 regular, no murmurs, no tachycardia, no gallops, no rubs Abdomen: Soft, nontender, no organomegaly, bowel sounds present Neuro: No focal deficits, no facial deformity, AO x3, power 5/5 in all limbs Extremities: RLE cellulitis Data 06/13/25 04:46 06/13/25 04:46 Micro: Microbiology 06/12/25 17:40 Blood Culture - Preliminary Blood NEGATIVE TO DATE 06/12/25 17:28 Blood Culture - Preliminary Blood NEGATIVE TO DATE A&P Assessment and plan 1. Hypertension: 2. Hyperlipemia, mixed: 3. Diabetes type 2, uncontrolled: 4. Hypothyroidism: 5. COPD (chronic obstructive pulmonary disease): 6. Cellulitis: 7. Diastolic congestive heart failure: Plan: Fluid overload, bilateral extremity edema, diastolic CHF exacerbation -BMP - Lasix 40 mg IV every 24 hours Right lower lower extremity cellulitis - With history of cat scratches - Continue vancomycin - Add Zosyn - Follow-up blood cultures Type 2 diabetes mellitus, low-dose sliding scale Gouty arthritis, hold prednisone History of CAD History of hyperlipidemia History of diabetic neuropathy Full code Lovenox for DVT prophylaxis 06/13/25 : RLE cellulitis with diffuse swelling over calf. SHe has longstanding lymphedema. Has several cats that scractch her legs. Now with RLE cellulitis. Continue zosyn and vancomycin. Await blood cx and monitor for improvement. Ct leg with diffuse cellulitis and complex cystic collection over popliteal fossa ? Zhang's cyst vs abscess- US soft tissue ordered to further assess PDMP PDMP Reviewed: Not Reviewed Attestations 2 Medical Necessity Statement*: > 2 midnight stay anticipated Coding Level of Care Code Acute Code for Chg Fwd High MDM includes number and complexity of problems actively addressed during encounter, amount and/or complexity of data reviewed/ordered and described risk of complication, morbidity or mortality of management as documented Diagnoses Hypertension I10 Hyperlipemia, mixed E78.2 Diabetes type 2, uncontrolled Hypothyroidism E03.9 COPD (chronic obstructive pulmonary disease) J44.9 Cellulitis L03.90 Diastolic congestive heart failure I50.30
--- NOTE | 2025-06-13 22:54 | US_ITS ---
WS: [id number] ULTRASOUND SOFT TISSUES RIGHT popliteal fossa. HISTORY: rigth popliteal fossa COMPARISON: CT 06/13/2025 TECHNIQUE: 2-D and color Doppler imaging is submitted. There is a large complex mass in the popliteal fossa corresponding to the CT findings. This mass is difficult to visualize due to its deep position. Mass measures 5.9 x 5.2 x 5.2 cm. No increased vascularity. US/US soft tissue/extremity [id number] IMPRESSION: Large complex mass in the popliteal fossa measures 5.9 x 5.2 x 5.2 cm. Etiology cannot be confirmed on this exam. This can be further evaluated by contrast-en hanced CT of the RIGHT lower extremity is recommended on the CT report. MRI wit h and without contrast may provide additional information also.
[2025-06-14] VITALS (9 sets, daily range): BP systolic 102–132; BP diastolic 60–79; PULSE 78–90; RESP 16–20; TEMP 36.5–37.3; O2SAT 90–94
[2025-06-14] MEDS: piperacillin-tazobactam 3.375 GM in sodium chloride 0.9% (plus) 50 ML IV ×3 (01:40→17:40)
[2025-06-14] MEDS: vancomycin 1,750 MG/350 ML PIGGYBACK 175 MG IV (02:59)
[2025-06-14 05:25] LABS: Hematocrit 35.7 % (36-47); Hemoglobin 11.30 g/dL (11.27-16.99); Mean Corpuscular HGB Conc 31.7 g/dL (30-55); Mean Corpuscular Hemoglobin 30.3 pg (27-33); Mean Corpuscular Volume 95.7 fl (85-98); Nucleated Red Blood Cells % 0 %; Platelet Count 301 10^3/cmm (157-399); Red Blood Count 3.73 10^6/uL (3.85-5.65); White Blood Count 11.77 10^3/uL (3.29-11.43)
[2025-06-14 05:47] LABS: Alanine Aminotransferase 49 U/L (0-33); Albumin Level 3.0 g/dL (3.5-5.2); Alkaline Phosphatase 79 U/L (35-105); Aspartate Amino Transferase 35 U/L (0-32); Blood Urea Nitrogen 21 mg/dL (8-23); Calcium 8.2 mg/dL (8.5-10.5); Carbon Dioxide 24 mmol/L (22-29); Chloride 102 mmol/L (98-107); Creatinine Clr Calc Pharmacy 79.8126; Globulin 3.0 g/dL (1.3-4.6); Glucose 122 mg/dL (65-115); Osmolality Calculated 290 mOsm/kg (285-295); Sodium 138 mmol/L (136-145); Total Protein 6.0 g/dL (6.6-8.7)
[2025-06-14 05:48] LABS: Anion Gap 15.7 (5-19); Potassium 3.7 mmol/L (3.5-5.1)
[2025-06-14] MEDS: FUROsemide 10 mg/mL SDV 4mL 40 MG IVP (06:24)
[2025-06-14] MEDS: divalproex ER 250 mg Tablet (24H) PO (09:14)
[2025-06-14] MEDS: HYDROcodone-acetaminophen 5-325 mg Tablet 1 TAB PO (09:14)
--- NOTE | 2025-06-14 16:41 | CTR_ITS ---
PROCEDURE INFORMATION: Exam: CT Right Lower Extremity Without Contrast, Leg Exam date and time: 06/14/2025 7:26 PM Age: 70 years old Clinical indication: Swelling, leg or foot; Additional info: Popliteal fossa cystis mass, zhang's cyst vs abscess. Patient admitted with cellulitis of TECHNIQUE: Imaging protocol: CT of the right lower extremity without contrast was performed. Exam focused on the lower leg. Radiation optimization: All CT scans at this facility use at least one of these dose optimization techniques: automated exposure control; mA and/or kV adjustment per patient size (includes targeted exams where dose is matched to clinical indication); or iterative reconstruction. COMPARISON: CT lower leg RT wo con* [id number] 06/13/2025 5:02 AM RADIATION DOSE METRICS: Total DLP (mGy-cm): 534.16 FINDINGS: Bones/joints: Severe osteoarthritis of the right knee. Mild osteoarthritis of the right ankle. No acute fracture. No suspicious osseous lesion. Moderate-sized suprapatellar joint effusion. Soft tissues: A multiloculated rim enhancing collection in the right popliteal fossa along the posteromedial aspect of the distal femoral metadiaphysis measures 6.3 x 5.8 x 5.4 cm and is simple fluid density. This is in the expected location of the popliteal/Zhang's cyst. Diffuse subcutaneous induration throughout the visualized leg. CT/CT lower leg RT w con [id number] IMPRESSION: 1. Multiloculated rim enhancing simple fluid density collection in the right popliteal fossa measuring 6.3 x 5.8 x 5.4 cm, likely representing a popliteal/Zhang's cyst. This may be acutely infected/inflamed. Clinical correlation is advised. Malignancy, such as synovial sarcoma is not excluded. Recommend clinical and imaging follow-up. 2. Induration of the subcutaneous fat throughout the visualized right lower extremity, compatible with cellulitis or edema. 3. Moderate size suprapatellar joint effusion. 4. Severe osteoarthritis of the right knee.
--- NOTE | 2025-06-14 16:42 | P.PN_ITS ---
Subjective 2 Subjective: Lower extremity cellulitis is improving. Soft tissue ultrasound performed this morning was unable to differentiate Zhang's cyst from an infected collection. Medications: Reviewed: Yes Vitals/I&O/Wt Last Vital Signs Temp 99.2 F 06/14/25 15:35 Pulse 79 06/14/25 15:35 Resp 16 06/14/25 15:35 BP 102/60 06/14/25 15:35 Pulse Ox 90 06/14/25 15:35 O2 Del Method Room Air 06/14/25 15:35 06/14/25 06/14/25 06/14/25 06:59 14:59 22:59 Intake Total 520 / 2170 410 / 410 Output Total 1200 / 1200 Balance 520 / 720 -790 / -790 Weight last 48 hrs Weight 113.398 kg Weight 114.56 kg Weight 114.56 kg Physical Exam 2 Narrative: General: No acute distress, AO x3 HEENT: PERRLA, pupils bilaterally equal and reactive, pallors not present Chest: Normal vesicular breath sounds, no added sounds, equal good air entry bilaterally CVS: S1-S2 regular, no murmurs, no tachycardia, no gallops, no rubs Abdomen: Soft, nontender, no organomegaly, bowel sounds present Neuro: No focal deficits, no facial deformity, AO x3, power 5/5 in all limbs Extremities: RLE cellulitis currently improving. Data 06/14/25 04:36 06/14/25 04:36 Micro: Microbiology 06/12/25 17:40 Blood Culture - Preliminary Blood NEGATIVE TO DATE 06/12/25 17:28 Blood Culture - Preliminary Blood NEGATIVE TO DATE A&P Assessment and plan 1. Hypertension: 2. Hyperlipemia, mixed: 3. Diabetes type 2, uncontrolled: 4. Hypothyroidism: 5. COPD (chronic obstructive pulmonary disease): 6. Cellulitis: 7. Diastolic congestive heart failure: Plan: Fluid overload, bilateral extremity edema, diastolic CHF exacerbation -BMP - Lasix 40 mg IV every 24 hours Right lower lower extremity cellulitis - With history of cat scratches - Continue vancomycin - Add Zosyn - Follow-up blood cultures Type 2 diabetes mellitus, low-dose sliding scale Gouty arthritis, hold prednisone History of CAD History of hyperlipidemia History of diabetic neuropathy Full code Lovenox for DVT prophylaxis 06/13/25 : RLE cellulitis with diffuse swelling over calf. SHe has longstanding lymphedema. Has several cats that scractch her legs. Now with RLE cellulitis. Continue zosyn and vancomycin. Await blood cx and monitor for improvement. Ct leg with diffuse cellulitis and complex cystic collection over popliteal fossa ? Zhang's cyst vs abscess- US soft tissue ordered to further assess June 14, 2025 Right lower extremity cellulitis and edema is improving. Ultrasound soft tissue taken this morning to further characterize the cystic collection in the popliteal fossa was unable to characterize Zhang's cyst versus abscess. Will order CT with contrast at this time to further assess if this may be an infected collection in which case is going to need an IR guided aspiration. Continue antibiotic treatment with IV piperacillin/tazobactam and vancomycin. If the popliteal fossa collection turns out to be a benign Zhang's cyst, anticipate discharge in the upcoming 24 hours on oral antibiotics. PDMP PDMP Reviewed: Not Reviewed Attestations 2 Medical Necessity Statement*: Continued need for IV antibiotics, needs CT of the right lower extremity to further assess collection in the popliteal fossa. Coding Level of Care Code Acute Code for Chg Fwd Diagnoses Hypertension I10 Hyperlipemia, mixed E78.2 Diabetes type 2, uncontrolled Hypothyroidism E03.9 COPD (chronic obstructive pulmonary disease) J44.9 Cellulitis L03.90 Diastolic congestive heart failure I50.30
[2025-06-14] MEDS: polyethylene glycol 3350 Pkt 17 gm PO (17:41)
[2025-06-14] MEDS: iohexol 350 mg/mL 500 mL Btl (per mL) IV (19:38)
[2025-06-14] MEDS: pantoprazole 40 mg SDV IVP (20:55)
[2025-06-15] VITALS (7 sets, daily range): BP systolic 119–172; BP diastolic 67–79; PULSE 71–77; RESP 15–18; TEMP 36.4–36.9; O2SAT 90–92
[2025-06-15] MEDS: HYDROcodone-acetaminophen 5-325 mg Tablet 1 TAB PO ×2 (00:01→14:16)
[2025-06-15] MEDS: piperacillin-tazobactam 3.375 GM in sodium chloride 0.9% (plus) 50 ML IV ×2 (00:02→09:35)
[2025-06-15 05:00] LABS: Hematocrit 35.0 % (36-47); Hemoglobin 11.00 g/dL (11.27-16.99); Mean Corpuscular HGB Conc 31.4 g/dL (30-55); Mean Corpuscular Hemoglobin 29.0 pg (27-33); Mean Corpuscular Volume 92.3 fl (85-98); Nucleated Red Blood Cells % 0 %; Platelet Count 284 10^3/cmm (157-399); Red Blood Count 3.79 10^6/uL (3.85-5.65); White Blood Count 9.54 10^3/uL (3.29-11.43)
[2025-06-15 05:21] LABS: Alanine Aminotransferase 45 U/L (0-33); Albumin Level 3.1 g/dL (3.5-5.2); Alkaline Phosphatase 81 U/L (35-105); Anion Gap 13.2 (5-19); Aspartate Amino Transferase 24 U/L (0-32); Blood Urea Nitrogen 19 mg/dL (8-23); Calcium 8.3 mg/dL (8.5-10.5); Carbon Dioxide 27 mmol/L (22-29); Chloride 103 mmol/L (98-107); Creatinine Clr Calc Pharmacy 78.6578; Globulin 3.0 g/dL (1.3-4.6); Glucose 118 mg/dL (65-115); Osmolality Calculated 293 mOsm/kg (285-295); Potassium 3.2 mmol/L (3.5-5.1); Sodium 140 mmol/L (136-145); Total Protein 6.1 g/dL (6.6-8.7)
[2025-06-15] MEDS: FUROsemide 10 mg/mL SDV 4mL 40 MG IVP (06:34)
[2025-06-15] MEDS: divalproex ER 250 mg Tablet (24H) PO (09:34)
[2025-06-15] MEDS: polyethylene glycol 3350 Pkt 17 gm PO (09:45)
--- NOTE | 2025-06-15 10:40 | P.DS_ITS ---
Discharge Providers Date of Admission: 06/13/25 22:52 Date of Discharge: June 15, 2025 Attending Provider at Admission: Jasiel Rothman MD Attending Provider at Discharge: Carin Ho MD Primary Care Provider: Roman Clifton MD Diagnoses at Discharge Discharge Diagnosis 1. Hypertension: 2. Hyperlipemia, mixed: 3. Diabetes type 2, uncontrolled: 4. Hypothyroidism: 5. COPD (chronic obstructive pulmonary disease): 6. Cellulitis: 7. Diastolic congestive heart failure: Reason for Visit Reason for Visit: leaking fluid from both legs, swelling Hospital Course Hospital Course 70 year old female with a past history of type 2 diabetes mellitus, hypertension, hyperlipidemia, severe OA, chronic LE edema who presented to [facility] due to right lower extremity erythema, swelling, and history of bilateral extremity pitting and weeping edema. She was found to have right lower extremity edema, extensive erythema swelling of the affected leg. CT of the leg showed diffuse subcutaneous edema throughout the visualized portions of the right lower extremity to the level of patella to the right ankle. There was no gas encountered. There was no underlying abscess. Incidentally note was made of a partially imaged cystic mass posterior to the right femur and superior to the popliteal fossa. Measuring about 6 x [address] of the knee was performed on June 14, 2025 which further characterized this collection to be a multiloculated rim-enhancing simple fluid density collection in the popliteal fossa measuring 6 x 5 x 5 cm likely representing Zhang's cyst. There was no changes of cellulitis directly over the popliteal fossa and no fluctuant mass was encountered therefore abscess in the popliteal fossa was considered less likely clinically. We discussed with the patient the possibility of aspirating this collection, however given that patient has cellulitis affecting the extremity, this was considered to be high risk with possibility of introduction of infection into a potentially sterile collection. Patient does have severe osteoarthritis if her Zhang's cyst is considered more likely. Orthopedic service was additionally consulted to assess for any indication for urgent drainage. Her lower extremity edema started improving with treatment with IV antibiotics including Zosyn and vancomycin. Clinically there remains some residual erythema however this is much improved compared to admission. She has been transition to oral antibiotics for an additional week and patient instructed to return to the emergency room should the cellulitis start to worsen or she develops worsening swelling about the knee joint. Will arrange for follow-up as outpatient with Dr. Cummins with whom patient typically follows as a potential aspiration and synovial steroids may be indicated down the line for the Zhang's cyst once cellulitis resolves. Physical Exam Narrative: General: No acute distress, AO x3 HEENT: PERRLA, pupils bilaterally equal and reactive, pallors not present Chest: Normal vesicular breath sounds, no added sounds, equal good air entry bilaterally CVS: S1-S2 regular, no murmurs, no tachycardia, no gallops, no rubs Abdomen: Soft, nontender, no organomegaly, bowel sounds present Neuro: No focal deficits, no facial deformity, AO x3, power 5/5 in all limbs EXT: RLE edema, erythema still present but much imporved over admission Discharge Data Studies Completed and Pending Completed Studies During Hospitalization Category Date Time Status CT lower leg RT w con [id number] Routine Cat Scan 06/14/25 16:[address] lower leg RT wo con* [id number] Stat Cat Scan 06/12/25 20:37 Completed XR chest 1V portable [id number] Stat Exams 06/12/25 16:49 Completed US soft tissue and or extremity [US soft tissue/ Ultrasound 06/13/25 22:54 Completed extremity [id number]] Routine US venous duplex lower extremity RT [CV venous duplex Ultrasound 06/12/25 17:32 [place] [id number]] Stat Pending at discharge Category Date Time Status Blood Culture Stat Lab 06/12/25 17:40 Results Vancomycin Trough Timed Lab 06/16/25 03:30 Ordered Radiology Impressions Chest X-Ray 06/12/25 16:49 IMPRESSION: 1. Blunting of the left costophrenic angle which can be seen with trace pleural effusion. 2. Mild cardiomegaly. Venous Duplex 06/12/25 17:32 IMPRESSION: No evidence of deep vein thrombosis or superficial vein thrombosis in the visualized veins of the right lower extremity. Soft Tissue Ultrasound 06/13/25 22:54 IMPRESSION: Large complex mass in the popliteal fossa measures 5.9 x 5.2 x 5.2 cm. Etiology cannot be confirmed on this exam. This can be further evaluated by contrast- enhanced CT of the RIGHT lower extremity is recommended on the CT report. MRI with and without contrast may provide additional information also. Lower Extremity CT 06/14/25 16:41 IMPRESSION: 1. Multiloculated rim enhancing simple fluid density collection in the right popliteal fossa measuring 6.3 x 5.8 x 5.4 cm, likely representing a popliteal/Zhang's cyst. This may be acutely infected/inflamed. Clinical correlation is advised. Malignancy, such as synovial sarcoma is not excluded. Recommend clinical and imaging follow-up. 2. Induration of the subcutaneous fat throughout the visualized right lower extremity, compatible with cellulitis or edema. 3. Moderate size suprapatellar joint effusion. 4. Severe osteoarthritis of the right knee. Laboratory Results WBC 9.54 10^3/uL (3.29-11.43) 06/15/25 04:45 RBC 3.79 10^6/uL (3.85-5.65) L 06/15/25 04:45 Hgb 11.00 g/dL (11.27-16.99) L 06/15/25 04:45 Hct 35.0 % (36-47) L 06/15/25 04:45 MCV 92.3 fl (85-98) 06/15/25 04:45 MCH 29.0 pg (27-33) 06/15/25 04:45 MCHC 31.4 g/dL (30-55) 06/15/25 04:45 RDW 15.9 % (12.1-15.1) H 06/15/25 04:45 Plt Count 284 10^3/cmm (157-399) 06/15/25 04:45 MPV 9.2 fL (7.4-10.4) 06/15/25 04:45 Neut % (Auto) 67.2 % 06/15/25 04:45 Lymph % (Auto) 20.8 % 06/15/25 04:45 [place] % (Auto) 10.0 % 06/15/25 04:45 Eos % (Auto) 0.9 % 06/15/25 04:45 Baso % (Auto) 0.5 % 06/15/25 04:45 Neut # (Auto) 6.41 10^3/uL (1.8-7.7) 06/15/25 04:45 Lymph # (Auto) 2.0 10^3/uL (0.8-4.8) 06/15/25 04:45 [place] # (Auto) 1.0 10^3/uL (0.2-0.9) H 06/15/25 04:45 Eos # (Auto) 0.1 10^3/uL (0.0-0.8) 06/15/25 04:45 Baso # (Auto) 0.1 10^3/uL (0.0-0.1) 06/15/25 04:45 Nucleated RBC % (auto) 0 % 06/15/25 04:45 Nucleated RBCs # 0.0 /100WBC 06/15/25 04:45 ESR 16 mm/hr (0-15) H 06/12/25 17:28 Sodium 140 mmol/L (136-145) 06/15/25 04:45 Potassium 3.2 mmol/L (3.5-5.1) L 06/15/25 04:45 Chloride 103 mmol/L (98-107) 06/15/25 04:45 Carbon Dioxide 27 mmol/L (22-29) 06/15/25 04:45 Anion Gap 13.2 (5-19) 06/15/25 04:45 BUN 19 mg/dL (8-23) 06/15/25 04:45 Creatinine 0.5 mg/dL (0.5-0.9) 06/15/25 04:45 GFR Calculation 122.0 mL/min (90-130) 06/15/25 04:45 Glucose 118 mg/dL (65-115) H 06/15/25 04:45 POC Glucose 124 mg/dL (70-110) H 06/15/25 06:20 Estimat Average Glucose 169 06/13/25 04:46 Hemoglobin A1c 7.5 % (4.0-6.0) H 06/13/25 04:46 Calculated Osmolality 293 mOsm/kg (285-295) 06/15/25 04:45 Lactic Acid 2.5 mmol/L (0.5-2.2) H 06/12/25 17:28 Lactic Acid (Sepsis) 1.8 mmol/L (0.5-2.2) 06/12/25 20:15 Calcium 8.3 mg/dL (8.5-10.5) L 06/15/25 04:45 Total Bilirubin 0.2 mg/dL (0.15-1.2) 06/15/25 04:45 AST 24 U/L (0-32) 06/15/25 04:45 ALT 45 U/L (0-33) H 06/15/25 04:45 Alkaline Phosphatase 81 U/L (35-105) 06/15/25 04:45 C-Reactive Protein 4.9 mg/L (0.0-4.9) 06/12/25 17:28 NT-Pro-B Natriuret Pep 72 pg/mL (0-125) 06/12/25 17:28 Total Protein 6.1 g/dL (6.6-8.7) L 06/15/25 04:45 Albumin 3.1 g/dL (3.5-5.2) L 06/15/25 04:45 Globulin 3.0 g/dL (1.3-4.6) 06/15/25 04:45 Triglycerides 164 mg/dL (0-150) H 06/13/25 04:46 Cholesterol 109 mg/dL (0-200) 06/13/25 04:46 LDL Cholesterol, Calc 40 mg/dL (50-129) L 06/13/25 04:46 HDL Cholesterol 36 mg/dL (60-100) L 06/13/25 04:46 LDL/HDL Ratio 1.11 RATIO (0.00-3.22) 06/13/25 04:46 Cholesterol/HDL Ratio 3.03 mg/dL (0.0-4.40) 06/13/25 04:46 Procalcitonin 0.05 ng/mL (0-0.5) 06/12/25 17:28 TSH 4.26 uIU/mL (0.27-4.20) H 06/13/25 04:46 Urine Color Yellow (Yellow) 06/13/25 04:50 Urine Appearance Clear (CLEAR) 06/13/25 04:50 Urine pH 5.0 (5-7) 06/13/25 04:50 Ur Specific [place] 1.016 (1.005-1.030) 06/13/25 04:50 Urine Protein Negative (Negative) 06/13/25 04:50 Urine Glucose (UA) Negative (Normal) 06/13/25 04:50 Urine Ketones Negative (Negative) 06/13/25 04:50 Urine Blood Negative (Negative) 06/13/25 04:50 Urine Nitrate Negative (Negative) 06/13/25 04:50 Urine Bilirubin Negative (Negative) 06/13/25 04:50 Urine Urobilinogen 0.2 mg/dL (Negative) 06/13/25 04:50 Ur Leukocyte Esterase Trace (Negative) A 06/13/25 04:50 Urine RBC 0-2 /hpf (0-2) 06/13/25 04:50 Urine WBC 0-5 /hpf (0-5) 06/13/25 04:50 Ur Squamous Epith Cells 0-5 /hpf (0-5) 06/13/25 04:50 Amorphous Sediment Not Reportable 06/13/25 04:50 Urine Bacteria None seen /hpf (NONE) 06/13/25 04:50 Hyaline Casts 2.05 /lpf 06/13/25 04:50 Vancomycin Trough 19.5 ug/mL (10-15) H 06/14/25 13:57 Vitals Last Vital Signs Temp 97.8 F 06/15/25 07:26 Pulse 72 06/15/25 07:26 Resp 17 06/15/25 07:26 BP 136/72 06/15/25 07:26 Pulse Ox 90 06/15/25 07:26 O2 Del Method Room Air 06/15/25 04:00 Discharge Plan Discharge Patient Disposition: Home Condition: Stable Prescriptions: New atorvastatin 40 mg Tablet 40 mg PO DAILY Qty: 0 0RF gabapentin 100 mg Capsule 100 mg PO TID Qty: 0 0RF cefadroxil 1 gram tablet 1,000 mg PO DAILY 10 Days Qty: 20 0RF chlorhexidine gluconate [Antiseptic Skin Clnsr(chlorhe)] 4 % liquid 1 applic topical DAILY 5 Days Qty: 236 0RF Rx Instructions: use for 5 days every month to take a bath, do not apply on face mupirocin [Centany] 2 % ointment 1 applic topical DAILY PRN (Reason: leg pustules) Qty: 15 0RF Rx Instructions: to be applied over pustules over leg as they appear furosemide [Lasix] 20 mg tablet 20 mg PO DAILY PRN (Reason: edema) Qty: 30 0RF Rx Instructions: take for worsening LE edema or greater than 3 pound weight gain in 3 days doxycycline hyclate 100 mg capsule 100 mg PO BID 7 Days Qty: 14 0RF Continued aspirin 81 mg tablet,chewable 81 mg PO DAILY fluticasone propionate 50 mcg/actuation spray,suspension 2 spray INTRANASAL DAILY albuterol sulfate 90 mcg/actuation aerosol powdr breath activated 2 inh inhalation Q6H PRN (Reason: Shortness Of Breath Or Wheezing) divalproex 250 mg tablet extended release 24 hr 250 mg PO BEDTIME (DME) diabetic shoes and 3 inserts See Rx Instructions .Route .MEDSUPPLY Qty: 1 0RF Rx Instructions: As directed to the asiya zuleta ondansetron HCl 4 mg tablet 4 mg PO Q8H PRN (Reason: nausea and vomiting) Qty: 3 0RF polyethylene glycol 3350 [Miralax] 17 gram/dose powder 17 g PO BID 10 Days Qty: 340 0RF Rx Instructions: prn (DME) pen needle, diabetic [Comfort EZ Pen [place]] 31 gauge x 3/16 needle See Rx Instructions .Route Qty: 100 2RF Rx Instructions: As directed Trulicity 4.5 mg/0.5 mL pen injector See Rx Instructions .ROUTE .COMPLEX Qty: 2.5 4RF Dose Instruction: INJECT 0.5 ML SUBCUTANEOUSLY ONCE EVERY 7 DAYS Rx Instructions: INJECT 0.5 ML SUBCUTANEOUSLY ONCE EVERY 7 DAYS. Wednesday' acarbose 50 mg tablet 50 mg .ROUTE TID Qty: 30 0RF multivitamin Tablet 1 tab PO DAILY latanoprost 0.005 % Drops 1 drp OPHTHALMIC (EYE) DAILY bupropion HCl 100 mg tablet sustained-release 12 hr 100 mg PO BID levothyroxine 88 mcg tablet 88 mcg PO QAM losartan-hydrochlorothiazide 100-12.5 mg tablet 1 tab PO DAILY gabapentin 400 mg capsule 400 mg PO TID brimonidine 0.2 % drops 1 drp ophthalmic (eye) BID escitalopram oxalate 10 mg tablet 10 mg PO DAILY amlodipine-atorvastatin 10-40 mg tablet 1 tab PO DAILY primidone 50 mg tablet 100 mg PO BID metformin 500 mg tablet extended release 24 hr 500 mg PO TID meloxicam 7.5 mg Tablet 7.5 mg PO DAILY Bevespi Aerosphere 9-4.8 mcg Hfa Aerosol Inhaler 2 puff INHALATION BID hydrocodone-acetaminophen 5-325 mg tablet 1 tab PO Q6H PRN (Reason: pain) Qty: 25 0RF methylprednisolone [Medrol (Morales)] 4 mg tablets,dose pack See Rx Instructions .ROUTE .COMPLEX Qty: 21 0RF Rx Instructions: orally per package directions Referrals: Roman Clifton MD [Primary Care Provider, [facility]] Patient Instructions: Opioid Safety, Patient Portal & Mello Instructions Discharge Attestations Time Spent in Discharge Care*: greater than 30 min Status at Discharge: Cognitive status at discharge: cognitively intact , Behavioral status at discharge: cooperative , Quality Metrics Clinical Quality Measures [ No reported AMI, CVA or VTE this stay] Coding Level of Care Code Acute Code for Chg Fwd Diagnoses Hypertension I10 Hyperlipemia, mixed E78.2 Diabetes type 2, uncontrolled Hypothyroidism E03.9 COPD (chronic obstructive pulmonary disease) J44.9 Cellulitis L03.90 Diastolic congestive heart failure I50.30
--- NOTE | 2025-06-15 14:57 | PM.CONSULT ---
Providers/Reason For Consult Consulting Physician/Specialty*: Hospitalist Reason for Consult*: Mass in popliteal fossa Attending Physician: Carin Ho MD Primary Care Provider: Roman Clifton MD History of Present Illness History of Present Illness Ester Wilson is a 70 year old female history of type 2 diabetes mellitus, hypertension, hyperlipidemia, who presents to [facility] right lower extremity erythema, swelling, and history of bilateral extremity pitting and weeping edema. Patient has been treated with antibiotics and has been improving. However CT scan did show that she had what is possibly a Zhang's cyst but cannot rule out there is an abscess. Review of Systems Const: Denies: fever(s) or chills Card: Denies: chest pain Resp: Denies: dyspnea Medications/Allergies Home Medications ?Medication ?Instructions ?Recorded ?Confirmed ?Last Taken ?Type fluticasone propionate 50 2 spray intranasal DAILY 12/26/19 06/13/25 06/12/25 History mcg/actuation nasal spray,suspension bupropion HCl 100 mg tablet,12 hr 100 mg PO BID 07/22/21 06/13/25 06/12/25 History sustained-release latanoprost 0.005 % eye drops 1 drp ophthalmic (eye) DAILY 07/22/21 06/13/25 06/12/25 History levothyroxine 88 mcg tablet 88 mcg PO QAM 07/22/21 06/13/25 06/12/25 History losartan 100 1 tab PO DAILY 07/22/21 06/13/25 06/12/25 History mg-hydrochlorothiazide 12.5 mg tablet multivitamin 1 tab PO DAILY 07/22/21 06/13/25 06/12/25 History aspirin 81 mg chewable tablet 81 mg PO DAILY 04/01/22 06/13/25 06/12/25 History pen needle, diabetic 31 gauge x #100 ea 03/31/23 06/13/25 Unknown Rx 01/21 (Comfort EZ Pen [place]) divalproex 250 mg tablet,extended 250 mg PO BEDTIME 10/08/23 06/13/25 06/11/25 History release 24 hr albuterol sulfate 90 mcg/actuation 2 inh inhalation Q6H PRN Shortness 10/26/23 06/13/25 2 Days Ago History breath activated powder inhaler Of Breath Or Wheezing ~12/23/24 diabetic shoes and 3 inserts #1 ea 11/21/24 06/13/25 Unknown Rx ondansetron HCl 4 mg tablet 4 mg PO Q8H PRN nausea and 12/12/24 06/13/25 Unknown Rx vomiting #3 tabs polyethylene glycol 3350 17 17 g PO BID 10 days #340 grams 12/12/24 06/13/25 01/09/25 Rx gram/dose oral powder (Miralax) glycopyrrolate 9 mcg-formoterol 2 puff inhalation BID 12/25/24 06/13/25 06/12/25 History 4.8 mcg HFA aerosol inhaler (Bevespi Aerosphere) meloxicam 7.5 mg tablet 7.5 mg PO DAILY 12/25/24 06/13/25 06/12/25 History metformin 500 mg tablet,extended 500 mg PO TID 12/25/24 06/13/25 06/12/25 History release 24 hr primidone 50 mg tablet 100 mg PO BID 12/25/24 06/13/25 06/12/25 History dulaglutide 4.5 mg/0.5 mL See Rx Instructions .Route 02/20/25 06/13/25 06/08/25 Rx subcutaneous pen injector .COMPLEX [facility]2.[facility] acarbose 50 mg tablet 50 mg .Route TID #30 tabs 05/21/25 06/13/25 06/12/25 Rx hydrocodone 5 mg-acetaminophen 325 1 tab PO Q6H PRN pain #25 tabs 06/05/25 06/13/25 Unknown Rx mg tablet methylprednisolone 4 mg tablets in See Rx Instructions PO .COMPLEX 06/05/25 06/13/25 Unknown Rx a dose pack (Medrol ([place])) #21 ea amlodipine 10 mg-atorvastatin 40 1 tab PO DAILY 06/13/25 06/13/25 06/12/25 History mg tablet brimonidine 0.2 % eye drops 1 drp ophthalmic (eye) BID 06/13/25 06/13/25 06/12/25 History escitalopram oxalate 10 mg tablet 10 mg PO DAILY 06/13/25 06/13/25 06/12/25 History gabapentin 400 mg capsule 400 mg PO TID 06/13/25 06/13/25 06/12/25 History Allergies Allergy/AdvReac Type Severity Reaction Status Date / Time azithromycin Allergy hives/ GI Verified 06/05/25 15:48 upset tramadol AdvReac hives Verified 06/05/25 15:48 Current Medications Generic Name Dose Route Start Last Admin Trade Name Lyssa PRN Reason Stop Dose Admin Acetaminophen 650 mg 06/12/25 21:46 06/13/25 06:35 Acetaminophen 325 Mg Tablet PO 650 mg Q6H PRN Administration Mild/Mod Pain Or Temp >/= 101 Hydrocodone Bitart/Acetaminophen 1 tab 06/12/25 21:46 06/15/25 14:16 Hydrocodone-Acetaminophen 5-325 Mg Tablet PO 1 tab Q8H PRN Administration PAIN Aspirin 81 mg 06/13/25 09:00 06/15/25 09:34 Aspirin 81 Mg Chew Tablet PO 81 mg DAILY THERESA Administration Atorvastatin Calcium 40 mg 06/13/25 09:00 06/15/25 09:34 Atorvastatin 40 Mg Tablet PO 40 mg DAILY THERESA Administration Bupropion HCl 100 mg 06/13/25 09:00 06/15/25 09:34 Bupropion Sr (12 Hr) 100 Mg Tablet PO 100 mg BID THERESA Administration Divalproex Sodium 250 mg 06/13/25 09:00 06/15/25 09:34 Divalproex Er 250 Mg Tablet (24h) PO 250 mg DAILY THERESA Administration Enoxaparin Sodium 40 mg 06/12/25 21:46 06/14/25 20:55 Enoxaparin 40 Mg/0.4 Ml Syringe SUBCUT 40 mg Q24H THERESA Administration Furosemide 40 mg 06/13/25 07:00 06/15/25 06:34 Furosemide 10 Mg/Ml Sdv 4ml IVP 40 mg Q24H THERESA Administration Gabapentin 100 mg 06/12/25 21:46 06/15/25 14:16 Gabapentin 100 Mg Capsule PO 100 mg TID THERESA Administration Hydrochlorothiazide 12.5 mg 06/13/25 09:00 06/15/25 09:34 Hydrochlorothiazide 25 Mg Tablet PO 12.5 mg DAILY THERESA Administration Piperacillin Sod/Tazobactam 50 mls @ 12.5 mls/hr 06/13/25 17:00 06/15/25 14:04 Sod 3.375 gm/ Sodium Chloride IV Infused Q8H THERESA Infusion Vancomycin HCl 1,500 mg in 300 mls @ 200 mls/hr 06/14/25 16:30 06/15/25 06:06 Vancocin IV Infused Q12H THERESA Infusion Insulin Human Lispro 0 unit 06/12/25 21:46 06/15/25 11:53 Insulin Lispro 100 Unit/1 Ml SUBCUT 2 unit WM&BEDTIME THERESA Administration Protocol Latanoprost 1 drop 06/13/25 09:00 06/15/25 09:37 Latanoprost 0.005% Op Soln 2.5 Ml Btl EYE-BOTH 1 drop DAILY THERESA Administration Levothyroxine Sodium 88 mcg 06/13/25 09:00 06/15/25 09:34 Levothyroxine 88 Mcg Tablet PO 88 mcg DAILY THERESA Administration Losartan Potassium 100 mg 06/13/25 09:00 06/15/25 09:34 Losartan 50 Mg Tablet PO 100 mg DAILY THERESA Administration Pantoprazole Sodium 40 mg 06/12/25 21:46 06/14/25 20:55 Pantoprazole 40 Mg Sdv IVP 40 mg Q24H THERESA Administration Polyethylene Glycol 17 gm 06/13/25 09:00 06/15/25 09:45 Polyethylene Glycol 3350 Pkt 17 Gm PO 17 gm BID THERESA Administration Primidone 100 mg 06/13/25 09:00 06/15/25 09:34 Primidone 50 Mg Tablet PO 100 mg BID THERESA Administration PFSH Acute PFSH: Medical History (Updated 06/15/25 @ 14:59 by Garrett Rider DO) Primary osteoarthritis of shoulders, bilateral Right rotator cuff tendonitis AC (acromioclavicular) arthritis Primary osteoarthritis, right shoulder PERCY (obstructive sleep apnea) COPD (chronic obstructive pulmonary disease) Pneumonia due to COVID-19 virus Hypertension COVID-19 Surgical History History of detached retina repair History of tonsillectomy Family History Other Hypertension Social History Smoking and tobacco/nicotine status: former use of tobacco/nicotine Quit status (tobacco/nicotine): has quit using Year quit tobacco: 2014 Former quit date comment: 1 pack per day for 48 years Second hand smoke exposure: No Alcohol intake: never Substance/Drug Use: never Lives independently: Yes Pets and animals: Yes Pets & animals: cat(s) Current gender identity: Female Special roxanne needs: No Vitals/I&O/Wt Last Vital Signs Temp 97.6 F 06/15/25 11:57 Pulse 77 06/15/25 11:57 Resp 18 06/15/25 11:57 BP 119/67 06/15/25 11:57 Pulse Ox 91 06/15/25 11:57 O2 Del Method Room Air 06/15/25 09:15 06/14/25 06/15/25 06/15/25 22:59 06:59 14:59 Intake Total 1090 / 1500 650 / 2150 650 / 650 Output Total 300 / 1500 250 / 1750 600 / 600 Balance 790 / 0 400 / 400 50 / 50 Weight last 48 hrs Weight 246 lb 6.4 oz Weight 250 lb Physical Exam Narrative: Alert and oriented x 3 Head is normocephalic atraumatic Respirations are intact Patient right leg is red throughout her calf. However on physical exam if the popliteal fossa there is no warmth it is no or erythema at all is not tender to touch at all. More likely this is a Zhang's cyst in the back of her leg. It does not appear to be infected at all. Data 06/15/25 04:45 06/15/25 04:45 A&P Assessment and plan 1. Synovial cyst of right knee: Patient finding on CT scan which I was consulted for. I feel like this is a Zhang's cyst. Based on clinical exam do not feel like this is infected in her posterior knee popliteal fossa area. Will have her follow-up with Dr. Cummins on an outpatient basis. PDMP PDMP Reviewed: Not Reviewed Coding Level of Care Code Acute Code for g Fwd Diagnoses Synovial cyst of right knee M71.21 Laterality: right
--- NOTE | 2025-06-15 15:06 | PC.SOCIAL ---
IMM Update pg 2 of IMM updated and reviewed w/ patient. Copy provided and copy dated, initialed and placed in chart.
== END 2025-06-15 16:00 | disposition home or self-care (01) | DRG 602 ==
LOC: ER 19:47 → MEDSURG 06-13 01:45
PROVIDERS: Admitting Provider Family Medicine; Emergency Provider Family Medicine; PCP Family Medicine; Visit Provider Student in an Organized Health Care Education/Training Program
DX: L03.115 Cellulitis of right lower limb (principal); I50.33 Acute on chronic diastolic (congestive) heart failure; I11.0 Hypertensive heart disease with heart failure; E78.2 Mixed hyperlipidemia; E11.9 Type 2 diabetes mellitus without complications; J44.9 Chronic obstructive pulmonary disease, unspecified; M10.9 Gout, unspecified; M71.21 Synovial cyst of popliteal space [Baker], right knee; Z87.891 Personal history of nicotine dependence; Z79.82 Long term (current) use of aspirin; Z79.84 Long term (current) use of oral hypoglycemic drugs; Z79.85 Long-term (current) use of injectable non-insulin antidiabetic drugs
CPT/HCPCS: 36415; 36416; 71045; 73700; 73701; 76882; 80053; 80061; 80202; 81001; 82962; 83036; 83605; 83880; 84145; 84443; 85025; 85651; 86140; 87040; 93005; 93971; 94664; 96365; 96372; 99285; G0378; J1650; J1815; J1938; J2470; J2543; J3372; J3373; J7050; J9999

== ENCOUNTER 2025-06-19 14:45 | Outpatient (CLI) | payer OTHER, MEDICAID, SELFPAY ==
--- NOTE | 2025-06-19 14:49 | CTR_ITS ---
PROCEDURE INFORMATION: Exam: CT Chest Without Contrast; Diagnostic Exam date and time: 06/19/2025 2:56 PM Age: 70 years old Clinical indication: Abnormal findings; Abnormal radiologic exam of lung or chest; Additional info: Lung nodule TECHNIQUE: Imaging protocol: Diagnostic computed tomography of the chest without contrast. Radiation optimization: All CT scans at this facility use at least one of these dose optimization techniques: automated exposure control; mA and/or kV adjustment per patient size (includes targeted exams where dose is matched to clinical indication); or iterative reconstruction. COMPARISON: CT chest wo con [id number] 06/16/2024 2:47 PM RADIATION DOSE METRICS: Total DLP (mGy-cm): 610.63 FINDINGS: Lungs: Calcified granuloma in each lower lobe. Stable 10 mm lingular nodule at least partially calcified. Pleural spaces: Unremarkable. No pneumothorax. No pleural effusion. Heart: Unremarkable. No cardiomegaly. No pericardial effusion. Coronary arteries: Coronary artery calcifications. Lymph nodes: Stable 3 mm left lower lobe pulmonary nodule (5:37) Calcified right hilar lymph nodes. Vasculature: Unremarkable. No aortic aneurysm. Liver: Stable subcapsular hepatic masses unchanged from previous. Spleen: Calcified granulomata within the spleen. Bones/joints: Unremarkable. No acute fracture. Soft tissues: Unremarkable. CT/CT chest wo con [id number] IMPRESSION: 1. Stable pulmonary nodules. 2. Stable hepatic lesions.
== END 2025-06-19 14:46 | disposition home or self-care (01) ==
LOC: RAD 14:46
PROVIDERS: PCP Family Medicine; Visit Provider Family Medicine
DX: R91.8 Other nonspecific abnormal finding of lung field (principal); J84.10 Pulmonary fibrosis, unspecified; I25.10 Atherosclerotic heart disease of native coronary artery without angina pectoris; R91.1 Solitary pulmonary nodule
CPT/HCPCS: 71250

== ENCOUNTER → 2025-06-20 15:27 | Outpatient (BNVA) | payer OTHER, MEDICAID, SELFPAY | PROVIDERS: PCP Family Medicine; Visit Provider Specialist | DX: M71.21 Synovial cyst of popliteal space [Baker], right knee (principal); L03.115 Cellulitis of right lower limb; M17.0 Bilateral primary osteoarthritis of knee; E66.01 Morbid (severe) obesity due to excess calories; Z68.41 Body mass index [BMI] 40.0-44.9, adult | CPT/HCPCS: 73560; 73565; 99214 ==

== ENCOUNTER → 2025-06-22 09:27 | Outpatient (BNVA) | payer OTHER, MEDICAID, SELFPAY | PROVIDERS: PCP Family Medicine; Visit Provider Thoracic Surgery (Cardiothoracic Vascular Surgery) | DX: L03.115 Cellulitis of right lower limb (principal); M71.21 Synovial cyst of popliteal space [Baker], right knee | CPT/HCPCS: 99203 ==

== ENCOUNTER 2025-07-03 12:42 | Outpatient (CLI) | payer OTHER, MEDICAID, SELFPAY ==
--- NOTE | 2025-07-03 12:55 | CT_ITS ---
WS: [id number] CT ABDOMEN WITH AND WITHOUT CONTRAST HISTORY: RENAL LESION Multiphase CT abdomen with and without IV contrast. Oral contrast has not been provided. Coronal and sagittal reformats are submitted. All CT scans at [facility] use at least one of these dose optimization techniques: automated exposure control; mA and/or kV adjustment per patient size (includes targeted exams where dose is matched to clinical indication); or iterative reconstruction. IV CONTRAST: Omnipaque 350; 100 mL IV. Oral contrast: No DLP: 3562.46 mGy.cm COMPARISON: 06/22/2006, 12/28/2023, 06/22/2024 Lower thorax: Benign granuloma RIGHT lower lung. Scarring and emphysematous changes at the lung bases. 10 mm LEFT lower lobe pulmonary nodule. Mild cardiomegaly. Small hiatal hernia. Liver/biliary system: Liver is mildly enlarged. Patient has known hepatic hemangiomas which have been previously described. The largest is in the posterior RIGHT lobe of the liver towards the diaphragmatic surface measuring 7.1 x 3.5 cm. No intrahepatic duct dilatation. Normal portal vein. Gallbladder: Prior cholecystectomy. Pancreas: Normal size pancreas and pancreatic duct. No adjacent inflammation. Spleen: Normal size with granulomata. Adrenal glands: Normal. Right kidney: Normal size RIGHT kidney. Exophytic low-attenuation mass in the superior pole measures 1.7 x 1.7 cm and is slightly increased in size since 12/28/2023. There is mild elevation of Hounsfield units after contrast injection. No additional RIGHT renal lesions or obstruction. Left kidney: Low-attenuation mass in the central LEFT kidney is reidentified. This was not noted on the most recent study due to phase of contrast enhancement. On the delayed enhancement sequences there is a cortical enhancing mass measuring 1.8 x 2.1 cm. This lesion does enhance and is suspicious for renal cell neoplasm. Not changed in size since 12/28/2023. No additional lesions are identified. No renal obstruction. Aorta: Mild atherosclerosis with no aneurysm. Lymphadenopathy: None. Free fluid: None. GI tract: No obstruction. No colitis. Diverticular disease in the transverse and LEFT colon visualized. Abdominal wall: Ventral abdominal wall postsurgical changes. Visualized osseous structures: Mild anterior wedging of T8. New fracture since 06/22/2024. CT/CT abdomen wo/w con [id number] IMPRESSION: 1. Exophytic mass superior pole RIGHT kidney measures 1.7 x 1.7 cm which is sl ightly increased in size since 12/28/2023. Mild elevation of Hounsfield units af ter contrast injection. Indeterminate but suspicious for renal cell neoplasm. 2. Mid cortical LEFT renal mass measures 1.8 x 2.1 cm and is unchanged in size since 12/28/2023. Not definitely seen on the prior study of 06/22/2024 due to th e phase of contrast enhancement. This mass does enhance and is highly suspiciou s for renal cell neoplasm. Recommend evaluation by urology. 3. Prior cholecystectomy. 4. Hepatic hemangiomas. 5. Hiatal hernia.
[2025-07-03] MEDS: iohexol 350 mg/mL 500 mL Btl (per mL) IV (13:24)
[2025-07-03 14:15] LABS: Alanine Aminotransferase 65 U/L (0-33); Albumin Level 4.2 g/dL (3.5-5.2); Alkaline Phosphatase 76 U/L (35-105); Anion Gap 15.9 (5-19); Aspartate Amino Transferase 51 U/L (0-32); Blood Urea Nitrogen 18 mg/dL (8-23); Calcium 10.3 mg/dL (8.5-10.5); Carbon Dioxide 28 mmol/L (22-29); Chloride 100 mmol/L (98-107); Globulin 2.9 g/dL (1.3-4.6); Glucose 135 mg/dL (65-115); Osmolality Calculated 294 mOsm/kg (285-295); Potassium 3.9 mmol/L (3.5-5.1); Sodium 140 mmol/L (136-145); Total Protein 7.1 g/dL (6.6-8.7)
[2025-07-06 08:55] LABS: Plasma Renin Activity LC/MS/MS 2.19 ng/mL/h (0.25-5.82)
== END 2025-07-03 12:43 | disposition home or self-care (01) ==
LOC: RAD 12:43
PROVIDERS: Internal Medicine; PCP Family Medicine; Visit Provider Family Medicine
DX: E11.9 Type 2 diabetes mellitus without complications (principal); E27.9 Disorder of adrenal gland, unspecified; N28.89 Other specified disorders of kidney and ureter; Z90.49 Acquired absence of other specified parts of digestive tract; D18.03 Hemangioma of intra-abdominal structures; K44.9 Diaphragmatic hernia without obstruction or gangrene
CPT/HCPCS: 74170; 80053; 82088; 84244

== ENCOUNTER 2025-07-05 15:18 | Outpatient (CLI) | payer OTHER, MEDICAID, SELFPAY ==
[2025-07-05 17:47] LABS: Creatinine 24 Hour Urine 1017.0 mg/dL (601-1689); Microalbumin Result 4.3 mg/dL; Total Volume Urine 900 ml
[2025-07-05 21:12] LABS: Microalbumin 24 Hour Result 39 mg/24HR (0-30); Microalbumin Total Volume 900 mL
== END 2025-07-05 15:19 | disposition home or self-care (01) ==
LOC: LAB 15:20
PROVIDERS: PCP Family Medicine; Visit Provider Internal Medicine
DX: E11.9 Type 2 diabetes mellitus without complications (principal); E27.9 Disorder of adrenal gland, unspecified
CPT/HCPCS: 82043; 82384; 82530; 82570; 83835

== ENCOUNTER → 2025-08-10 15:16 | Outpatient (BNVA) | payer OTHER, MEDICAID, SELFPAY | PROVIDERS: PCP Family Medicine; Visit Provider Nurse Practitioner Family | DX: L21.8 Other seborrheic dermatitis (principal); D69.2 Other nonthrombocytopenic purpura; L73.8 Other specified follicular disorders; L82.1 Other seborrheic keratosis; L81.4 Other melanin hyperpigmentation; L57.8 Other skin changes due to chronic exposure to nonionizing radiation; D22.5 Melanocytic nevi of trunk; L29.89 Other pruritus | CPT/HCPCS: 99214 ==

== ENCOUNTER 2025-08-23 12:31 | Outpatient (CLI) | payer OTHER, MEDICAID, SELFPAY ==
--- NOTE | 2025-08-23 | MM_ITS ---
WS: [id number] BILATERAL SCREENING DIGITAL TOMOSYNTHESIS MAMMOGRAM WITH CAD HISTORY: ANNUAL SCREENING COMPARISON: 08/22/2024, 08/18/2023 Bilateral CC and MLO views with tomosynthesis and synthetic mammography submitted. Computer aided detection analyzed. Breast composition: There are scattered areas of fibroglandular density. No suspicious masses, microcalcifications or architectural distortion. Benign bilateral breast calcifications. MM/MM scr BI tomosynthesis [id number] IMPRESSION: BI-RADS: 2 - Benign. FOLLOW UP: 1 Year Follow-up
--- NOTE | 2025-08-23 12:37 | XR_ITS ---
WS: [id number] SCREENING DEXA SCAN Sensorist CLINICAL INFORMATION: WEDGE COMPRESSION FRACTURE OF T7-T8 VERTEBRA COMPARISON: 2022 FINDINGS: The L1-L4 bone mineral density measures 1.565 g/cm2. This corresponds to a T score score of 3.2 and Z score of 3.7. Left femoral neck bone mineral density measures 1.172 g/cm2. This corresponds to a T score of 1.3 and Z score of 2.0. Right femoral neck bone mineral density measures 1.159 g/cm2. This corresponds to a T score 1.2of and Z score of 1.9. Mean femoral neck bone mineral density measures 1.166 g/cm2. This corresponds to a T score of 1.3 and Z score of 1.9. XR/XR DEXA axial skeleton* [id number] IMPRESSION: Normal bone mineralization. Patient's FRAX calculated 10 year probability for major osteoporotic fracture i s 4.9% and osteoporotic hip fracture is 0.1%. Bone mineral density lumbar spine increased 3.4% Bone mineral density femoral necks increased 0.9%
== END 2025-08-23 12:32 | disposition home or self-care (01) ==
LOC: RAD 12:32
PROVIDERS: PCP Family Medicine; Visit Provider Family Medicine
DX: Z12.31 Encounter for screening mammogram for malignant neoplasm of breast (principal); Z13.820 Encounter for screening for osteoporosis; Z78.0 Asymptomatic menopausal state; R92.323 Mammographic fibroglandular density, bilateral breasts; R92.1 Mammographic calcification found on diagnostic imaging of breast; S22.060K Wedge compression fracture of T7-T8 vertebra, subsequent encounter for fracture with nonunion; Y99.9 Unspecified external cause status
CPT/HCPCS: 77063; 77067; 77080

== ENCOUNTER → 2025-08-24 09:37 | Outpatient (BNVA) | payer OTHER, MEDICAID, SELFPAY | PROVIDERS: PCP Family Medicine; Visit Provider Specialist | DX: M17.0 Bilateral primary osteoarthritis of knee (principal) | CPT/HCPCS: 20610; J1100; J2795; J3301; J9999 ==

== ENCOUNTER → 2025-09-20 10:31 | Outpatient (BNVA) | payer MEDICARE, MEDICAID, SELFPAY | PROVIDERS: PCP Family Medicine; Visit Provider Podiatrist Foot & Ankle Surgery | DX: E11.42 Type 2 diabetes mellitus with diabetic polyneuropathy (principal); L60.3 Nail dystrophy; G62.9 Polyneuropathy, unspecified; L84 Corns and callosities; R60.9 Edema, unspecified; Z79.84 Long term (current) use of oral hypoglycemic drugs | CPT/HCPCS: 11721 ==